=== PATIENT | male | born 1940 | race Caucasian/White ===

== ENCOUNTER → 2017-02-16 | Outpatient (CLI) | payer OTHER ==
[~2017-02-16] MED LIST: ACET325T96 PO; APR25 PO; ASPI81TA28 PO; BSP/10 PO; CRD200 PO; CZR50 PO; FLM4 PO; GLCSR10 PO; GUAI1TAB55 PO; INSDGIPEN SC; IPRASOL4 INH; ISOS60TA25 PO; LEVO1TAB35 PO; LSX40 PO; NEBMAC; NITR0.4S UT; NTRGSL/4 SL; OMEP40CA41 PO; PLV75 PO; POTA1CAP2 PO; PRAV80TA2 PO; PRED50TA PO; PRS5 PO; TPRSR/25 PO
[2017-02-16 12:29] LABS: BLOOD UREA NITROGEN 73 mg/dl (7-18); BUN/CREATININE RATIO 21.4 (10-20); CALCIUM 8.9 mg/dl (8.5-10.1); CARBON DIOXIDE 23 mmol/L (21-32); CHLORIDE 111 mmol/L (98-107); GLUCOSE 116 mg/dl (70-99); POTASSIUM 4.6 mmol/L (3.5-5.1); SODIUM 144 mmol/L (136-145)
[2017-02-16 13:01] LABS: ESTIMATED AVERAGE GLUCOSE 148 mg/dl; HA1C FLAG Normal (Normal)
--- NOTE | 2017-02-23 08:59 | CODING QUERY MEDICAL NECESSITY ---
SUPPORTING DIAGNOSIS NEEDED A supporting diagnosis is required for the test/procedure performed on this patient in order for us to be reimbursed by the patient's insurance. Please provide a supporting diagnosis for the following test/procedure listed below next to the test name along with your signature. *If there is no additional diagnosis for this patient that would support the following test/procedure please document that below next to the test/procedure. Test(s)/Procedure(s) that require a supporting diagnosis: DOS 02/16 * Hba1c DIAGNOSIS: Provider Signature: Date: Thank you Nuha [facility] Information [facility] Once completed, please kindly fax back to [phone] For questions please call [phone]
== END | disposition home or self-care (01) ==
LOC: C.LABPVFM 09:07
PROVIDERS: ATTEND Internal Medicine
DX: I10 Essential (primary) hypertension (principal); R94.6 Abnormal results of thyroid function studies; E11.65 Type 2 diabetes mellitus with hyperglycemia

== ENCOUNTER → 2017-05-21 | Outpatient (CLI) | payer OTHER ==
[~2017-05-21] MED LIST changes: +GUAI600T49 PO; +POTA10CA28 PO
[2017-05-21 12:55] LABS: BASO % 0.6 %; BASO ABS # 0.03 K/uL (0-0.2); COMPLETE YES; HEMATOCRIT 37.1 % (42-52); IG% 0.4 %; LYMPH % 26.2 %; LYMPH ABS # 1.25 K/uL (1.2-3.4); MEAN CELL VOLUME 89.2 fL (80-100); MEAN CORPUSCULAR HEMOGLOBIN 30.5 pg (25-34); MEAN CORPUSCULAR HGB CONC 34.2 g/dl (32-36); MEAN PLATELET VOLUME 10.6 fL (7.4-10.4); MONO % 9.2 %; NEUT % 63.6 %; PLATELET COUNT 158 K/uL (130-400); RED BLOOD COUNT 4.16 M/uL (4.7-6.1); WHITE BLOOD COUNT 4.78 K/uL (4.8-10.8)
[2017-05-21 13:08] LABS: BLOOD UREA NITROGEN 81 mg/dl (7-18); BUN/CREATININE RATIO 23.9 (10-20); CALCIUM 8.9 mg/dl (8.5-10.1); CARBON DIOXIDE 25 mmol/L (21-32); CHLORIDE 111 mmol/L (98-107); GLUCOSE 138 mg/dl (70-99); POTASSIUM 4.7 mmol/L (3.5-5.1); SODIUM 144 mmol/L (136-145)
[2017-05-21 13:12] LABS: ESTIMATED AVERAGE GLUCOSE 151 mg/dl; HA1C FLAG Normal (Normal)
--- NOTE | 2017-05-27 12:27 | CODING QUERY MEDICAL NECESSITY ---
SUPPORTING DIAGNOSIS NEEDED A supporting diagnosis is required for the test/procedure performed on this patient in order for us to be reimbursed by the patient's insurance. Please provide a supporting diagnosis for the following test/procedure listed below next to the test name along with your signature. *If there is no additional diagnosis for this patient that would support the following test/procedure please document that below next to the test/procedure. Test(s)/Procedure(s) that require a supporting diagnosis: * HEMOGLOBIN A1C DIAGNOSIS: Provider Signature: Date: Thank you Ruby Velez [employer] Information Management Once completed, please kindly fax back to [phone] For questions please call [phone]
== END | disposition home or self-care (01) ==
LOC: C.LABPVFM 09:14
PROVIDERS: ATTEND Internal Medicine
DX: R94.6 Abnormal results of thyroid function studies (principal); E11.9 Type 2 diabetes mellitus without complications

== ENCOUNTER → 2017-06-02 | Outpatient (CLI) | payer OTHER ==
[~2017-06-02] MED LIST changes: -GUAI600T49 PO; -POTA10CA28 PO
== END | disposition home or self-care (01) ==
LOC: C.LABPVFM 08:51
PROVIDERS: ATTEND Urology
DX: N40.1 Benign prostatic hyperplasia with lower urinary tract symptoms (principal)

== ENCOUNTER → 2017-08-24 | Outpatient (CLI) | payer OTHER ==
[2017-08-24 17:33] LABS: BASO % 0.7 %; BASO ABS # 0.04 K/uL (0-0.2); COMPLETE YES; HEMATOCRIT 39.7 % (42-52); IG% 0.2 %; LYMPH % 22.9 %; LYMPH ABS # 1.32 K/uL (1.2-3.4); MEAN CELL VOLUME 94.7 fL (80-100); MEAN CORPUSCULAR HEMOGLOBIN 30.1 pg (25-34); MEAN CORPUSCULAR HGB CONC 31.7 g/dl (32-36); MEAN PLATELET VOLUME 10.2 fL (7.4-10.4); MONO % 9.5 %; NEUT % 66.7 %; PLATELET COUNT 183 K/uL (130-400); RED BLOOD COUNT 4.19 M/uL (4.7-6.1); WHITE BLOOD COUNT 5.76 K/uL (4.8-10.8)
[2017-08-24 18:24] LABS: ALT/SGPT 17 U/L (12-78); AST/SGOT 15 U/L (15-37); BLOOD UREA NITROGEN 71 mg/dl (7-18); CALCIUM 8.3 mg/dl (8.5-10.1); CARBON DIOXIDE 24 mmol/L (21-32); CHLORIDE 113 mmol/L (98-107); GLUCOSE 108 mg/dl (70-99); POTASSIUM 4.7 mmol/L (3.5-5.1); SODIUM 146 mmol/L (136-145)
[2017-08-24 18:34] LABS: CHOLESTEROL 151 mg/dl (0-200); CHOLESTEROL/HDL RATIO 5.2; HDL CHOLESTEROL 29 mg/dl; LDL CHOLESTEROL CALCULATED 93 mg/dl; TRIGLYCERIDES 145 mg/dl (0-150); VERY LOW DENSITY LIPOPROT CALC 29 mg/dl
[2017-08-25 05:49] LABS: ESTIMATED AVERAGE GLUCOSE 137 mg/dl; HA1C FLAG Normal (Normal)
--- NOTE | 2017-08-30 11:26 | CODING QUERY MEDICAL NECESSITY ---
SUPPORTING DIAGNOSIS NEEDED Dr. Atkins, A supporting diagnosis is required for the test/procedure performed on this patient in order for us to be reimbursed by the patient's insurance. Please provide a supporting diagnosis for the following test/procedure listed below next to the test name along with your signature. *If there is no additional diagnosis for this patient that would support the following test/procedure please document that below next to the test/procedure. Test(s)/Procedure(s) that require a supporting diagnosis: * [id number] GLYCATED HEMOGLOBIN DIAGNOSIS: DATE OF SERVICE: 08/24/17 Provider Signature: Date: Thank you Fernando Khan [facility] Information Management Once completed, please kindly fax back to [phone] For questions please call [phone]
== END | disposition home or self-care (01) ==
LOC: C.LABPVFM 10:54
PROVIDERS: ATTEND Internal Medicine
DX: Q25.3 Supravalvular aortic stenosis (principal)

== ENCOUNTER 2017-09-02 16:33 | Emergency (ER) | payer OTHER ==
[~2017-09-02] VITALS: Ht 165.1 cm; Wt 101.5 kg
[~2017-09-02 16:33] MED LIST changes: -APR25 PO; -ASPI81TA28 PO; -BSP/10 PO; -CRD200 PO; -CZR50 PO; -GLCSR10 PO; -GUAI1TAB55 PO; -INSDGIPEN SC; -IPRASOL4 INH; -ISOS60TA25 PO; -LEVO1TAB35 PO; -LSX40 PO; -NEBMAC; -NITR0.4S UT; -OMEP40CA41 PO; -PLV75 PO; -POTA1CAP2 PO; -PRAV80TA2 PO; -PRED50TA PO; -PRS5 PO; -TPRSR/25 PO
[2017-09-02 16:35] VITALS: TEMP 36.4; Ht 165.1 cm; Wt 101.5 kg
--- NOTE | 2017-09-02 17:00 | EMERGENCY ROOM VISIT NOTE ---
History First contact with patient: 16:42 Chief Complaint: RESPIRATORY PROBLEMS Stated Complaint: SHORTNESS OF BREATH History of Present Illness The patient is a 77 year old male who presents to the Emergency Room with complaints of a productive cough and shortness of breath for the last 4 days. The patient has a history of COPD. He still smokes. He reports taking his inhaler at home with no relief. He denies any fever or chills. No recent weight gain that he knows of. He denies any chest pain. He does have a history of cardiac disease and has a pacemaker/defibrillator. Review of Systems 10 system review performed and negative unless noted in HPI or below Past Medical/Surgical History Medical Problems: (1) Acute kidney injury (2) AICD (automatic cardioverter/defibrillator) present (3) Aortic valve disorder (4) Arteriosclerotic vascular disease (5) Atrial fibrillation with rapid ventricular response (6) Benign essential hypertension (7) Biventricular congestive heart failure (8) Cardiac arrest (9) CHF (congestive heart failure) (10) CHF (congestive heart failure) (11) Chronic obstructive pulmonary disease (12) Chronic renal impairment (13) Coronary artery disease (14) Diabetes (15) GI bleed (16) Hypercholesterolemia (17) Ischemic cardiomyopathy (18) Kidney disease, chronic, stage IV (GFR 15-29 ml/min) (19) Knee contusion (20) Lower gastrointestinal hemorrhage (21) Proteinuria (22) Urinary retention (23) Urinary tract infection (24) Urinary tract infection (25) UTI (urinary tract infection) (26) Ventricular tachycardia (27) Weakness (28) Weakness (29) Weakness Family History No pertinent family history Social History Smoking Status: Current Every Day Smoker Alcohol Use: none Drug Use: none Marital Status: Housing Status: lives with significant other Occupation Status: retired Current/Historical Medications Scheduled Amiodarone HCl (Amiodarone HCl), 100 MG PO QAM Aspirin (Aspirin Ec), 81 MG PO QAM Buspirone HCl (Buspirone HCl), 10 MG PO AMHS Clopidogrel Bisulfate (Clopidogrel), 75 MG PO QAM Finasteride (Finasteride), 5 MG PO HS Furosemide (Furosemide), 40 MG PO QAM Glipizide (Glipizide ER), 5 MG PO QAM Guaifenesin Ext Rel (Mucinex Ext Rel), 600 MG PO AMHS Hydralazine Hcl (Apresoline), 25 MG PO AMHS Insulin Glargine (Lantus Solostar), 35 UNITS SC HS Isosorbide Mononitrate Ext Rel (Imdur Ext Rel), 90 MG PO QAM Levofloxacin (Levaquin), 750 MG PO Q48H Losartan Potassium (Losartan Potassium), 50 MG PO QAM Metoprolol Succinate (Metoprolol Succinate ER), 25 MG PO QAM Omeprazole (Prilosec), 40 MG PO QAM Potassium Chloride (Potassium Chloride Er), 30 MEQ PO TID Pravastatin Sodium (Pravastatin Sodium), 80 MG PO QAM Prednisone (Prednisone), 50 MG PO DAILY Tamsulosin HCl (Tamsulosin HCl), 0.4 MG PO HS Scheduled PRN Acetaminophen Tab (Tylenol), 650 MG PO Q6H PRN for Pain Ipratropium-Albuterol (Duoneb), 1 TREATMENT INH Q4H PRN for Shortness of Breath Nitroglycerin (Nitrostat), 0.4 MG UT UD PRN for Chest Pain Durable Medical Equipment Nebulizer Machine (Home Use) (Nebulizer Machine (Home Use) ), EA N/A UD Physical Exam Vital Signs Date Time Temp Pulse Resp B/P (MAP) Pulse Ox O2 Delivery O2 Flow Rate FiO2 09/02/17 20:22 94 Room Air 09/02/17 20:08 65 16 118/56 94 Room Air 09/02/17 19:16 62 09/02/17 18:20 88 20 119/54 93 Room Air 09/02/17 17:30 94 Room Air 09/02/17 17:24 Room Air 09/02/17 16:35 36.4 92 22 138/77 95 Room Air Physical Exam VITALS: Vitals are noted on the nurse's note and reviewed by myself. Vital signs stable. GENERAL: 77-year-old male, obviously short of breath., in no acute distress, SKIN: The skin was without rashes, erythema, edema, or bruising. HEAD: Normocephalic atraumatic. MOUTH: Mucous membranes dry NECK: No JVD. HEART: Regular rate and rhythm without murmurs gallops or rubs. LUNGS: Diffuse wheezing throughout. No crackles or rhonchi. Positive tachypnea. ABDOMEN: Positive bowel sounds x 4.Soft, nontender, without organomegaly. No guarding or rebound tenderness. MUSCULOSKELETAL: No muscle atrophy, erythema, or edema noted Strength 5/5 throughout. NEURO: Patient was alert and oriented to person place and time. Normal sensation to touch. No focal neurological deficits. Medical Decision & Procedures ER Provider Diagnostic Interpretation: CXR: IMPRESSION: 1. Cardiomegaly and pulmonary vascular congestion without overt pulmonary edema. 2. Hazy right greater than left bibasilar opacities suggest atelectasis or less likely pneumonia. Laboratory Results 09/02/17 17:00 Red Blood Count 4.10, Mean Corpuscular Volume 91.0, Mean Corpuscular Hemoglobin 29.8, Mean Corpuscular Hemoglobin Concent 32.7, Mean Platelet Volume 9.9, Neutrophils (%) (Auto) 69.1, Lymphocytes (%) (Auto) 22.3, Monocytes (%) (Auto) 7.9, Eosinophils (%) (Auto) 0.0, Basophils (%) (Auto) 0.5, Neutrophils # (Auto) 4.53, Lymphocytes # (Auto) 1.46, Monocytes # (Auto) 0.52, Eosinophils # (Auto) 0.00, Basophils # (Auto) 0.03 09/02/17 17:00 Test 09/02/17 17:00 09/02/17 18:18 White Blood Count 6.55 K/uL (4.8-10.8) Red Blood Count 4.10 M/uL (4.7-6.1) Hemoglobin 12.2 g/dL (14.0-18.0) Hematocrit 37.3 % (42-52) Mean Corpuscular Volume 91.0 fL (80-100) Mean Corpuscular Hemoglobin 29.8 pg (25-34) Mean Corpuscular Hemoglobin Concent 32.7 g/dl (32-36) Platelet Count 192 K/uL (130-400) Mean Platelet Volume 9.9 fL (7.4-10.4) Neutrophils (%) (Auto) 69.1 % Lymphocytes (%) (Auto) 22.3 % Monocytes (%) (Auto) 7.9 % Eosinophils (%) (Auto) 0.0 % Basophils (%) (Auto) 0.5 % Neutrophils # (Auto) 4.53 K/uL (1.4-6.5) Lymphocytes # (Auto) 1.46 K/uL (1.2-3.4) Monocytes # (Auto) 0.52 K/uL (0.11-0.59) Eosinophils # (Auto) 0.00 K/uL (0-0.5) Basophils # (Auto) 0.03 K/uL (0-0.2) RDW Standard Deviation 49.1 fL (36.4-46.3) RDW Coefficient of Variation 14.7 % (11.5-14.5) Immature Granulocyte % (Auto) 0.2 % Immature Granulocyte # (Auto) 0.01 K/uL (0.00-0.02) Anion Gap 6.0 mmol/L (3-11) Est Creatinine Clear Calc Drug Dose 21.5 ml/min Estimated GFR () 20.7 Estimated GFR (Non- 17.8 BUN/Creatinine Ratio 19.9 (10-20) Calcium Level 8.9 mg/dl (8.5-10.1) Total Bilirubin 0.4 mg/dl (0.2-1) Aspartate Amino Transf (AST/SGOT) 17 U/L (15-37) Alanine Aminotransferase (ALT/SGPT) 16 U/L (12-78) Alkaline Phosphatase 48 U/L (45-117) Total Creatine Kinase 59 U/L (39-308) Creatine Kinase MB 1.6 ng/ml (0.5-3.6) Creatine Kinase MB Ratio 2.7 (0-3.0) Troponin I < 0.015 ng/ml (0-0.045) Total Protein 7.4 gm/dl (6.4-8.2) Albumin 3.9 gm/dl (3.4-5.0) Globulin 3.5 gm/dl (2.5-4.0) Albumin/Globulin Ratio 1.1 (0.9-2) Influenza Type A (RT-PCR) Neg for Influ A (NEG) Influenza Type B (RT-PCR) Neg for Influ B (NEG) Medications Administered Medications (Trade) Dose Ordered Sig/Monica Route Start Time Stop Time Status Last Admin Dose Admin Albuterol/ Ipratropium (Duoneb) 3 ml ONE STAT INH 09/02/17 17:01 09/02/17 17:02 DC 09/02/17 17:19 3 ML Methylprednisolone Sodium Succinate (Solu-Medrol IV) 125 mg NOW STAT IV 09/02/17 17:01 09/02/17 17:02 DC 09/02/17 17:19 125 MG Levofloxacin (Levaquin / D5W) 750 mg NOW ONCE IV 09/02/17 18:15 09/02/17 18:16 DC 09/02/17 18:15 750 MG Sodium Chloride 250 ml @ 999 mls/hr Q16M STAT IV 09/02/17 18:03 09/02/17 18:18 DC 09/02/17 18:15 999 MLS/HR Albuterol/ Ipratropium (Duoneb) 3 ml ONE STAT INH 09/02/17 18:41 09/02/17 18:42 DC 09/02/17 19:03 3 ML ECG Indication: SOB/dyspnea Rate (beats per minute): 84 Rhythm: other (atrial paced) Findings: paced rhythm Change: no significant change ED Course Patient was seen and examined Vital signs including blood pressure were reviewed medications list was verified with patient Labs were obtained, and a saline lock was established The patient was given a nebulizer treatment. His workup was reviewed. He was given Solu-Medrol 125 mg IV. He was also given 1 dose of Levaquin 750 mg IV. The patient was given 1 more nebulizer treatment. He was feeling much better. An oxygen trial was performed. The patient did not desaturate. He remained at 94%. I discussed the patient's workup with him. He voiced understanding. He was comfortable being discharged home. I reviewed discharge instructions the patient. They voiced understanding and had no further questions. Medical Decision Differential diagnosis: COPD exacerbation, acute bronchitis, pneumonia, CHF exacerbation, viral illness, PE This patient is a 77-year-old male that presents to the emergency department with productive cough and shortness of breath. He is a smoker. He has a history of COPD and coronary disease. On exam, the patient had diffuse wheezing. A chest x-ray revealed bibasilar opacities. I believe this is likely an acute community acquired pneumonia. I do not suspect his symptoms were cardiac related. He did not have any chest pain or pressure. His cardiac enzymes are negative. The patient told me that he has refused oxygen in the past, because he will stop smoking. Fortunately, the patient did not desaturate upon ambulation. He had good symptomatically for in the emergency department. He was comfortable being discharged home. He was cautioned on the importance of close follow-up with his primary care physician. I also wrote patient a prescription for a nebulizer in addition to albuterol, prednisone and Levaquin. He was advised to return with any new or worsening symptoms. This chart was completed in part utilizing [employer] Speech Voice Recognition software. Attempts were made to minimize the grammatical errors, random word insertions, pronoun errors and incomplete sentences. Any formal questions or concerns about the content, text or information contained within the body of this dictation should be directly addressed to the provider for clarification. Medication Reconcilliation Current Medication List: was personally reviewed by me Blood Pressure Screening Patient's blood pressure: Normal blood pressure Impression Primary Impression: Pneumonia Departure Information Dispostion Home / Self-Care Condition FAIR Prescriptions Nebulizer Machine (Home Use) (NEBULIZER MACHINE (HOME USE) ) Mis EA N/A UD, #1 Prov: Dorinda Swanson PA-C 09/02/17 Prednisone (Prednisone) 50 Mg Tab 50 MG PO DAILY for 4 Days, #4 TAB First dose 09/03 Prov: Dorinda Swanson PA-C 09/02/17 Ipratropium-Albuterol (DUONEB) 3 Ml Nebu 1 TREATMENT INH Q4H Y for Shortness of Breath, #30 INHA Prov: Dorinda Swanson PA-C 09/02/17 Levofloxacin (Levaquin) 750 Mg Tab 750 MG PO Q48H, #4 TAB FIRST DOSE 09/04 Prov: Dorinda Swanson PA-C 09/02/17 Referrals No Doctor, Assigned (PCP) Patient Instructions ED Pneumonia Adult, [facility] Additional Instructions You were evaluated in the emergency department for difficulty breathing and a cough. You have been diagnosed with pneumonia. Please take the entire course of antibiotics (Levaquin). The first dose will be on Wednesday, 09/04 Please finish the entire course of Prednisone. Start Wednesday, 09/03 Take the nebulizer treatments every 6 hours as needed for difficulty breathing. Please follow-up with your primary care physician tomorrow. Return to the emergency department with any new or worsening symptoms.
[2017-09-02] MEDS ORDERED: ALBUT/IPRATROP 3MG/0.5MG NEB 3 ML VIAL INH STA ×2 (17:01→18:41)
[2017-09-02] MEDS ORDERED: METHYLPREDNISOLONE 125 MG VIAL IV STA (17:01)
[2017-09-02 17:16] LABS: BASO % 0.5 %; BASO ABS # 0.03 K/uL (0-0.2); COMPLETE YES; HEMATOCRIT 37.3 % (42-52); IG% 0.2 %; LYMPH % 22.3 %; LYMPH ABS # 1.46 K/uL (1.2-3.4); MEAN CORPUSCULAR HEMOGLOBIN 29.8 pg (25-34); MEAN CORPUSCULAR HGB CONC 32.7 g/dl (32-36); MEAN PLATELET VOLUME 9.9 fL (7.4-10.4); MONO % 7.9 %; NEUT % 69.1 %; PLATELET COUNT 192 K/uL (130-400); WHITE BLOOD COUNT 6.55 K/uL (4.8-10.8)
[2017-09-02] MEDS ORDERED: NITR0.4S UT (17:23)
[2017-09-02 17:33] LABS: ALT/SGPT 16 U/L (12-78); BLOOD UREA NITROGEN 64 mg/dl (7-18); BUN/CREATININE RATIO 19.9 (10-20); CALCIUM 8.9 mg/dl (8.5-10.1); CARBON DIOXIDE 24 mmol/L (21-32); CHLORIDE 113 mmol/L (98-107); GLUCOSE 146 mg/dl (70-99); POTASSIUM 5.1 mmol/L (3.5-5.1); SODIUM 142 mmol/L (136-145)
[2017-09-02 17:38] LABS: ALB/GLOB RATIO 1.1 (0.9-2); ALKALINE PHOSPHATASE 48 U/L (45-117); AST/SGOT 17 U/L (15-37); CKMB/CK RATIO 2.7 (0-3.0)
--- NOTE | 2017-09-02 17:41 | DIAGNOSTIC IMAGING REPORT ---
CHEST ONE VIEW PORTABLE HISTORY: 77 years-old Male SOB prod cough acute shortness of breath COMPARISON: Chest radiograph 11/21/2015 TECHNIQUE: Portable upright AP view of the chest FINDINGS: Cardiac silhouette is moderately enlarged. There is atherosclerosis of the aorta. Left pectoral pacer/AICD is noted with leads appearing intact. There is no pneumothorax or large pleural effusion. Pulmonary vascular congestion is noted without overt pulmonary edema. There are hazy bibasilar opacities right greater than left, similar to slightly progressed from comparison. Bones are grossly intact. Moderate degenerative changes of the right shoulder. IMPRESSION: 1. Cardiomegaly and pulmonary vascular congestion without overt pulmonary edema. 2. Hazy right greater than left bibasilar opacities suggest atelectasis or less likely pneumonia. The above report was generated using voice recognition software. It may contain grammatical, syntax or spelling errors. Electronically signed by: Getachew Silva M.D. 09/02/2017 5:40 PM Dictated Date/Time: 09/02/2017 5:37 PM
[2017-09-02] MEDS ORDERED: SODIUM CHLORIDE 0.9% 250ML 250 ML IV STA (18:03)
[2017-09-02] MEDS ORDERED: LEVAQUIN 750MG / 150ML D5W IV ONE (18:15)
[2017-09-02] MEDS ORDERED: PRAV80TA2 PO (19:26)
[2017-09-02] MEDS ORDERED: GLCSR10 PO (19:26)
[2017-09-02] MEDS ORDERED: OMEP40CA41 PO (19:27)
[2017-09-02] MEDS ORDERED: APR25 PO (19:27)
[2017-09-02] MEDS ORDERED: PRS5 PO (19:27)
[2017-09-02] MEDS ORDERED: PLV75 PO (19:27)
[2017-09-02] MEDS ORDERED: CRD200 PO (19:27)
[2017-09-02] MEDS ORDERED: POTA1CAP2 PO (19:27)
[2017-09-02] MEDS ORDERED: TPRSR/25 PO (19:27)
[2017-09-02] MEDS ORDERED: BSP/10 PO (19:27)
[2017-09-02] MEDS ORDERED: INSDGIPEN SC (19:27)
[2017-09-02] MEDS ORDERED: LSX40 PO (19:27)
[2017-09-02] MEDS ORDERED: CZR50 PO (19:27)
[2017-09-02] MEDS ORDERED: GUAI1TAB55 PO (19:30)
[2017-09-02 20:01] LABS: INFLUENZA A PCR Neg for Influ A (NEG); INFLUENZA B PCR Neg for Influ B (NEG)
[2017-09-02 20:08] VITALS: BP 118/56; PULSE 65
[2017-09-02 20:22] VITALS: O2SAT 94
[2017-09-02] MEDS ORDERED: LEVO1TAB35 PO (20:41)
[2017-09-02] MEDS ORDERED: PRED50TA PO (20:42)
[2017-09-02] MEDS ORDERED: NEBMAC (20:42)
[2017-09-02] MEDS ORDERED: IPRASOL4 INH (20:42)
[2017-09-02] MEDS ORDERED: ISOS60TA25 PO (21:10)
[2017-09-02] MEDS ORDERED: ASPI81TA28 PO (23:38)
== END 2017-09-02 20:50 | disposition home or self-care (01) ==
LOC: C.EDB 16:34 → C.EDC 20:50
DX: J18.9 Pneumonia, unspecified organism (principal); I10 Essential (primary) hypertension; I50.9 Heart failure, unspecified; E11.9 Type 2 diabetes mellitus without complications; I25.10 Atherosclerotic heart disease of native coronary artery without angina pectoris; N18.4 Chronic kidney disease, stage 4 (severe); E78.00 Pure hypercholesterolemia, unspecified; F17.200 Nicotine dependence, unspecified, uncomplicated; Z79.82 Long term (current) use of aspirin

== ENCOUNTER → 2017-10-18 | Day surgery (SDC) | payer OTHER ==
[2017-10-05 11:05] VITALS: BMI 38.0; BMI 39.0
[~2017-10-18] VITALS: Ht 160 cm; Wt 97.7 kg
[~2017-10-18] MED LIST changes: +APR25 PO; +ASPI81TA28 PO; +ATROPINE SULFATE 0.1 MG/ML 5ML SYR IV PRN; +BSP/10 PO; +CRD200 PO; +CZR50 PO; +EpHEDrine SULFATE INJ 50 MG/ML AMP IV PRN; +GLCSR10 PO; +GUAI600T49 PO; +INSDGIPEN SC; +ISOS60TA25 PO; +LSX40 PO; +NITR0.4S UT; -NTRGSL/4 SL; +OMEP40CA41 PO; +PHENYLEPHRINE 100MCG/ML 5ML SYR ONE; +PLV75 PO; +POTA10CA28 PO; +POTA1CAP2 PO; +PRAV80TA2 PO; +PROPOFOL IV EMULSION 10 MG/ML 20 ML VIAL IV ONE; +PRS5 PO; +SODIUM CHLORIDE 0.9% 500ML 500 ML IV ONE; +TPRSR/25 PO
[2017-10-18 10:08] VITALS: Ht 160 cm; Wt 97.7 kg
--- NOTE | 2017-10-18 11:00 | Endo History and Physical ---
History & Physical Date of Service: Oct 18, 2017. Chief Complaint: SCREENING FOR COLON CA Referring Physician: DR. JODI BARRIGA History of Present Illness 77 yo CM who presents for screening colonoscopy. Past Medical History Diabetes, Arthritis, Male Genitourinary Prob., Anxiety, Sleep Apnea, Heart Disease, Hypertension, COPD, Kidney Disease, CVA/TIA, MD Past Surgical History Hx Cardiac Surgery: Yes (HEART CATH, NO STENTS) Hx Internal Defibrillator: Yes (06/2015) Hx Pacemaker: Yes (06/2015) Hx Abdominal Surgery: No Hx of Implantable Prosthesis: No Hx Post-Op Nausea and Vomiting: No Hx Cancer Surgery: No Hx Thoracic Surgery: No Hx Orthopedic: No Hx Urinary Tract Surgery: Yes (STENT IN ARTERY BY KIDNEY) Family History None Social History Smoking Status: Current Every Day Smoker Hx Substance Use: No Hx Alcohol Use: No Allergies Coded Allergies: No Known Allergies (Verified , 10/05/17) Current Medications Reported Home Medications Medications Dose Route/Sig Max Daily Dose Days Date Category Dose Instructions Micro-K Ext Rel (Potassium Chloride) 10 Meq Capcr 10 Meq PO QPM 10/05/17 Reported Mucus Relief Er (Guaifenesin) 600 Mg Tab 1 Tab PO BID 10/05/17 Reported Nitrostat (Nitroglycerin) 0.4 Mg Sub 0.4 Mg UT UD PRN 09/02/[address] ONE TABLET UNDER THE TONGUE EVERY 5 MINUTES FOR UP TO 3 DOSES IF NEEDED FOR CHEST PAIN Furosemide 40 Mg Tab 3 Tabs PO QAM 11/06/16 Reported Lantus Solostar (Insulin Glargine) 100 Unit/Ml Inj 35 Units SC HS 11/06/16 Reported Apresoline (Hydralazine Hcl) 25 Mg Tab 25 Mg PO BID 11/06/16 Reported Prilosec (Omeprazole) 40 Mg Cap 40 Mg PO QAM 11/06/16 Reported Amiodarone HCl 200 Mg Tab 0.5 Tab PO QAM 11/06/16 Reported Metoprolol Succinate ER (Metoprolol Succinate) 25 Mg Tabcr 25 Mg PO QAM 11/06/16 Reported Potassium Chloride Er (Potassium Chloride) 10 Meq Cap 2 Tabs PO QAM 11/06/16 Reported Losartan Potassium 50 Mg Tab 50 Mg PO QAM 11/06/16 Reported Buspirone HCl 10 Mg Tab 10 Mg PO BID 11/06/16 Reported Clopidogrel (Clopidogrel Bisulfate) 75 Mg Tab 75 Mg PO QAM 11/06/16 Reported Finasteride 5 Mg Tab 5 Mg PO HS 11/06/16 Reported Glipizide ER (Glipizide) 10 Mg Tabcr 0.5 Tab PO QAM 11/06/16 Reported Pravastatin Sodium 80 Mg Tab 80 Mg PO QAM 11/06/16 Reported Tylenol (Acetaminophen) 325 Mg Tab 650 Mg PO Q6H PRN 09/02/14 Reported Tamsulosin HCl 0.4 Mg Cap 0.4 Mg PO HS 09/02/14 Reported Aspirin Ec (Aspirin) 81 Mg Tab 81 Mg PO QAM 05/16/13 Reported Imdur Ext Rel (Isosorbide Mononitrate) 60 Mg Ertab 90 Mg PO QAM 08/04/08 Reported Vital Signs Weight (Kilograms): 97.73 Height (Feet): 5 Height (Inches): 3 Date Time Temp Pulse Resp B/P (MAP) Pulse Ox O2 Delivery O2 Flow Rate FiO2 10/18/17 10:25 36.5 75 22 97/56 (70) 95 Room Air Physical Exam General Appearance: WD/WN, no apparent distress Respiratory/Chest: Auscultation: breath sounds normal Cardiovascular: Heart Auscultation: RRR Abdomen: Bowel Sounds: normal Inspection & Palpation: soft, non-distended, no tenderness, guarding & rebound Assessment and Plan Assessment: 77 yo CM who presents for screening colonoscopy. Plan: Proceed with colonoscopy.
--- NOTE | 2017-10-18 11:40 | Anesthesiology Progress Note ---
Anesthesia Post Op Note Date & Time Oct 18, 2017 at 11:40 Vital Signs Pain Intensity: 0 Vital Signs Past 12 Hours Date Time Temp Pulse Resp B/P (MAP) Pulse Ox O2 Delivery O2 Flow Rate FiO2 10/18/17 10:25 36.5 75 22 97/56 (70) 95 Room Air Notes Mental Status: alert / awake / arousable, participated in evaluation Pt Amnestic to Procedure: Yes Nausea / Vomiting: adequately controlled Pain: adequately controlled Airway Patency, RR, SpO2: stable & adequate BP & HR: stable & adequate Hydration State: stable & adequate Anesthetic Complications: no major complications apparent
--- NOTE | 2017-10-18 11:50 | GI REPORT ---
Procedure Date: 10/18/2017 10:34 AM Procedure: Colonoscopy Indications: High risk colon cancer surveillance: Personal history of colonic polyps Medicines: Monitored Anesthesia Care Complications: No immediate complications. Estimated Blood Loss: Estimated blood loss: none. Procedure: Pre-Anesthesia Assessment: - Prior to the procedure, a History and Physical was performed, and patient medications and allergies were reviewed. The patient's tolerance of previous anesthesia was also reviewed. The risks and benefits of the procedure and the sedation options and risks were discussed with the patient. All questions were answered, and informed consent was obtained. Prior Anticoagulants: The patient last took aspirin 3 days and Plavix (clopidogrel) 3 days prior to the procedure. ASA Grade Assessment: IV - A patient with severe systemic disease that is a constant threat to life. After reviewing the risks and benefits, the patient was deemed in satisfactory condition to undergo the procedure. After I obtained informed consent, the scope was passed under direct vision. Throughout the procedure, the patient's blood pressure, pulse, and oxygen saturations were monitored continuously. The Scope was introduced through the anus and advanced to the terminal ileum. The colonoscopy was performed without difficulty. The patient tolerated the procedure well. The quality of the bowel preparation was good. The terminal ileum, ileocecal valve, appendiceal orifice, and rectum were photographed. Findings: Four sessile polyps were found in the transverse colon and in the ascending colon. The polyps were 5 to 8 mm in size. These polyps were removed with a hot snare. Resection and retrieval were complete. Multiple small-mouthed diverticula were found in the sigmoid colon. Non-bleeding internal hemorrhoids were found during retroflexion. The hemorrhoids were small. Impression: - Four 5 to 8 mm polyps in the transverse colon and in the ascending colon, removed with a hot snare. Resected and retrieved. - Diverticulosis in the sigmoid colon. - Non-bleeding internal hemorrhoids. Recommendation: - Resume previous diet. - Continue present medications. - Repeat colonoscopy for surveillance based on pathology results. - Return to primary care physician as previously scheduled. Irwin Zuniga DO 10/18/2017 11:49:24 AM This report has been signed electronically. Note Initiated On: 10/18/2017 10:34 AM I attest to the content of the Intraoperative Record and orders documented therein, exceptions below
--- NOTE | 2017-10-18 11:52 | Discharge Instructions ---
Endoscopy Patient Instructions Date / Procedure(s) Performed Oct 18, 2017. Colonoscopy Allergy Information Coded Allergies: No Known Allergies (Verified , 10/05/17) Discharge Date / Findings Oct 18, 2017. Colon polyps Diverticulosis Internal hemorrhoids Medication Instructions Stopped Medication(s): ASPRIN AND PLAVIX OK to resume all medications today as prescribed Reported Home Medications Medications Dose Route/Sig Max Daily Dose Days Date Category Dose Instructions Micro-K Ext Rel (Potassium Chloride) 10 Meq Capcr 10 Meq PO QPM 10/05/17 Reported Mucus Relief Er (Guaifenesin) 600 Mg Tab 1 Tab PO BID 10/05/17 Reported Nitrostat (Nitroglycerin) 0.4 Mg Sub 0.4 Mg UT UD PRN 09/02/[address] ONE TABLET UNDER THE TONGUE EVERY 5 MINUTES FOR UP TO 3 DOSES IF NEEDED FOR CHEST PAIN Furosemide 40 Mg Tab 3 Tabs PO QAM 11/06/16 Reported Lantus Solostar (Insulin Glargine) 100 Unit/Ml Inj 35 Units SC HS 11/06/16 Reported Apresoline (Hydralazine Hcl) 25 Mg Tab 25 Mg PO BID 11/06/16 Reported Prilosec (Omeprazole) 40 Mg Cap 40 Mg PO QAM 11/06/16 Reported Amiodarone HCl 200 Mg Tab 0.5 Tab PO QAM 11/06/16 Reported Metoprolol Succinate ER (Metoprolol Succinate) 25 Mg Tabcr 25 Mg PO QAM 11/06/16 Reported Potassium Chloride Er (Potassium Chloride) 10 Meq Cap 2 Tabs PO QAM 11/06/16 Reported Losartan Potassium 50 Mg Tab 50 Mg PO QAM 11/06/16 Reported Buspirone HCl 10 Mg Tab 10 Mg PO BID 11/06/16 Reported Clopidogrel (Clopidogrel Bisulfate) 75 Mg Tab 75 Mg PO QAM 11/06/16 Reported Finasteride 5 Mg Tab 5 Mg PO HS 11/06/16 Reported Glipizide ER (Glipizide) 10 Mg Tabcr 0.5 Tab PO QAM 11/06/16 Reported Pravastatin Sodium 80 Mg Tab 80 Mg PO QAM 11/06/16 Reported Tylenol (Acetaminophen) 325 Mg Tab 650 Mg PO Q6H PRN 09/02/14 Reported Tamsulosin HCl 0.4 Mg Cap 0.4 Mg PO HS 09/02/14 Reported Aspirin Ec (Aspirin) 81 Mg Tab 81 Mg PO QAM 05/16/13 Reported Imdur Ext Rel (Isosorbide Mononitrate) 60 Mg Ertab 90 Mg PO QAM 08/04/08 Reported Provider Instructions Activity Restrictions - No exercising or heavy lifting for 24 hours. - Do not drink alcohol the day of the procedure. - Do not drive a car or operate machinery until the day after the procedure. - Do not make any important decisions or sign important papers in 24 hours after the procedure. Following Day: - Return to full activity which may include returning to work/school. Diet Start your diet with liquids and light foods (jello, soup, juice, toast). Then eat your usual diet if not nauseated. Treatment For Common After Affects For mild abdominal pain, bloating, or excessive gas: - Rest - Eat lightly - Lie on right side Follow-Up Information Follow-up with DR. JODI BARRIGA as scheduled Anesthesia Information What You Should Know You have had a procedure that required some medicine to reduce anxiety and discomfort. This treatment is called moderate sedation. After receiving the treatment, you may be sleepy, but you will be able to breathe on your own. The effects of the treatment may last for several hours. Follow these instructions along with Activity/Diet recommendations noted above: * Do NOT do anything where dizziness or clumsiness would be dangerous. * Rest quietly at home today, then you can be up and about tomorrow. * Have a responsible person stay with you the rest of today. * You may have had an I.V. today. If so, you may take the dressing off later today. Recommendations Call your doctor if: * Trouble breathing * Continuous vomiting for more than 24 hours * Temperature above 101 degrees * Severe abdominal pain or bloating * Pain not relieved by pain medicine ordered * There is increased drainage or redness from any incision * A large amount of rectal bleeding greater than 2-3 tablespoons. (If you had a polyp/s removed or have hemorrhoids, a small amount of blood - from the rectum is to be expected.) * You have any unanswered questions or concerns. IN THE EVENT OF A SERIOUS EMERGENCY, GO TO THE NEAREST EMERGENCY ROOM Your discharge instructions were prepared by provider Irwin Zuniga. Patient Instructions Signature Page Christopher Peña Patient (or Guardian) Signature/Date: I have read and understand the instructions given to me by my caregivers. Caregiver/RN/Doctor Signature/Date: The above-named patient and/or guardian has received patient instructions on this date. + Original Patient Signature Page (only) stays with chart. Please make copy for patient.
[2017-10-18 12:05] VITALS: BP 108/57; PULSE 60; O2SAT 98
== END | disposition home or self-care (01) ==
LOC: C.GI 09:41
PROVIDERS: ATTEND Internal Medicine
DX: Z12.11 Encounter for screening for malignant neoplasm of colon (principal); D12.2 Benign neoplasm of ascending colon; D12.3 Benign neoplasm of transverse colon; K57.90 Diverticulosis of intestine, part unspecified, without perforation or abscess without bleeding; K64.8 Other hemorrhoids; E11.22 Type 2 diabetes mellitus with diabetic chronic kidney disease; Z79.4 Long term (current) use of insulin; I12.9 Hypertensive chronic kidney disease with stage 1 through stage 4 chronic kidney disease, or unspecified chronic kidney disease; N18.4 Chronic kidney disease, stage 4 (severe); F17.200 Nicotine dependence, unspecified, uncomplicated; I25.2 Old myocardial infarction

== ENCOUNTER → 2017-12-30 | Outpatient (CLI) | payer OTHER ==
[~2017-12-30] MED LIST changes: -ATROPINE SULFATE 0.1 MG/ML 5ML SYR IV PRN; -EpHEDrine SULFATE INJ 50 MG/ML AMP IV PRN; -PHENYLEPHRINE 100MCG/ML 5ML SYR ONE; -PROPOFOL IV EMULSION 10 MG/ML 20 ML VIAL IV ONE; -SODIUM CHLORIDE 0.9% 500ML 500 ML IV ONE
[2017-12-30 12:35] LABS: BASO % 0.4 %; BASO ABS # 0.03 K/uL (0-0.2); HEMOGLOBIN 12.7 g/dL (14.0-18.0); IG# 0.02 K/uL (0.00-0.02); LYMPH % 18.4 %; LYMPH ABS # 1.57 K/uL (1.2-3.4); MEAN CELL VOLUME 89.4 fL (80-100); MEAN CORPUSCULAR HEMOGLOBIN 29.9 pg (25-34); MEAN CORPUSCULAR HGB CONC 33.4 g/dl (32-36); MEAN PLATELET VOLUME 10.3 fL (7.4-10.4); MONO % 9.5 %; MONO ABS # 0.81 K/uL (0.11-0.59); NEUT % 71.5 %; NEUT ABS # 6.08 K/uL (1.4-6.5); PLATELET COUNT 180 K/uL (130-400); RED CELL DISTRIBUTION WIDTH CV 14.2 % (11.5-14.5); RED CELL DISTRIBUTION WIDTH SD 46.3 fL (36.4-46.3); WHITE BLOOD COUNT 8.51 K/uL (4.8-10.8)
[2017-12-30 13:18] LABS: HEMOGLOBIN A1C 6.9 % (4.5-5.6)
[2017-12-30 13:43] LABS: BLOOD UREA NITROGEN 75 mg/dl (7-18); CALCIUM 8.9 mg/dl (8.5-10.1); CARBON DIOXIDE 27 mmol/L (21-32); CREATININE 3.39 mg/dl (0.60-1.40); GLUCOSE 132 mg/dl (70-99); POTASSIUM 4.8 mmol/L (3.5-5.1); SODIUM 141 mmol/L (136-145)
== END | disposition home or self-care (01) ==
LOC: C.LABPVFM 09:25
PROVIDERS: ATTEND Physician Assistant
DX: I50.22 Chronic systolic (congestive) heart failure (principal); N18.9 Chronic kidney disease, unspecified

== ENCOUNTER 2018-03-13 20:53 | Emergency (ER) | payer OTHER ==
[~2018-03-13] VITALS: Ht 172.7 cm; Wt 104.9 kg
[~2018-03-13 20:53] MED LIST changes: +ACET-1693 PO; -ACET325T96 PO
[2018-03-13 21:11] VITALS: TEMP 36.4; Ht 172.7 cm; Wt 104.9 kg
[2018-03-13 21:15] VITALS: O2SAT 94
[2018-03-13] MEDS ORDERED: SODIUM CHLORIDE 0.9% 1000ML 1,000 ML IV STA (21:49)
--- NOTE | 2018-03-13 22:04 | EMERGENCY ROOM VISIT NOTE ---
History First contact with patient: 21:49 Chief Complaint: DIARRHEA Stated Complaint: DIARRHEA Nursing Triage Summary: pt states diarrhea for 3 days. states ," it feels like food and fluids are moving right through me; my poop is all watery." pt states chronic slight sob. denies cp or beach. History of Present Illness The patient is a 77 year old male who presents to the Emergency Room with complaints of diarrhea for 3 days. Patient denies any new foods, medication changes, travel, or sick contacts. Patient denies any nausea or vomiting, denies any abdominal pain. Patient denies any history of IBS or inflammatory bowel disease. Patient states he is chronically short of breath secondary to his smoking history, however has felt slightly more short of breath in the last 2 days with all of his diarrhea. Pt states he is still smoking. Patient denies noticing any blood in his stool or black stools. Patient denies any rashes or sores, increased swelling, chest pain, dizziness or passing out. Patient's at bedside and states that he is not drinking enough fluids, patient states that every time he drinks fluids he immediately has to go have another bowel movement and feels the fluids are "coming right through me". Pt' s states he has been refusing to go to the doctor or come to the hospital so she waited until he was asleep to call 911 and have the ambulance show up. Pt states "I feel fine. I'm ready to go home". Review of Systems See HPI for pertinent positives & negatives. A total of 10 systems reviewed and were otherwise negative. Past Medical/Surgical History Medical Problems: (1) Acute kidney injury (2) AICD (automatic cardioverter/defibrillator) present (3) Aortic valve disorder (4) Arteriosclerotic vascular disease (5) Atrial fibrillation with rapid ventricular response (6) Benign essential hypertension (7) Biventricular congestive heart failure (8) Cardiac arrest (9) CHF (congestive heart failure) (10) CHF (congestive heart failure) (11) Chronic obstructive pulmonary disease (12) Chronic renal impairment (13) Coronary artery disease (14) Diabetes (15) GI bleed (16) Hypercholesterolemia (17) Ischemic cardiomyopathy (18) Kidney disease, chronic, stage IV (GFR 15-29 ml/min) (19) Knee contusion (20) Lower gastrointestinal hemorrhage (21) Proteinuria (22) Urinary retention (23) Urinary tract infection (24) Urinary tract infection (25) UTI (urinary tract infection) (26) Ventricular tachycardia (27) Weakness (28) Weakness (29) Weakness Family History No pertinent family history Social History Smoking Status: Current Every Day Smoker Alcohol Use: none Drug Use: none Marital Status: Housing Status: lives with significant other Occupation Status: retired Current/Historical Medications Scheduled Amiodarone HCl (Amiodarone HCl), 100 MG PO QAM Aspirin (Aspirin Ec), 81 MG PO QAM Ciprofloxacin Hcl (Cipro), 500 MG PO DAILY Clopidogrel Bisulfate (Clopidogrel), 75 MG PO QAM Finasteride (Finasteride), 5 MG PO HS Furosemide (Furosemide), 120 MG PO QAM Glipizide (Glipizide ER), 5 MG PO QAM W/BREAKFAST Hydralazine Hcl (Apresoline), 25 MG PO BID Insulin Glargine (Lantus Solostar), 35 UNITS SC HS Isosorbide Mononitrate Ext Rel (Imdur Ext Rel), 90 MG PO QAM Losartan Potassium (Losartan Potassium), 50 MG PO QAM Metoprolol Succinate (Metoprolol Succinate ER), 25 MG PO QAM Metronidazole (Flagyl), 500 MG PO TID Omeprazole (Prilosec), 40 MG PO QAM Potassium Chloride (Potassium Chloride Er), 20 MEQ PO QAM Potassium Chloride (Micro-K Ext Rel), 10 MEQ PO QPM Pravastatin Sodium (Pravastatin Sodium), 80 MG PO QAM Tamsulosin HCl (Tamsulosin HCl), 0.4 MG PO HS Scheduled PRN Acetaminophen Tab (Tylenol), 650 MG PO Q6H PRN for Pain Furosemide (Lasix), 80 MG PO QPM PRN for EDEMA OF LEGS/WT GAIN Guaifenesin (Mucus Relief Er), 1 TAB PO BID PRN for CONGESTION Nitroglycerin (Nitrostat), 0.4 MG UT UD PRN for Chest Pain Physical Exam Vital Signs Date Time Temp Pulse Resp B/P (MAP) Pulse Ox O2 Delivery O2 Flow Rate FiO2 03/14/18 00:38 67 22 102/51 94 03/14/18 00:23 63 21 94 03/14/18 00:01 107/60 03/13/18 23:53 62 29 95 03/13/18 23:31 103/48 03/13/18 23:23 62 22 95 03/13/18 23:22 108/56 03/13/18 22:48 97/56 03/13/18 22:48 87 18 97/56 96 Room Air 03/13/18 22:23 63 22 95 03/13/18 21:57 123/74 03/13/18 21:29 64 03/13/18 21:15 94 Room Air 03/13/18 21:11 36.4 91 22 121/94 94 Room Air 03/13/18 21:00 121/94 Physical Exam GENERAL: alert, well appearing, well nourished, no distress, non-toxic, mildly increased work of breathing with exertion EYE EXAM: normal conjunctiva, PERRL and EOM's grossly intact OROPHARYNX: no exudate, no erythema, lips, buccal mucosa, and tongue normal and mucous membranes are moist NECK: supple, no nuchal rigidity, no adenopathy, non-tender LUNGS: Diminished breath sounds bilaterally, no wheezes/rhonchi/rales normal chest wall mechanics HEART: no murmurs, S1 normal and S2 normal ABDOMEN: abdomen soft, non-tender, normo-active bowel sounds, no masses, no rebound or guarding. BACK: Back is symmetrical on inspection and there is no deformity, no midline tenderness, no CVA tenderness. SKIN: no rashes and no bruising UPPER EXTREMITIES: upper extremities are grossly normal. Full range of motion, normal pulses LOWER EXTREMITIES: No pitting edema. Full range of motion, normal pulses NEURO EXAM: Normal sensorium, cranial nerves II-XII grossly intact, normal speech, no gross weakness of arms, no gross weakness of legs. Gross sensation intact. Medical Decision & Procedures ER Provider Diagnostic Interpretation: [~ rep ct add3]] ABD/PELVIS NO IV OR ORAL CONT CLINICAL HISTORY: 77 years-old Male presenting with diarrhea. TECHNIQUE: Multidetector CT of the abdomen and pelvis was performed without the use of intravenous contrast. IV contrast: None. A dose lowering technique was used consistent with the principles of ALARA (as low as reasonably achievable). COMPARISON: 07/09/2015. CT DOSE (mGy.cm): The estimated cumulative dose is 1468.64 mGy.cm. FINDINGS: Painting Worker topogram: Left subclavian implanted cardiac defibrillator with leads to the right atrium and right ventricular apex. Lung bases: Minimal basilar opacities, likely atelectasis. Multichamber enlargement of the heart. Coronary artery and mitral annular calcification. Partially visualized implanted cardiac defibrillator leads. No pericardial or pleural effusion. Liver: Normal morphology. Density consistent with hepatic steatosis. Biliary: No gross biliary ductal dilatation allowing for noncontrast technique. Gallbladder contains gallstones. Pancreas: Moderate parenchymal atrophy. Spleen: Normal noncontrast appearance. Adrenal glands: Normal noncontrast appearance. Kidneys and ureters: Diffuse cortical thickening noted bilaterally. Exophytic subcentimeter hypodensity arising from the interpolar region of the left kidney, likely cyst but indeterminate. No nephrolithiasis. No hydronephrosis. Sinus lipomatosis suggested. Ureters normal. Bladder: Circumferential bladder wall thickening. Pelvic organs: Prostate enlargement likely secondary to benign prostatic hyperplasia. Bowel: Diverticulosis of the proximal descending colon with minimal pericolonic fat stranding. The appendix is normal. No bowel obstruction. Peritoneal cavity: No free fluid or intraperitoneal gas. Lymph nodes: No gross lymphadenopathy allowing for noncontrast technique. Vasculature: A stent is in place in the distal abdominal aorta projecting into the left common iliac artery. Patency cannot be confirmed given the absence of intravenous contrast. Extensive atherosclerotic disease including the origins of the major branch vessels of the abdominal aorta. A stent is also in place at the origin of the left renal artery. Abdominal wall: Small fat-containing umbilical hernia. Musculoskeletal: Degenerative changes of the spine. IMPRESSION: 1. Diverticulosis of the proximal sigmoid colon with minimal subtle pericolonic fat stranding. Findings are somewhat equivocal but could suggest developing acute uncomplicated diverticulitis. No significant fluid in the colon to suggest CT evidence for a diarrheal state. 2. Renal cortical atrophy. 3. Chronic bladder outlet obstruction with prostatomegaly. 4. Multiple vascular stents. Patency cannot be confirmed given the absence of intravenous contrast. Electronically signed by: Conrad Borjas M.D. 03/13/2018 11:10 PM Dictated Date/Time: 03/13/2018 11:02 PM Chest x-ray: Portable, single view Read by wv Cardiomegaly, defibrillator noted, mildly increased interstitial markings bilaterally, no pneumothorax, no focal consolidation, no wide mediastinum, no significant change compared to prior Laboratory Results 03/13/18 22:10 Red Blood Count 4.04, Mean Corpuscular Volume 87.1, Mean Corpuscular Hemoglobin 29.2, Mean Corpuscular Hemoglobin Concent 33.5, Mean Platelet Volume 9.9, Neutrophils (%) (Auto) 74.2, Lymphocytes (%) (Auto) 15.4, Monocytes (%) (Auto) 9.8, Eosinophils (%) (Auto) 0.0, Basophils (%) (Auto) 0.3, Neutrophils # (Auto) 4.39, Lymphocytes # (Auto) 0.91, Monocytes # (Auto) 0.58, Eosinophils # (Auto) 0.00, Basophils # (Auto) 0.02 03/13/18 22:10 Test 03/13/18 22:10 03/13/18 22:18 White Blood Count 5.92 K/uL (4.8-10.8) Red Blood Count 4.04 M/uL (4.7-6.1) Hemoglobin 11.8 g/dL (14.0-18.0) Hematocrit 35.2 % (42-52) Mean Corpuscular Volume 87.1 fL (80-100) Mean Corpuscular Hemoglobin 29.2 pg (25-34) Mean Corpuscular Hemoglobin Concent 33.5 g/dl (32-36) Platelet Count 153 K/uL (130-400) Mean Platelet Volume 9.9 fL (7.4-10.4) Neutrophils (%) (Auto) 74.2 % Lymphocytes (%) (Auto) 15.4 % Monocytes (%) (Auto) 9.8 % Eosinophils (%) (Auto) 0.0 % Basophils (%) (Auto) 0.3 % Neutrophils # (Auto) 4.39 K/uL (1.4-6.5) Lymphocytes # (Auto) 0.91 K/uL (1.2-3.4) Monocytes # (Auto) 0.58 K/uL (0.11-0.59) Eosinophils # (Auto) 0.00 K/uL (0-0.5) Basophils # (Auto) 0.02 K/uL (0-0.2) RDW Standard Deviation 49.7 fL (36.4-46.3) RDW Coefficient of Variation 15.6 % (11.5-14.5) Immature Granulocyte % (Auto) 0.3 % Immature Granulocyte # (Auto) 0.02 K/uL (0.00-0.02) Ovalocytes 1+ Echinocytes 1+ Anion Gap 8.0 mmol/L (3-11) Est Creatinine Clear Calc Drug Dose 19.2 ml/min Estimated GFR () 16.6 Estimated GFR (Non- 14.3 BUN/Creatinine Ratio 20.7 (10-20) Calcium Level 7.9 mg/dl (8.5-10.1) Magnesium Level 2.0 mg/dl (1.8-2.4) Total Bilirubin 0.7 mg/dl (0.2-1) Aspartate Amino Transf (AST/SGOT) 22 U/L (15-37) Alanine Aminotransferase (ALT/SGPT) 18 U/L (12-78) Alkaline Phosphatase 44 U/L (45-117) Pro-B-Type Natriuretic Peptide 2910 pg/ml (0-1800) Total Protein 6.8 gm/dl (6.4-8.2) Albumin 3.7 gm/dl (3.4-5.0) Globulin 3.1 gm/dl (2.5-4.0) Albumin/Globulin Ratio 1.2 (0.9-2) Lipase 130 U/L (73-393) Bedside Lactic Acid Venous 1.00 mmol/L (0.90-1.70) Medications Administered Medications (Trade) Dose Ordered Sig/Monica Route Start Time Stop Time Status Last Admin Dose Admin Sodium Chloride 1,000 ml @ 250 mls/hr Q4H STAT IV 03/13/18 21:49 03/14/18 01:18 DC 03/13/18 22:17 250 MLS/HR Ciprofloxacin (Cipro Tab) 500 mg NOW STAT PO 03/14/18 00:07 03/14/18 00:08 DC 03/14/18 00:41 500 MG Metronidazole (Flagyl Tab) 500 mg NOW STAT PO 03/14/18 00:07 03/14/18 00:08 DC 03/14/18 00:41 500 MG ECG Per My Interpretation Indication: weakness Rate (beats per minute): 78 Rhythm: other (paced) Findings: no acute ischemic change ED Course 0005: Discussed renally dosing antibiotics with pharmacistLorraine. 0020: Extensive bedside discussion with patient and family regarding labs and imaging tonight. Patient states he feels improved, no difficulty breathing, no dizziness, repeat abdominal exam soft and nontender. Patient has previously had a colonoscopy and his states he will never have one again. Discussed with patient concerns given extensive medical history, chronic kidney disease, delicate fluid balance. Patient states he would like to go home. Discussed at length with patient and family symptoms to watch and return for, discussed use of antibiotics, discussed close follow-up with his family doctor, he verbalized understanding was agreeable with plan. Medical Decision Differential diagnosis: Etiologies such as appendicitis, diverticulitis, PUD, biliary pathology, UTI, pancreatitis, obstruction, mesenteric ischemia, aortic pathology, infections, inflammatory bowel disease, renal colic, as well as others were entertained. Pt well appearing here despite HPI. No diarrhea while here. Pt given small bolus of IVF, ~500ml NSS. Pt reported feeling improved. Cr slightly worse compared to prior, likely from dehydration. No evidence of bacteremia/sepsis. VS stable. BP low when laying lateral recumbant however was normal supine/ sitting/standing. Pt not orthostatic. No fevers, no vomiting, abd soft/NT. CT suggests early diverticulitis. Discussed all this at bedside with pt and family. Offered observation/admission which he declined. Discussed use of antibiotics, close f/u with PCP, recheck of Cr given mild elevation, sx to watch /return for, he verbalized understanding and was agreeable with plan. No evidence of gi bleed, perf, mesenteric ischemia, sbo. Doubt pathology. No evidence of worsening lung pathology. Pt chronically SOB due to persistent tobacco abuse, COPD, obesity. BNP elevated likely from CKD. No evidence clinically or on cxr of overt CHF. I do not suspect ACS. Antibiotics renally dosed. Pt and verbalized understanding and were agreeable with plans. Medication Reconcilliation Current Medication List: was personally reviewed by me Blood Pressure Screening Patient's blood pressure: Normal blood pressure Blood pressure disposition: Referred to PCP Impression Primary Impression: Diarrhea Additional Impressions: Diverticulitis Dehydration CKD (chronic kidney disease) Tobacco abuse Departure Information Dispostion Home / Self-Care Condition GOOD Prescriptions Metronidazole (FLAGYL) 500 Mg Tab 500 MG PO TID for 7 Days, #21 TAB Prov: Joana Quintana, DO 03/14/18 Ciprofloxacin Hcl (CIPRO) 500 Mg Tab 500 MG PO DAILY, #7 TAB Prov: Joana Quintana, DO 03/14/18 Referrals Johnathan Atkins M.D. (PCP) Patient Instructions [facility] Additional Instructions Please take your usual medications as prescribed and follow-up with your family doctor tomorrow or Wednesday. Please take the ciprofloxacin once a day, and the metronidazole 3 times a day. If you develop abdominal pain, worsening diarrhea , noticed black or bloody stools, develop nausea or vomiting, fevers or chills, increased trouble breathing, chest pain, dizziness, or if you have any other new concerns, please return the emergency room. You are at an increased risk for potential complications given your extensive history of medical problems. Your kidney function is abnormal, and very slightly worse compared to the last level in our computer system. Please have your family doctor recheck this. Problem Qualifiers Primary Impression: Diarrhea Diarrhea type: unspecified type Qualified Codes: R19.7 - Diarrhea, unspecified Additional Impressions: CKD (chronic kidney disease) Chronic kidney disease stage: unspecified stage Qualified Codes: N18.9 - Chronic kidney disease, unspecified
[2018-03-13] MEDS ORDERED: FRS/40 PO (22:12)
[2018-03-13 22:22] LABS: HEMATOCRIT 35.2 % (42-52); HEMOGLOBIN 11.8 g/dL (14.0-18.0); MEAN CELL VOLUME 87.1 fL (80-100); MEAN CORPUSCULAR HEMOGLOBIN 29.2 pg (25-34); MEAN CORPUSCULAR HGB CONC 33.5 g/dl (32-36); MEAN PLATELET VOLUME 9.9 fL (7.4-10.4); PLATELET COUNT 153 K/uL (130-400); RED CELL DISTRIBUTION WIDTH CV 15.6 % (11.5-14.5); RED CELL DISTRIBUTION WIDTH SD 49.7 fL (36.4-46.3); WHITE BLOOD COUNT 5.92 K/uL (4.8-10.8)
[2018-03-13 22:40] LABS: ALBUMIN 3.7 gm/dl (3.4-5.0); CALCIUM 7.9 mg/dl (8.5-10.1); CREATININE 3.84 mg/dl (0.60-1.40); POTASSIUM 4.1 mmol/L (3.5-5.1)
[2018-03-13 22:44] LABS: TOTAL PROTEIN 6.8 gm/dl (6.4-8.2)
[2018-03-13] MEDS ORDERED: OPTIRAY 320 IV PRN (22:45)
[2018-03-13 22:50] LABS: BASO % 0.3 %; BASO ABS # 0.02 K/uL (0-0.2); IG# 0.02 K/uL (0.00-0.02); LYMPH % 15.4 %; LYMPH ABS # 0.91 K/uL (1.2-3.4); MONO % 9.8 %; MONO ABS # 0.58 K/uL (0.11-0.59); NEUT % 74.2 %; NEUT ABS # 4.39 K/uL (1.4-6.5)
--- NOTE | 2018-03-13 23:11 | DIAGNOSTIC IMAGING REPORT ---
ABD/PELVIS NO IV OR ORAL CONT CLINICAL HISTORY: 77 years-old Male presenting with diarrhea. TECHNIQUE: Multidetector CT of the abdomen and pelvis was performed without the use of intravenous contrast. IV contrast: None. A dose lowering technique was used consistent with the principles of ALARA (as low as reasonably achievable). COMPARISON: 07/09/2015. CT DOSE (mGy.cm): The estimated cumulative dose is 1468.64 mGy.cm. FINDINGS: Technician Preventative Medicine topogram: Left subclavian implanted cardiac defibrillator with leads to the right atrium and right ventricular apex. Lung bases: Minimal basilar opacities, likely atelectasis. Multichamber enlargement of the heart. Coronary artery and mitral annular calcification. Partially visualized implanted cardiac defibrillator leads. No pericardial or pleural effusion. Liver: Normal morphology. Density consistent with hepatic steatosis. Biliary: No gross biliary ductal dilatation allowing for noncontrast technique. Gallbladder contains gallstones. Pancreas: Moderate parenchymal atrophy. Spleen: Normal noncontrast appearance. Adrenal glands: Normal noncontrast appearance. Kidneys and ureters: Diffuse cortical thickening noted bilaterally. Exophytic subcentimeter hypodensity arising from the interpolar region of the left kidney, likely cyst but indeterminate. No nephrolithiasis. No hydronephrosis. Sinus lipomatosis suggested. Ureters normal. Bladder: Circumferential bladder wall thickening. Pelvic organs: Prostate enlargement likely secondary to benign prostatic hyperplasia. Bowel: Diverticulosis of the proximal descending colon with minimal pericolonic fat stranding. The appendix is normal. No bowel obstruction. Peritoneal cavity: No free fluid or intraperitoneal gas. Lymph nodes: No gross lymphadenopathy allowing for noncontrast technique. Vasculature: A stent is in place in the distal abdominal aorta projecting into the left common iliac artery. Patency cannot be confirmed given the absence of intravenous contrast. Extensive atherosclerotic disease including the origins of the major branch vessels of the abdominal aorta. A stent is also in place at the origin of the left renal artery. Abdominal wall: Small fat-containing umbilical hernia. Musculoskeletal: Degenerative changes of the spine. IMPRESSION: 1. Diverticulosis of the proximal sigmoid colon with minimal subtle pericolonic fat stranding. Findings are somewhat equivocal but could suggest developing acute uncomplicated diverticulitis. No significant fluid in the colon to suggest CT evidence for a diarrheal state. 2. Renal cortical atrophy. 3. Chronic bladder outlet obstruction with prostatomegaly. 4. Multiple vascular stents. Patency cannot be confirmed given the absence of intravenous contrast. Electronically signed by: Conrad Borjas M.D. 03/13/2018 11:10 PM Dictated Date/Time: 03/13/2018 11:02 PM
[2018-03-14] MEDS ORDERED: CIPROFLOXACIN 500 MG TAB PO STA (00:07)
[2018-03-14] MEDS ORDERED: METRONIDAZOLE 250 MG TAB PO STA (00:07)
[2018-03-14] MEDS ORDERED: CIPR-255 PO (00:26)
[2018-03-14] MEDS ORDERED: METR500T PO (00:26)
[2018-03-14 00:38] VITALS: BP 102/51; PULSE 67; O2SAT 94
--- NOTE | 2018-03-14 06:49 | DIAGNOSTIC IMAGING REPORT ---
CHEST ONE VIEW PORTABLE CLINICAL HISTORY: sob dyspnea COMPARISON STUDY: 09/02/2017 FINDINGS: Moderate cardiomegaly. Implantable cardiac pacemaker/defibrillator. Prominent pulmonary vasculature. Diaphragms are smooth. IMPRESSION: Congestive heart failure The above report was generated using voice recognition software. It may contain grammatical, syntax or spelling errors. Electronically signed by: Gaurang Sebastian M.D. 03/14/2018 6:47 AM Dictated Date/Time: 03/14/2018 6:47 AM
== END 2018-03-14 00:51 | disposition home or self-care (01) ==
LOC: EDBD 20:53 → C.EDA 20:54
DX: K57.92 Diverticulitis of intestine, part unspecified, without perforation or abscess without bleeding (principal); E86.0 Dehydration; N18.4 Chronic kidney disease, stage 4 (severe); F17.200 Nicotine dependence, unspecified, uncomplicated; E66.9 Obesity, unspecified; E11.22 Type 2 diabetes mellitus with diabetic chronic kidney disease; Z79.4 Long term (current) use of insulin; I13.0 Hypertensive heart and chronic kidney disease with heart failure and stage 1 through stage 4 chronic kidney disease, or unspecified chronic kidney disease; I50.9 Heart failure, unspecified; I35.8 Other nonrheumatic aortic valve disorders; I25.10 Atherosclerotic heart disease of native coronary artery without angina pectoris; J44.9 Chronic obstructive pulmonary disease, unspecified; I70.90 Unspecified atherosclerosis; I25.5 Ischemic cardiomyopathy; E78.00 Pure hypercholesterolemia, unspecified; N28.9 Disorder of kidney and ureter, unspecified; Z79.82 Long term (current) use of aspirin; Z79.02 Long term (current) use of antithrombotics/antiplatelets; Z95.810 Presence of automatic (implantable) cardiac defibrillator

== ENCOUNTER 2018-07-21 22:24 | Observation (INO) | payer OTHER ==
[~2018-07-21] VITALS: Ht 167.6 cm; Wt 100.0 kg
[~2018-07-21 22:24] MED LIST changes: -BSP/10 PO; +CIPR-255 PO; +FRS/40 PO
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
[2018-07-21] MEDS ORDERED: MoRPHine SULFATE 4 MG/ML 1 ML CARP\\VIAL IV STA (23:17)
[2018-07-21] MEDS ORDERED: ALBUTEROL 0.083% NEBU SOLN 3 ML VIAL INH STA (23:17)
[2018-07-21] MEDS ORDERED: ONDANSETRON INJ 2 MG/ML 2 ML VIAL IV STA (23:17)
[2018-07-21] MEDS ORDERED: OPTIRAY 350 IV PRN (23:30)
[2018-07-21] MEDS ORDERED: OPTIRAY 320 IV PRN (23:30)
[2018-07-21 23:52] LABS: HEMATOCRIT 32.6 % (42-52); HEMOGLOBIN 10.2 g/dL (14.0-18.0); MEAN CELL VOLUME 82.7 fL (80-100); MEAN CORPUSCULAR HEMOGLOBIN 25.9 pg (25-34); MEAN CORPUSCULAR HGB CONC 31.3 g/dl (32-36); PLATELET COUNT 233 K/uL (130-400); RED CELL DISTRIBUTION WIDTH CV 15.6 % (11.5-14.5); RED CELL DISTRIBUTION WIDTH SD 47.6 fL (36.4-46.3); WHITE BLOOD COUNT 16.74 K/uL (4.8-10.8)
[2018-07-21] MEDS ORDERED: SODIUM CHLORIDE 0.9% 500ML 500 ML IV STA (23:59)
[2018-07-22] VITALS (7 sets, daily range): BP systolic 88–148; BP diastolic 44–66; PULSE 59–89; TEMP 36.3–36.8; O2SAT 92–96; Ht 167.6 cm; Wt 100.0 kg
[2018-07-22 00:01] LABS: INR 1.1 (0.9-1.1)
[2018-07-22 00:05] LABS: ISTAT CREATININE 3.9 mg/dl (0.6-1.3); ISTAT IONIZED CALCIUM 1.08 mmol/l (1.12-1.32); ISTAT POTASSIUM 4.7 mEq/L (3.3-5.0)
[2018-07-22 00:14] LABS: BASO % 0.2 %; BASO ABS # 0.03 K/uL (0-0.2); IG# 0.07 K/uL (0.00-0.02); LYMPH % 7.3 %; LYMPH ABS # 1.22 K/uL (1.2-3.4); MONO % 3.9 %; MONO ABS # 0.66 K/uL (0.11-0.59); NEUT % 88.2 %; NEUT ABS # 14.76 K/uL (1.4-6.5)
[2018-07-22 00:19] LABS: CALCIUM 8.2 mg/dl (8.5-10.1); CKMB 4.7 ng/ml (0.5-3.6); CREATININE 4.12 mg/dl (0.60-1.40); POTASSIUM 4.6 mmol/L (3.5-5.1); TOTAL PROTEIN 7.4 gm/dl (6.4-8.2)
[2018-07-22] MEDS ORDERED: NovoLIN-R INSULIN PER UNIT CHARGE IV STA (00:23)
[2018-07-22] MEDS ORDERED: INSU100I23 SQ (01:04)
[2018-07-22] MEDS ORDERED: BUSP-8 PO (01:05)
[2018-07-22] MEDS ORDERED: POTA1CAP2 PO (01:13)
[2018-07-22] MEDS ORDERED: ONDANSETRON INJ 2 MG/ML 2 ML VIAL IV PRN (02:00)
[2018-07-22] MEDS ORDERED: ACETAMINOPHEN 325 MG TAB PO PRN ×2 (02:00→02:30)
[2018-07-22] MEDS ORDERED: NITROGLYCERIN 0.4 MG SL PER TAB CHARGE SL PRN (02:00)
[2018-07-22] MEDS ORDERED: FUROSEMIDE 40 MG TAB PO PRN (02:30)
[2018-07-22] MEDS ORDERED: NITROGLYCERIN 0.4 MG SL PER TAB CHARGE UT PRN (02:30)
[2018-07-22] MEDS ORDERED: GUAIFENESIN 600 MG TABCR PO PRN (02:30)
[2018-07-22] MEDS ORDERED: GLUCAGON FOR INJ 1 MG VIAL IM PRN (03:30)
[2018-07-22] MEDS ORDERED: GLUCOSE 10 TABS/TUBE PO PRN ×2 (03:30)
[2018-07-22] MEDS ORDERED: DEXTROSE 50% 50 ML SYR IV PRN ×2 (03:30)
[2018-07-22] MEDS ORDERED: GLUCOSE 40% GEL 15 GM TUBE PO PRN ×2 (03:30)
[2018-07-22] MEDS ORDERED: CARBOHYDRATES FOR HYPOGLYCEMIA PO PRN ×2 (03:30)
[2018-07-22] MEDS ORDERED: INSULIN GLARGINE SOLOSTAR 100 UNITS/ML 3 ML PEN SQ ONE (03:30)
[2018-07-22] MEDS ORDERED: GLUCAGON FOR INJ 1 MG VIAL SQ PRN (03:30)
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
[2018-07-22] MEDS ORDERED: IV FLUIDS COMPLETED PRN (07:00)
--- NOTE | 2018-07-22 07:33 | DIAGNOSTIC IMAGING REPORT ---
(CHEST) THORAX WITHOUT CLINICAL HISTORY: 78 years-old Male presenting with Pt c/o left shoulder pain. TECHNIQUE: Multidetector CT imaging of the chest was performed without the use of intravenous contrast. IV contrast: None. A dose lowering technique was used consistent with the principles of ALARA (as low as reasonably achievable). COMPARISON: 02/21/2007. CT DOSE (mGy.cm): The estimated cumulative dose is 1093.44 mGy.cm. FINDINGS: [employer] topogram: Left subclavian implanted cardiac defibrillator with leads to the right atrium and right ventricular apex. Cardiomegaly. On soft tissue windows, normal thyroid and thoracic inlet. Bilateral gynecomastia. No supraclavicular lymphadenopathy. Evaluation of the devin limited without intravenous contrast. Few prominent mediastinal lymph nodes in the precarinal and subcarinal regions. A round subcarinal lymph node measures 12 mm in the short axis (series 4 image 181). Atherosclerosis of the aorta. Multichamber enlargement of the heart. Coronary artery, aortic valve, and mitral annular calcification. No pericardial or pleural effusion. Liver density compatible with hepatic steatosis. Macronodular contour of the liver. Renal parenchymal atrophy suggested. On lung windows, smooth interlobular septal thickening. Extensive respiratory motion artifact significantly degrades evaluation of lung parenchyma. Allowing for this, no focal infiltrate apart from minimal dependent changes, which likely represent atelectasis. Pulmonary arteries may be enlarged relative to their adjacent bronchi. Mild bronchial wall thickening suggested. Layering debris in the lower trachea. No pneumothorax. On bone windows, degenerative changes of the spine. Degenerative changes of the glenohumeral joints. No acute fracture. IMPRESSION: 1. Findings suggest volume overload/congestive change. No hosea pulmonary edema. 2. Cardiomegaly. 3. Enlarged mediastinal lymph nodes. These are nonspecific and may be reactive. Attention on follow-up. 4. Hepatic steatosis. Electronically signed by: Conrad Borjas M.D. 07/22/2018 7:31 AM Dictated Date/Time: 07/22/2018 7:24 AM
[2018-07-22] MEDS ORDERED: PERFLUTREN LIPID MICROSPHERE (DEFINITY) IV ONE (08:43)
[2018-07-22] MEDS ORDERED: METOPROLOL SUCC 25MG EXT REL TAB PO SCH (09:00)
[2018-07-22] MEDS: ISOSORBIDE MONONITRATE 30 MG TABCR PO SCH (09:14)
[2018-07-22] MEDS: AMIODARONE 200 MG TAB PO SCH (09:15)
[2018-07-22] MEDS: ASPIRIN 81 MG ECTAB PO SCH (09:15)
[2018-07-22] MEDS: CLOPIDOGREL BISULFATE 75 MG TAB PO SCH (09:17)
[2018-07-22] MEDS: LOSARTAN POTASSIUM 50 MG TAB PO SCH (09:19)
[2018-07-22] MEDS: FUROSEMIDE 40 MG TAB PO SCH (09:19)
[2018-07-22] MEDS: INSULIN ASPART 100 UNITS/ML 3 ML PEN SC SCH ×3 (09:27→18:00)
[2018-07-22 10:27] LABS: BASO % 0.4 %; BASO ABS # 0.03 K/uL (0-0.2); HEMATOCRIT 30.3 % (42-52); HEMOGLOBIN 9.3 g/dL (14.0-18.0); IG# 0.01 K/uL (0.00-0.02); LYMPH % 12.9 %; LYMPH ABS # 0.92 K/uL (1.2-3.4); MEAN CELL VOLUME 82.8 fL (80-100); MEAN CORPUSCULAR HEMOGLOBIN 25.4 pg (25-34); MEAN CORPUSCULAR HGB CONC 30.7 g/dl (32-36); MEAN PLATELET VOLUME 10.3 fL (7.4-10.4); MONO % 9.5 %; MONO ABS # 0.68 K/uL (0.11-0.59); NEUT % 77.1 %; PLATELET COUNT 188 K/uL (130-400); RED CELL DISTRIBUTION WIDTH CV 15.6 % (11.5-14.5); RED CELL DISTRIBUTION WIDTH SD 47.1 fL (36.4-46.3); WHITE BLOOD COUNT 7.14 K/uL (4.8-10.8)
[2018-07-22 10:51] LABS: CALCIUM 8.3 mg/dl (8.5-10.1); CREATININE 3.9 mg/dl (0.60-1.40); POTASSIUM 4.3 mmol/L (3.5-5.1)
[2018-07-22 12:04] LABS: BASO % 0.3 %; BASO ABS # 0.02 K/uL (0-0.2); HEMATOCRIT 28.6 % (42-52); HEMOGLOBIN 8.9 g/dL (14.0-18.0); IG# 0.01 K/uL (0.00-0.02); LYMPH % 14.9 %; LYMPH ABS # 1.03 K/uL (1.2-3.4); MEAN CELL VOLUME 82.9 fL (80-100); MEAN CORPUSCULAR HEMOGLOBIN 25.8 pg (25-34); MEAN PLATELET VOLUME 10.2 fL (7.4-10.4); MONO % 8.5 %; MONO ABS # 0.59 K/uL (0.11-0.59); NEUT % 76.2 %; NEUT ABS # 5.26 K/uL (1.4-6.5); PLATELET COUNT 170 K/uL (130-400); RED CELL DISTRIBUTION WIDTH CV 15.7 % (11.5-14.5); RED CELL DISTRIBUTION WIDTH SD 47.5 fL (36.4-46.3); WHITE BLOOD COUNT 6.91 K/uL (4.8-10.8)
[2018-07-22 12:09] LABS: MEAN CORPUSCULAR HGB CONC 31.1 g/dl (32-36)
[2018-07-22 12:13] LABS: INR 1.1 (0.9-1.1); PTT PATIENT 27.1 SECONDS (21.0-31.0)
[2018-07-22] MEDS ORDERED: HEPARIN 25,000 UNIT/500ML D5W 500 ML IV SCH (13:00)
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
--- NOTE | 2018-07-22 17:45 | ECHOCARDIOGRAM REPORT ---
*NOTICE TO RECEIVING REPUBLICAN AGENCY This information is strictly Confidential and protected under [place] law. [place] law prohibits you from making any further disclosure of this information unless further disclosure is expressly permitted by the written consent of the person to whom it pertains or is authorized by law. A general authorization for the release of medical or other information is not sufficient for this purpose. Hospital accepts no responsibility if the information is made available to any other person, INCLUDING THE PATIENT. Interpretation Summary * Name: SHIRIN RICARDO Study Date: 07/22/2018 07:42 AM BP: 109/57 mmHg * Patient Location: [facility]\S\N276\S\1 HR: 62 * : 1940 (M/d/yyyy) Gender: Male Height: 72 in * Age: 78 yrs Ethnicity: CA Weight: 264 lb * Ordering Physician: Js Woodard * Referring Physician: Self, Referred * Performed By: Hailee Kay RDCS * * Reason For Study: Chest pain * BSA: 2.4 m2 * -- Conclusions -- * 1. Normal LV size, mild concentric LVH. * 2. LVEF 40-45%. Base to mid inferior, inferolateral and lateral wall severe hypokinesis to akinesis. * 3. Normal RV size and function. * 4. Mild mitral stenosis, mild mitral regurgitation. * 5. Mild aortic stenosis by gradients (appears more severe on 2D imaging). Mild aoritc insufficiency. * 6. Compared with prior study on 07/06/2015: No significant changes. Procedure Details * A complete two-dimensional transthoracic echocardiogram was performed (2D, M-mode, Doppler and color flow Doppler). * A contrast injection of Definity was performed to improve assessment of LV function. * Contrast was injected into an intravenous site in the right arm. * One vial of Definity ultrasound contrast was diluted in normal saline to a total volume of 10 ml. A total of '2' ml of solution was administered during imaging. * Lot # [id number] of Definity utilized for procedure. * Expiration date JUN 16. * The attending nurse who injected the contrast agent was Albertina Zamora RN. Left Ventricle * The left ventricle is grossly normal size. * There is mild concentric left ventricular hypertrophy. * Ejection Fraction = 40-45%. * Base to mid inferior, inferolateral and lateral wall severe hypokinesis to akinesis. Right Ventricle * The right ventricle is grossly normal size. * There is a pacemaker lead in the right ventricle. * The right ventricular systolic function is normal as assessed by tricuspid annular plane systolic excursion (TAPSE) (normal >1.5 cm). Atria * The left atrium is moderately dilated. * The right atrium is mildly dilated. * No ASD detected; PFO is not assessed. Mitral Valve * There is mild mitral annular calcification. * The mitral valve leaflets appear thickened, but open well. * There is mild mitral stenosis. * There is mild mitral regurgitation. Tricuspid Valve * Significant tricuspid regurgitation is absent. Aortic Valve * Thickened, calcified, restricted * Mild valvular aortic stenosis. * Mild aortic regurgitation. Pulmonic Valve * The pulmonary valve is inadequately visualized, but the Doppler data is adequate for interpretation. * There is no pulmonic valvular stenosis. Great Vessels * The aortic root and proximal ascending aorta are normal sized. Pericardium/Pleural * There is no pericardial effusion. Left Ventricular Diastolic Function * Diastolic dysfunction, Grade II (pseudonormalization pattern). MMode 2D Measurements and Calculations IVSd 1.2 cm IVSs 1.5 cm LVIDd 5.5 cm LVIDs 4.6 cm LVPWd 1.1 cm LVPWs 1.3 cm IVS/LVPW 1.1 FS 17.7 % EDV(Teich) 150.4 ml ESV(Teich) 95.6 ml EF(Teich) 36.4 % EDV(cubed) 170.7 ml ESV(cubed) 95.2 ml EF(cubed) 44.3 % % IVS thick 22.9 % % LVPW thick 22.1 % LV mass(C)d 260.8 grams LV mass(C)dI 108.8 grams/m\S\2 LV mass(C)s 256.5 grams LV mass(C)sI 107.0 grams/m\S\2 SV(Teich) 54.7 ml SI(Teich) 22.8 ml/m\S\2 SV(cubed) 75.5 ml SI(cubed) 31.5 ml/m\S\2 Ao root diam 3.0 cm Ao root area 7.3 cm\S\2 ACS 1.1 cm asc Aorta Diam 4.2 cm LVOT diam 2.0 cm LVOT area 3.0 cm\S\2 LVAd ap4 49.6 cm\S\2 LVLd ap4 10.3 cm EDV(MOD-sp4) 192.7 ml EDV(sp4-el) 203.2 ml LVAs ap4 33.8 cm\S\2 LVLs ap4 8.5 cm ESV(MOD-sp4) 110.8 ml ESV(sp4-el) 113.5 ml EF(MOD-sp4) 42.5 % EF(sp4-el) 44.1 % LVAd ap2 36.3 cm\S\2 LVLd ap2 8.2 cm EDV(MOD-sp2) 131.0 ml EDV(sp2-el) 136.8 ml LVAs ap2 25.5 cm\S\2 LVLs ap2 6.8 cm ESV(MOD-sp2) 71.1 ml ESV(sp2-el) 81.2 ml EF(MOD-sp2) 45.7 % EF(sp2-el) 40.6 % LVLd %diff -25.89 % EDV(MOD-bp) 174.4 ml LVLs %diff -25.64 % ESV(MOD-bp) 91.2 ml EF(MOD-bp) 47.7 % SV(MOD-sp4) 81.8 ml SI(MOD-sp4) 34.1 ml/m\S\2 SV(MOD-sp2) 59.9 ml SI(MOD-sp2) 25.0 ml/m\S\2 SV(MOD-bp) 83.3 ml SI(MOD-bp) 34.7 ml/m\S\2 SV(sp4-el) 89.7 ml SI(sp4-el) 37.4 ml/m\S\2 SV(sp2-el) 55.6 ml SI(sp2-el) 23.2 ml/m\S\2 Doppler Measurements and Calculations MV E max onesimo 129.6 cm/sec MV A max onesimo 85.4 cm/sec MV E/A 1.5 MV V2 max 126.8 cm/sec MV max PG 6.4 mmHg MV V2 mean 79.0 cm/sec MV mean PG 2.7 mmHg MV V2 VTI 42.4 cm MV dec time 0.38 sec Ao V2 max 267.2 cm/sec Ao max PG 28.6 mmHg Ao max PG (full) 23.8 mmHg Ao V2 mean 197.4 cm/sec Ao mean PG 18.0 mmHg Ao V2 VTI 69.5 cm RYAN(V,A) 1.2 cm\S\2 RYAN(V,D) 1.2 cm\S\2 AI max onesimo 207.2 cm/sec AI max PG 17.2 mmHg AI dec slope 154.6 cm/sec\S\2 AI P1/2t 392.4 msec LV V1 max PG 4.7 mmHg LV V1 max 108.8 cm/sec MR max onesimo 460.3 cm/sec MR max PG 84.7 mmHg MR mean onesimo 344.1 cm/sec MR mean PG 54.1 mmHg MR VTI 152.9 cm SV(Ao) 504.7 ml SI(Ao) 210.5 ml/m\S\2 PA V2 max 46.6 cm/sec PA max PG 0.87 mmHg PA acc slope 171.5 cm/sec\S\2 PA acc time 0.17 sec PA pr(Accel) 4.0 mmHg
[2018-07-22] MEDS ORDERED: NURSING VERBAL MED ORDER ONE (18:15)
[2018-07-22] MEDS ORDERED: TAMSULOSIN HCL 0.4 MG CAP PO SCH (21:00)
[2018-07-22] MEDS ORDERED: PRAVASTATIN SOD 40 MG TAB PO SCH (21:00)
[2018-07-22] MEDS ORDERED: FINASTERIDE 5 MG TAB PO SCH (21:00)
[2018-07-22] MEDS ORDERED: INSULIN GLARGINE SOLOSTAR 100 UNITS/ML 3 ML PEN SQ SCH (21:00)
[2018-07-22] MEDS: METOPROLOL SUCC 25MG EXT REL TAB PO SCH (22:03)
[2018-07-23 00:44] VITALS: BP 83/42; PULSE 71; TEMP 36.4; O2SAT 92
[2018-07-23 04:00] VITALS: BP 120/65; PULSE 77; TEMP 36.5; O2SAT 94
[2018-07-23] MEDS ORDERED: NURSING VERBAL MED ORDER ONE (05:45)
[2018-07-23 07:39] VITALS: BP 98/54; PULSE 76; TEMP 36.5; O2SAT 94
[2018-07-23] MEDS: ASPIRIN 81 MG ECTAB PO SCH (07:46)
[2018-07-23] MEDS: CLOPIDOGREL BISULFATE 75 MG TAB PO SCH (07:47)
[2018-07-23] MEDS: FUROSEMIDE 40 MG TAB PO SCH (08:01)
[2018-07-23] MEDS: METOPROLOL SUCC 25MG EXT REL TAB PO SCH (08:02)
[2018-07-23] MEDS: AMIODARONE 200 MG TAB PO SCH (08:03)
[2018-07-23] MEDS: LOSARTAN POTASSIUM 50 MG TAB PO SCH (08:03)
[2018-07-23] MEDS: ISOSORBIDE MONONITRATE 30 MG TABCR PO SCH (08:03)
[2018-07-23] MEDS: INSULIN ASPART 100 UNITS/ML 3 ML PEN SC SCH ×3 (08:08→13:01)
[2018-07-23 11:22] VITALS: BP 92/52; PULSE 65; TEMP 36.5; O2SAT 97
--- NOTE | 2018-07-23 13:40 | Discharge Instructions ---
Discharge Instructions Date of Service Jul 23, 2018. Admission Reason for Admission: Chest Pain Discharge Discharge Diagnosis / Problem: NSTEMI (small heart attack) Discharge Goals Goal(s): Improve function, Improve disease control Activity Recommendations Activity Limitations: resume your previous activity . Instructions / Follow-Up Instructions / Follow-Up Medications: no changes NSTEMI: small heart attack with a rise in your heart enzymes, but chest pain and EKG changes resolved echocardiogram showed no changes evaluated by Dr. Adkins and Anderson Catherine with cardiology recommended trying to titrate up Toprol but blood pressure would not tolerate recommend close follow up with Dr. Atkins and cardiology FOLLOW UP - Dr. Atkins this week, call office on Wednesday for appointment - Anderson Catherine in two weeks, call office for appointment Current Hospital Diet Patient's current hospital diet: AHA Diet (Heart Healthy), Diabetes Type 2 Diet Discharge Diet Recommended Diet: AHA Diet (Heart Healthy), Diabetes Type 2 Diet Pending Studies Studies pending at discharge: no Laboratory Results Hemoglobin A1c Test 05/02/18 09:50 Range/Units Estimated Average Glucose 143 mg/dl Hemoglobin A1c 6.6 H 4.5-5.6 % Medical Emergencies . Who to Call and When: Medical Emergencies: If at any time you feel your situation is an emergency, please call 911 immediately. . Non-Emergent Contact Non-Emergency issues call your: Primary Care Provider, Rn Clinical Documentation Specialist Call Non-Emergent contact if: you have any medication questions . . "Provider Documentation" section prepared by Addison Tay . [place] Drug Monitoring Program Search Results: no issues identified
[2018-07-23 13:46] VITALS: BP 92/52; PULSE 65; TEMP 36.5; O2SAT 97
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
== END 2018-07-23 14:12 | disposition home or self-care (01) ==
LOC: EDBD 22:24 → C.EDC 22:26 → C.MED 07-22 02:14 → ENRESERV 07-22 02:26
PROVIDERS: ADMIT Student in an Organized Health Care Education/Training Program; ATTEND Internal Medicine
DX: I21.4 Non-ST elevation (NSTEMI) myocardial infarction (principal); V58.5XXA Driver of pick-up truck or van injured in noncollision transport accident in traffic accident, initial encounter; I70.90 Unspecified atherosclerosis; I13.0 Hypertensive heart and chronic kidney disease with heart failure and stage 1 through stage 4 chronic kidney disease, or unspecified chronic kidney disease; N18.4 Chronic kidney disease, stage 4 (severe); I50.22 Chronic systolic (congestive) heart failure; J44.9 Chronic obstructive pulmonary disease, unspecified; I25.10 Atherosclerotic heart disease of native coronary artery without angina pectoris; N40.0 Benign prostatic hyperplasia without lower urinary tract symptoms; E11.9 Type 2 diabetes mellitus without complications; K21.9 Gastro-esophageal reflux disease without esophagitis; G47.33 Obstructive sleep apnea (adult) (pediatric); I47.2 Ventricular tachycardia; E78.5 Hyperlipidemia, unspecified; E78.00 Pure hypercholesterolemia, unspecified; I25.5 Ischemic cardiomyopathy; Z79.82 Long term (current) use of aspirin; Z79.4 Long term (current) use of insulin; Z95.810 Presence of automatic (implantable) cardiac defibrillator; Z86.010 Personal history of colon polyps

== ENCOUNTER 2019-10-02 13:49 | Inpatient (IN) ==
[2019-10-02] MEDS ORDERED: SODIUM CHLORIDE 0.9% 500 ML IV SCH (15:00)
[2019-10-02] MEDS ORDERED: CEFEPIME 2,000 MG/20 ML VIAL IV STA (15:05)
[2019-10-02 15:47] LABS: iSTAT Blood Urea Nitrogen > 140 mg/dl (7-18); iSTAT Carbon Dioxide 29 mEq/l (24-31); iSTAT Chloride 93 mEq/L (101-112); iSTAT Creatinine 6.3 mg/dl (0.6-1.3); iSTAT Glucose 153 mg/dl (70-99); iSTAT Hematocrit 29 % (42-52); iSTAT Hemoglobin 9.9 g/dl (14.0-18.0); iSTAT Ionized Calcium 1.05 mmol/l (1.12-1.32); iSTAT Sodium 138 mEq/L (135-144)
[2019-10-02 16:02] LABS: Basophils # (auto) 0.01 K/uL (0-0.2); Basophils % (auto) 0.1 %; Eosinophils # (auto) 0.01 K/uL (0-0.5); Eosinophils % (auto) 0.1 %; Hematocrit (blood only) 32.5 % (42-52); Hemoglobin 11.2 g/dL (14.0-18.0); Immature Granulocytes # (auto) 0.03 K/uL (0.00-0.02); Immature Granulocytes % (auto) 0.2 %; Lymphocytes # (auto) 0.89 K/uL (1.2-3.4); Lymphocytes % (auto) 6.6 %; Mean Corpuscular Hgb Conc 34.5 g/dL (32-36); Mean Corpuscular Volume 87.1 fL (80-100); Mean Platelet Volume 10.2 fL (7.4-10.4); Monocytes # (auto) 0.81 K/uL (0.11-0.59); Platelet Count 182 K/uL (130-400); RDW Coefficient of Variation 15.4 % (11.5-14.5); RDW Standard Deviation 48.9 fL (36.4-46.3); Red Blood Count 3.73 M/uL (4.7-6.1); White Blood Count 13.55 K/uL (4.8-10.8)
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
[2019-10-02 16:11] LABS: Appearance Urine Cloudy (Clear); Bacteria Urine Automated Negative (Negative); Bilirubin Urine Negative (Negative); Blood Urine 3+ (Negative); Color Urine Yellow; Epithelial Cell Urine Auto 0-5 /lpf (0-5); Glucose Urine UA Negative (Negative); Ketones Urine Negative (Negative); Leukocyte Esterase Urine 3+ (Negative); Nitrite Urine Negative (Negative); Protein Urine Trace (Negative); RBC Urine Automated >30 /hpf (0-4); Urobilinogen Urine Negative (Negative)
[2019-10-02 16:18] LABS: INR 1.2 (0.9-1.1); Partial Thromboplastin Ratio 1.1
[2019-10-02 16:21] LABS: Albumin Globulin Ratio 0.8 (0.9-2); Albumin Level 3.1 gm/dl (3.4-5.0); BUN Creatinine Ratio 26.2 (10-20); Bilirubin,Total 1.6 mg/dl (0.2-1); Creatinine Clr Calc Pharmacy 9.6 ml/min; Est GFR (African American) 8.9; Est GFR (Non-African American) 7.7; Globulin 3.8 gm/dl (2.5-4.0); Magnesium 3.2 mg/dl (1.8-2.4); Phosphorus 3.9 mg/dl (2.5-4.9); Total Protein 6.9 gm/dl (6.4-8.2)
[2019-10-02 16:26] LABS: Troponin I 10.3 ng/ml (0-0.045)
--- NOTE | 2019-10-02 16:36 | XRay Report ---
XR chest 1V portable CLINICAL HISTORY: low sat% eval for pna COMPARISON STUDY: 09/22/2019 FINDINGS: Mild stable cardiomegaly. Permanent bipolar cardiac pacemaker. Prominent pulmonary vasculat ure. Diaphragms are smooth. IMPRESSION: Developing congestive heart failure. The above report was generated using voice recognition software. It may contain grammatical, syntax or spelling errors. Electronically signed by: Gaurang Sebastian M.D. 10/02/2019 4:34 PM
[2019-10-02] MEDS ORDERED: Heparin IV Low Dose WITH Bolus IV STA (17:17)
[2019-10-02] MEDS ORDERED: HEPARIN SOD (PORCINE) 1000 UNIT/ML 10 ML VIAL ONE (17:32)
[2019-10-02] MEDS: SODIUM CHLORIDE 0.9% 500 ML IV SCH ×2 (17:47→23:48)
[2019-10-02] MEDS: HEPARIN SODIUM/DEXTROSE 25,000 UNITS/500 ML BAG IV SCH (17:49)
--- NOTE | 2019-10-02 19:04 | History & Physical Report ---
Date of Service October 02, 2019 Assessment & Plan (1) Non-ST elevation IA (NSTEMI): 79yo C male with complex medical history, most notably CAD s/p IA with chronic systolic CHF, ICM with EF of 45-50%, CKD-III, DM, HTN, HLP, COPD, VF arrest s/p AICD placement. Per family, patient has been steadily declining for the last few months with acute worsening over the last couple of weeks. He is somnolent, minimally interactive, poor appetite and PO intake. He follows with multiple specialists. Patient with incredibly difficult fluid balance. Per record review and discussion with his , he quickly becomes fluid overloaded in the event that his diuretics are held and his renal function quickly declines with aggressive diuresis. He has had a sharp decline in renal function over the last week. BUN now 166 and Cr 6.33, oliguric, +UTI, Pinto in place. is at bedside and is becoming increasingly frustrated about her 's declining health. She manages much of his care at home and has found her own health beginning to fail as well. She is aware that her is quite ill. He does not wish to be resuscitated or intubated in event of cardiac arrest and they do not wish to start dialysis. I explained to her that a cardiac catheterization and intervention would also be challenging at this time due to his renal decline. I explained to her that he is in a very difficult spot with his health at this time, that treating one organ system will in turn harm another and that aggressive treatment is not always the best choice. She voiced understanding. I suggested meeting with the Palliative Care team to assist with symptom management. I informed her that we will continue to look for treatable reasons for her 's decline and continue to provide care. Neuro: Patient somnolent, minimally interactive. Neuro exam limited but is grossly nonfocal. CT head with no acute abnormality. He has history of TIA in the past. -Continue ASA 81mg po daily -Continue Plavix 75mg po qAM -Continue Pravastatin -Delirium prevention strategies with frequent orientation, ambulation with assistance, maintaining sleep/wake cycle where possible Pulmonary: Patient with history of JUANY on CPAP qHS. Reports overall comp liance, however, has not been wearing as regularly over the last two weeks. History of COPD. Presently with no respiratory distress, he was hypoxic on room air and tachypneic when he arrived to 87%. Adequate oxygenation now on NC 3L. No wheezing -Continue Albuterol PRN -Supplemental O2 as needed to maintain saturation 88-92% -CPAP qHS Cardiac: CAD s/p IA, ICM with EF of 45-50%, delicate volume balance. Aortic stenosis. History of VF arrest s/p AICD (no discharges reported), HTN, HLP. Elevated troponin of 10.3 here, EKG changes. ER discussed briefly with Edson santanaogihsan at time of arrival. Patient presently hypotensive. Cardiac cath would be difficult at this time due to patient's renal dysfunction. NSTEMI -heparin gtt ordered and running -Trend troponin q 8 hours x 3 sets -Check 2D echo -Cardiology consultation appreciated -Continue ASA, Plavix, Pravastatin -Continue Amiodarone GI: History of GERD -Continue Protonix 40mg po daily : Patient with CKD, ROSEMARY. BUN of 166 and Cr of 6.33. Uncertain etiology. Family reports poor PO intake over the last 2-4 weeks as well as continued diuretic use. On clinical exam he appears to be dry. +BPH with Pinto catheter in place -Check urine Na and Urea to calculate FeUrea -Check urine microscopy and eosinophils -Check renal duplex US - history of renal artery stenosis with stent in place -Nephrology consultation appreciated -Gentle use of IVF -Closely monitor I/O, daily weights, BUN and Cr -Avoid nephrotoxic agents, renal dosing where needed -Continue Flomax if BP tolerates -Continue Proscar -Consider Urology evaluation Heme: Patient with anemia of chronic disease in setting of CKD. No acute blood loss suspected. Hgb=11.2 and Hct=32.5 which is slightly lower than baseline -Continue to monitor CBC ID: Patient with leukocytosis, WBC=13.55, +UTI, morganella morganii sensitive to Ceftriaxone -Follow blood and urine culutres -Ceftriaxone 1gm IV daily -If patient develops fever would broaden antibiotic coverage Endocrine: DM and hypothyroidism -Lantus 8u BID with ISS. Goal blood sugar 100- 180 -Continue Synthroid F/E/N - NSS at 80mL/hr x 2 liters. Monitor electroltyes and replete as needed. Holding PO Magnesium d/t high level. Holding PO K due to degree of renal dysfunction and risk of developing hyperkalemia Ppx - Heparin gtt for NSTEMI as above. Protonix Code - DNR/DNI per discussion with Dispo - PCU. PT/OT/Case management evaluation for possible placement needs when acute issues resolve (2) Mjchr-ax-yvvwzai kidney injury: (3) COPD (chronic obstructive pulmonary disease): (4) Anemia: (5) Hypotension: (6) Acute UTI: (7) Paroxysmal ventricular tachycardia: (8) Paroxysmal A-fib: (9) PAD (peripheral artery disease): (10) Left renal artery stenosis: (11) COPD (chronic obstructive pulmonary disease) with chronic bronchitis: (12) Central sleep apnea: (13) Dyslipidemia: (14) Anemia: (15) BPH (benign prostatic hyperplasia): (16) Presence of combination internal cardiac defibrillator (ICD) and pacemaker: (17) History of TIA (transient ischemic attack): (18) Hypothyroidism: (19) Aortic stenosis, mild: (20) Ischemic dilated cardiomyopathy: (21) CAD (coronary artery disease): (22) DM type 2 (diabetes mellitus, type 2): History of Present Illness Chief Complaint: Illness Primary Care Provider: Johnathan Atkins MD Christopher Peña is a 79yo C male with a complicated medical history and multiple medical problems. He has known CAD, history of VF arrest s/p AICD placement, CKD-IV, HTN/HLP/DM/COPD, renal artery stenosis s/p renal artery stent. Patient does not provide much history as he is somnolent and confused. and niece are at bedside and provide details of history. They report that patient has been on a steady decline in his health and functional status for the past 3 months at least. Most concerning complaint at this time is patient's somnolence and confusion. He is minimally verbal and not interactive. He has a poor appetite and has not eaten much over the last 2-4 weeks per . He is diffusely weak with poor balance - has had occasional falls at home, most recently this AM as he was trying to get up to use the bathroom. He has a Pinto in place which was placed on 09/27, reports patient has been tugging on it since its been in. He also asks frequently to "get the tube out my Peter". His reports dark colored urine in the Pinto bag. She has recorded the Pinto output over the last few days and are as follows: 09/28: 725mL 09/29: 625mL 09/30: 700mL She also reports a considerable amount of leaking around the Pinto at times and the tube becoming disconnected. Family also reports weight loss. Patient is resting comfortably, arousable and answers some questions. He denies fevers/chills/nausea/abdominal pain/CP. He reports SOB. Upon arrival to the ER he was found to be hypotensive, tachypneic. He was administered a small amount of IVF with improvement. ER Course: Cefepime, Heparin gtt, NSS -------- Urology visit 09/27/19 - patient seen in the office by Dr. Corley with worsening voiding symptoms, increased frequency/urgency and dysuria. He was noted to be confused and malodorous, suspected UTI. voiced concern over patient's frequent urination. He had a Pinto catheter placed to assist with urinary frequency. He was sent home with Pinto in place. reports that home nursing did not show up to help with Pinto management. Urine culture sent 09/28/19 positive for Mornanella morganii. JUANY visit 09/21/19 - patient seen in the office by Dr. Paz for CPAP followup (13cm H20 with full face mask). Patient complaining of intermittent vertigo during that visit. He was advised in the past to perform Eppley's maneuver which he does not wish to do. Cardiology visit 09/05/19 - Metolazone started. 2.5mg po q- 1-2 times per week, taken 30 minutes prior to Bumex Allergies Allergy/AdvReac Type Severity Reaction Status Date / Time No Known Drug Allergies Allergy Verified 09/27/19 16:04 Home Medications Home Medications Medication Instructions Recorded Confirmed Type amiodarone [Pacerone] 100 mg PO QAM 08/07/18 10/02/19 History aspirin 81 mg PO DAILY 08/07/18 10/02/19 History clopidogrel [Plavix] 75 mg PO QAM 08/07/18 10/02/19 History finasteride [Proscar] 5 mg PO QAM 08/07/18 10/02/19 History guaifenesin [Mucinex] 600 mg PO Q12H PRN 08/07/18 10/02/19 History isosorbide mononitrate 90 mg PO QAM 08/07/18 10/02/19 History omeprazole 40 mg PO QAM 08/07/18 10/02/19 History pravastatin [Pravachol] 80 mg PO QAM 08/07/18 10/02/19 History tamsulosin [Flomax] 0.4 mg PO HS 08/07/18 10/02/19 History levothyroxine 100 mcg PO DAILY 08/30/18 10/02/19 History potassium chloride 20 meq PO DAILY #14 ea 09/07/18 10/02/19 Rx magnesium oxide 400 mg PO BID 05/14/19 10/02/19 History glipizide ER 10 mg tablet, 5 mg PO DAILY tab 06/27/19 10/02/19 History extended release 24 hr ipratropium 20 mcg-albuterol 100 1 puffs INH Q6H 06/27/19 10/02/19 History mcg/actuation mist for inhalation insulin glargine (U-100) 100 40 units SUBCUT QPM ml 07/07/19 10/02/19 History unit/mL (3 mL) subcutaneous pen bumetanide 2 mg tablet 4 mg PO QAM tab 08/01/19 10/02/19 History metolazone 2.5 mg tablet See Rx Instructions PO Q OTHER DAY 09/05/19 10/02/19 Rx #20 tab buspirone 10 mg tablet 10 mg PO BID #180 tab 09/13/19 10/02/19 Rx bumetanide 2 mg PO QPM 10/02/19 10/02/19 History cefuroxime axetil 500 mg PO BID 10/02/19 10/02/19 History nitrofurantoin macrocrystal 0 mg PO DAILY 10/02/19 10/02/19 History nitroglycerin [Nitrostat] 0.4 mg SUBLINGUAL .PRN/UD PRN 10/02/19 10/02/19 History Past Med/Surg History Medical History BPH (benign prostatic hyperplasia) Presence of combination internal cardiac defibrillator (ICD) and pacemaker History of TIA (transient ischemic attack) Cardiac arrest with ventricular fibrillation associated with acute IA in 2001, s/p AICD placement JUANY (obstructive sleep apnea) Mixed hyperlipidemia HTN (hypertension) Anemia in CKD (chronic kidney disease) Hypothyroidism History of stent insertion of renal artery Tobacco dependence Morbid obesity Chronic combined systolic and diastolic CHF (congestive heart failure) COPD (chronic obstructive pulmonary disease) CAD (coronary artery disease) CKD (chronic kidney disease) stage 4, GFR 15-29 ml/min DM type 2 (diabetes mellitus, type 2) 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 Feels Safe at Home: Yes Safety Concerns: Feels Safe At This Time Smoking Status: Smoker, status unknown Hx Alcohol Use: No Hx Substance Use: No Review of Systems Review of Systems: All systems reviewed & are unremarkable except as noted in HPI & below Physical Exam Physical Exam: General: chronically ill in appearance, NAD, somnolent but arousable, answers questions and follows commands then falls back to sleep, oriented to self and hospital Skin: warm, dry, intact, inflammation of head of penis HEENT: NC/AT, PERRL, anicteric sclera, conjunctiva without injection, external ear normal to inspection and nontender, nares patent, dry mucus membranes, dentures in place, no oropharyngeal lesions, neck supple, trachea midline, no LAD, no thyromegaly, no JVD Heart: +S1/S2, regular, 3/6 RUTH ANN at 2nd right ICS with radiation across precordium Lungs: equal air entry bilaterally, no rales/rhonchi/wheezes Abd: +BS, soft, NT/ND, no masses/organomegaly/ascites Ext: warm, 2+ pulses in UE/LE bilaterally, no clubbing/cyanosis or edema, Pinto in place with 100 mL of dark urine Neuro: nonfocal, patient somnolent/arousable, confused, no facial droop, moving all extremities on command with equal strength 5/5 Results & Data Vital Signs (Past 12 Hours) Vital Signs Temp Pulse Resp BP Pulse Ox 10/02/19 17:31 73 23 94/60 L 96 10/02/19 17:30 69 14 97 10/02/19 17:00 72 29 H 84/43 L 91 10/02/19 16:30 74 27 H 102/52 L 96 10/02/19 16:08 74 29 H 98/58 L 95 10/02/19 16:06 78 10/02/19 15:45 73 20 94 10/02/19 15:30 74 26 H 95/52 L 93 10/02/19 15:15 73 24 93 10/02/19 15:01 94 10/02/19 15:00 75 30 H 96/58 L 90 10/02/19 14:45 75 30 H 93 10/02/19 14:30 74 24 89/52 L 92 10/02/19 14:20 73 28 H 93 10/02/19 14:18 75 17 84/46 L 90 10/02/19 13:59 36.6 C 86 22 82/47 L 92 Laboratory Results Lab Results 10/02/19 10/02/19 10/02/19 Range/Units 15:33 15:33 15:33 WBC 13.55 H (4.8-10.8) K/uL RBC 3.73 L (4.7-6.1) M/uL Hgb 11.2 L (14.0-18.0) g/dL POC Hgb (14.0-18.0) g/dl Hct 32.5 L (42-52) % POC Hct (42-52) % MCV 87.1 (80-100) fL MCH 30.0 (25-34) pg MCHC 34.5 (32-36) g/dL RDW Std Deviation 48.9 H (36.4-46.3) fL RDW Coeff of Alessandro 15.4 H (11.5-14.5) % Plt Count 182 (130-400) K/uL MPV 10.2 (7.4-10.4) fL Immature Gran % (Auto) 0.2 % Neut % (Auto) 87.0 % Lymph % (Auto) 6.6 % [place] % (Auto) 6.0 % Eos % (Auto) 0.1 % Baso % (Auto) 0.1 % Immature Gran # (Auto) 0.03 H (0.00-0.02) K/uL Neut # (Auto) 11.80 H (1.4-6.5) K/uL Lymph # (Auto) 0.89 L (1.2-3.4) K/uL [place] # (Auto) 0.81 H (0.11-0.59) K/uL Eos # (Auto) 0.01 (0-0.5) K/uL Baso # (Auto) 0.01 (0-0.2) K/uL PT 12.0 (9.0-12.0) Seconds INR 1.2 H (0.9-1.1) APTT 29.0 (21.0-31.0) Seconds PTT Ratio 1.1 POC Sodium (135-144) mEq/L Sodium 137 (136-145) mmol/L POC Potassium (3.3-5.0) mEq/L Potassium 3.0 L (3.5-5.1) mmol/L POC Chloride (101-112) mEq/L Chloride 97 L (98-107) mmol/L Carbon Dioxide 28 (21-32) mmol/L POC Total CO2 (24-31) mEq/l Anion Gap 12.0 H (3-11) POC Anion Gap (16-25) mmol/L POC BUN (7-18) mg/dl BUN 166 H (7-18) mg/dl Creatinine 6.33 H* (0.6-1.4) mg/dl POC Creatinine (0.6-1.3) mg/dl Est Cr Clr Drug Dosing 9.6 ml/min Est GFR ( Amer) 8.9 Est GFR (Non-Af Amer) 7.7 BUN/Creatinine Ratio 26.2 H (10-20) Glucose 150 H (70-99) mg/dl POC Glucose (70-99) POC Glucose (other) (70-99) mg/dl Lactate (0.4-2.0) mmol/L Calcium 9.0 (8.5-10.1) mg/dl POC Ioniz Calcium Mitra (1.12-1.32) mmol/l Phosphorus 3.9 (2.5-4.9) mg/dl Magnesium 3.2 H (1.8-2.4) mg/dl Total Bilirubin 1.6 H (0.2-1) mg/dl AST 63 H (15-37) U/L ALT 18 (12-78) U/L Alkaline Phosphatase 57 (45-117) U/L Total Creatine Kinase (39-308) U/L Troponin I 10.300 H* (0-0.045) ng/ml Total Protein 6.9 (6.4-8.2) gm/dl Albumin 3.1 L (3.4-5.0) gm/dl Globulin 3.8 (2.5-4.0) gm/dl Albumin/Globulin Ratio 0.8 L (0.9-2) Urine Color Urine Appearance (Clear) Urine pH (4.5-7.5) Ur Specific [place] (1.000-1.030) Urine Protein (Negative) Urine Glucose (UA) (Negative) Urine Ketones (Negative) Urine Blood (Negative) Urine Nitrite (Negative) Urine Bilirubin (Negative) Urine Urobilinogen (Negative) Ur Leukocyte Esterase (Negative) Urine WBC (Auto) (0-5) /hpf Urine RBC (Auto) (0-4) /hpf U Hyaline Cast (Auto) (0-5) /lpf U Epithel Cells (Auto) (0-5) /lpf Urine Bacteria (Auto) (Negative) 10/02/19 10/02/19 10/02/19 Range/Units 15:33 15:33 15:45 WBC (4.8-10.8) K/uL RBC (4.7-6.1) M/uL Hgb (14.0-18.0) g/dL POC Hgb 9.9 L (14.0-18.0) g/dl Hct (42-52) % POC Hct 29 L (42-52) % MCV (80-100) fL MCH (25-34) pg MCHC (32-36) g/dL RDW Std Deviation (36.4-46.3) fL RDW Coeff of Alessandro (11.5-14.5) % Plt Count (130-400) K/uL MPV (7.4-10.4) fL Immature Gran % (Auto) % Neut % (Auto) % Lymph % (Auto) % [place] % (Auto) % Eos % (Auto) % Baso % (Auto) % Immature Gran # (Auto) (0.00-0.02) K/uL Neut # (Auto) (1.4-6.5) K/uL Lymph # (Auto) (1.2-3.4) K/uL [place] # (Auto) (0.11-0.59) K/uL Eos # (Auto) (0-0.5) K/uL Baso # (Auto) (0-0.2) K/uL PT (9.0-12.0) Seconds INR (0.9-1.1) APTT (21.0-31.0) Seconds PTT Ratio POC Sodium 138 (135-144) mEq/L Sodium (136-145) mmol/L POC Potassium 3.0 L (3.3-5.0) mEq/L Potassium (3.5-5.1) mmol/L POC Chloride 93 L (101-112) mEq/L Chloride (98-107) mmol/L Carbon Dioxide (21-32) mmol/L POC Total CO2 29 (24-31) mEq/l Anion Gap (3-11) POC Anion Gap 20.0 (16-25) mmol/L POC BUN > 140 H* (7-18) mg/dl BUN (7-18) mg/dl Creatinine (0.6-1.4) mg/dl POC Creatinine 6.3 H* (0.6-1.3) mg/dl Est Cr Clr Drug Dosing ml/min Est GFR ( Amer) Est GFR (Non-Af Amer) BUN/Creatinine Ratio (10-20) Glucose (70-99) mg/dl POC Glucose (70-99) POC Glucose (other) 153 H (70-99) mg/dl Lactate 1.3 (0.4-2.0) mmol/L Calcium (8.5-10.1) mg/dl POC Ioniz Calcium Mitra 1.05 L (1.12-1.32) mmol/l Phosphorus (2.5-4.9) mg/dl Magnesium (1.8-2.4) mg/dl Total Bilirubin (0.2-1) mg/dl AST (15-37) U/L ALT (12-78) U/L Alkaline Phosphatase (45-117) U/L Total Creatine Kinase 369 H (39-308) U/L Troponin I (0-0.045) ng/ml Total Protein (6.4-8.2) gm/dl Albumin (3.4-5.0) gm/dl Globulin (2.5-4.0) gm/dl Albumin/Globulin Ratio (0.9-2) Urine Color Urine Appearance (Clear) Urine pH (4.5-7.5) Ur Specific [place] (1.000-1.030) Urine Protein (Negative) Urine Glucose (UA) (Negative) Urine Ketones (Negative) Urine Blood (Negative) Urine Nitrite (Negative) Urine Bilirubin (Negative) Urine Urobilinogen (Negative) Ur Leukocyte Esterase (Negative) Urine WBC (Auto) (0-5) /hpf Urine RBC (Auto) (0-4) /hpf U Hyaline Cast (Auto) (0-5) /lpf U Epithel Cells (Auto) (0-5) /lpf Urine Bacteria (Auto) (Negative) 10/02/19 10/02/19 Range/Units 15:47 22:27 WBC (4.8-10.8) K/uL RBC (4.7-6.1) M/uL Hgb (14.0-18.0) g/dL POC Hgb (14.0-18.0) g/dl Hct (42-52) % POC Hct (42-52) % MCV (80-100) fL MCH (25-34) pg MCHC (32-36) g/dL RDW Std Deviation (36.4-46.3) fL RDW Coeff of Alessandro (11.5-14.5) % Plt Count (130-400) K/uL MPV (7.4-10.4) fL Immature Gran % (Auto) % Neut % (Auto) % Lymph % (Auto) % [place] % (Auto) % Eos % (Auto) % Baso % (Auto) % Immature Gran # (Auto) (0.00-0.02) K/uL Neut # (Auto) (1.4-6.5) K/uL Lymph # (Auto) (1.2-3.4) K/uL [place] # (Auto) (0.11-0.59) K/uL Eos # (Auto) (0-0.5) K/uL Baso # (Auto) (0-0.2) K/uL PT (9.0-12.0) Seconds INR (0.9-1.1) APTT (21.0-31.0) Seconds PTT Ratio POC Sodium (135-144) mEq/L Sodium (136-145) mmol/L POC Potassium (3.3-5.0) mEq/L Potassium (3.5-5.1) mmol/L POC Chloride (101-112) mEq/L Chloride (98-107) mmol/L Carbon Dioxide (21-32) mmol/L POC Total CO2 (24-31) mEq/l Anion Gap (3-11) POC Anion Gap (16-25) mmol/L POC BUN (7-18) mg/dl BUN (7-18) mg/dl Creatinine (0.6-1.4) mg/dl POC Creatinine (0.6-1.3) mg/dl Est Cr Clr Drug Dosing ml/min Est GFR ( Amer) Est GFR (Non-Af Amer) BUN/Creatinine Ratio (10-20) Glucose (70-99) mg/dl POC Glucose 178 H (70-99) POC Glucose (other) (70-99) mg/dl Lactate (0.4-2.0) mmol/L Calcium (8.5-10.1) mg/dl POC Ioniz Calcium Mitra (1.12-1.32) mmol/l Phosphorus (2.5-4.9) mg/dl Magnesium (1.8-2.4) mg/dl Total Bilirubin (0.2-1) mg/dl AST (15-37) U/L ALT (12-78) U/L Alkaline Phosphatase (45-117) U/L Total Creatine Kinase (39-308) U/L Troponin I (0-0.045) ng/ml Total Protein (6.4-8.2) gm/dl Albumin (3.4-5.0) gm/dl Globulin (2.5-4.0) gm/dl Albumin/Globulin Ratio (0.9-2) Urine Color Yellow Urine Appearance Cloudy A (Clear) Urine pH 5.0 (4.5-7.5) Ur Specific [place] 1.020 (1.000-1.030) Urine Protein Trace H (Negative) Urine Glucose (UA) Negative (Negative) Urine Ketones Negative (Negative) Urine Blood 3+ H (Negative) Urine Nitrite Negative (Negative) Urine Bilirubin Negative (Negative) Urine Urobilinogen Negative (Negative) Ur Leukocyte Esterase 3+ H (Negative) Urine WBC (Auto) 10-30 H (0-5) /hpf Urine RBC (Auto) >30 H (0-4) /hpf U Hyaline Cast (Auto) 5-10 H (0-5) /lpf U Epithel Cells (Auto) 0-5 (0-5) /lpf Urine Bacteria (Auto) Negative (Negative) Diagnostic Findings CT head/brain wo con CT DOSE: 1228.53 mGy.cm HISTORY: Trauma fall eval for bleed TECHNIQUE: Multiaxial CT images of the head were performed without the use of intravenous contrast. A dose lowering technique was utilized adhering to the principles of ALARA. Comparison: None. Findings: The paranasal sinuses and mastoid air cells are clear. The calvarium and skull base are intact. The ventricles and sulci are within normal limits. There is no mass, hematoma, midline shift, or acute infarct. Age-related atrophy and chronic small vessel change Impression: No acute intracranial abnormality. Age-related atrophy and chronic small vessel change The above report was generated using voice recognition software. It may contain grammatical, syntax or spelling errors. Electronically signed by: Gaurang Sebastian M.D. 10/02/2019 4:07 PM Dictated: 10/02/19 1606 Transcribed: 10/02/19 1606 XR chest 1V portable CLINICAL HISTORY: low sat% eval for pna COMPARISON STUDY: 09/22/2019 FINDINGS: Mild stable cardiomegaly. Permanent bipolar cardiac pacemaker. Prominent pulmonary vasculature. Diaphragms are smooth. IMPRESSION: Developing congestive heart failure. The above report was generated using voice recognition software. It may contain grammatical, syntax or spelling errors. Electronically signed by: Gaurang Sebastian M.D. 10/02/2019 4:34 PM Dictated: 10/02/19 1633 Transcribed: 10/02/19 1633 ECG Additional Comments: SR at 75, normal axis, QV=627, FDW=486, HUs=233, ST depressions in V4-V6, I and aVL Code Status & VTE Plan Code Status DNR/DNI VTE Prophylaxis Plan VTE Prophylaxis will be ordered: Yes Critical Care Time Prolonged Care Time Total Prolonged Care Time: 30 PG Care Time/CCT Total # of Minutes Spent Total Time Spent with Patient: Total time spent is greater than 50% in coordination of care (as documented) at patient's floor/unit and/or counseling patient: Prolonged Care Time Total Prolonged Care Time: 30 (1) Hypothyroidism Hypothyroidism type: unspecified Qualified Code(s): E03.9 - Hypothyroidism, unspecified
[2019-10-02] MEDS ORDERED: GLUCOSE 10 TABS/TUBE PO PRN (20:57)
[2019-10-02] MEDS ORDERED: DEXTROSE 50% 50 ML SYRINGE IV PRN (20:57)
[2019-10-02] MEDS ORDERED: GLUCOSE 40% GEL 15 GM TUBE PO PRN (20:57)
[2019-10-02] MEDS ORDERED: GLUCAGON FOR INJ 1 MG VIAL SQ PRN (20:57)
[2019-10-02] MEDS: SODIUM CHLORIDE 0.9% 1000ML 1,000 ML IV SCH (21:24)
[2019-10-02] MEDS ORDERED: INFLUENZA ADMINISTRATION CHARGE ONE (22:00)
[2019-10-02] MEDS ORDERED: PNEUMOCOCCAL ADMINISTRATION CHARGE ONE (22:00)
[2019-10-02] MEDS ORDERED: PNEUMOCOCCAL POLYSACCHARIDES 25 MCG/0.5 ML VIAL/SYR IM ONE (22:00)
[2019-10-02] MEDS ORDERED: INFLUENZA VACCINE HIGH DOSE 65+ 0.5 ML SYR IM ONE (22:00)
[2019-10-02] MEDS ORDERED: SODIUM CHLORIDE 0.9% 1000ML 250 ML IV ONE (22:03)
[2019-10-02] MEDS: TAMSULOSIN HCL 0.4 MG CAP PO SCH (22:04)
[2019-10-02] MEDS: cefTRIAXone SODIUM 2,000 MG in DEXTROSE 5% 50 ML IV SCH (22:04)
--- NOTE | 2019-10-02 22:14 | Emergency Department Note ---
Entered by Franci Bower acting as a scribe for Manny Estrada MD History of Present Illness General Chief complaint: Urinary Symptoms Stated complaint: uti? doc ref Time Seen by Provider: 10/02/19 14:30 Source: family (, daughter) Limitations: altered mental status History of Present Illness Onset (ago): month(s) 4 Location: abdomen (bladder ) Pain Consistency: + constant Quality: + other (decreased urine output, trouble emptying bladder) Associated symptoms: + denies other symptoms ( denies vomiting), + loss of appetite, + weakness and + other (trouble ambulating, non-correspondant) The patient is a 79 year old male with a PMHx of NSTEMI, VTach, Afib, COPD, CHF, Dyslipidemia, Mitral regurgitation, BPH, TIA, HTN, and CKD presents to the Emergency Room today with complaints of urinary symptoms that began 4 months prior to arrival. The patient's states that he has not been speaking normally for awhile. She states that since May 2019 he has not been speaking as much after he was placed on and off new meds. The patient's daughter explains that he has been slowly declining and that 1 week ago he was speaking slightly but not much since. Additionally she reports that he has trouble walking and uses a walker for assistance. Daughter also notes that he fell in the bathtub 3 days ago. Additionally, she reports that the patient has had recent weight loss and that it has been about 2 weeks since he has had something solid to eat. The explains that he will only eat chocolate and vanilla pudding. Daughter also notes decreased fluid intake and states he will only drink some cranberry juice. The daughter reports that he lives at home with his and he is constantly waking up in the middle of the night to urinate. 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 The urologist placed a Pinto catheter to see if that with alleviate some of his symptoms. His states that he still got up in the middle of night even though he had a Pinto catheter in. The patient's daughter explains that his recent urination has been in very small amounts per 's measurements. She states that he had a total output of 300 cc yesterday and 500 cc before that as well as 600 cc the day before. The also includes that his catheter was leaking today. Additionally, she states that he slid out of bed this morning and fell onto the floor landing on his buttocks. The states that the patient told her he did not hit his head but she states that she is unsure of this. The notes that she is unsure if he had a fever and she denies vomiting. Additionally, she notes that he possibly has dementia and he has DM but does not check his sugar. The patient's daughter reports that Dr. Corley recently told the patient that he was in kidney failure as well as having a possible infection but he is not currently on antibiotics nor dialysis. They were going to wait for the urine culture to come back before treating him with antibiotics. The patient's family offers no additional complaints or concerns at this time. The patient himself states that he has no pain anywhere. He denies headache, chest pain, shortness of breath or abdominal pain. HPI is per and daughter and is limited due to patient's AMS. Home Medications Home Medications Medication Instructions Recorded Confirmed Type amiodarone [Pacerone] 100 mg PO QAM 08/07/18 10/02/19 History aspirin 81 mg PO DAILY 08/07/18 10/02/19 History clopidogrel [Plavix] 75 mg PO QAM 08/07/18 10/02/19 History finasteride [Proscar] 5 mg PO QAM 08/07/18 10/02/19 History guaifenesin [Mucinex] 600 mg PO Q12H PRN 08/07/18 10/02/19 History isosorbide mononitrate 90 mg PO QAM 08/07/18 10/02/19 History omeprazole 40 mg PO QAM 08/07/18 10/02/19 History pravastatin [Pravachol] 80 mg PO QAM 08/07/18 10/02/19 History tamsulosin [Flomax] 0.4 mg PO HS 08/07/18 10/02/19 History levothyroxine 100 mcg PO DAILY 08/30/18 10/02/19 History potassium chloride 20 meq PO DAILY #14 ea 09/07/18 10/02/19 Rx magnesium oxide 400 mg PO BID 05/14/19 10/02/19 History glipizide ER 10 mg tablet, 5 mg PO DAILY tab 06/27/19 10/02/19 History extended release 24 hr ipratropium 20 mcg-albuterol 100 1 puffs INH Q6H 06/27/19 10/02/19 History mcg/actuation mist for inhalation insulin glargine (U-100) 100 40 units SUBCUT QPM ml 07/07/19 10/02/19 History unit/mL (3 mL) subcutaneous pen bumetanide 2 mg tablet 4 mg PO QAM tab 08/01/19 10/02/19 History metolazone 2.5 mg tablet See Rx Instructions PO Q OTHER DAY 09/05/19 10/02/19 Rx #20 tab buspirone 10 mg tablet 10 mg PO BID #180 tab 09/13/19 10/02/19 Rx bumetanide 2 mg PO QPM 10/02/19 10/02/19 History cefuroxime axetil 500 mg PO BID 10/02/19 10/02/19 History nitrofurantoin macrocrystal 0 mg PO DAILY 10/02/19 10/02/19 History nitroglycerin [Nitrostat] 0.4 mg SUBLINGUAL .PRN/UD PRN 10/02/19 10/02/19 History Allergies Allergy/AdvReac Type Severity Reaction Status Date / Time No Known Drug Allergies Allergy Verified 09/27/19 16:04 Past Med/Surg History Medical History BPH (benign prostatic hyperplasia) Presence of combination internal cardiac defibrillator (ICD) and pacemaker History of TIA (transient ischemic attack) Cardiac arrest with ventricular fibrillation associated with acute UT in 2001, s/p AICD placement JUANY (obstructive sleep apnea) Mixed hyperlipidemia HTN (hypertension) Anemia in CKD (chronic kidney disease) Hypothyroidism History of stent insertion of renal artery Tobacco dependence Morbid obesity Chronic combined systolic and diastolic CHF (congestive heart failure) COPD (chronic obstructive pulmonary disease) CAD (coronary artery disease) CKD (chronic kidney disease) stage 4, GFR 15-29 ml/min DM type 2 (diabetes mellitus, type 2) 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 Feels Safe at Home: Yes Safety Concerns: Feels Safe At This Time Smoking Status: Smoker, status unknown Hx Alcohol Use: No Hx Substance Use: No Review of Systems Unobtainable due to cognitive status ROS limited due to AMS Physical Exam Vital Signs Vital Signs - 24 hr 10/02/19 13:59 10/02/19 14:18 10/02/19 14:20 Temperature 36.6 C Temperature Source Oral Sepsis Recent Fever Within 48 Hours No Sepsis Action Taken by Nursing No Action Required Pulse Rate 86 75 73 Pulse Rate from SpO2 Sensor 75 73 Respiratory Rate 22 17 28 H Respiratory Effort / Characteristics Non-Labored Spontaneous Respiratory Depth Normal Blood Pressure 82/47 L 84/46 L Blood Pressure Mean 58 58 Pulse Oximetry 92 90 93 Oxygen Delivery Method Room Air Room Air Room Air Oxygen Flow Rate 10/02/19 14:30 10/02/19 14:45 10/02/19 15:00 Temperature Temperature Source Sepsis Recent Fever Within 48 Hours Sepsis Action Taken by Nursing Pulse Rate 74 75 75 Pulse Rate from SpO2 Sensor 74 75 75 Respiratory Rate 24 30 H 30 H Respiratory Effort / Characteristics Respiratory Depth Blood Pressure 89/52 L 96/58 L Blood Pressure Mean 64 70 Pulse Oximetry 92 93 90 Oxygen Delivery Method Room Air Nasal Cannula Nasal Cannula Oxygen Flow Rate 3 3 10/02/19 15:01 10/02/19 15:15 10/02/19 15:30 Temperature Temperature Source Sepsis Recent Fever Within 48 Hours Sepsis Action Taken by Nursing Pulse Rate 73 74 Pulse Rate from SpO2 Sensor 73 74 Respiratory Rate 24 26 H Respiratory Effort / Characteristics Respiratory Depth Blood Pressure 95/52 L Blood Pressure Mean 66 Pulse Oximetry 94 93 93 Oxygen Delivery Method Nasal Cannula Nasal Cannula Nasal Cannula Oxygen Flow Rate 3 3 3 10/02/19 15:45 10/02/19 16:06 10/02/19 16:08 Temperature Temperature Source Sepsis Recent Fever Within 48 Hours Sepsis Action Taken by Nursing Pulse Rate 73 78 74 Pulse Rate from SpO2 Sensor 72 73 Respiratory Rate 20 29 H Respiratory Effort / Characteristics Respiratory Depth Blood Pressure 98/58 L Blood Pressure Mean 71 Pulse Oximetry 94 95 Oxygen Delivery Method Nasal Cannula Nasal Cannula Oxygen Flow Rate 3 2 10/02/19 16:30 10/02/19 17:00 10/02/19 17:30 Temperature Temperature Source Sepsis Recent Fever Within 48 Hours Sepsis Action Taken by Nursing Pulse Rate 74 72 69 Pulse Rate from SpO2 Sensor 74 73 69 Respiratory Rate 27 H 29 H 14 Respiratory Effort / Characteristics Respiratory Depth Blood Pressure 102/52 L 84/43 L Blood Pressure Mean 68 56 Pulse Oximetry 96 91 97 Oxygen Delivery Method Nasal Cannula Nasal Cannula Nasal Cannula Oxygen Flow Rate 2 2 2 10/02/19 17:31 Temperature Temperature Source Sepsis Recent Fever Within 48 Hours Sepsis Action Taken by Nursing Pulse Rate 73 Pulse Rate from SpO2 Sensor 70 Respiratory Rate 23 Respiratory Effort / Characteristics Respiratory Depth Blood Pressure 94/60 L Blood Pressure Mean 71 Pulse Oximetry 96 Oxygen Delivery Method Nasal Cannula Oxygen Flow Rate 2 Limited examination due to altered mental status. Constitutional: Vital signs reviewed. Eyes: Pupils are equal round reactive to light. Conjunctiva are noninjected. ENT: Pharynx is clear without erythema or exudate. Mucous membranes are very dry, Neck supple without meningeal signs. Respiratory: Clear to auscultation bilaterally. Breath sounds are equal bilater ally. Cardiovascular: Regular rate and rhythm. No rubs or gallops. GI: Soft, nondistended and nontender. Bowel sounds are present. Musculoskeletal: No peripheral edema. No lower extremity tenderness. Integumentary: No cyanosis. Neurological: The patient is awake and alert. Answers yes and no questions. Psychiatric: Unable to assess. MALE : Pinto catheter draining clear urine. Course 1437: Past medical records reviewed. The patient was evaluated in room C07. A complete history and physical exam was performed. 1549: Spoke to patient's daughter and about his test results. He is getting fluids right now. 1606: RA stat was 87% and increased to 95% on 3L of O2. Family states he wears CPAP at night. 1644: Spoke to the patient and his family. He states that he does not currently nor has he recently had chest discomfort, pressure, or tightness. He also denies shortness of breath. A repeat EKG will be performed. Currently waiting for cardiology to return phone call for consult. 1708: Spoke with Dr. Peña, Cardiology in regards to the patient. He suggests giving the patient heparin and do an echo tomorrow. No need for stat echo tonight. 1717: The patient is slightly hypotensive again. I discussed his test results w ith him and his family. They are agreeable to heparin and the patient and family state that he is a DNR, DNI and they do not want CPR, resuscitation, or intubation. 1720: Spoke with Dr. Vann, Hospitalist who accepts patient. The patient verbally expressed understanding and agreement of the treatment plan. The patient will be evaluated for further treatment. Administered Medications Buspirone HCl (Buspar) 10 mg PO BID EMANUEL Stop: 11/01/19 20:59 Last Admin: 10/02/19 22:03 Dose: Not Given Documented by: [id number] Heparin Sodium/Dextrose (Heparin Sodium/Dextrose) 25,000 units in 500 mls @ 18 mls/hr IV .Q24H [facility]; Protocol Stop: 11/01/19 17:29 Last Admin: 10/02/19 17:49 Dose: 900 units/hr, 18 mls/hr Documented by: [id number] Cosigned by: [id number] Ceftriaxone Sodium 2,000 mg/ (Dextrose) 70 mls @ 100 mls/hr IV Q24H EMANUEL; Protocol Stop: 10/12/19 21:59 Last Admin: 10/02/19 22:04 Dose: 100 mls/hr Documented by: [id number] Sodium Chloride (Nss 1000ml) 1,000 mls @ 80 mls/hr IV .[id number] EMANUEL Stop: 10/03/19 22:59 Last Admin: 10/02/19 21:24 Dose: 80 mls/hr Documented by: [id number] Sodium Chloride (Nss 1000ml) 250 mls @ 999 mls/hr IV .Q16M ONE Stop: 10/02/19 22:18 Last Admin: 10/02/19 22:07 Dose: 999 mls/hr Documented by: [id number] Tamsulosin HCl (Flomax) 0.4 mg PO HS EMANUEL Stop: 11/01/19 20:59 Last Admin: 10/02/19 22:04 Dose: Not Given Documented by: [id number] Discontinued Medications Heparin Sodium (Porcine) (Heparin Iv Bolus) Confirm Administered Dose 10,000 units .ROUTE .STK-MED ONE Stop: 10/02/19 17:33 Last Admin: 10/02/19 17:50 Dose: 4,000 units Documented by: [id number] Cosigned by: [id number] Heparin Sodium/Dextrose () 1 ea IV NOW STA; Protocol Stop: 10/02/19 17:18 Last Admin: 10/02/19 17:50 Dose: Not Given Documented by: [id number] Sodium Chloride (Nss) 500 mls @ 999 mls/hr IV .Q31M EMANUEL Stop: 10/02/19 15:30 Last Infusion: 10/02/19 15:54 Dose: 0 mls/hr Documented by: [id number] Admin: 10/02/19 15:23 Dose: 999 mls/hr Documented by: [id number] Cefepime HCl (Maxipime) 2,000 mg in 20 mls @ 5 mls/min IV NOW STA; Protocol Stop: 10/02/19 15:08 Last Admin: 10/02/19 15:49 Dose: 5 mls/min Documented by: [id number] Sodium Chloride (Nss) 500 mls @ 125 mls/hr IV .Q4H EMANUEL Stop: 11/01/19 16:44 Last Infusion: 10/02/19 21:03 Dose: 0 mls/hr Documented by: [id number] Admin: 10/02/19 17:47 Dose: 125 mls/hr Documented by: [id number] Medical Decision Making Differential Diagnosis Differential diagnosis includes: ROSEMARY, hyperkalemia, dehydration, ICH, dementia, CVA, UTI, sepsis, and others were considered Medical Records Attestation: I reviewed the patient's medical records. The patient has a previous ED visit on 09/27/19 for urinary retention and urethral stricture. A urine culture was performed which showed to grow Morganella. Home Medications Current Medication List: was personally reviewed by me Laboratory Data Attestation: I reviewed the patient's lab results. Result diagrams: 10/02/19 15:33 10/02/19 15:33 Lab Results 10/02/19 10/02/19 10/02/19 Range/Units 15:33 15:33 15:33 WBC 13.55 H (4.8-10.8) K/uL RBC 3.73 L (4.7-6.1) M/uL Hgb 11.2 L (14.0-18.0) g/dL POC Hgb (14.0-18.0) g/dl Hct 32.5 L (42-52) % POC Hct (42-52) % MCV 87.1 (80-100) fL MCH 30.0 (25-34) pg MCHC 34.5 (32-36) g/dL RDW Std Deviation 48.9 H (36.4-46.3) fL RDW Coeff of Alessandro 15.4 H (11.5-14.5) % Plt Count 182 (130-400) K/uL MPV 10.2 (7.4-10.4) fL Immature Gran % (Auto) 0.2 % Neut % (Auto) 87.0 % Lymph % (Auto) 6.6 % Sheridan % (Auto) 6.0 % Eos % (Auto) 0.1 % Baso % (Auto) 0.1 % Immature Gran # (Auto) 0.03 H (0.00-0.02) K/uL Neut # (Auto) 11.80 H (1.4-6.5) K/uL Lymph # (Auto) 0.89 L (1.2-3.4) K/uL Sheridan # (Auto) 0.81 H (0.11-0.59) K/uL Eos # (Auto) 0.01 (0-0.5) K/uL Baso # (Auto) 0.01 (0-0.2) K/uL PT 12.0 (9.0-12.0) Seconds INR 1.2 H (0.9-1.1) APTT 29.0 (21.0-31.0) Seconds PTT Ratio 1.1 POC Sodium (135-144) mEq/L Sodium 137 (136-145) mmol/L POC Potassium (3.3-5.0) mEq/L Potassium 3.0 L (3.5-5.1) mmol/L POC Chloride (101-112) mEq/L Chloride 97 L (98-107) mmol/L Carbon Dioxide 28 (21-32) mmol/L POC Total CO2 (24-31) mEq/l Anion Gap 12.0 H (3-11) POC Anion Gap (16-25) mmol/L POC BUN (7-18) mg/dl BUN 166 H (7-18) mg/dl Creatinine 6.33 H* (0.6-1.4) mg/dl POC Creatinine (0.6-1.3) mg/dl Est Cr Clr Drug Dosing 9.6 ml/min Est GFR ( Amer) 8.9 Est GFR (Non-Af Amer) 7.7 BUN/Creatinine Ratio 26.2 H (10-20) Glucose 150 H (70-99) mg/dl POC Glucose (other) (70-99) mg/dl Lactate (0.4-2.0) mmol/L Calcium 9.0 (8.5-10.1) mg/dl POC Ioniz Calcium Mitra (1.12-1.32) mmol/l Phosphorus 3.9 (2.5-4.9) mg/dl Magnesium 3.2 H (1.8-2.4) mg/dl Total Bilirubin 1.6 H (0.2-1) mg/dl AST 63 H (15-37) U/L ALT 18 (12-78) U/L Alkaline Phosphatase 57 (45-117) U/L Total Creatine Kinase (39-308) U/L Troponin I 10.300 H* (0-0.045) ng/ml Total Protein 6.9 (6.4-8.2) gm/dl Albumin 3.1 L (3.4-5.0) gm/dl Globulin 3.8 (2.5-4.0) gm/dl Albumin/Globulin Ratio 0.8 L (0.9-2) Urine Color Urine Appearance (Clear) Urine pH (4.5-7.5) Ur Specific [place] (1.000-1.030) Urine Protein (Negative) Urine Glucose (UA) (Negative) Urine Ketones (Negative) Urine Blood (Negative) Urine Nitrite (Negative) Urine Bilirubin (Negative) Urine Urobilinogen (Negative) Ur Leukocyte Esterase (Negative) Urine WBC (Auto) (0-5) /hpf Urine RBC (Auto) (0-4) /hpf U Hyaline Cast (Auto) (0-5) /lpf U Epithel Cells (Auto) (0-5) /lpf Urine Bacteria (Auto) (Negative) 10/02/19 10/02/19 10/02/19 Range/Units 15:33 15:33 15:45 WBC (4.8-10.8) K/uL RBC (4.7-6.1) M/uL Hgb (14.0-18.0) g/dL POC Hgb 9.9 L (14.0-18.0) g/dl Hct (42-52) % POC Hct 29 L (42-52) % MCV (80-100) fL MCH (25-34) pg MCHC (32-36) g/dL RDW Std Deviation (36.4-46.3) fL RDW Coeff of Alessandro (11.5-14.5) % Plt Count (130-400) K/uL MPV (7.4-10.4) fL Immature Gran % (Auto) % Neut % (Auto) % Lymph % (Auto) % [place]idan % (Auto) % Eos % (Auto) % Baso % (Auto) % Immature Gran # (Auto) (0.00-0.02) K/uL Neut # (Auto) (1.4-6.5) K/uL Lymph # (Auto) (1.2-3.4) K/uL Sheridan # (Auto) (0.11-0.59) K/uL Eos # (Auto) (0-0.5) K/uL Baso # (Auto) (0-0.2) K/uL PT (9.0-12.0) Seconds INR (0.9-1.1) APTT (21.0-31.0) Seconds PTT Ratio POC Sodium 138 (135-144) mEq/L Sodium (136-145) mmol/L POC Potassium 3.0 L (3.3-5.0) mEq/L Potassium (3.5-5.1) mmol/L POC Chloride 93 L (101-112) mEq/L Chloride (98-107) mmol/L Carbon Dioxide (21-32) mmol/L POC Total CO2 29 (24-31) mEq/l Anion Gap (3-11) POC Anion Gap 20.0 (16-25) mmol/L POC BUN > 140 H* (7-18) mg/dl BUN (7-18) mg/dl Creatinine (0.6-1.4) mg/dl POC Creatinine 6.3 H* (0.6-1.3) mg/dl Est Cr Clr Drug Dosing ml/min Est GFR ( Amer) Est GFR (Non-Af Amer) BUN/Creatinine Ratio (10-20) Glucose (70-99) mg/dl POC Glucose (other) 153 H (70-99) mg/dl Lactate 1.3 (0.4-2.0) mmol/L Calcium (8.5-10.1) mg/dl POC Ioniz Calcium Mitra 1.05 L (1.12-1.32) mmol/l Phosphorus (2.5-4.9) mg/dl Magnesium (1.8-2.4) mg/dl Total Bilirubin (0.2-1) mg/dl AST (15-37) U/L ALT (12-78) U/L Alkaline Phosphatase (45-117) U/L Total Creatine Kinase 369 H (39-308) U/L Troponin I (0-0.045) ng/ml Total Protein (6.4-8.2) gm/dl Albumin (3.4-5.0) gm/dl Globulin (2.5-4.0) gm/dl Albumin/Globulin Ratio (0.9-2) Urine Color Urine Appearance (Clear) Urine pH (4.5-7.5) Ur Specific [place] (1.000-1.030) Urine Protein (Negative) Urine Glucose (UA) (Negative) Urine Ketones (Negative) Urine Blood (Negative) Urine Nitrite (Negative) Urine Bilirubin (Negative) Urine Urobilinogen (Negative) Ur Leukocyte Esterase (Negative) Urine WBC (Auto) (0-5) /hpf Urine RBC (Auto) (0-4) /hpf U Hyaline Cast (Auto) (0-5) /lpf U Epithel Cells (Auto) (0-5) /lpf Urine Bacteria (Auto) (Negative) 10/02/19 Range/Units 15:47 WBC (4.8-10.8) K/uL RBC (4.7-6.1) M/uL Hgb (14.0-18.0) g/dL POC Hgb (14.0-18.0) g/dl Hct (42-52) % POC Hct (42-52) % MCV (80-100) fL MCH (25-34) pg MCHC (32-36) g/dL RDW Std Deviation (36.4-46.3) fL RDW Coeff of Alessandro (11.5-14.5) % Plt Count (130-400) K/uL MPV (7.4-10.4) fL Immature Gran % (Auto) % Neut % (Auto) % Lymph % (Auto) % Sheridan % (Auto) % Eos % (Auto) % Baso % (Auto) % Immature Gran # (Auto) (0.00-0.02) K/uL Neut # (Auto) (1.4-6.5) K/uL Lymph # (Auto) (1.2-3.4) K/uL [place]idan # (Auto) (0.11-0.59) K/uL Eos # (Auto) (0-0.5) K/uL Baso # (Auto) (0-0.2) K/uL PT (9.0-12.0) Seconds INR (0.9-1.1) APTT (21.0-31.0) Seconds PTT Ratio POC Sodium (135-144) mEq/L Sodium (136-145) mmol/L POC Potassium (3.3-5.0) mEq/L Potassium (3.5-5.1) mmol/L POC Chloride (101-112) mEq/L Chloride (98-107) mmol/L Carbon Dioxide (21-32) mmol/L POC Total CO2 (24-31) mEq/l Anion Gap (3-11) POC Anion Gap (16-25) mmol/L POC BUN (7-18) mg/dl BUN (7-18) mg/dl Creatinine (0.6-1.4) mg/dl POC Creatinine (0.6-1.3) mg/dl Est Cr Clr Drug Dosing ml/min Est GFR ( Amer) Est GFR (Non-Af Amer) BUN/Creatinine Ratio (10-20) Glucose (70-99) mg/dl POC Glucose (other) (70-99) mg/dl Lactate (0.4-2.0) mmol/L Calcium (8.5-10.1) mg/dl POC Ioniz Calcium Mitra (1.12-1.32) mmol/l Phosphorus (2.5-4.9) mg/dl Magnesium (1.8-2.4) mg/dl Total Bilirubin (0.2-1) mg/dl AST (15-37) U/L ALT (12-78) U/L Alkaline Phosphatase (45-117) U/L Total Creatine Kinase (39-308) U/L Troponin I (0-0.045) ng/ml Total Protein (6.4-8.2) gm/dl Albumin (3.4-5.0) gm/dl Globulin (2.5-4.0) gm/dl Albumin/Globulin Ratio (0.9-2) Urine Color Yellow Urine Appearance Cloudy A (Clear) Urine pH 5.0 (4.5-7.5) Ur Specific [place] 1.020 (1.000-1.030) Urine Protein Trace H (Negative) Urine Glucose (UA) Negative (Negative) Urine Ketones Negative (Negative) Urine Blood 3+ H (Negative) Urine Nitrite Negative (Negative) Urine Bilirubin Negative (Negative) Urine Urobilinogen Negative (Negative) Ur Leukocyte Esterase 3+ H (Negative) Urine WBC (Auto) 10-30 H (0-5) /hpf Urine RBC (Auto) >30 H (0-4) /hpf U Hyaline Cast (Auto) 5-10 H (0-5) /lpf U Epithel Cells (Auto) 0-5 (0-5) /lpf Urine Bacteria (Auto) Negative (Negative) Imaging Data Radiologist's Impression: Radiology results as stated below per my review and the radiologist's interpretation: CT head/brain wo con CT DOSE: 1228.53 mGy.cm HISTORY: Trauma fall eval for bleed TECHNIQUE: Multiaxial CT images of the head were performed without the use of intravenous contrast. A dose lowering technique was utilized adhering to the principles of ALARA. Comparison: None. Findings: The paranasal sinuses and mastoid air cells are clear. The calvarium and skull base are intact. The ventricles and sulci are within normal limits. There is no mass, hematoma, midline shift, or acute infarct. Age-related atrophy and chronic small vessel change Impression: No acute intracranial abnormality. Age-related atrophy and chronic small vessel change The above report was generated using voice recognition software. It may contain grammatical, syntax or spelling errors. Electronically signed by: Gaurang Sebastian M.D. 10/02/2019 4:07 PM XR chest 1V portable CLINICAL HISTORY: low sat% eval for pna COMPARISON STUDY: 09/22/2019 FINDINGS: Mild stable cardiomegaly. Permanent bipolar cardiac pacemaker. Prominent pulmonary vasculature. Diaphragms are smooth. IMPRESSION: Developing congestive heart failure. The above report was generated using voice recognition software. It may contain grammatical, syntax or spelling errors. Electronically signed by: Gaurang Sebastian M.D. 10/02/2019 4:34 PM ECG Data Attestation: I personally reviewed and interpreted this ECG as follows: Rate (beats per minute): 74 Rhythm: + sinus rhythm ECG ST segments: + ST depression ECG Findings: + PVCs and + Other (QRS is 134 milliseconds ); no Peaked T waves Comparison ECG Date: from (05/14/19) Change: the following changes noted (Paced rhythm with ST depressions laterally) Additional Comments: 1646: Repeat EKG: Normal sinus rhythm at rate of [address] depressions and T wave inversions in lateral leads. No ST elevation. No PVCs. Blood Pressure Blood Pressure Findings: Low blood pressure Blood Pressure Disposition: further management by hospitalist [facility] Narrative I did evaluate the patient as noted above. I did obtain history from the patient as well as his daughter and who are at the bedside. Apparently he has had progressively decreased urinary output. He has had change in his mental status since May of this year. He has been less and less verbal according to his family. He also fell last week and again today. IV access was established. The patient was placed on a continuous night monitor. He is hypotensive. I did give him a bolus of normal saline IV. I did treat him only with 500 cc initially due to his history of both diastolic and systolic CHF. I did order and personally review the patient's 12-lead EKG as described above. He has ST depressions laterally and in the high lateral leads. This is not significantly changed from his prior EKG from June. I did order and personally reviewed the images of the patient's chest x-ray as described above. He has developing congestive heart failure. I did order a urine analysis. He does have a UTI. Cultures were ordered. I did treat him with cefepime 2 g IV. I did order and review the patient's blood work as noted in the electronic medical record. His white count is elevated. He is anemic. His creatinine is 6.4 which is actually somewhat decreased from July 23. BUN significantly elevated. He is hypokalemic. Troponin is over 10. I did order a CT of the head. I did review the images myself as well as the radiology report as described above. There is no evidence of intracranial hemorrhage or CVA. I did reassess the patient. His blood pressure is improved with the IV fluid bolus. I did repeat another twelve-lead EKG which showed similar findings per my interpretation as noted above. He denies having, or recently having, any chest discomfort or pain or shortness of breath. I did discuss the case with Dr. Peña of cardiology. He recommended starting him on heparin IV and he will be evaluated by cardiology and have an echocardiogram tomorrow morning. I did discuss this with the patient and his family. They were agreeable to IV heparin. I did start him on a heparin drip with bolus. He and his family state that he does not want any CPR or resuscitation or intubation should he require it. I did discuss case with the hospitalist and case worker. Impression & Plan Non-ST elevation UT (NSTEMI), Opocr-lh-[id number] kidney injury, COPD (chronic obstructive pulmonary disease), Anemia, Hypotension, Hypoxia, Hypokalemia, Acute UTI Critical Care Time Critical Care Time: Yes Total Critical Care Time: 40 I have personally spent approximately 40 minutes of critical care time in the direct management of this patient. This includes bedside care, interpretation of diagnostic studies, and testing, discussion with consultants, patient, and family members, and other required patient management activities. This 40 minutes is in excess of all separately billable procedures. Discharge Plan Visit Data *Final* Discharge Date/Time: 10/02/19 20:23 Chief Complaint: Urinary Symptoms Stated Complaint: uti? doc ref ED Provider: Manny Estrada Discharge Problem: Non-ST elevation UT (NSTEMI), [id number] kidney injury, COPD (chronic obstructive pulmonary disease), Anemia, Hypotension, Hypoxia, Hypokalemia, Acute UTI Patient Disposition: Admitted As Inpatient Discharge Instructions Interventions: ED Discharge Assessment Last Done: 10/02/19 20:23 The scribe's documentation has been prepared under my direction and personally reviewed by me in its entirety. I confirm that the note above accurately reflects all work, treatment, procedures, and medical decision making performed by me.
[2019-10-02] MEDS: IPRATROPIUM BROMIDE/ALBUTEROL respimat INH INH SCH (22:28)
[2019-10-02] MEDS: INSULIN GLARGINE SOLOSTAR 100 UNITS/ML 3 ML PEN SC SCH (22:29)
[2019-10-02] MEDS: INSULIN ASPART 100 UNITS/ML 3 ML PEN SC SCH (22:30)
[2019-10-03 00:01] LABS: Partial Thromboplastin Ratio 2.7
[2019-10-03 00:05] LABS: Partial Thromboplastin Time 73.2 Seconds (21.0-31.0)
[2019-10-03 00:28] LABS: Bacteria Urine Automated Negative (Negative); RBC Urine Automated >30 /hpf (0-4)
[2019-10-03 00:41] LABS: Sodium Random Urine 19 mmol/L; Urea Nitrogen, Urine Random 788 mg/dl
[2019-10-03] MEDS: LEVOTHYROXINE SODIUM 100 MCG TABLET PO SCH (04:59)
[2019-10-03] MEDS: SODIUM CHLORIDE 0.9% 1000ML 1,000 ML IV SCH (05:18)
[2019-10-03] MEDS ORDERED: PERFLUTREN LIPID MICROSPHERE (DEFINITY) IV ONE (07:05)
[2019-10-03 07:19] LABS: Basophils # (auto) 0.01 K/uL (0-0.2); Basophils % (auto) 0.1 %; Eosinophils # (auto) 0.11 K/uL (0-0.5); Eosinophils % (auto) 1.2 %; Hematocrit (blood only) 29.3 % (42-52); Hemoglobin 10.1 g/dL (14.0-18.0); Immature Granulocytes # (auto) 0.02 K/uL (0.00-0.02); Immature Granulocytes % (auto) 0.2 %; Lymphocytes # (auto) 0.82 K/uL (1.2-3.4); Mean Corpuscular Hemoglobin 30.2 pg (25-34); Mean Corpuscular Hgb Conc 34.5 g/dL (32-36); Mean Corpuscular Volume 87.7 fL (80-100); Mean Platelet Volume 9.2 fL (7.4-10.4); Monocytes # (auto) 0.47 K/uL (0.11-0.59); Monocytes % (auto) 5.1 %; Neutrophils % (auto) 84.4 %; Platelet Count 162 K/uL (130-400); RDW Coefficient of Variation 15.3 % (11.5-14.5); Red Blood Count 3.34 M/uL (4.7-6.1); White Blood Count 9.13 K/uL (4.8-10.8)
[2019-10-03 07:39] LABS: Partial Thromboplastin Ratio 1.9
[2019-10-03 07:40] LABS: Partial Thromboplastin Time 51.9 Seconds (21.0-31.0)
[2019-10-03 08:10] LABS: BUN Creatinine Ratio 28.1 (10-20); Calcium 8.5 mg/dl (8.5-10.1); Creatinine Clr Calc Pharmacy 11.6 ml/min; Est GFR (Non-African American) 8.6; Potassium 2.9 mmol/L (3.5-5.1)
[2019-10-03] MEDS ORDERED: POTASSIUM CHLORIDE 20 MEQ TABCR PO STA (08:57)
--- NOTE | 2019-10-03 09:34 | Ultrasound Report ---
US duplex renal artery CLINICAL HISTORY: 79 years-old Male presenting with renal artery stenosis. TECHNIQUE: Real-time grayscale and color and spectral Doppler ultrasound imaging of the kidneys was p erformed. COMPARISON: CT from 03/13/2018. FINDINGS: RIGHT: Increased echogenicity of renal parenchyma with decreased corticomedullary differentiation. Cortical thinning is suspected. Right kidney measures 11.8 cm. No hydronephrosis. No convincing evidence of ca lculus or mass. Spectral analysis: Intrarenal resistive indices range from 0.72 to 1.0. Abnormal intrarenal arterial waveforms with loss of diastolic flow. Renal artery patent with peak systolic velocity 47 cm/s proximally, 52 cm/s in th e midportion, and 71 cm/s distally. Renal vein patent. LEFT: Increased echogenicity of renal parenchyma with decreased corticomedullary differentiation. Cortical thinning is suspected. Left kidney measures 15.8 cm. No hydronephrosis. No convincing evidence of francisco culus or mass. Spectral analysis: Intrarenal resistive indices range from 1.0 to 1.0. Abnormal intrarenal arterial waveforms with loss of diastolic flow. Renal artery patent though not visualized proximally, peak systolic velocity 79 cm /s in the midportion, and peak systolic velocity 18 cm/s distally. Renal vein patent. Abdominal aorta: Patent. Peak systolic velocity 90 cm/s. Ratio of right renal artery PSV/aortic PSV: 0.8. Ratio of left renal artery PSV/aortic PSV: 0.9. Bladder: Not interrogated. Other: None. Reference ranges: Normal main renal artery peak systolic velocity less than 180 cm/s. Ratio of renal artery PSV to aort ic PSV less than 3.5 equates to normal or less than 60% stenosis. Only one of the two criteria listed needs to be met for diagnosis. IMPRESSION: 1. No evidence of renal artery stenosis. 2. Elevated intrarenal resistive indices, nonspecific and likely indicative of medical renal disease . 3. No hydronephrosis. Electronically signed by: Conrad Borjas M.D. 10/03/2019 9:32 AM
[2019-10-03] MEDS: INSULIN GLARGINE SOLOSTAR 100 UNITS/ML 3 ML PEN SC SCH ×2 (10:07→20:32)
[2019-10-03 10:42] LABS: Allen Test Pos (Pos); Base Excess ABG 4.6 mEq/L (-9-1.8); HCO3 ABG 28 mmol/L (19-24); Oxygen Saturation ABG 97.4 % (90-95); PCO2 ABG 36 mmHg (35-46); PO2 ABG 92 mm/Hg (80-95)
--- NOTE | 2019-10-03 11:12 | Cardiology Consultation ---
Date of Consultation October 03, 2019 Assessment & Plan (1) Elevated troponin: The elevated troponin level is of uncertain clinical significance. According to the record, the patient has not complained of chest discomfort recently. There are no concerning EKG changes. He also demonstrates significant kidney injury which can favor an elevated troponin. (2) CAD (coronary artery disease): The patient was diagnosed with coronary disease back in 2001. He was not felt to be an operative candidate by the team at [facility]. He has been stable on medical therapy. (3) Ischemic dilated cardiomyopathy: Mild ischemic cardiomyopathy with the most recent ejection fraction estimated at 45%. (4) Chronic combined systolic and diastolic CHF (congestive heart failure): The patient is not currently on a diuretic regimen due to his renal insufficiency. Apparently, the family has refused hemodialysis. (5) Dual ICD (implantable cardioverter-defibrillator) in place: His device was implanted following a ventricular fibrillation arrest back in 2014. Dr. Adkins has managed his dual-chamber defibrillator. History of Present Illness Attending Physician: Birgit Cleveland MD History of Present Illness Mr. Peña is a 79-year-old male admitted yesterday because of acute renal failure and an elevated troponin level. This consultation was ordered to assist in his management. Of note, the patient typically follows with Dr. Delatorre in the outpatient setting. The patient's current history is obtained from the chart as he is unresponsive this morning. Apparently, over the last several months, the patient has been deteriorating. Over the last several weeks, the patient has been somnolent and minimally interactive. His oral intake has been greatly reduced. He has not complained of any chest discomfort. He is brought to the emergency room for further care. The patient has a longstanding history of coronary artery disease. A cardiac catheterization performed back in 2001 noted a total occlusion of the right coronary artery with good distal collateralization, and severe diffuse disease of the circumflex. The patient was felt to be non operative at that time. The patient did experience a ventricular fibrillation arrest which resulted in a dual-chamber ICD. That occurred back in 2014. Past medical and surgical history 1. Coronary artery disease-see above 2. Hypertension 3. Hypercholesterolemia 4. Ischemic cardiomyopathy-45% 5. Chronic combined CHF 6. Ventricular fibrillation arrest-2014 7. Dual-chamber ICD-2014 8. Mild aortic stenosis 9. Mild LVH 10. Moderate mitral regurgitation 11. Peripheral vascular disease 12. 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 Chronic renal failure 15. Diabetes mellitus 16. Anemia of chronic disease 17. Hypothyroidism 18. Obesity 19. Obstructive sleep apnea 20. COPD 21. BPH 22. Colonic polyps 23. Interocular lens implants 24. Depression Social history and lives with his Smokes 1 pack cigarettes daily No alcohol Family history Mother and brother both had early coronary disease Review of systems Unobtainable Allergies Allergy/AdvReac Type Severity Reaction Status Date / Time No Known Drug Allergies Allergy Verified 09/27/19 16:04 Home Medications Home Medications Medication Instructions Recorded Confirmed Type amiodarone [Pacerone] 100 mg PO QAM 08/07/18 10/02/19 History aspirin 81 mg PO DAILY 08/07/18 10/02/19 History clopidogrel [Plavix] 75 mg PO QAM 08/07/18 10/02/19 History finasteride [Proscar] 5 mg PO QAM 08/07/18 10/02/19 History guaifenesin [Mucinex] 600 mg PO Q12H PRN 08/07/18 10/02/19 History isosorbide mononitrate 90 mg PO QAM 08/07/18 10/02/19 History omeprazole 40 mg PO QAM 08/07/18 10/02/19 History pravastatin [Pravachol] 80 mg PO QAM 08/07/18 10/02/19 History tamsulosin [Flomax] 0.4 mg PO HS 08/07/18 10/02/19 History levothyroxine 100 mcg PO DAILY 08/30/18 10/02/19 History potassium chloride 20 meq PO DAILY #14 ea 09/07/18 10/02/19 Rx magnesium oxide 400 mg PO BID 05/14/19 10/02/19 History glipizide ER 10 mg tablet, 5 mg PO DAILY tab 06/27/19 10/02/19 History extended release 24 hr ipratropium 20 mcg-albuterol 100 1 puffs INH Q6H 06/27/19 10/02/19 History mcg/actuation mist for inhalation insulin glargine (U-100) 100 40 units SUBCUT QPM ml 07/07/19 10/02/19 History unit/mL (3 mL) subcutaneous pen bumetanide 2 mg tablet 4 mg PO QAM tab 08/01/19 10/02/19 History metolazone 2.5 mg tablet See Rx Instructions PO Q OTHER DAY 09/05/19 10/02/19 Rx #20 tab buspirone 10 mg tablet 10 mg PO BID #180 tab 09/13/19 10/02/19 Rx bumetanide 2 mg PO QPM 10/02/19 10/02/19 History cefuroxime axetil 500 mg PO BID 10/02/19 10/02/19 History nitrofurantoin macrocrystal 0 mg PO DAILY 10/02/19 10/02/19 History nitroglycerin [Nitrostat] 0.4 mg SUBLINGUAL .PRN/UD PRN 10/02/19 10/02/19 History Patient History Medical History BPH (benign prostatic hyperplasia) Presence of combination internal cardiac defibrillator (ICD) and pacemaker History of TIA (transient ischemic attack) Cardiac arrest with ventricular fibrillation associated with acute DC in 2001, s/p AICD placement JUANY (obstructive sleep apnea) Mixed hyperlipidemia HTN (hypertension) Anemia in CKD (chronic kidney disease) Hypothyroidism History of stent insertion of renal artery Tobacco dependence Morbid obesity Chronic combined systolic and diastolic CHF (congestive heart failure) COPD (chronic obstructive pulmonary disease) CAD (coronary artery disease) CKD (chronic kidney disease) stage 4, GFR 15-29 ml/min DM type 2 (diabetes mellitus, type 2) 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 He does not respond to questioning or physical stimuli. HEENT exam is negative. Neck is supple with delayed and prolonged carotid upstrokes. No obvious bruits or transmitted murmurs. Jugular venous pressure difficult to assess. Cardiovascular exam reveals a regular rhythm with a 2/6 crescendo decrescendo systolic murmur heard loudest at the base. S2 is audible at the apex. Lungs are clear anteriorly. Abdomen is obese without bruits. Extremities reveal intact radial artery pulses bilaterally. Trace pretibial edema is noted. Results & Data Vital Signs (Past 12 Hours) Vital Signs Temp Pulse Pulse Resp BP Pulse Ox 10/03/19 07:13 62 20 109/61 99 10/03/19 04:00 36.5 C 63 18 105/70 89 L 10/03/19 03:10 67 20 99 10/02/19 23:44 64 10/02/19 23:22 36.5 C 64 18 98/59 L 91 Laboratory Results CBC notes hemoglobin of 10.1, hematocrit of 29.3, white count 9.13, and platelet count [id number]. Electrolytes note a sodium 141, potassium 2.9, chloride 102, bicarb 30, BUN 163, creatinine 5.77, and a glucose of 163. Initial troponin level was 10.3 with a follow-up value of 10.3. Diagnostic Findings EKG notes sinus rhythm with a nonspecific interventricular conduction delay and an old inferior DC. Chest x-ray notes cardiomegaly and an implantable device. PG Care Time/CCT Total # of Minutes Spent Total Time Spent with Patient: Total time spent is greater than 50% in coordination of care (as documented) at patient's floor/unit and/or counseling patient:
--- NOTE | 2019-10-03 12:14 | Consultation Report ---
DATE OF CONSULTATION: 10/03/2019 SUBJECTIVE: Mr. Peña is a 79-year-old gentleman well known to me. He was admitted yesterday somewhat obtunded with a significant elevation of both his blood urea nitrogen and a serum creatinine. I have known Mr. Peña for many years and I have followed him for a variety of his medical issues. His major problem over the years has been a longstanding history of smoking. He has obvious COPD, but seems to have done reasonably well with that, at least until recently. He has had some problems with dyspnea on exertion of late and does have oxygen at home for regular use. Despite his history of COPD and counseling on smoking cessation, he continued to smoke at least until recently. He has had episodes of pneumonia in the past, although it has not been a frequent or recurring issue. CT scans of his chest did not appear as if he had had significant emphysematous changes. Additionally, he has a history of obstructive sleep apnea. He has CPAP for use at home and insists that he uses it regularly. He seems to tolerate that. Additionally, he has a longstanding history of hypertension. Over the years, he has been on a variety of medical regimens. For the most part, his blood pressure has been fairly well controlled. More recently, however, blood pressures have been low, particularly over the course of the past year. He has been on a variety of different diuretic agents, mostly loop diuretics to help control his blood pressure and volume status. In addition to his hypertension, he has a history of chronic renal insufficiency. His serum creatinine was generally in the range of 1.5 to 2.0 mg/dL until about 3-4 years ago. At that time, he had evidence of a significant bump in his serum creatinine and rise in his blood pressure. Imaging studies done here suggested right renal artery stenosis. He was referred to the [facility] where he underwent a renal artery angioplasty of a tight renal artery stenosis. A drug-eluting stent was placed in the right renal artery at that time. The procedure seemed successful. His blood pressure never drastically changed, but his renal function did improve with a drop in his serum creatinine to the range of 3.3-3.5 mg/dL. He also has a history of type 2 diabetes mellitus. That resolves slowly over the years. He is now insulin-dependent. Doses are outlined on his admission notes. Complications of diabetes are principally those of atherosclerotic cardiovascular disease. He also has a history of hypercholesterolemia. That has been treated with statins over the years. Most recently, he has been using pravastatin. He continues on aspirin and Plavix as well, particularly because of his history of a drug-eluting stent. As noted above, cardiac risk factors would include his hypertension, hypercholesterolemia, diabetes and a history of smoking as well as his chronic renal insufficiency. As a result of those risk factors, he does have significant atherosclerotic cardiovascular disease. Manifestations include coronary artery disease and he has had a non-ST segment elevation [place] in the past and has undergone angiograms and coronary angiography in the past as well with interventions. He has not complained of recent problems with chest pain. He has a cardiomyopathy presumed to be ischemic. He also has a history of renal artery stenosis. He has not complained of symptoms of peripheral vascular disease nor has he had any indication of cerebrovascular disease of late. Compounding his history of coronary artery disease, he has a history of aortic stenosis. On echocardiograms done about a year ago, he had evidence of diminished left ventricular ejection fraction in the range of 40-45%. It also showed a basilar to mid inferior and inferolateral and lateral wall severe hypokinesis to akinesis. Unfortunately, there could be no estimate of his pulmonary artery pressures done on echocardiography because his tricuspid valve was not well visualized. The patient has had multiple hospitalizations for both congestive heart failure and volume depletion. Management of his diuretics has been particularly difficult. There was some confusion actually in terms of what dose he was on. Previously, he was taking twice a dose of diuretics that he was supposed to be on because he was using a stronger tablet of bumetanide, then was understood by his providers with that he developed significant prerenal azotemia. Recently, he has had increasing difficulty with symptoms of urinary outlet obstruction. He has been seen and followed by urology. A Pinto catheter was placed by Dr. Leroy Corley. The patient had significant irritation related to the Pinto catheter. He was getting out of bed and having falls as soon as he would get out of bed. Yesterday because of one such episode, he was referred to the emergency room where he was noted to be nearly obtunded. His BUN and creatinine were dramatically elevated and his blood pressure low. He was admitted for care. Of note, is the fact that he did have a right-sided cardiac catheterization done about 1 year ago in August of 2018. That showed an elevated pulmonary capillary wedge pressure. His pulmonary artery pressure was elevated at 55/21. His right ventricular pressures were elevated at 54/19 and he had an elevated right atrial pressure as well. All of these were consistent with pulmonary hypertension related to his COPD. CURRENT MEDICATIONS: Amiodarone 100 mg daily, aspirin 81 mg daily, bumetanide 4 mg in the morning, 2 mg in the evening, buspirone 10 mg b.i.d., cefuroxime 500 mg b.i.d. for recent symptoms of respiratory infection, Plavix 75 mg daily, finasteride 5 mg daily, glipizide ER 5 mg daily, Mucinex 600 mg q.12 hours p.r.n., glargine insulin 40 units subQ each evening, ipratropium/albuterol 1 inhalation q.6 hours p.r.n., isosorbide mononitrate 90 mg daily, levothyroxine 100 mcg daily, magnesium oxide 400 mg b.i.d., metolazone 2.5 mg daily, nitroglycerin p.r.n. chest pain, omeprazole 40 mg each morning, potassium chloride 20 mEq b.i.d., pravastatin 80 mg daily, and tamsulosin 0.4 mg taken at bedtime. ALLERGIES: No definite drug allergies noted. The remainder of his past medical history appears on his old medical records. The patient was obtunded at the time I saw him and could not add anything to the above. However, his other medical problems do include mild hypothyroidism and chronic anxiety. OBJECTIVE: GENERAL: On physical exam when seen by me, Mr. Peña was lying in bed. He was difficult to arouse. When aroused, he could answer questions with one word answers. VITAL SIGNS: Showed a blood pressure of 109/61, his pulse was 62 and regular, respiratory rate 20, his pulse ox was 99% on CPAP with 1 liter of oxygen. When seen by me, he was using only nasal oxygen. He is afebrile. SKIN: Examination of his skin showed dramatically diminished skin turgor. He has scattered ecchymoses. He has no other obvious rash or infiltrative skin disease. The skin of his lower extremities was wrinkled from probable decrease in his lower extremity edema. LYMPHATICS: Show no palpable lymphadenopathy. HEAD: Grossly normal. EYES: Grossly normal as well. The ocular fundi were not examined. EARS, NOSE, MOUTH, AND THROAT: Shown to be edentulous, wearing dentures. His oral mucous membranes are parched. His tongue and mucous membranes are coated. NECK: Supple. I see no jugular venous distention. The exam is somewhat limited by his body habitus. He has no audible carotid bruit or thyromegaly. CHEST: Seems clear to auscultation, although breath sounds are diminished. I hear no pleural friction rubs, rales or rhonchi. CARDIAC: Shows a regular rhythm. S1 and S2 seem normal. He has a grade 3 high pitched systolic murmur loudest at the base radiating toward the neck, but also heard along the lower left sternal border and apex radiating to the axilla. ABDOMEN: Obese and protuberant. I do not notice a definite fluid wave. His abdomen does not seem tender. Bowel sounds are present. I hear no abdominal bruits. EXTREMITIES: Show no lower extremity edema at the current time. Peripheral pulses are diminished. He has bilateral femoral bruits. NEUROLOGIC: Shows him to be quite lethargic or obtunded. He answers questions only with one word answers, generally yes or no. He could not carry on any more of a conversation. PERTINENT LABORATORY WORK: From today shows a white count of 9130 with 84.4% neutrophils, 9% lymphocytes, 5.1% monocytes, 1.2% eosinophils and 0.1% basophils. His hemoglobin is 10.1 with a hematocrit of 29.3. A platelet count is 162,000. Clinical chemistries from today show a sodium of 141 mmol/L, potassium 2.9 mmol/L, chloride 102 mmol/L, and CO2 content 30 mmol/L. His anion gap is only 9. However, his serum albumin was 3.1 done on 10/02/2019 which would indicate that his anion gap is probably more in the range of about 13. His BUN is 163 and his creatinine 5.7, both down slightly overnight after the administration of saline. His blood sugar was 135 to 178. His serum calcium is 8.5. He did have a troponin of 10.30 done yesterday. The results were confirmed about 8 hours later. Urinalysis showed a specific gravity of 1.020. He has a trace of protein and 3+ blood, but a Pinto catheter is in place. He has 3+ leukocyte esterase and greater than 30 red cells per high power field. There are 10-30 white cells per high power field. He does have some hyaline casts present. The results were similar other than few white cells in his urine this morning as compared to yesterday. No bacteria were noted. A culture appears to be growing out a gram-negative bacillus. His EKG done yesterday shows a sinus rhythm. He has an intraventricular conduction delay present. There is evidence of an old inferior wall myocardial infarction with Q-waves in II, III, and aVF. He has nonspecific T-wave abnormalities consistent with anterolateral ischemia. No obvious arrhythmias are noted. His chest x-ray shows a question of evolving congestive heart failure. His renal artery duplex shows the right kidney measuring 11.8 cm in length. He does have some cortical thinning. There was no calculus or mass lesion. He has abnormal intrarenal arterial waveforms with a loss of diastolic flow. The changes are consistent with chronic renal disease. His left kidney is more significant in size measuring 15.8 cm in maximum dimension. He has decreased corticomedullary differentiation. Intrarenal waveforms are somewhat blunted as well. The changes are consistent with small vessel renovascular disease and chronic renal disease, but no definite large vessel renal artery stenosis at the current time. ASSESSMENT: Currently, Mr. Peña is obviously somewhat obtunded. His blood pressure has been low. Clinically, he is quite dry. He has a well known chronic renal disease. However, he also has evidence now of prerenal azotemia or possible post-renal azotemia. However, his renal ultrasound did not show hydronephrosis, so I think that the majority of his changes are prerenal to change him from his baseline BUN in the range of 35 to 50 and baseline creatinine of about 3.5. Nonetheless, with gentle hydration, his BUN appears to have leveled off and his creatinine has fallen minimally. Clinically, he is quite dry with his lower blood pressure as well as diminished skin turgor and dry mucous membranes as well as the changes of disproportionate elevation of his BUN to his creatinine. His urine culture appears to be positive. Certainly, cannot rule out sepsis and hopefully blood cultures will be done. RECOMMENDATIONS: To understand his serum potassium, I would check arterial blood gases. He may have a contraction alkalosis. If he is significantly alkalotic, then I would account for his hypokalemia. Certainly some potassium could be added to his IV fluids. His current IV rate of saline is 80 mL per minute. I would consider increasing that to about 125 mL per minute. Antibiotic alexander, he is covered with ceftriaxone which is appropriate in the current dose. No other immediate recommendations. Given his history of pulmonary hypertension and also his history of evidence of left-sided heart failure from an ischemic cardiomyopathy and aortic stenosis, he walks a TightRope between significant volume depletion and prerenal changes and obvious congestive heart failure. At the current time, his chest x-ray leads to some confusion in that regard, but I would follow his BUN and creatinine as he gets more gently hydrated. I suspect that he will improve and hopefully his mental status will improve. Unfortunately, there are no good answers now to the simple management of his chronic medical issues and he will continue to need a close followup by cardiology and nephrology as well as pulmonary medicine.
[2019-10-03] MEDS: INSULIN ASPART 100 UNITS/ML 3 ML PEN SC SCH ×3 (13:10→20:32)
--- NOTE | 2019-10-03 13:58 | Palliative Care Consultation ---
Date of Consultation October 03, 2019 Assessment & Plan (1) Goals of care, counseling/discussion: -79 year old male patient with extremely complex PMH CAD s/p KS with chronic systolic CHF, ICM with EF of 45-50%, CKD-III, DM, HTN, HLP, COPD and previous tobacco use, VF arrest s/p AICD placement, and others, presented to the hospital with progressive decline in mental status and increased weakness. Upon arrival, patient was rather obtunded. He follows with multiple specialists including nephrology, urology, and cardiology. In reviewing some recent outpatient notes, patient has an extremely fragile fluid status and recently has had renal decline with a creatinine as high as 6.3. He had a CXR that showed congestive failure, but as stated, his renal function is declining, so diuretic medications are difficult to manage. On arrival to hospital, WBC 13.55, H/H 11/32, K 3.0, BUN 166, Cr 6.33. Troponin 10.3. Cardiology saw patient and stated no major EKG changes, his diuretics are held for renal failure. Dr. Atkins, who knows patient quite well and wrote a great detailed H&P on patient's medical history, suspected a contracted alkalosis which would account for the hypokalemia. ABGs drawn today which showed ph 7.5. Patient is on heparin infusion. We are hoping patient may have some improvement, at least in his mental status, but he obviously has many medical issues and could be coming to end of life. His family apparently has stated that they would not want CPR, intubation, would not want dialysis if it comes to that. Palliative care is consulted to discuss goals of care. -Met with patient first in room this morning with no family at bedside. Patient was obtunded at that time, no response to verbal stimuli. Dr. Peña present as well. -Returned to room this afternoon when patient's Maura, daughter Elas, and [id number] at bedside in room 230-2. patient did open eyes a couple times but did not verbally respond or participate in conversation. -Discussed patient's multiple medical conditions including NSTEMI, CHF, kidney disease, and COPD. Patient's states, "He has been sick since 1977. He got much worse and has been declining since 2001." Patient's family states that they goal would be for patient to get home with hospice. However, they'd like to co ntinue current conservative medical management with fluids and heparin for the next day or two to see if there is any improvement to be made. -Recently patient was still able to function and be awake to hold a conversation. He is currently lethargic, even obtunded earlier. They are hoping to see him wake up some. -Regardless of whether or not patient medically improves, it sounds like the family plans on home hospice care. patient's states, "I know he's on his way out." The daughter Elsa is very supportive and agrees. They understand there is little more to offer the patient from a medical standpoint. -Talked at length about home hospice and what it entails. Elsa had hospice care for her own and seems very knowledgeable about their service. Elsa is going to research the different hospice agencies and will let us know who she'd like a referral to. Case management following. -From symptom management standpoint, patient is currently not appearing uncomfortable. If symptoms of chest pain or SOB occur would use Roxanol 5mg PO/SL Q3h PRN pain or SOB. -Palliative care will continue to follow closely. (2) Non-ST elevation [place] (NSTEMI): (3) Acute on chronic combined systolic and diastolic CHF (congestive heart failure): (4) [id number] kidney injury: (5) COPD (chronic obstructive pulmonary disease): (6) Altered mental status: History of Present Illness Attending Physician: Birgit Cleveland MD History of Present Illness This 79 year old male patient with extremely complex PMH CAD s/p KS with chronic systolic CHF, ICM with EF of 45-50%, CKD-III, DM, HTN, HLP, COPD and previous tobacco use, VF arrest s/p AICD placement, and others, presented to the hospital with progressive decline in mental status and increased weakness. Upon arrival, patient was rather obtunded. He follows with multiple specialists including nephrology, urology, and cardiology. In reviewing some recent outpatient notes, patient has an extremely fragile fluid status and recently has had renal decline with a creatinine as high as 6.3. He had a CXR that showed congestive failure, but as stated, his renal function is declining, so diuretic medications are difficult to manage. On arrival to hospital, WBC 13.55, H/H 11, K 3.0, BUN 166, Cr 6.33. Troponin 10.3. Cardiology saw patient and stated no major EKG changes, his diuretics are held for renal failure. Dr. Atkins, who knows patient quite well and wrote a great detailed H&P on patient's medical history, suspected a contracted alkalosis which would account for the hypokalemia. ABGs drawn today which showed ph 7.5. Patient is on heparin infusion. We are hoping patient may have some improvement, at least in his mental status, but he obviously has many medical issues and could be coming to end of life. His family apparently has stated that they would not want CPR, intubation, would not want dialysis if it comes to that. Palliative care is consulted to discuss goals of care. Thank you kindly for this consult. Palliative care team will follow as needed. Allergies Allergy/AdvReac Type Severity Reaction Status Date / Time No Known Drug Allergies Allergy Verified 09/27/19 16:04 Home Medications Home Medications Medication Instructions Recorded Confirmed Type amiodarone [Pacerone] 100 mg PO QAM 08/07/18 10/02/19 History aspirin 81 mg PO DAILY 08/07/18 10/02/19 History clopidogrel [Plavix] 75 mg PO QAM 08/07/18 10/02/19 History finasteride [Proscar] 5 mg PO QAM 08/07/18 10/02/19 History guaifenesin [Mucinex] 600 mg PO Q12H PRN 08/07/18 10/02/19 History isosorbide mononitrate 90 mg PO QAM 08/07/18 10/02/19 History omeprazole 40 mg PO QAM 08/07/18 10/02/19 History pravastatin [Pravachol] 80 mg PO QAM 08/07/18 10/02/19 History tamsulosin [Flomax] 0.4 mg PO HS 08/07/18 10/02/19 History levothyroxine 100 mcg PO DAILY 08/30/18 10/02/19 History potassium chloride 20 meq PO DAILY #14 ea 09/07/18 10/02/19 Rx magnesium oxide 400 mg PO BID 05/14/19 10/02/19 History glipizide ER 10 mg tablet, 5 mg PO DAILY tab 06/27/19 10/02/19 History extended release 24 hr ipratropium 20 mcg-albuterol 100 1 puffs INH Q6H 06/27/19 10/02/19 History mcg/actuation mist for inhalation insulin glargine (U-100) 100 40 units SUBCUT QPM ml 07/07/19 10/02/19 History unit/mL (3 mL) subcutaneous pen bumetanide 2 mg tablet 4 mg PO QAM tab 08/01/19 10/02/19 History metolazone 2.5 mg tablet See Rx Instructions PO Q OTHER DAY 09/05/19 10/02/19 Rx #20 tab buspirone 10 mg tablet 10 mg PO BID #180 tab 09/13/19 10/02/19 Rx bumetanide 2 mg PO QPM 10/02/19 10/02/19 History cefuroxime axetil 500 mg PO BID 10/02/19 10/02/19 History nitrofurantoin macrocrystal 0 mg PO DAILY 10/02/19 10/02/19 History nitroglycerin [Nitrostat] 0.4 mg SUBLINGUAL .PRN/UD PRN 10/02/19 10/02/19 History Patient History Medical History BPH (benign prostatic hyperplasia) Presence of combination internal cardiac defibrillator (ICD) and pacemaker History of TIA (transient ischemic attack) Cardiac arrest with ventricular fibrillation associated with acute [place] in 2001, s/p AICD placement JUANY (obstructive sleep apnea) Mixed hyperlipidemia HTN (hypertension) Anemia in CKD (chronic kidney disease) Hypothyroidism History of stent insertion of renal artery Tobacco dependence Morbid obesity Chronic combined systolic and diastolic CHF (congestive heart failure) COPD (chronic obstructive pulmonary disease) CAD (coronary artery disease) CKD (chronic kidney disease) stage 4, GFR 15-29 ml/min DM type 2 (diabetes mellitus, type 2) 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 Feels Safe at Home: Yes Safety Concerns: Feels Safe At This Time Smoking Status: Smoker, status unknown Hx Alcohol Use: No Hx Substance Use: No Review of Systems Review of Systems: Unobtainable due to cognitive status Physical Exam Constitutional: + ill appearing; no acute distress ENMT: Mouth: + dentures Respiratory: + labored breathing Auscultation: + diminished lung sounds Cardiovascular: Rate/Rhythm: regular rate and regular rhythm Heart Sounds: + murmur Extremities: no edema Gastrointestinal (Abdomen): Inspection/Auscultation: normal bowel sounds Percussion/Palpation: abdomen soft Skin: multiple scabs, bruises and abrasions to legs Neurologic: + confused (did wake and open eyes, did not answer questions, very lethargic) Results & Data Vital Signs (Past 12 Hours) Vital Signs Temp Pulse Pulse Resp BP Pulse Ox 10/03/19 11:11 35.8 C L 63 16 87/46 L 100 10/03/19 08:00 61 10/03/19 07:13 62 20 109/61 99 10/03/19 04:00 36.5 C 63 18 105/70 89 L 10/03/19 03:10 67 20 99 Time Spent Midlevel 70 minutes with >50% of the time spent at bedside with patient and family discussing condition and GOC.
[2019-10-03] MEDS: FINASTERIDE 5 MG TAB PO SCH (14:27)
[2019-10-03] MEDS: CLOPIDOGREL BISULFATE 75 MG TAB PO SCH (14:27)
[2019-10-03] MEDS: PANTOprazole 40 MG TAB PO SCH (14:27)
[2019-10-03] MEDS: PRAVASTATIN SOD 40 MG TAB PO SCH (14:27)
[2019-10-03] MEDS: ASPIRIN 81 MG ECTAB PO SCH (14:27)
[2019-10-03] MEDS: IPRATROPIUM BROMIDE/ALBUTEROL respimat INH INH SCH ×4 (14:28→20:02)
[2019-10-03] MEDS ORDERED: Nursing to Pharmacy Communication ONE (15:27)
[2019-10-03] MEDS: AMIODARONE 200 MG TAB PO SCH (15:28)
[2019-10-03] MEDS ORDERED: POTASSIUM CHLORIDE 20 MEQ/15 ML UDC PO STA (15:34)
[2019-10-03 18:09] LABS: BUN Creatinine Ratio 30.1 (10-20); Calcium 8.2 mg/dl (8.5-10.1); Creatinine Clr Calc Pharmacy 13.4 ml/min; Est GFR (African American) 11.9; Est GFR (Non-African American) 10.3; Magnesium 2.9 mg/dl (1.8-2.4); Potassium 3.3 mmol/L (3.5-5.1)
--- NOTE | 2019-10-03 19:28 | Hospitalist Progress Note ---
Date of Service October 03, 2019 Assessment & Plan (1) Non-ST elevation AZ (NSTEMI): 79yo C male with complex medical history, most notably CAD s/p AZ with chronic systolic CHF, ICM with EF of 45-50%, CKD-III, DM, HTN, HLP, COPD, VF arrest s/p AICD placement. Per family, patient has been steadily declining for the last few months with acute worsening over the last couple of weeks. He is somnolent, minimally interactive, poor appetite and PO intake. He follows with multiple specialists. Patient with incredibly difficult fluid balance. Per record review and discussion with his , he quickly becomes fluid overloaded in the event that his diuretics are held and his renal function quickly declines with aggressive diuresis. He has had a sharp decline in renal function over the last week. BUN now 166 and Cr 6.33 on admission, oliguric, +UTI, Pinto in place. Neuro: Patient somnolent, minimally interactive upon admission but now is awake and irritated. Neuro exam limited but is grossly nonfocal. CT head with no acute abnormality. He has history of TIA in the past. -Continue ASA 81mg po daily -Continue Plavix 75mg po qAM -Continue Pravastatin -Delirium prevention strategies with frequent orientation, ambulation with assistance, maintaining sleep/wake cycle where possible Pulmonary: Patient with history of JUANY on CPAP qHS. Reports overall compliance, however, has not been wearing as regularly over the last two weeks. History of COPD. Presently with no respiratory distress, he was hypoxic on room air and tachypneic when he arrived to 87%. Adequate oxygenation now on NC 2- 3L. No wheezing -Continue Albuterol scheduled and as needed -Supplemental O2 as needed to maintain saturation 88-92% -CPAP qHS Cardiac: With a history of CAD s/p AZ, ICM with EF of 45-50%, delicate volume balance. Moderate-severe aortic stenosis noted on echocardiogram here. History of VF arrest s/p AICD (no discharges reported), HTN, HLP. Elevated troponin of 10.3 here x2, EKG changes. ER discussed briefly with Cardiology at time of arrival. Patient presently hypotensive. Cardiac cath would be difficult at this time due to patient's renal dysfunction. NSTEMI versus elevated troponin in setting of renal failure-he is not having chest pain Cardiology consultation appreciated -heparin gtt ordered and running if and will continue through tomorrow and then stop -Echocardiogram with wall motion abnormality similar to previous -Continue ASA, Plavix, Pravastatin -Continue Amiodarone for history of ventricular arrhythmia -Of note, Toprol-XL is on his home medications and previous outpatient office visits, but is not on his home medication list here-we will discuss with family -Blood pressure is low normal at this time and would not tolerate adding beta- ludivina anyway GI: History of GERD -Continue Protonix 40mg po daily : Patient with CKD, ROSEMARY. BUN of 166 and Cr of 6.33 and now trending downward to 5.0. Acute kidney injury likely secondary to prerenal azotemia from dehydration in the setting of diuretic use and poor p.o. intake. Family reports poor PO intake over the last 2-4 weeks as well as continued diuretic use. On c linical exam he appears to be extremely dry. +BPH with Pinto catheter in place -Check urine Na and Urea to calculate FeUrea -Check urine microscopy and eosinophils -Check renal duplex US - history of renal artery stenosis with stent in place- with evidence of medical renal disease but no stenosis -Nephrology consultation appreciated-recommends increasing IV fluids normal saline at 125 an hour -Checking ABG-alkalotic would explain hypokalemia --Continue IV fluids -Closely monitor I/O, daily weights, BUN and Cr -Avoid nephrotoxic agents, renal dosing where needed -Continue Flomax if BP tolerates -Continue Proscar -Treating UTI -Replace potassium with 20 mEq KCl p.o. -Follow BMP in the morning Heme: Patient with anemia of chronic disease in setting of CKD. No acute blood loss suspected. Hgb=11.2 and Hct=32.5 which is slightly lower than baseline -Continue to monitor CBC ID: Patient with leukocytosis, WBC=13.55, +UTI, morganella morganii sensitive to Ceftriaxone -Follow blood and repeat urine cultures -Continue ceftriaxone 1gm IV daily -If patient develops fever would broaden antibiotic coverage Endocrine: DM and hypothyroidism -Continue Lantus 8u BID with ISS. Goal blood sugar 100- 180 -Continue Synthroid Ppx - Heparin gtt for NSTEMI as above. Protonix Code - DNR/DNI per discussion with , palliative consult appreciated-plan for possible home with hospice Dispo -continued stay on PCU. PT/OT/Case management evaluation for possible placement needs when acute issues resolve (2) Quhhs-aa-vtzuyac kidney injury: (3) COPD (chronic obstructive pulmonary disease): (4) Anemia: (5) Hypotension: (6) Acute UTI: (7) Paroxysmal ventricular tachycardia: (8) Paroxysmal A-fib: (9) PAD (peripheral artery disease): (10) Left renal artery stenosis: (11) COPD (chronic obstructive pulmonary disease) with chronic bronchitis: (12) Central sleep apnea: (13) Dyslipidemia: (14) BPH (benign prostatic hyperplasia): (15) Presence of combination internal cardiac defibrillator (ICD) and pacemaker: (16) History of TIA (transient ischemic attack): (17) Hypothyroidism: (18) Aortic stenosis, mild: (19) Ischemic dilated cardiomyopathy: (20) CAD (coronary artery disease): (21) DM type 2 (diabetes mellitus, type 2): Subjective Patient was angry with me and demanding a drink before he would let me examine him. Says he is thirsty. Would not answer any my other questions. Discussed his case with his PCP and automatic operator, Dr. Atkins. Telemetry with normal sinus rhythm and paced rhythm with rates in the 60s, 8 beat run of ventricular tachycardia Review of Systems Review of Systems: Unobtainable due to cognitive status Physical Exam Constitutional: WD/WN, vitals as above Eyes: + anicteric sclerae ENMT: Ears: no external ear abnormality Nose: + dry nasal mucous membranes (Tongue and mucous membranes extremely dry) Neck: trachea midline, no thyromegaly Respiratory: normal respiratory effort, lungs clear to auscultation Cardiovascular: RRR, no murmur, no edema Gastrointestinal (Abdomen): normal bowel sounds, soft, nontender, no hepatosplenomegaly Musculoskeletal: Extremities: extremities normal to inspection; no cyanosis and no clubbing Skin: no rashes, warm and dry Neurologic: moves all extremities and awake; no focal motor deficits Psychiatric: Orientation: alert, oriented to person and + guarded; + uncooperative Eye Contact: good eye contact Speech: + loud speech Affect: + irritable affect Results & Data Vital Signs (Past 12 Hours) Vital Signs Temp Pulse Pulse Resp BP Pulse Ox 10/03/19 19:19 36.5 C 64 16 104/68 96 10/03/19 15:24 64 10/03/19 15:12 36.3 C L 61 18 114/69 99 10/03/19 14:10 61 102/49 L 10/03/19 11:11 35.8 C L 63 16 87/46 L 100 10/03/19 08:00 61 Laboratory Results 10/04/19 10/04/19 10/03/19 Range/Units 06:58 06:12 20:16 WBC (4.8-10.8) K/uL RBC (4.7-6.1) M/uL Hgb (14.0-18.0) g/dL Hct (42-52) % MCV (80-100) fL MCH (25-34) pg MCHC (32-36) g/dL RDW Std Deviation (36.4-46.3) fL RDW Coeff of Alessandro (11.5-14.5) % Plt Count (130-400) K/uL MPV (7.4-10.4) fL Immature Gran % (Auto) % Neut % (Auto) % Lymph % (Auto) % [place] % (Auto) % Eos % (Auto) % Baso % (Auto) % Immature Gran # (Auto) (0.00-0.02) K/uL Neut # (Auto) (1.4-6.5) K/uL Lymph # (Auto) (1.2-3.4) K/uL [place] # (Auto) (0.11-0.59) K/uL Eos # (Auto) (0-0.5) K/uL Baso # (Auto) (0-0.2) K/uL APTT 40.4 H (21.0-31.0) Seconds PTT Ratio 1.5 ABG pH (7.35-7.45) ABG pCO2 (35-46) mmHg ABG pO2 (80-95) mm/Hg ABG HCO3 (19-24) mmol/L ABG O2 Saturation (90-95) % ABG Base Excess (-9-1.8) mEq/L Ryan Test (Pos) Barometric Pressure mm/Hg Oxygen Given Sodium (136-145) mmol/L Potassium (3.5-5.1) mmol/L Chloride (98-107) mmol/L Carbon Dioxide (21-32) mmol/L Anion Gap (3-11) BUN (7-18) mg/dl Creatinine (0.6-1.4) mg/dl Est Cr Clr Drug Dosing ml/min Est GFR ( Amer) Est GFR (Non-Af Amer) BUN/Creatinine Ratio (10-20) Glucose (70-99) mg/dl POC Glucose 116 H 92 (70-99) Calcium (8.5-10.1) mg/dl Magnesium (1.8-2.4) mg/dl 10/03/19 10/03/19 10/03/19 Range/Units 17:26 16:14 11:09 WBC (4.8-10.8) K/uL RBC (4.7-6.1) M/uL Hgb (14.0-18.0) g/dL Hct (42-52) % MCV (80-100) fL MCH (25-34) pg MCHC (32-36) g/dL RDW Std Deviation (36.4-46.3) fL RDW Coeff of Alessandro (11.5-14.5) % Plt Count (130-400) K/uL MPV (7.4-10.4) fL Immature Gran % (Auto) % Neut % (Auto) % Lymph % (Auto) % [place] % (Auto) % Eos % (Auto) % Baso % (Auto) % Immature Gran # (Auto) (0.00-0.02) K/uL Neut # (Auto) (1.4-6.5) K/uL Lymph # (Auto) (1.2-3.4) K/uL [place] # (Auto) (0.11-0.59) K/uL Eos # (Auto) (0-0.5) K/uL Baso # (Auto) (0-0.2) K/uL APTT (21.0-31.0) Seconds PTT Ratio ABG pH (7.35-7.45) ABG pCO2 (35-46) mmHg ABG pO2 (80-95) mm/Hg ABG HCO3 (19-24) mmol/L ABG O2 Saturation (90-95) % ABG Base Excess (-9-1.8) mEq/L Ryan Test (Pos) Barometric Pressure mm/Hg Oxygen Given Sodium 139 (136-145) mmol/L Potassium 3.3 L (3.5-5.1) mmol/L Chloride 103 (98-107) mmol/L Carbon Dioxide 28 (21-32) mmol/L Anion Gap 8.0 (3-11) BUN 151 H (7-18) mg/dl Creatinine 5.00 H* D (0.6-1.4) mg/dl Est Cr Clr Drug Dosing 13.4 ml/min Est GFR ( Amer) 11.9 Est GFR (Non-Af Amer) 10.3 BUN/Creatinine Ratio 30.1 H (10-20) Glucose 94 (70-99) mg/dl POC Glucose 109 H 137 H (70-99) Calcium 8.2 L (8.5-10.1) mg/dl Magnesium 2.9 H (1.8-2.4) mg/dl 10/03/19 10/03/19 10/03/19 Range/Units 10:13 07:17 07:12 WBC (4.8-10.8) K/uL RBC (4.7-6.1) M/uL Hgb (14.0-18.0) g/dL Hct (42-52) % MCV (80-100) fL MCH (25-34) pg MCHC (32-36) g/dL RDW Std Deviation (36.4-46.3) fL RDW Coeff of Alessandro (11.5-14.5) % Plt Count (130-400) K/uL MPV (7.4-10.4) fL Immature Gran % (Auto) % Neut % (Auto) % Lymph % (Auto) % [place] % (Auto) % Eos % (Auto) % Baso % (Auto) % Immature Gran # (Auto) (0.00-0.02) K/uL Neut # (Auto) (1.4-6.5) K/uL Lymph # (Auto) (1.2-3.4) K/uL [place] # (Auto) (0.11-0.59) K/uL Eos # (Auto) (0-0.5) K/uL Baso # (Auto) (0-0.2) K/uL APTT 51.9 H* (21.0-31.0) Seconds PTT Ratio 1.9 ABG pH 7.50 H (7.35-7.45) ABG pCO2 36 (35-46) mmHg ABG pO2 92 (80-95) mm/Hg ABG HCO3 28 H (19-24) mmol/L ABG O2 Saturation 97.4 H (90-95) % ABG Base Excess 4.6 H (-9-1.8) mEq/L Ryan Test Pos (Pos) Barometric Pressure 735.6 mm/Hg Oxygen Given 2L Sodium (136-145) mmol/L Potassium (3.5-5.1) mmol/L Chloride (98-107) mmol/L Carbon Dioxide (21-32) mmol/L Anion Gap (3-11) BUN (7-18) mg/dl Creatinine (0.6-1.4) mg/dl Est Cr Clr Drug Dosing ml/min Est GFR ( Amer) Est GFR (Non-Af Amer) BUN/Creatinine Ratio (10-20) Glucose (70-99) mg/dl POC Glucose 163 H (70-99) Calcium (8.5-10.1) mg/dl Magnesium (1.8-2.4) mg/dl 10/03/19 10/03/19 Range/Units 07:12 07:12 WBC 9.13 (4.8-10.8) K/uL RBC 3.34 L (4.7-6.1) M/uL Hgb 10.1 L (14.0-18.0) g/dL Hct 29.3 L (42-52) % MCV 87.7 (80-100) fL MCH 30.2 (25-34) pg MCHC 34.5 (32-36) g/dL RDW Std Deviation 49.0 H (36.4-46.3) fL RDW Coeff of Alessandro 15.3 H (11.5-14.5) % Plt Count 162 (130-400) K/uL MPV 9.2 (7.4-10.4) fL Immature Gran % (Auto) 0.2 % Neut % (Auto) 84.4 % Lymph % (Auto) 9.0 % [place] % (Auto) 5.1 % Eos % (Auto) 1.2 % Baso % (Auto) 0.1 % Immature Gran # (Auto) 0.02 (0.00-0.02) K/uL Neut # (Auto) 7.70 H (1.4-6.5) K/uL Lymph # (Auto) 0.82 L (1.2-3.4) K/uL [place] # (Auto) 0.47 (0.11-0.59) K/uL Eos # (Auto) 0.11 (0-0.5) K/uL Baso # (Auto) 0.01 (0-0.2) K/uL APTT (21.0-31.0) Seconds PTT Ratio ABG pH (7.35-7.45) ABG pCO2 (35-46) mmHg ABG pO2 (80-95) mm/Hg ABG HCO3 (19-24) mmol/L ABG O2 Saturation (90-95) % ABG Base Excess (-9-1.8) mEq/L Ryan Test (Pos) Barometric Pressure mm/Hg Oxygen Given Sodium 141 (136-145) mmol/L Potassium 2.9 L (3.5-5.1) mmol/L Chloride 102 (98-107) mmol/L Carbon Dioxide 30 (21-32) mmol/L Anion Gap 9.0 (3-11) BUN 163 H (7-18) mg/dl Creatinine 5.77 H* D (0.6-1.4) mg/dl Est Cr Clr Drug Dosing 11.6 ml/min Est GFR ( Amer) 10.0 Est GFR (Non-Af Amer) 8.6 BUN/Creatinine Ratio 28.1 H (10-20) Glucose 135 H (70-99) mg/dl POC Glucose (70-99) Calcium 8.5 (8.5-10.1) mg/dl Magnesium (1.8-2.4) mg/dl PG Care Time/CCT Total # of Minutes Spent Total Time Spent with Patient: Total time spent is greater than 50% in coordination of care (as documented) at patient's floor/unit and/or counseling patient: (1) Hypothyroidism Hypothyroidism type: unspecified Qualified Code(s): E03.9 - Hypothyroidism, unspecified
[2019-10-03] MEDS: TAMSULOSIN HCL 0.4 MG CAP PO SCH (20:01)
[2019-10-03] MEDS: HEPARIN SODIUM/DEXTROSE 25,000 UNITS/500 ML BAG IV SCH (20:38)
[2019-10-03] MEDS: cefTRIAXone SODIUM 2,000 MG in DEXTROSE 5% 50 ML IV SCH (21:14)
[2019-10-04] MEDS: LEVOTHYROXINE SODIUM 100 MCG TABLET PO SCH (05:47)
[2019-10-04 06:48] LABS: Partial Thromboplastin Ratio 1.5; Partial Thromboplastin Time 40.4 Seconds (21.0-31.0)
[2019-10-04 07:50] LABS: BUN Creatinine Ratio 31.9 (10-20); Calcium 8.3 mg/dl (8.5-10.1); Creatinine Clr Calc Pharmacy 14.6 ml/min; Est GFR (African American) 13.2; Est GFR (Non-African American) 11.4; Potassium 2.9 mmol/L (3.5-5.1)
[2019-10-04] MEDS: FINASTERIDE 5 MG TAB PO SCH (07:50)
[2019-10-04] MEDS: ASPIRIN 81 MG ECTAB PO SCH (07:50)
[2019-10-04] MEDS: IPRATROPIUM BROMIDE/ALBUTEROL respimat INH INH SCH ×4 (07:50→20:09)
[2019-10-04] MEDS: PRAVASTATIN SOD 40 MG TAB PO SCH (07:50)
[2019-10-04] MEDS: CLOPIDOGREL BISULFATE 75 MG TAB PO SCH (07:50)
[2019-10-04] MEDS: PANTOprazole 40 MG TAB PO SCH (07:50)
[2019-10-04] MEDS: INSULIN GLARGINE SOLOSTAR 100 UNITS/ML 3 ML PEN SC SCH ×2 (07:52→20:14)
[2019-10-04] MEDS: INSULIN ASPART 100 UNITS/ML 3 ML PEN SC SCH ×4 (07:52→20:13)
[2019-10-04 07:56] LABS: Basophils # (auto) 0.01 K/uL (0-0.2); Basophils % (auto) 0.2 %; Eosinophils # (auto) 0.18 K/uL (0-0.5); Eosinophils % (auto) 3.2 %; Hematocrit (blood only) 30.9 % (42-52); Hemoglobin 10.3 g/dL (14.0-18.0); Immature Granulocytes # (auto) 0.01 K/uL (0.00-0.02); Immature Granulocytes % (auto) 0.2 %; Lymphocytes # (auto) 0.68 K/uL (1.2-3.4); Mean Corpuscular Hemoglobin 29.4 pg (25-34); Mean Corpuscular Hgb Conc 33.3 g/dL (32-36); Mean Corpuscular Volume 88.3 fL (80-100); Mean Platelet Volume 10.5 fL (7.4-10.4); Monocytes # (auto) 0.48 K/uL (0.11-0.59); Monocytes % (auto) 8.5 %; Neutrophils # (auto) 4.32 K/uL (1.4-6.5); Neutrophils % (auto) 75.9 %; Platelet Count 166 K/uL (130-400); RDW Coefficient of Variation 15.4 % (11.5-14.5); RDW Standard Deviation 49.8 fL (36.4-46.3); White Blood Count 5.68 K/uL (4.8-10.8)
--- NOTE | 2019-10-04 10:12 | Progress Note ---
DATE: 10/04/2019 SUBJECTIVE: Mr. Peña is more awake today than he was yesterday. However, he still is obviously lethargic. He says that he is not eating. He denies having any pain. He denies being short of breath, but he does feel quite weak and "sick." He denies having any abdominal pain. OBJECTIVE: VITAL SIGNS: On physical exam when seen by me this morning his blood pressure was 109/57, his pulse was 75 and basically regular in a sinus rhythm on the monitor. However, he did have periods of a bigeminal rhythm. The monitor indicated that his premature beats were "paced." His respiratory rate was 22. However, he did have a pattern consistent with Roscoe-Nunez respirations, although there were no significant apneic periods. He is afebrile (36.6). SKIN: Showed obviously diminished skin turgor. He had scars from prior surgeries including a scar beneath the distal left clavicle from the implantation of his ICD. He had no obvious rash or infiltrative skin disease. He has no palpable lymphadenopathy. HEAD: Grossly normal. EYES: Grossly normal. The ocular fundi were not examined. EARS, NOSE, MOUTH, AND THROAT: Remarkable in that he is edentulous. Oral mucous membranes remain quite dry. He does have been remarkably coated tongue. NECK: Supple. There is no jugular venous distention, carotid bruit or thyromegaly. CHEST: Clear to auscultation, although breath sounds are diminished. He has no wheezes, rales or rhonchi. CARDIAC: Shows a bigeminal rhythm. He has a grade 3-4/6 high pitched systolic murmur loudest at the base radiating toward the neck, but also heard at the lower left sternal border radiating to the axilla. There were periods where his rhythm was regular and not bigeminal. ABDOMEN: Obese and protuberant. It is nontender. Bowel sounds are normal. I do not hear abdominal bruits. EXTREMITIES: Show no lower extremity edema. Peripheral pulses are very difficult to feel. He has bilateral femoral murmurs. NEUROLOGIC: Shows him to be lethargic, but not obtunded. He answers questions with a limited words. PERTINENT LABORATORY WORK: From today shows a white count of 5680 with an essentially normal differential. His hemoglobin is 10.3 with a hematocrit of 30.9. Platelet count is 166,000. Arterial blood gases done yesterday showed an arterial blood pH of 7.50. His pCO2 was 36 and his pO2 92. His oxygen saturation was 97.4%. At that time, he was on 2 liters of oxygen via nasal cannula. His clinical chemistries from today show a blood sugar that has been varying from 92-116. His sodium is 139 mmol/L, potassium 2.9 mmol/L, chloride 101 mmol/L, and CO2 content 27 mmol/L. His BUN is down to 145, his creatinine is down to 4.59. His serum calcium is 8.3. Magnesium done yesterday was 2.9. An echocardiogram showed a left ventricular ejection fraction of 40-45%, which is stable from his previous levels. He does have an akinetic segment of his heart in the posterior inferolateral area. He also has a moderate to severe aortic stenosis. All of these changes have been noted previously. ASSESSMENT: Mr. Peña seems a bit better today. However, he has a long way to go. On physical exam, his low blood pressure, his poor skin turgor, his dry oral mucous membranes, the absence of jugular venous distention and the absence of a definite ventricular gallop, all are consistent with volume depletion as is the significant disproportionate increase of his BUN to creatinine. However, his BUN and creatinine are both falling back toward baseline. They have a long way to go. I think that it is premature to send him home to hospice despite the presence and severity of his multiorgan system disease. From the standpoint of his electrolytes, he is hypokalemic. However, with his electrolytes and arterial blood gases taken together (arterial blood pH 7.50, pCO2 of 36 and pO2 of 92), it would appear as if he has a significant contraction alkalosis without a significant component of a respiratory acidosis. Nonetheless, the alkalosis is probably contributing to his serum potassium being low. RECOMMENDATIONS: Continue with gentle IV rehydration at the rate of about 3 liters a day as he is getting at the current time. Small amounts of potassium can be added to his IV fluids (approximately 20 mEq/L). Continue to closely monitor his basic metabolic profile on a daily basis. No other immediate recommendations from the renal standpoint. He will continue with his antibiotic. I will continue to follow him with you.
[2019-10-04] MEDS: AMIODARONE 200 MG TAB PO SCH (13:02)
--- NOTE | 2019-10-04 14:30 | Palliative Care Progress Note ---
Date of Service October 04, 2019 Assessment & Plan (1) Goals of care, counseling/discussion: -Patient seems to be doing a little better today. He is more awake and talking. Patient is somewhat irritated and angry. - Maura at bedside. She was able to see Dr. Atkins today which she was beach ppy about. -Creatinine improved to 4.59 from 5.00 yesterday. Potassium 2.9. Care managed by hospitalist and nephro at this time. -Patient's states that after speaking with Dr. Atkins, she does not want to initiate hospice care. I assured her that even if patient goes home on hospice, it does not mean he has to stop his medications or seeing his doctors. Hospice would provide support for her and the patient at home as well. However, it is true that patient should be ready to say that if there was another major event, that he would not want to come back to the hospital and would be okay with allowing nature to take its course. Patient's does not seem ready to make that decision, which is perfectly fine. -Palliative care will follow peripherally at this time. Thank you. (2) Non-ST elevation [place] (NSTEMI): (3) Acute on chronic combined systolic and diastolic CHF (congestive heart failure): (4) Sisyp-ox-saadqhj kidney injury: (5) COPD (chronic obstructive pulmonary disease): (6) Altered mental status: Subjective Patient is more awake today. He has an angry affect and gives sarcastic answers to questions. He did deny pain or SOB, but states he feels "lousy." , Maura, is at bedside. Review of Systems Review of Systems: Patient denies pain or discomfort. Could not obtain full ROS as patient did not answer some questions. Physical Exam Physical Exam: Constitutional + ill appearing; no acute distress ENMT Mouth: + dentures Respiratory + labored breathing Auscultation: + diminished lung sounds Cardiovascular Rate/Rhythm: regular rate and regular rhythm Heart Sounds: + murmur Extremities: no edema Gastrointestinal (Abdomen) Inspection/Auscultation: normal bowel sounds Percussion/Palpation: abdomen soft Skin multiple scabs, bruises and abrasions to legs Neurologic + confused, +lethargic, but more awake than yesterday Psych + angry affect, + irritable affect Results & Data Vital Signs (Past 12 Hours) Vital Signs Temp Pulse Pulse Resp BP Pulse Ox 10/04/19 11:59 36.8 C 37 L 24 85/57 L 99 10/04/19 08:00 66 10/04/19 06:56 36.6 C 66 22 109/57 L 94 10/04/19 04:07 36.5 C 62 20 104/61 99 Time Spent Midlevel 35 minutes with >50% of the time spent at bedside with patient and discussing condition and GOC.
[2019-10-04] MEDS ORDERED: POTASSIUM CHLORIDE 20 MEQ/15 ML UDC PO STA (15:33)
--- NOTE | 2019-10-04 16:16 | Hospitalist Progress Note ---
Date of Service October 04, 2019 Assessment & Plan (1) Non-ST elevation [place] (NSTEMI): 79yo C male with complex medical history, most notably CAD s/p [place] with chronic systolic CHF, ICM with EF of 45-50%, CKD-III, DM, HTN, HLP, COPD, VF arrest s/p AICD placement. Per family, patient has been steadily declining for the last few months with acute worsening over the last couple of weeks. He is somnolent, minimally interactive, poor appetite and PO intake. He follows with multiple specialists. Patient with incredibly difficult fluid balance. Per record review and discussion with his , he quickly becomes fluid overloaded in the event that his diuretics are held and his renal function quickly declines with aggressive diuresis. He has had a sharp decline in renal function over the last week. BUN 166 and Cr 6.33 on admission, oliguric, +UTI, Pinto in place. Neuro: Patient somnolent, minimally interactive upon admission but now is awake and irritated which apparently is his baseline. Neuro exam limited but is grossly nonfocal. CT head with no acute abnormality. He has history of TIA in the past. -Continue ASA 81mg po daily -Continue Plavix 75mg po qAM -Continue Pravastatin 80 mg daily -Delirium prevention strategies with frequent orientation, ambulation with assistance, maintaining sleep/wake cycle where possible Pulmonary: Patient with history of JUANY on CPAP qHS. Reports overall compliance, however, has not been wearing as regularly over the last two weeks. History of COPD. Presently with no respiratory distress, he was hypoxic on room air and tachypneic when he arrived to 87%. Adequate oxygenation now on NC 2- 3L. No wheezing -Continue Albuterol scheduled and as needed -Supplemental O2 as needed to maintain saturation 88-92% -CPAP qHS Cardiac: With a history of CAD s/p TN, ICM with EF of 45-50%, delicate volume balance. Moderate-severe aortic stenosis noted on echocardiogram here. History of VF arrest s/p AICD (no discharges reported), HTN, HLP. Elevated troponin of 10.3 here x2, EKG without significant concerning changes as per cardiology. ER discussed briefly with Cardiology at time of arrival. Was hypotensive on arrival, now with low normal blood pressures but stable. Cardiac cath would be difficult at this time due to patient's renal dysfunction. NSTEMI versus elevated troponin in setting of renal failure-he is not having chest pain Cardiology consultation appreciated-conservative measures -heparin gtt written for 48 hours and then discontinued -Echocardiogram with wall motion abnormality similar to previous -Continue ASA, Plavix, Pravastatin -Continue Amiodarone for history of ventricular arrhythmia -Of note, Toprol-XL is on his home medications and previous outpatient office visits, but is not on his home medication list here-likely just inadvertently omitted, however BP low and would not tolerate adding it back on at this point GI: History of GERD -Continue Protonix 40mg po daily : Patient with CKD, ROSEMARY. BUN of 166 and Cr of 6.33 and now 10 used to be trending down to BUN 145 and creatinine 4.59. Acute kidney injury likely secondary to prerenal azotemia from dehydration in the setting of diuretic use and poor p.o. intake. Family reports poor PO intake over the last 2-4 weeks as well as continued diuretic use. On clinical exam he continues to appear extremely dry. +BPH with Pinto catheter in place Urine eosinophils negative Is nonoliguric, blood pressures are low normal, no hyperkalemia-in fact, he has hypokalemia from contraction alkalosis -Renal duplex US - history of renal artery stenosis with stent in place- ultrasound with evidence of medical renal disease but no stenosis -Nephrology consultation appreciated -Somehow, IV fluids were discontinued-restart normal saline with 20 mEq potassium chloride at 125 mL's per hour -Continue to closely monitor I/O, daily weights, BUN and Cr -Avoid nephrotoxic agents, renal dosing where needed -Continue Flomax if BP tolerates -Continue Proscar -Treating UTI with ceftriaxone x7-day course -Replace potassium with 40 mEq KCl p.o. -Follow BMP in the morning Heme: Patient with anemia of chronic disease in setting of CKD. No acute blood loss suspected. Hgb with a slight drop down to 10.3 from 11.2 which is slightly lower than baseline -Continue to monitor CBC ID: Patient with leukocytosis, WBC=13.55 on admission which is now resolved and likely secondary to +UTI With E. coli resistant to ampicillin and ampicillin/sulbactam on urine culture -Follow blood cultures-no growth to date -Continue ceftriaxone 1gm IV daily x7 days-could convert to p.o. antibiotics if ready for discharge -Maintain Pinto catheter for now Endocrine: DM and hypothyroidism-blood sugars acceptable -Continue Lantus 8u BID with ISS. Goal blood sugar 100- 180 -Continue Synthroid Ppx -Heparin drip now discontinued, consider adding subcutaneous heparin tomorrow Code - DNR/DNI per discussion with , palliative consult appreciated-plan for possible home with hospice was discussed but PCP/electrician supervisor substation now recommending not going on hospice at this time and family is in agreement Dispo -continued stay on PCU. PT/OT/Case management evaluation for possible placement needs when acute issues resolve (2) [id number]-[id number] kidney injury: (3) COPD (chronic obstructive pulmonary disease): (4) Anemia: (5) Hypotension: (6) Acute UTI: (7) Paroxysmal ventricular tachycardia: (8) Paroxysmal A-fib: (9) PAD (peripheral artery disease): (10) Left renal artery stenosis: (11) COPD (chronic obstructive pulmonary disease) with chronic bronchitis: (12) Central sleep apnea: (13) Dyslipidemia: (14) BPH (benign prostatic hyperplasia): (15) Presence of combination internal cardiac defibrillator (ICD) and pacemaker: (16) History of TIA (transient ischemic attack): (17) Hypothyroidism: (18) Aortic stenosis, mild: (19) Ischemic dilated cardiomyopathy: (20) CAD (coronary artery disease): (21) DM type 2 (diabetes mellitus, type 2): Subjective Patient awake and alert but very irritated. Denies chest pain or shortness of breath. Says he is eating but "not enough." He then yells at me "just do what you need to do!" Discussed his case with nephrology and cardiology Review of Systems Review of Systems: All systems reviewed & are unremarkable except as noted in HPI & below Physical Exam Constitutional: WD/WN, vitals as above Eyes: + anicteric sclerae ENMT: Ears: no external ear abnormality Nose: + dry nasal mucous membranes (Tongue and mucous membranes extremely dry) Neck: trachea midline, no thyromegaly Respiratory: normal respiratory effort, lungs clear to auscultation Cardiovascular: RRR, no murmur, no edema Gastrointestinal (Abdomen): normal bowel sounds, soft, nontender, no hepatosplenomegaly Musculoskeletal: Extremities: extremities normal to inspection; no cyanosis and no clubbing Skin: + wound (Multiple scabs all over anterior shins) Neurologic: moves all extremities and awake; no focal motor deficits Psychiatric: Orientation: alert, oriented to person and + guarded Eye Contact: good eye contact Speech: + loud speech Affect: + irritable affect Results & Data Vital Signs (Past 12 Hours) Vital Signs Temp Pulse Pulse Resp BP Pulse Ox Pulse Ox 10/04/19 15:36 97 10/04/19 14:59 36.5 C 67 18 98/55 L 99 10/04/19 11:59 36.8 C 37 L 24 85/57 L 99 10/04/19 08:00 66 10/04/19 06:56 36.6 C 66 22 109/57 L 94 Laboratory Results 10/04/19 10/04/19 10/04/19 Range/Units 20:06 16:15 11:04 WBC (4.8-10.8) K/uL RBC (4.7-6.1) M/uL Hgb (14.0-18.0) g/dL Hct (42-52) % MCV (80-100) fL MCH (25-34) pg MCHC (32-36) g/dL RDW Std Deviation (36.4-46.3) fL RDW Coeff of Alessandro (11.5-14.5) % Plt Count (130-400) K/uL MPV (7.4-10.4) fL Immature Gran % (Auto) % Neut % (Auto) % Lymph % (Auto) % Williams % (Auto) % Eos % (Auto) % Baso % (Auto) % Immature Gran # (Auto) (0.00-0.02) K/uL Neut # (Auto) (1.4-6.5) K/uL Lymph # (Auto) (1.2-3.4) K/uL Williams # (Auto) (0.11-0.59) K/uL Eos # (Auto) (0-0.5) K/uL Baso # (Auto) (0-0.2) K/uL APTT (21.0-31.0) Seconds PTT Ratio Sodium (136-145) mmol/L Potassium (3.5-5.1) mmol/L Chloride (98-107) mmol/L Carbon Dioxide (21-32) mmol/L Anion Gap (3-11) BUN (7-18) mg/dl Creatinine (0.6-1.4) mg/dl Est Cr Clr Drug Dosing ml/min Est GFR ( Amer) Est GFR (Non-Af Amer) BUN/Creatinine Ratio (10-20) Glucose (70-99) mg/dl POC Glucose 192 H 141 H 135 H (70-99) Calcium (8.5-10.1) mg/dl 10/04/19 10/04/19 10/04/19 Range/Units 06:58 06:12 06:12 WBC 5.68 (4.8-10.8) K/uL RBC 3.50 L (4.7-6.1) M/uL Hgb 10.3 L (14.0-18.0) g/dL Hct 30.9 L (42-52) % MCV 88.3 (80-100) fL MCH 29.4 (25-34) pg MCHC 33.3 (32-36) g/dL RDW Std Deviation 49.8 H (36.4-46.3) fL RDW Coeff of Alessandro 15.4 H (11.5-14.5) % Plt Count 166 (130-400) K/uL MPV 10.5 H (7.4-10.4) fL Immature Gran % (Auto) 0.2 % Neut % (Auto) 75.9 % Lymph % (Auto) 12.0 % Williams % (Auto) 8.5 % Eos % (Auto) 3.2 % Baso % (Auto) 0.2 % Immature Gran # (Auto) 0.01 (0.00-0.02) K/uL Neut # (Auto) 4.32 (1.4-6.5) K/uL Lymph # (Auto) 0.68 L (1.2-3.4) K/uL Williams # (Auto) 0.48 (0.11-0.59) K/uL Eos # (Auto) 0.18 (0-0.5) K/uL Baso # (Auto) 0.01 (0-0.2) K/uL APTT (21.0-31.0) Seconds PTT Ratio Sodium 139 (136-145) mmol/L Potassium 2.9 L (3.5-5.1) mmol/L Chloride 101 (98-107) mmol/L Carbon Dioxide 27 (21-32) mmol/L Anion Gap 11.0 (3-11) BUN 145 H (7-18) mg/dl Creatinine 4.59 H* D (0.6-1.4) mg/dl Est Cr Clr Drug Dosing 14.6 ml/min Est GFR ( Amer) 13.2 Est GFR (Non-Af Amer) 11.4 BUN/Creatinine Ratio 31.9 H (10-20) Glucose 104 H (70-99) mg/dl POC Glucose 116 H (70-99) Calcium 8.3 L (8.5-10.1) mg/dl 10/04/19 Range/Units 06:12 WBC (4.8-10.8) K/uL RBC (4.7-6.1) M/uL Hgb (14.0-18.0) g/dL Hct (42-52) % MCV (80-100) fL MCH (25-34) pg MCHC (32-36) g/dL RDW Std Deviation (36.4-46.3) fL RDW Coeff of Alessandro (11.5-14.5) % Plt Count (130-400) K/uL MPV (7.4-10.4) fL Immature Gran % (Auto) % Neut % (Auto) % Lymph % (Auto) % Williams % (Auto) % Eos % (Auto) % Baso % (Auto) % Immature Gran # (Auto) (0.00-0.02) K/uL Neut # (Auto) (1.4-6.5) K/uL Lymph # (Auto) (1.2-3.4) K/uL Williams # (Auto) (0.11-0.59) K/uL Eos # (Auto) (0-0.5) K/uL Baso # (Auto) (0-0.2) K/uL APTT 40.4 H (21.0-31.0) Seconds PTT Ratio 1.5 Sodium (136-145) mmol/L Potassium (3.5-5.1) mmol/L Chloride (98-107) mmol/L Carbon Dioxide (21-32) mmol/L Anion Gap (3-11) BUN (7-18) mg/dl Creatinine (0.6-1.4) mg/dl Est Cr Clr Drug Dosing ml/min Est GFR ( Amer) Est GFR (Non-Af Amer) BUN/Creatinine Ratio (10-20) Glucose (70-99) mg/dl POC Glucose (70-99) Calcium (8.5-10.1) mg/dl PG Care Time/CCT Total # of Minutes Spent Total Time Spent with Patient: Total time spent is greater than 50% in coordination of care (as documented) at patient's floor/unit and/or counseling patient: (1) Hypothyroidism Hypothyroidism type: unspecified Qualified Code(s): E03.9 - Hypothyroidism, unspecified
[2019-10-04] MEDS: NSS + 20MEQ KCL 20 MEQ/1,000 ML BAG IV SCH (17:10)
[2019-10-04] MEDS: TAMSULOSIN HCL 0.4 MG CAP PO SCH (20:09)
[2019-10-04] MEDS: cefTRIAXone SODIUM 2,000 MG in DEXTROSE 5% 50 ML IV SCH (21:50)
[2019-10-05] MEDS: NSS + 20MEQ KCL 20 MEQ/1,000 ML BAG IV SCH ×3 (00:32→16:47)
[2019-10-05] MEDS: LEVOTHYROXINE SODIUM 100 MCG TABLET PO SCH (05:44)
[2019-10-05 07:04] LABS: Basophils # (auto) 0.02 K/uL (0-0.2); Basophils % (auto) 0.4 %; Eosinophils # (auto) 0.12 K/uL (0-0.5); Eosinophils % (auto) 2.3 %; Hematocrit (blood only) 30.7 % (42-52); Hemoglobin 10.2 g/dL (14.0-18.0); Immature Granulocytes # (auto) 0.02 K/uL (0.00-0.02); Immature Granulocytes % (auto) 0.4 %; Lymphocytes # (auto) 0.64 K/uL (1.2-3.4); Lymphocytes % (auto) 12.1 %; Mean Corpuscular Hemoglobin 29.4 pg (25-34); Mean Corpuscular Hgb Conc 33.2 g/dL (32-36); Mean Corpuscular Volume 88.5 fL (80-100); Monocytes # (auto) 0.39 K/uL (0.11-0.59); Monocytes % (auto) 7.3 %; Neutrophils # (auto) 4.12 K/uL (1.4-6.5); Neutrophils % (auto) 77.5 %; Platelet Count 161 K/uL (130-400); RDW Coefficient of Variation 15.6 % (11.5-14.5); RDW Standard Deviation 49.8 fL (36.4-46.3); Red Blood Count 3.47 M/uL (4.7-6.1); White Blood Count 5.31 K/uL (4.8-10.8)
[2019-10-05 07:43] LABS: BUN Creatinine Ratio 32.9 (10-20); Calcium 8.3 mg/dl (8.5-10.1); Creatinine Clr Calc Pharmacy 16.3 ml/min; Est GFR (African American) 15.1; Magnesium 2.6 mg/dl (1.8-2.4); Potassium 3.9 mmol/L (3.5-5.1)
[2019-10-05] MEDS: PRAVASTATIN SOD 40 MG TAB PO SCH (07:56)
[2019-10-05] MEDS: PANTOprazole 40 MG TAB PO SCH (07:56)
[2019-10-05] MEDS: INSULIN ASPART 100 UNITS/ML 3 ML PEN SC SCH ×4 (07:56→21:26)
[2019-10-05] MEDS: CLOPIDOGREL BISULFATE 75 MG TAB PO SCH (07:57)
[2019-10-05] MEDS: INSULIN GLARGINE SOLOSTAR 100 UNITS/ML 3 ML PEN SC SCH ×2 (07:57→21:25)
[2019-10-05] MEDS: AMIODARONE 200 MG TAB PO SCH (07:57)
[2019-10-05] MEDS: IPRATROPIUM BROMIDE/ALBUTEROL respimat INH INH SCH ×4 (07:58→19:58)
[2019-10-05] MEDS: FINASTERIDE 5 MG TAB PO SCH (07:58)
[2019-10-05] MEDS: ASPIRIN 81 MG ECTAB PO SCH (07:58)
--- NOTE | 2019-10-05 10:42 | Progress Note ---
DATE: 10/05/2019 SUBJECTIVE: Mr. Peña says that he is still short of breath, but it is no different than usual. He says that he is weak and still does not feel well, but cannot be any more specific. He denies having any chest pain. He denies having a cough. He says that he has eaten a little bit, but that he does not have much of an appetite. However, he does not feel nauseated and denies having abdominal pain. OBJECTIVE: GENERAL: On physical exam when seen by me, Mr. Peña seemed significantly more awake and alert than he has been over the course of the past 2 days. He responds to questions appropriately. VITAL SIGNS: His blood pressure today is 106/68, his pulse is 85 and regular, respiratory rate 20-24, his oxygen saturation is 92% on 2 liters of oxygen via nasal cannula, he is afebrile (36.8). SKIN: Shows significantly reduced skin turgor. He has wrinkling consistent with his age. He has some ecchymoses and chronic discoloration involving both arms. The skin of his legs remains wrinkled. LYMPHATICS: Show no palpable lymphadenopathy. HEAD: Normal. EYES: Grossly normal. His ocular fundi were not examined. EARS, NOSE, MOUTH, AND THROAT: Unremarkable except for dry parched mucous membranes. His tongue is furrowed. It is also coated. He is edentulous with some broken dentures. NECK: Supple. I see no jugular venous distention. I hear no carotid bruit and there is no thyromegaly. CHEST: Shows some bibasilar fibrotic or atelectatic rales. He has no wheezes, rales, or rhonchi. Breath sounds are generally diminished. CARDIAC: Shows a regular rhythm. S1 and S2 seem normal. He has a grade 3/6 to 4/6 high pitched systolic ejection type murmur heard loudest at the base radiating toward the neck, but also heard at the lower left sternal border and apex radiating toward the axilla. ABDOMEN: Somewhat protuberant. It is nontender. There is no organomegaly or mass. I hear no abdominal bruits. EXTREMITIES: Show no edema. I could not feel pedal pulses. However, he has decent capillary refill of his fingers and toes. He has bilateral femoral murmurs. NEUROLOGIC: Shows him to be a bit lethargic, but he is certainly not obtunded. He answers questions appropriately and is capable of carrying on a bit more of a conversation. No lateralizing changes are noted. PERTINENT LABORATORY WORK: From today shows a white blood cell count of 5310 with 77.5% neutrophils, 12.1% lymphocytes, 7.3% monocytes, and 3.3% eosinophils and 0.4% basophils. His hemoglobin is 10.2, his hematocrit 30.7, and his platelet count 161,000. His PTT done yesterday was 40.4, his ____ 1.5. Clinical chemistries from this morning show sodium of 138 mmol/L, potassium of 3.9 mmol/L, chloride of 105 mmol/L, and CO2 content 24 mmol/L. His BUN is down to 135, his creatinine down to 4.10. Blood sugars vary from about 104 to 192. His serum calcium is 8.3. His serum magnesium is 2.6. ASSESSMENT: Gradually becoming rehydrated. His renal function seems to be improving. He has some chronic fibrotic rales at the bases. These may be atelectatic or may be from some degree of interstitial fibrosis. However, they do not seem to be rales that to me would indicate that he is in congestive heart failure. He does not have a cardiac gallop. There is no jugular venous distention. He remains prerenal and his skin turgor is poor and oral mucous membranes dry. RECOMMENDATIONS: I would check a serum albumin in addition to his other regular laboratory work. He may develop some edema as his renal function begins to improve as he becomes better hydrated. I would continue with his current IV fluids. I suspect that the degree of his alkalosis has improved as his total CO2 has dropped from 30 to 24. In association with that, his potassium has come up to a normal range from a low of about 2.9. Dialysis certainly is not indicated at this time.
[2019-10-05] MEDS: TAMSULOSIN HCL 0.4 MG CAP PO SCH (19:59)
[2019-10-05] MEDS: cefTRIAXone SODIUM 2,000 MG in DEXTROSE 5% 50 ML IV SCH (21:25)
[2019-10-06] MEDS: NSS + 20MEQ KCL 20 MEQ/1,000 ML BAG IV SCH ×2 (00:07→08:21)
[2019-10-06] MEDS: LEVOTHYROXINE SODIUM 100 MCG TABLET PO SCH (05:55)
[2019-10-06] MEDS: AMIODARONE 200 MG TAB PO SCH (07:47)
[2019-10-06] MEDS: CLOPIDOGREL BISULFATE 75 MG TAB PO SCH (07:48)
[2019-10-06] MEDS: ASPIRIN 81 MG ECTAB PO SCH (07:48)
[2019-10-06] MEDS: FINASTERIDE 5 MG TAB PO SCH (07:49)
[2019-10-06] MEDS: PRAVASTATIN SOD 40 MG TAB PO SCH (07:49)
[2019-10-06] MEDS: PANTOprazole 40 MG TAB PO SCH (07:50)
[2019-10-06] MEDS: IPRATROPIUM BROMIDE/ALBUTEROL respimat INH INH SCH ×4 (07:53→19:56)
--- NOTE | 2019-10-06 08:19 | Hospitalist Progress Note ---
Date of Service DOS actually 10/05/19 October 06, 2019 Assessment & Plan (1) Non-ST elevation [place] (NSTEMI): 79yo C male with complex medical history, most notably CAD s/p [place] with chronic systolic CHF, ICM with EF of 45-50%, CKD-III, DM, HTN, HLP, COPD, VF arrest s/p AICD placement. Per family, patient has been steadily declining for the last few months with acute worsening over the last couple of weeks. He is somnolent, minimally interactive, poor appetite and PO intake. He follows with multiple specialists. Patient with incredibly difficult fluid balance. Per record review and discussion with his , he quickly becomes fluid overloaded in the event that his diuretics are held and his renal function quickly declines with aggressive diuresis. He has had a sharp decline in renal function over the last week. BUN 166 and Cr 6.33 on admission, oliguric, +UTI, Pinto in place. Neuro: Patient somnolent, minimally interactive upon admission but now is awake and irritated which apparently is his baseline. Neuro exam limited but is grossly nonfocal. CT head with no acute abnormality. He has history of TIA in the past. -Continue ASA 81mg po daily -Continue Plavix 75mg po qAM -Continue Pravastatin 80 mg daily -Delirium prevention strategies with frequent orientation, ambulation with assistance, maintaining sleep/wake cycle where possible Pulmonary: Patient with history of JUANY on CPAP qHS. Reports overall compliance , however, has not been wearing as regularly over the last two weeks. History of COPD. Presently with no respiratory distress, he was hypoxic on room air and tachypneic when he arrived to 87%. Adequate oxygenation now on NC 2-3L. No wheezing -Continue Albuterol scheduled and as needed -Supplemental O2 as needed to maintain saturation 88-92% -CPAP qHS -watch for volume overload as he has a difficult h/o balancing fluid status Cardiac: With a history of CAD s/p [place], ICM with EF of 45-50%, delicate volume balance. Moderate-severe aortic stenosis noted on echocardiogram here. History of VF arrest s/p AICD (no discharges reported), HTN, HLP. Elevated troponin of 10.3 here x2, EKG without significant concerning changes as per cardiology. ER discussed briefly with Cardiology at time of arrival. Was hypotensive on arrival, now with low normal blood pressures but stable. Cardiac cath would be difficult at this time due to patient's renal dysfunction. NSTEMI versus elevated troponin in setting of renal failure-he is not having chest pain Cardiology consultation appreciated-conservative measures -heparin gtt written for 48 hours and then discontinued -Echocardiogram with wall motion abnormality similar to previous -Continue ASA, Plavix, Pravastatin -Continue Amiodarone for history of ventricular arrhythmia -Of note, Toprol-XL is on his home medications and previous outpatient office visits, but is not on his home medication list here-likely just inadvertently omitted, however BP low and would not tolerate adding it back on at this point GI: History of GERD -Continue Protonix 40mg po daily : Patient with CKD, ROSEMARY. BUN of 166 and Cr of 6.33 and now 10 used to be trending down to BUN 135 and creatinine 4.10. Acute kidney injury likely secondary to prerenal azotemia from dehydration in the setting of diuretic use and poor p.o. intake. Family reports poor PO intake over the last 2-4 weeks as well as continued diuretic use. On clinical exam he continues to appear extremely dry. +BPH with Pinto catheter in place Urine eosinophils negative Is nonoliguric, blood pressures are low normal, no hyperkalemia-in fact, he has hypokalemia from contraction alkalosis which is now resolved -Renal duplex US - history of renal artery stenosis with stent in place-ultr asound with evidence of medical renal disease but no stenosis -Nephrology consultation appreciated -continue IV fluids w/ normal saline with 20 mEq potassium chloride at 125 mL's per hour -Continue to closely monitor I/O, daily weights, BUN and Cr -Avoid nephrotoxic agents, renal dosing where needed -Continue Flomax if BP tolerates -Continue Proscar -Treating UTI with ceftriaxone x7-day course -Follow BMP in the morning Heme: Patient with anemia of chronic disease in setting of CKD. No acute blood loss suspected. Hgb with a slight drop down to 10.2 from 11.2 which is slightly lower than baseline -Continue to monitor CBC ID: Patient with leukocytosis, WBC=13.55 on admission which is now resolved and likely secondary to +UTI With E. coli resistant to ampicillin and ampicillin/sulbactam on urine culture -Follow blood cultures-no growth to date -Continue ceftriaxone 1gm IV daily x7 days-could convert to p.o. antibiotics if ready for discharge -Maintain Pinto catheter for now Endocrine: DM and hypothyroidism-blood sugars acceptable -Continue Lantus 8u BID with ISS. Goal blood sugar 100- 180 -Continue Synthroid Ppx -Heparin drip now discontinued, will subcutaneous heparin today Code - DNR/DNI per discussion with , palliative consult appreciated-plan for possible home with hospice was discussed but PCP/buyer planner now recommending not going on hospice at this time and family is in agreement Dispo -stable for transfer to medical floor. PT/OT/Case management evaluation for possible placement needs when acute issues resolve (2) [id number] kidney injury: (3) COPD (chronic obstructive pulmonary disease): (4) Anemia: (5) Hypotension: (6) Acute UTI: (7) Paroxysmal ventricular tachycardia: (8) Paroxysmal A-fib: (9) PAD (peripheral artery disease): (10) Left renal artery stenosis: (11) COPD (chronic obstructive pulmonary disease) with chronic bronchitis: (12) Central sleep apnea: (13) Dyslipidemia: (14) BPH (benign prostatic hyperplasia): (15) Presence of combination internal cardiac defibrillator (ICD) and pacemaker: (16) History of TIA (transient ischemic attack): (17) Hypothyroidism: (18) Aortic stenosis, mild: (19) Ischemic dilated cardiomyopathy: (20) CAD (coronary artery disease): (21) DM type 2 (diabetes mellitus, type 2): Subjective Feeling better, not SOB more than his usual. Is alert and eating, awake, ambulating to bathroom. Still irritable which his says is normal for him and means he's getting better Tele withNSR, PACs, PVCs Review of Systems Review of Systems: All systems reviewed & are unremarkable except as noted in HPI & below Physical Exam Constitutional: WD/WN, vitals as above Eyes: + anicteric sclerae ENMT: Ears: no external ear abnormality Nose: + dry nasal mucous membranes (Tongue and mucous membranes dry but improving) Neck: trachea midline, no thyromegaly Respiratory: normal respiratory effort, lungs clear to auscultation Cardiovascular: RRR, no murmur, no edema Gastrointestinal (Abdomen): normal bowel sounds, soft, nontender, no hepatosplenomegaly Musculoskeletal: Extremities: extremities normal to inspection; no cyanosis and no clubbing Skin: no rashes, warm and dry + wound (Multiple scabs all over anterior shins) Neurologic: moves all extremities and awake; no focal motor deficits Psychiatric: Orientation: alert, oriented to person and + guarded Eye Contact: good eye contact Speech: + loud speech Affect: + irritable affect Results & Data Vital Signs (Past 12 Hours) Vital Signs Temp Pulse Pulse Resp BP BP Pulse Ox 10/06/19 03:59 36.7 C 77 18 102/68 97 10/06/19 01:53 76 106/62 96 10/06/19 01:10 110/70 10/06/19 01:00 74/37 L 10/06/19 00:11 36.1 C L 87 18 106/70 95 10/05/19 20:15 80 18 90 Laboratory Results 10/06/19 10/06/19 10/05/19 Range/Units 07:52 01:04 20:34 POC Glucose 158 H 190 H 191 H (70-99) 10/05/19 10/05/19 Range/Units 16:54 11:10 POC Glucose 178 H 154 H (70-99) Contract Accountant down to 4.1, HCO3 24 PG Care Time/CCT Total # of Minutes Spent Total Time Spent with Patient: Total time spent is greater than 50% in coordination of care (as documented) at patient's floor/unit and/or counseling patient: (1) Hypothyroidism Hypothyroidism type: unspecified Qualified Code(s): E03.9 - Hypothyroidism, unspecified
[2019-10-06] MEDS: INSULIN ASPART 100 UNITS/ML 3 ML PEN SC SCH ×4 (08:23→20:19)
[2019-10-06] MEDS: INSULIN GLARGINE SOLOSTAR 100 UNITS/ML 3 ML PEN SC SCH ×2 (08:24→20:18)
[2019-10-06 08:48] LABS: Basophils # (auto) 0.02 K/uL (0-0.2); Basophils % (auto) 0.3 %; Eosinophils # (auto) 0.06 K/uL (0-0.5); Eosinophils % (auto) 0.9 %; Hematocrit (blood only) 31.6 % (42-52); Hemoglobin 10.4 g/dL (14.0-18.0); Immature Granulocytes # (auto) 0.02 K/uL (0.00-0.02); Immature Granulocytes % (auto) 0.3 %; Lymphocytes # (auto) 0.59 K/uL (1.2-3.4); Lymphocytes % (auto) 9.3 %; Mean Corpuscular Hemoglobin 29.8 pg (25-34); Mean Corpuscular Hgb Conc 32.9 g/dL (32-36); Mean Corpuscular Volume 90.5 fL (80-100); Mean Platelet Volume 10.7 fL (7.4-10.4); Monocytes # (auto) 0.42 K/uL (0.11-0.59); Monocytes % (auto) 6.6 %; Neutrophils # (auto) 5.24 K/uL (1.4-6.5); Neutrophils % (auto) 82.6 %; Platelet Count 166 K/uL (130-400); RDW Coefficient of Variation 16.3 % (11.5-14.5); RDW Standard Deviation 52.7 fL (36.4-46.3); Red Blood Count 3.49 M/uL (4.7-6.1); White Blood Count 6.35 K/uL (4.8-10.8)
[2019-10-06 09:13] LABS: BUN Creatinine Ratio 32.2 (10-20); Calcium 8.2 mg/dl (8.5-10.1); Creatinine Clr Calc Pharmacy 19.2 ml/min; Est GFR (African American) 18.4; Est GFR (Non-African American) 15.9; Potassium 4.6 mmol/L (3.5-5.1)
[2019-10-06] MEDS: HEPARIN SOD 5,000 UNIT/0.5 ML VIAL SQ SCH ×2 (09:59→20:18)
[2019-10-06] MEDS: SODIUM CHLORIDE 0.9% 1000ML 1,000 ML IV SCH ×2 (10:18→17:13)
--- NOTE | 2019-10-06 10:29 | Hospitalist Progress Note ---
Date of Service October 06, 2019 Assessment & Plan (1) Non-ST elevation VT (NSTEMI): 79yo C male with complex medical history, most notably CAD s/p VT with chronic systolic CHF, ICM with EF of 45-50%, CKD-III, DM, HTN, HLP, COPD, VF arrest s/p AICD placement. Per family, patient has been steadily declining for the last few months with acute worsening over the last couple of weeks. He is somnolent, minimally interactive, poor appetite and PO intake. He follows with multiple specialists. Patient with incredibly difficult fluid balance. Per record review and discussion with his , he quickly becomes fluid overloaded in the event that his diuretics are held and his renal function quickly declines with aggressive diuresis. He has had a sharp decline in renal function over the last week. BUN 166 and Cr 6.33 on admission, oliguric, +UTI, Pinto in place. Neuro: Patient somnolent, minimally interactive upon admission but now is awake and irritated which apparently is his baseline. Neuro exam limited but is grossly nonfocal. CT head with no acute abnormality. He has history of TIA in the past. Improved mentation now -Continue ASA 81mg po daily -Continue Plavix 75mg po qAM -Continue Pravastatin 80 mg daily -Delirium prevention strategies with frequent orientation, ambulation with assistance, maintaining sleep/wake cycle where possible Pulmonary: Patient with history of JUANY on CPAP qHS. Reports overall complian ce, however, has not been wearing as regularly over the last two weeks. History of COPD. Presently with no respiratory distress, he was hypoxic on room air and tachypneic when he arrived to 87%. Adequate oxygenation now on NC 2-3L. No wheezing Does not have O2 at home -Continue Albuterol scheduled and as needed -Supplemental O2 as needed to maintain saturation 88-92%--> will attempt to wean t today -may need 2 step prior to discharge -CPAP qHS -watch for volume overload as he has a difficult h/o balancing fluid status Cardiac: With a history of CAD s/p VT, ICM with EF of 45-50%, delicate volume balance. Moderate-severe aortic stenosis noted on echocardiogram here. History of VF arrest s/p AICD (no discharges reported), HTN, HLP. Elevated troponin of 10.3 here x2, EKG without significant concerning changes as per cardiology. ER discussed briefly with Cardiology at time of arrival. Was hypotensive on arrival, now with low normal blood pressures but stable. Cardiac cath would be difficult at this time due to patient's renal dysfunction. NSTEMI versus elevated troponin in setting of renal failure-he is not having chest pain Cardiology consultation appreciated-conservative measures -heparin gtt written for 48 hours and then discontinued -Echocardiogram with wall motion abnormality similar to previous -Continue ASA, Plavix, Pravastatin -Continue Amiodarone for history of ventricular arrhythmia -Of note, Toprol-XL is on his home medications and previous outpatient office visits, but is not on his home medication list here-likely just inadvertently omitted, however BP low and would not tolerate adding it back on at this point GI: History of GERD -Continue Protonix 40mg po daily : Patient with CKD, ROSEMARY. BUN of 166 and Cr of 6.33 and now continues to be trending down to BUN 112 and creatinine 3.48 which is around his baseline. Acute kidney injury likely secondary to prerenal azotemia from dehydration in the setting of diuretic use and poor p.o. intake. Family reports poor PO intake over the last 2-4 weeks as well as continued diuretic use. On clinical exam he continues to appear dry but is improved. +BPH with Pinto catheter in place--> will attempt TOV prior to discharge Urine eosinophils negative Is nonoliguric, blood pressures are low normal, no hyperkalemia-in fact, he has hypokalemia from contraction alkalosis which is now resolved Now with metabolic acidosis likely from hydration -Renal duplex US - history of renal artery stenosis with stent in place- ultrasound with evidence of medical renal disease but no stenosis -Nephrology consultation appreciated -continue IV fluids but change to NS only (remove KCl) at 125 mL's per hour -Continue to closely monitor I/O, daily weights, BUN and Cr -Avoid nephrotoxic agents, renal dosing where needed -Continue Flomax if BP tolerates -Continue Proscar -Treating UTI with ceftriaxone x7-day course -Follow BMP in the morning Heme: Patient with anemia of chronic disease in setting of CKD. No acute blood loss suspected. Hgb with a slight drop down to 10.4 from 11.2 which is slightly lower than baseline -no need to check further CBC ID: Patient with leukocytosis, WBC=13.55 on admission which is now resolved and likely secondary to +UTI With E. coli resistant to ampicillin and ampicillin/sulbactam on urine culture -Follow blood cultures-no growth to date -Continue ceftriaxone 1gm IV daily x7 days-could convert to p.o. antibiotics if ready for discharge -Maintain Pinto catheter for now but trial of void tomorrow Endocrine: DM and hypothyroidism-blood sugars acceptable -Continue Lantus 8u BID with ISS. Goal blood sugar 100- 180 -Continue Synthroid Ppx -subcutaneous heparin today Code - DNR/DNI per discussion with , palliative consult appreciated-plan for possible home with hospice was discussed but PCP/engine monitor now recommending not going on hospice at this time and family is in agreement Dispo -continued stay on medical floor. PT/OT/Case management evaluation for possible placement needs when acute issues resolve--> pt and family declining SNF and declining Home Health Unsure if he will have adequate care--> await repeat PT/OT evals today Discussed with Case Management (2) Ujgcr-sk-guqyumr kidney injury: (3) COPD (chronic obstructive pulmonary disease): (4) Anemia: (5) Hypotension: (6) Acute UTI: (7) Paroxysmal ventricular tachycardia: (8) Paroxysmal A-fib: (9) PAD (peripheral artery disease): (10) Left renal artery stenosis: (11) COPD (chronic obstructive pulmonary disease) with chronic bronchitis: (12) Central sleep apnea: (13) Dyslipidemia: (14) BPH (benign prostatic hyperplasia): (15) Presence of combination internal cardiac defibrillator (ICD) and pacemaker: (16) History of TIA (transient ischemic attack): (17) Hypothyroidism: (18) Aortic stenosis, mild: (19) Ischemic dilated cardiomyopathy: (20) CAD (coronary artery disease): (21) DM type 2 (diabetes mellitus, type 2): Subjective Feeling better. Is eating well. reports he does not have O2 at home. He has been getting out of bed to chair. declines any home health and declines any rehab placement. Denies other concerns. Discussed his care with PCP/Nephro Dr. Atkins Review of Systems Review of Systems: All systems reviewed & are unremarkable except as noted in HPI & below Physical Exam Constitutional: WD/WN, vitals as above Eyes: + anicteric sclerae ENMT: Ears: no external ear abnormality Mouth: + oral mucosal abnormality (dry but improved) Neck: trachea midline, no thyromegaly Respiratory: normal respiratory effort; no labored breathing Auscultation: + crackles (mild bibasilar) Cardiovascular: RRR, no murmur, no edema Gastrointestinal (Abdomen): normal bowel sounds, soft, nontender, no hepatosplenomegaly Musculoskeletal: Extremities: extremities normal to inspection; no cyanosis and no clubbing Skin: no rashes, warm and dry + wound (Multiple scabs all over anterior shins) Neurologic: moves all extremities and awake; no focal motor deficits Psychiatric: Orientation: alert and oriented to person Eye Contact: good eye contact Speech: + loud speech Results & Data Vital Signs (Past 12 Hours) Vital Signs Temp Pulse Resp BP BP Pulse Ox 10/06/19 08:00 36.4 C L 81 20 100/65 96 10/06/19 03:59 36.7 C 77 18 102/68 97 10/06/19 01:53 76 106/62 96 10/06/19 01:10 110/70 10/06/19 01:00 74/37 L 10/06/19 00:11 36.1 C L 87 18 106/70 95 Laboratory Results 10/06/19 10/06/19 10/06/19 Range/Units 08:31 08:31 07:52 WBC 6.35 (4.8-10.8) K/uL RBC 3.49 L (4.7-6.1) M/uL Hgb 10.4 L (14.0-18.0) g/dL Hct 31.6 L (42-52) % MCV 90.5 (80-100) fL MCH 29.8 (25-34) pg MCHC 32.9 (32-36) g/dL RDW Std Deviation 52.7 H (36.4-46.3) fL RDW Coeff of Alessandro 16.3 H (11.5-14.5) % Plt Count 166 (130-400) K/uL MPV 10.7 H (7.4-10.4) fL Immature Gran % (Auto) 0.3 % Neut % (Auto) 82.6 % Lymph % (Auto) 9.3 % [place] % (Auto) 6.6 % Eos % (Auto) 0.9 % Baso % (Auto) 0.3 % Immature Gran # (Auto) 0.02 (0.00-0.02) K/uL Neut # (Auto) 5.24 (1.4-6.5) K/uL Lymph # (Auto) 0.59 L (1.2-3.4) K/uL [place] # (Auto) 0.42 (0.11-0.59) K/uL Eos # (Auto) 0.06 (0-0.5) K/uL Baso # (Auto) 0.02 (0-0.2) K/uL Sodium 137 (136-145) mmol/L Potassium 4.6 D (3.5-5.1) mmol/L Chloride 109 H (98-107) mmol/L Carbon Dioxide 19 L (21-32) mmol/L Anion Gap 9.0 (3-11) BUN 112 H (7-18) mg/dl Creatinine 3.48 H D (0.6-1.4) mg/dl Est Cr Clr Drug Dosing 19.2 ml/min Est GFR ( Amer) 18.4 Est GFR (Non-Af Amer) 15.9 BUN/Creatinine Ratio 32.2 H (10-20) Glucose 174 H (70-99) mg/dl POC Glucose 158 H (70-99) Calcium 8.2 L (8.5-10.1) mg/dl 10/06/19 10/05/19 10/05/19 Range/Units 01:04 20:34 16:54 WBC (4.8-10.8) K/uL RBC (4.7-6.1) M/uL Hgb (14.0-18.0) g/dL Hct (42-52) % MCV (80-100) fL MCH (25-34) pg MCHC (32-36) g/dL RDW Std Deviation (36.4-46.3) fL RDW Coeff of Alessandro (11.5-14.5) % Plt Count (130-400) K/uL MPV (7.4-10.4) fL Immature Gran % (Auto) % Neut % (Auto) % Lymph % (Auto) % [place] % (Auto) % Eos % (Auto) % Baso % (Auto) % Immature Gran # (Auto) (0.00-0.02) K/uL Neut # (Auto) (1.4-6.5) K/uL Lymph # (Auto) (1.2-3.4) K/uL [place] # (Auto) (0.11-0.59) K/uL Eos # (Auto) (0-0.5) K/uL Baso # (Auto) (0-0.2) K/uL Sodium (136-145) mmol/L Potassium (3.5-5.1) mmol/L Chloride (98-107) mmol/L Carbon Dioxide (21-32) mmol/L Anion Gap (3-11) BUN (7-18) mg/dl Creatinine (0.6-1.4) mg/dl Est Cr Clr Drug Dosing ml/min Est GFR ( Amer) Est GFR (Non-Af Amer) BUN/Creatinine Ratio (10-20) Glucose (70-99) mg/dl POC Glucose 190 H 191 H 178 H (70-99) Calcium (8.5-10.1) mg/dl 10/05/19 Range/Units 11:10 WBC (4.8-10.8) K/uL RBC (4.7-6.1) M/uL Hgb (14.0-18.0) g/dL Hct (42-52) % MCV (80-100) fL MCH (25-34) pg MCHC (32-36) g/dL RDW Std Deviation (36.4-46.3) fL RDW Coeff of Alessandor (11.5-14.5) % Plt Count (130-400) K/uL MPV (7.4-10.4) fL Immature Gran % (Auto) % Neut % (Auto) % Lymph % (Auto) % [place] % (Auto) % Eos % (Auto) % Baso % (Auto) % Immature Gran # (Auto) (0.00-0.02) K/uL Neut # (Auto) (1.4-6.5) K/uL Lymph # (Auto) (1.2-3.4) K/uL [place] # (Auto) (0.11-0.59) K/uL Eos # (Auto) (0-0.5) K/uL Baso # (Auto) (0-0.2) K/uL Sodium (136-145) mmol/L Potassium (3.5-5.1) mmol/L Chloride (98-107) mmol/L Carbon Dioxide (21-32) mmol/L Anion Gap (3-11) BUN (7-18) mg/dl Creatinine (0.6-1.4) mg/dl Est Cr Clr Drug Dosing ml/min Est GFR ( Amer) Est GFR (Non-Af Amer) BUN/Creatinine Ratio (10-20) Glucose (70-99) mg/dl POC Glucose 154 H (70-99) Calcium (8.5-10.1) mg/dl PG Care Time/CCT Total # of Minutes Spent Total Time Spent with Patient: Total time spent is greater than 50% in coordination of care (as documented) at patient's floor/unit and/or counseling patient: (1) Hypothyroidism Hypothyroidism type: unspecified Qualified Code(s): E03.9 - Hypothyroidism, unspecified
--- NOTE | 2019-10-06 10:42 | Progress Note ---
DATE: 10/06/2019 SUBJECTIVE: The patient says he is feeling no better. However, all evidence appears to be to the contrary. He was sitting up, eating breakfast and having his bath when I did see him. He was awake, alert and oriented and certainly capable of carrying on his usual conversation. According to his , staff and my observations, he has returned to his usual boisterous and cantankerous self. He denies having any chest pain. He says he is no more short of breath than he usually is. He has no cough. He has no chest pain. He has not noticed any swelling of his lower extremities, but he has spent most of his time in bed. He has been sitting up to eat. OBJECTIVE: GENERAL: On physical exam when seen, he was certainly awake, alert and oriented and as noted back to his usual personality. VITAL SIGNS: His blood pressure was 100/65, his pulse 81 and regular, respiratory rate 20, his pulse ox was 96% on 3 liters of oxygen via nasal cannula. He is afebrile (36.4). SKIN: Shows some bronze dermatitis particularly on his upper extremities and to a lesser extent on his distal lower extremities. His skin turgor is somewhat reduced, but much improved from previous. LYMPHATICS: Show no palpable adenopathy. HEAD: Grossly normal. EYES: Grossly normal. The ocular fundi were not examined. His conjunctivae are minimally pale. EARS, NOSE, MOUTH AND THROAT: Unremarkable. He is edentulous and has a denture in place with multiple broken teeth. His oral mucous membranes are slightly moist. NECK: Supple. He has no current jugular venous distention. I hear no carotid bruit and there is no thyromegaly. CHEST: Shows diminished breath sounds throughout. However, I hear no wheezes, rales or rhonchi. CARDIAC: Shows a regular rhythm. S1 and S2 are normal. He has a grade 3/6 high pitched systolic ejection murmur at the base radiating toward the neck, but also heard along the lower left sternal border and apex radiating toward the axilla. ABDOMEN: Somewhat obese and protuberant. It is not tender. No definite fluid wave is noted. I hear no abdominal bruits. EXTREMITIES: Showed no cyanosis, clubbing or peripheral edema. He does have some changes of chronic venous stasis dermatitis. Peripheral pulses in his feet are difficult to feel. He has bilateral femoral bruits. NEUROLOGIC: Shows no lateralizing changes. LABORATORY WORK: From today shows a white count of 6350 with 82.6% neutrophils, 9.3% lymphocytes, 6.6% monocytes, 0.9% eosinophils and 0.3% basophils. His hemoglobin is stable at 10.4 with a hematocrit of 31.6. His platelet count is 166,000. His clinical chemistries from today show a sodium of 137 mmol/L, potassium 4.6 mmol/L, chloride is 109 mmol/L and CO2 content 19 mmol/L. His BUN is down to 112. His creatinine is down to essentially his recent baseline of 3.46. His serum calcium is 8.2. Blood sugars over the past 24 hours have varied from a low of 154 to a high of 191. ASSESSMENT: The patient certainly has made some gratifying improvement. A look at his intake and out take does indicate that he has been positive at 6.88 liters of fluid since he has been here. His serum potassium is improved and is now 4.6 with some potassium replacement, but also with an improvement in his contraction alkalosis. RECOMMENDATIONS: I would continue with his current IV fluid rate for the next 24 hours. At this point, we need to watch closely for evidence of recurrent edema or volume overload. I doubt that is going to happen over the next 24 hours. Periodic chest x-rays may be helpful in his assessment in addition to his physical exam. I suspect we will see further improvement in both his BUN and creatinine as he continues with his slow hydration. No other recommendations for now. The patient and his want to make sure that there are now no plans for hospice. Certainly, he is going to need close medical followup after his discharge. Dr. Barnes will likely be following the patient over the weekend.
[2019-10-06] MEDS ORDERED: SODIUM CHLORIDE 0.9% 1000ML 500 ML IV ONE ×2 (11:50→12:46)
[2019-10-06] MEDS: cephALEXin 250 MG CAP PO SCH (19:55)
[2019-10-06] MEDS: TAMSULOSIN HCL 0.4 MG CAP PO SCH (19:56)
[2019-10-06] MEDS: ACETAMINOPHEN 325 MG TAB PO PRN (21:42)
--- NOTE | 2019-10-06 23:19 | Communication Note ---
Date of Service: October 06, 2019 I overheard a "Code Lift Team" overhead page for Mr. Peña's room today. When I came to the room, he was sitting on the floor with nurses around him. He was awake but was slow to respond. He was lifted back into bed and then told me he felt tired, but denies lightheadedness, no chest pain, no SOB over usual, no nausea or abd pain. He had stood up with the RN-aides to get to the chair and got lightheaded and then passed out. Pt tells me this happens to him "all the time" at home. BPs were low and then responded to a total of 1 L NS bolused. ECG showed no changes from previous -Continue IVFs after the 1L bolus NS -assess orthostatics in the AM
[2019-10-07] MEDS: SODIUM CHLORIDE 0.9% 1000ML 1,000 ML IV SCH (03:06)
[2019-10-07] MEDS: LEVOTHYROXINE SODIUM 100 MCG TABLET PO SCH (05:56)
[2019-10-07 07:17] LABS: Basophils # (auto) 0.02 K/uL (0-0.2); Basophils % (auto) 0.2 %; Eosinophils # (auto) 0.06 K/uL (0-0.5); Eosinophils % (auto) 0.7 %; Hematocrit (blood only) 31.8 % (42-52); Hemoglobin 10.5 g/dL (14.0-18.0); Immature Granulocytes # (auto) 0.04 K/uL (0.00-0.02); Immature Granulocytes % (auto) 0.5 %; Lymphocytes # (auto) 0.44 K/uL (1.2-3.4); Lymphocytes % (auto) 5.5 %; Mean Corpuscular Hemoglobin 29.5 pg (25-34); Mean Corpuscular Volume 89.3 fL (80-100); Mean Platelet Volume 9.6 fL (7.4-10.4); Monocytes # (auto) 0.48 K/uL (0.11-0.59); Neutrophils # (auto) 7.02 K/uL (1.4-6.5); Neutrophils % (auto) 87.1 %; Platelet Count 170 K/uL (130-400); RDW Coefficient of Variation 16.5 % (11.5-14.5); RDW Standard Deviation 52.3 fL (36.4-46.3); Red Blood Count 3.56 M/uL (4.7-6.1); White Blood Count 8.06 K/uL (4.8-10.8)
--- NOTE | 2019-10-07 07:21 | XRay Report ---
XR chest 1V portable CLINICAL HISTORY: Shortness of breath COMPARISON STUDY: 10/02/2019 FINDINGS: The heart is enlarged. There is progressive asymmetric pulmonary edema greater than left. S mall pleural effusions are suspected. Ill-definition left hemidiaphragm, likely represents accommodat ion basilar edema and a left pleural effusion.[ IMPRESSION: Worsening asymmetric pulmonary edema. Developing pleural effusions. Electronically signed by: Britton Watts M.D. 10/07/2019 7:20 AM
[2019-10-07 07:48] LABS: BUN Creatinine Ratio 30.3 (10-20); Calcium 8.1 mg/dl (8.5-10.1); Creatinine Clr Calc Pharmacy 19.5 ml/min; Est GFR (African American) 18.8; Est GFR (Non-African American) 16.2; Potassium 4.7 mmol/L (3.5-5.1)
[2019-10-07] MEDS: AMIODARONE 200 MG TAB PO SCH (09:22)
[2019-10-07] MEDS: IPRATROPIUM BROMIDE/ALBUTEROL respimat INH INH SCH ×4 (09:23→21:29)
[2019-10-07] MEDS: PANTOprazole 40 MG TAB PO SCH (09:23)
[2019-10-07] MEDS: FINASTERIDE 5 MG TAB PO SCH (09:23)
[2019-10-07] MEDS: PRAVASTATIN SOD 40 MG TAB PO SCH (09:23)
[2019-10-07] MEDS: ASPIRIN 81 MG ECTAB PO SCH (09:23)
[2019-10-07] MEDS: CLOPIDOGREL BISULFATE 75 MG TAB PO SCH (09:23)
[2019-10-07] MEDS: cephALEXin 250 MG CAP PO SCH ×2 (09:24→21:33)
[2019-10-07] MEDS: HEPARIN SOD 5,000 UNIT/0.5 ML VIAL SQ SCH ×2 (09:24→21:30)
[2019-10-07] MEDS: INSULIN GLARGINE SOLOSTAR 100 UNITS/ML 3 ML PEN SC SCH ×2 (09:25→21:30)
[2019-10-07] MEDS: INSULIN ASPART 100 UNITS/ML 3 ML PEN SC SCH ×4 (09:26→21:33)
[2019-10-07] MEDS: ALBUTEROL 0.5% NEB SOLN 2.5 MG/0.5 ML VIAL NEB PRN ×2 (14:37→22:31)
[2019-10-07] MEDS: ACETAMINOPHEN 325 MG TAB PO PRN (17:59)
--- NOTE | 2019-10-07 18:13 | Hospitalist Progress Note ---
Date of Service October 07, 2019 Assessment & Plan (1) Non-ST elevation GA (NSTEMI): This patient is a 79yo C male with complex medical history, most notably CAD s/p GA with chronic systolic CHF, ICM with EF of 45-50%, CKD-III, DM, HTN, HLP, COPD, VF arrest s/p AICD placement. Per family, patient has been steadily declining for the last few months with acute worsening over the last couple of weeks. He is somnolent, minimally interactive, poor appetite and PO intake. He follows with multiple specialists. Patient with incredibly difficult fluid balance. Per record review and discussion with his , he quickly becomes fluid overloaded in the event that his diuretics are held and his renal function quickly declines with aggressive diuresis. He has had a sharp decline in renal function over the last week and had a Pinto catheter placed with urology on 09/27. BUN 166 and Cr 6.33 on admission, oliguric, +UTI, Pinto in place. Neuro: Patient somnolent, minimally interactive upon admission but now is awake and irritated which apparently is his baseline. Neuro exam limited but is grossly nonfocal. CT head with no acute abnormality. He has history of TIA in the past. Improved mentation now and is very irritable which his states is normal for him -Continue ASA 81mg po daily -Continue Plavix 75mg po qAM -Continue Pravastatin 80 mg daily -Delirium prevention strategies with frequent orientation, ambulation with assistance, maintaining sleep/wake cycle where possible Pulmonary: Patient with history of JUANY on CPAP qHS. Reports overall compliance, however, has not been wearing as regularly over the last two weeks. History of COPD. Presently with no respiratory distress, he was hypoxic on room air and tachypneic when he arrived to 87%. Was having adequate oxygenation on NC 2-3L. Now up to 4 L nasal cannula after copious IV fluids were given over the previous 4 to 5 days for severe dehydration Does not have O2 at home -Continue Albuterol scheduled and as needed -Supplemental O2 as needed to maintain saturation 88-92% -may need 2 step prior to discharge -CPAP qHS -Now developing volume overload and he has a difficult h/o balancing fluid status -Discontinue IV fluids Cardiac: With a history of CAD s/p GA, ICM with EF of 45-50%, delicate volume balance. Moderate-severe aortic stenosis noted on echocardiogram here. History of VF arrest s/p AICD (no discharges reported), HTN, HLP. Elevated troponin of 10.3 here x2 and stable, EKG without significant concerning changes as per cardiology. ER discussed briefly with Cardiology at time of arrival. Was hypotensive on arrival, now with low normal blood pressures but stable. Cardiac cath would be difficult at this time due to patient's renal dysfunction and is not desirable. NSTEMI versus elevated troponin in setting of renal failure-he is not having chest pain Cardiology consultation appreciated-conservative measures Patient had an episode of syncope due to orthostasis most likely on 10/06 where he stood up got lightheaded and then passed out. He was lowered to the ground by 2 nurses aides and in less than a minute he was awake again and talking. He denied any chest pain or shortness of breath at the time. His blood pressure was in the 90s systolic and responded to IV fluids at that time Patient states he has a history of multiple episodes of syncope with standing at home. This is very concerning for him to return home. -heparin gtt was given for 48 hours and then discontinued -Echocardiogram with wall motion abnormality similar to previous -Continue ASA, Plavix, Pravastatin -Continue Amiodarone for history of ventricular arrhythmia -Of note, Toprol-XL is on his home medications and previous outpatient office visits, but is not on his home medication list here-likely just inadvertently omitted, however BP low and would not tolerate adding it back on at this point GI: History of GERD-no worsening symptoms -Continue Protonix 40mg po daily : Patient with CKD, ROSEMARY. BUN of 166 and Cr of 6.33 and now continues to be trending down to BUN 104 and creatinine 3.42 which is at his baseline. Acute kidney injury likely secondary to prerenal azotemia from dehydration in the setting of diuretic use and poor p.o. intake. Family reports poor PO intake over the last 2-4 weeks as well as continued diuretic use. Was severely dehydrated on examination and this is now improved with copious IV fluids With +BPH with Pinto catheter in place placed by urology on 09/27 due to renal failure and difficulty with voiding-Pinto catheter was exchanged in the emergency room on the day of admission 10/02 Urine eosinophils negative Is nonoliguric, blood pressures are low normal, no hyperkalemia-in fact, he had hypokalemia from contraction alkalosis which is now resolved Now with metabolic acidosis likely from hydration -Renal duplex US - history of renal artery stenosis with stent in place- ultrasound with evidence of medical renal disease but no stenosis -Nephrology consultation appreciated -We will now stop IV fluids due to developing pulmonary edema -Continue to closely monitor I/O, daily weights, BUN and Cr -Avoid nephrotoxic agents, renal dosing where needed -Continue Flomax if BP tolerates -Continue Proscar -Treating UTI-gave ceftriaxone for several days and now on Keflex-final day of treatment will be 10/12 for total 10-day course -Follow BMP in the morning -Follow-up with urology and nephrology as an outpatient Heme: Patient with anemia of chronic disease in setting of CKD. No acute blood loss suspected. Hgb with a slight drop down to 10.5 from 11.2 which is slightly lower than baseline -no need to check further CBC ID: Patient with leukocytosis, WBC=13.55 on admission which is now resolved and likely secondary to +UTI With E. coli resistant to ampicillin and ampicillin/sulbactam on urine culture -Follow blood cultures-no growth to date -Continue Keflex as above for UTI -Maintain Pinto catheter for now and follow-up with urology Endocrine: DM and hypothyroidism-blood sugars acceptable -Continue Lantus 8u BID with ISS. Goal blood sugar 100- 180 -Continue Synthroid Ppx -subcutaneous heparin Code - DNR/DNI per discussion with , palliative consult appreciated-plan for possible home with hospice was discussed but PCP/benefits counselor now recommending not going on hospice at this time and family is in agreement Dispo -continued stay on medical floor. PT/OT/Case management evaluation for possible placement needs when acute issues resolve--> pt and family declining SNF and declining Home Health Unsure if he will have adequate care especially as he has frequent falls and frequent episodes of syncope Had witnessed episode of syncope here on 10/06 and required multiple people to lift him off the floor back into the bed-I have significant concerns about him going home with his only for support Discussed with Case Management We will see if willing to go to short-term rehab stay Await reevaluation by PT/OT (2) Crhqu-[id number]-dguwjwk kidney injury: (3) COPD (chronic obstructive pulmonary disease): (4) Anemia: (5) Hypotension: (6) Acute UTI: (7) Paroxysmal ventricular tachycardia: (8) Paroxysmal A-fib: (9) PAD (peripheral artery disease): (10) Left renal artery stenosis: (11) COPD (chronic obstructive pulmonary disease) with chronic bronchitis: (12) Central sleep apnea: (13) Dyslipidemia: (14) BPH (benign prostatic hyperplasia): (15) Presence of combination internal cardiac defibrillator (ICD) and pacemaker: (16) History of TIA (transient ischemic attack): (17) Hypothyroidism: (18) Aortic stenosis, mild: (19) Ischemic dilated cardiomyopathy: (20) CAD (coronary artery disease): (21) DM type 2 (diabetes mellitus, type 2): Subjective Patient very angry today and states "I just want to sleep!" He has been irritated and swearing at times with nurses as per report. Denies lightheadedness. Reports he does not recall passing out yesterday. Says he feels he would be better if he could just get some sleep. Denies chest pain. Attempts to call the multiple times were made and she did not answer and there was no voicemail that could be left. Apparently overnight, he seemed more short of breath and IV fluids were discontinued after chest x-ray showed worsening asymmetric pulmonary edema Review of Systems Review of Systems: All systems reviewed & are unremarkable except as noted in HPI & below Physical Exam Constitutional: WD/WN, vitals as above Eyes: + anicteric sclerae ENMT: Ears: no external ear abnormality Mouth: + oral mucosal abnormality (Mildly dry but much improved) Neck: trachea midline, no thyromegaly Respiratory: normal respiratory effort; no labored breathing Auscultation: + crackles (mild bibasilar) Cardiovascular: RRR, no murmur, no edema Gastrointestinal (Abdomen): normal bowel sounds, soft, nontender, no hepatosplenomegaly Musculoskeletal: Extremities: extremities normal to inspection; no cyanosis and no clubbing Skin: no rashes, warm and dry + wound (Multiple scabs all over anterior shins) Neurologic: moves all extremities and awake; no focal motor deficits Psychiatric: Orientation: alert and oriented to person Eye Contact: good eye contact Speech: + loud speech Affect: + irritable affect Results & Data Vital Signs (Past 12 Hours) Vital Signs Temp Pulse Resp BP Pulse Ox 10/07/19 15:35 36.6 C 84 19 104/69 97 10/07/19 14:40 86 18 92 10/07/19 12:00 36.0 C L 70 20 84/63 L 97 10/07/19 08:06 36.0 C L 93 H 20 113/77 96 Laboratory Results 10/07/19 10/07/19 10/07/19 Range/Units 20:13 16:54 11:44 WBC (4.8-10.8) K/uL RBC (4.7-6.1) M/uL Hgb (14.0-18.0) g/dL Hct (42-52) % MCV (80-100) fL MCH (25-34) pg MCHC (32-36) g/dL RDW Std Deviation (36.4-46.3) fL RDW Coeff of Alessandro (11.5-14.5) % Plt Count (130-400) K/uL MPV (7.4-10.4) fL Immature Gran % (Auto) % Neut % (Auto) % Lymph % (Auto) % [place] % (Auto) % Eos % (Auto) % Baso % (Auto) % Immature Gran # (Auto) (0.00-0.02) K/uL Neut # (Auto) (1.4-6.5) K/uL Lymph # (Auto) (1.2-3.4) K/uL [place] # (Auto) (0.11-0.59) K/uL Eos # (Auto) (0-0.5) K/uL Baso # (Auto) (0-0.2) K/uL Sodium (136-145) mmol/L Potassium (3.5-5.1) mmol/L Chloride (98-107) mmol/L Carbon Dioxide (21-32) mmol/L Anion Gap (3-11) BUN (7-18) mg/dl Creatinine (0.6-1.4) mg/dl Est Cr Clr Drug Dosing ml/min Est GFR ( Amer) Est GFR (Non-Af Amer) BUN/Creatinine Ratio (10-20) Glucose (70-99) mg/dl POC Glucose 144 H 128 H 184 H (70-99) Calcium (8.5-10.1) mg/dl 10/07/19 10/07/19 10/07/19 Range/Units 07:48 06:56 06:56 WBC 8.06 (4.8-10.8) K/uL RBC 3.56 L (4.7-6.1) M/uL Hgb 10.5 L (14.0-18.0) g/dL Hct 31.8 L (42-52) % MCV 89.3 (80-100) fL MCH 29.5 (25-34) pg MCHC 33.0 (32-36) g/dL RDW Std Deviation 52.3 H (36.4-46.3) fL RDW Coeff of Alessandro 16.5 H (11.5-14.5) % Plt Count 170 (130-400) K/uL MPV 9.6 (7.4-10.4) fL Immature Gran % (Auto) 0.5 % Neut % (Auto) 87.1 % Lymph % (Auto) 5.5 % [place] % (Auto) 6.0 % Eos % (Auto) 0.7 % Baso % (Auto) 0.2 % Immature Gran # (Auto) 0.04 H (0.00-0.02) K/uL Neut # (Auto) 7.02 H (1.4-6.5) K/uL Lymph # (Auto) 0.44 L (1.2-3.4) K/uL [place] # (Auto) 0.48 (0.11-0.59) K/uL Eos # (Auto) 0.06 (0-0.5) K/uL Baso # (Auto) 0.02 (0-0.2) K/uL Sodium 137 (136-145) mmol/L Potassium 4.7 (3.5-5.1) mmol/L Chloride 108 H (98-107) mmol/L Carbon Dioxide 19 L (21-32) mmol/L Anion Gap 10.0 (3-11) BUN 104 H (7-18) mg/dl Creatinine 3.42 H (0.6-1.4) mg/dl Est Cr Clr Drug Dosing 19.5 ml/min Est GFR ( Amer) 18.8 Est GFR (Non-Af Amer) 16.2 BUN/Creatinine Ratio 30.3 H (10-20) Glucose 180 H (70-99) mg/dl POC Glucose 179 H (70-99) Calcium 8.1 L (8.5-10.1) mg/dl 10/07/19 10/06/19 10/06/19 Range/Units 04:37 22:53 20:03 WBC (4.8-10.8) K/uL RBC (4.7-6.1) M/uL Hgb (14.0-18.0) g/dL Hct (42-52) % MCV (80-100) fL MCH (25-34) pg MCHC (32-36) g/dL RDW Std Deviation (36.4-46.3) fL RDW Coeff of Alessandro (11.5-14.5) % Plt Count (130-400) K/uL MPV (7.4-10.4) fL Immature Gran % (Auto) % Neut % (Auto) % Lymph % (Auto) % [place] % (Auto) % Eos % (Auto) % Baso % (Auto) % Immature Gran # (Auto) (0.00-0.02) K/uL Neut # (Auto) (1.4-6.5) K/uL Lymph # (Auto) (1.2-3.4) K/uL [place] # (Auto) (0.11-0.59) K/uL Eos # (Auto) (0-0.5) K/uL Baso # (Auto) (0-0.2) K/uL Sodium (136-145) mmol/L Potassium (3.5-5.1) mmol/L Chloride (98-107) mmol/L Carbon Dioxide (21-32) mmol/L Anion Gap (3-11) BUN (7-18) mg/dl Creatinine (0.6-1.4) mg/dl Est Cr Clr Drug Dosing ml/min Est GFR ( Amer) Est GFR (Non-Af Amer) BUN/Creatinine Ratio (10-20) Glucose (70-99) mg/dl POC Glucose 208 H 145 H 163 H (70-99) Calcium (8.5-10.1) mg/dl Diagnostic Findings Chest x-ray: XR chest 1V portable CLINICAL HISTORY: Shortness of breath COMPARISON STUDY: 10/02/2019 FINDINGS: The heart is enlarged. There is progressive asymmetric pulmonary edema greater than left. Small pleural effusions are suspected. Ill-definition left hemidiaphragm, likely represents accommodation basilar edema and a left pleural effusion.[ IMPRESSION: Worsening asymmetric pulmonary edema. Developing pleural effusions. PG Care Time/CCT Total # of Minutes Spent Total Time Spent with Patient: Total time spent is greater than 50% in coordination of care (as documented) at patient's floor/unit and/or counseling patient: (1) Hypothyroidism Hypothyroidism type: unspecified Qualified Code(s): E03.9 - Hypothyroidism, unspecified
[2019-10-07] MEDS: TAMSULOSIN HCL 0.4 MG CAP PO SCH (21:32)
[2019-10-08] MEDS: LEVOTHYROXINE SODIUM 100 MCG TABLET PO SCH (05:52)
[2019-10-08 06:35] LABS: BUN Creatinine Ratio 31.3 (10-20); Calcium 8.2 mg/dl (8.5-10.1); Creatinine Clr Calc Pharmacy 19.5 ml/min; Est GFR (African American) 18.4; Est GFR (Non-African American) 15.8; Potassium 4.3 mmol/L (3.5-5.1)
[2019-10-08] MEDS: AMIODARONE 200 MG TAB PO SCH (08:58)
[2019-10-08] MEDS: CLOPIDOGREL BISULFATE 75 MG TAB PO SCH (08:58)
[2019-10-08] MEDS: FINASTERIDE 5 MG TAB PO SCH (08:59)
[2019-10-08] MEDS: PRAVASTATIN SOD 40 MG TAB PO SCH (08:59)
[2019-10-08] MEDS: PANTOprazole 40 MG TAB PO SCH (08:59)
[2019-10-08] MEDS: ASPIRIN 81 MG ECTAB PO SCH (09:00)
[2019-10-08] MEDS: IPRATROPIUM BROMIDE/ALBUTEROL respimat INH INH SCH ×4 (09:00→20:47)
[2019-10-08] MEDS: cephALEXin 250 MG CAP PO SCH ×2 (09:01→20:44)
[2019-10-08] MEDS: INSULIN GLARGINE SOLOSTAR 100 UNITS/ML 3 ML PEN SC SCH ×2 (09:01→20:49)
[2019-10-08] MEDS: INSULIN ASPART 100 UNITS/ML 3 ML PEN SC SCH ×5 (09:02→21:06)
[2019-10-08] MEDS: HEPARIN SOD 5,000 UNIT/0.5 ML VIAL SQ SCH ×2 (09:02→20:49)
--- NOTE | 2019-10-08 11:48 | Nephrology Progress Note ---
Date of Service October 08, 2019 Assessment & Plan (1) ROSEMARY (acute kidney injury): Mr. Peña is a 79-year-old gentlemen with complex past medical history including advanced CKD hypertension, coronary artery disease, diabetes admitted to the hospital with non STEMI. Developed acute kidney injury with BUN a around 160s which currently improving. BUN staying around 100-110 and creatinine 3.5. Diuretics has been on hold and he was getting IV fluids which currently stopped. Seems to be having respiratory distress with some pulmonary condition. --recommend Bumex 2 mg IV x1 dose now and then use as needed while monitoring renal function. Electrolyte acceptable. No acute indication for dialysis. --dose medications for GFR less than 10 --avoid nephrotoxic medications. Will follow. (2) CKD (chronic kidney disease) stage 4, GFR 15-29 ml/min: (3) Volume overload: (4) CHF exacerbation: (5) HTN (hypertension): (6) Anemia: Subjective Mr. Peña was seen in his room with his at bedside. He reports feeling about the same without any improvement. Continues to have shortness of breath which is as reported by the patient his is chronic for him Review of Systems Review of Systems: All systems reviewed & are unremarkable except as noted in HPI & below Physical Exam Constitutional: WD/WN, vitals as above + ill appearing Respiratory: + respiratory distress Auscultation: + crackles Cardiovascular: Rate/Rhythm: regular rate and regular rhythm Heart Sounds: normal S1 and normal S2 Skin: no rashes, warm and dry + skin atrophy Neurologic: moves all extremities and awake; not confused and not obtunded Psychiatric: A+Ox3, euthymic affect Results & Data Vital Signs (Past 12 Hours) Vital Signs Temp Pulse Resp BP Pulse Ox 10/08/19 07:39 36.4 C L 84 20 106/72 100 PG Care Time/CCT Total # of Minutes Spent Total Time Spent with Patient: Total time spent is greater than 50% in coordination of care (as documented) at patient's floor/unit and/or counseling patient: (1) Volume overload Hypervolemia type: other Qualified Code(s): E87.79 - Other fluid overload (2) CHF exacerbation Heart failure type: unspecified Qualified Code(s): I50.9 - Heart failure, unspecified
[2019-10-08] MEDS ORDERED: BUMETANIDE 2 MG in SYRINGE 0 ML IV ONE (12:15)
--- NOTE | 2019-10-08 14:08 | Hospitalist Progress Note ---
Date of Service October 08, 2019 Assessment & Plan (1) Non-ST elevation OH (NSTEMI): This patient is a 79yo C male with complex medical history, most notably CAD s/p OH with chronic systolic CHF, ICM with EF of 45-50%, CKD-III, DM, HTN, HLP, COPD, VF arrest s/p AICD placement. Per family, patient has been steadily declining for the last few months with acute worsening over the last couple of weeks. He is somnolent, minimally interactive, poor appetite and PO intake. He follows with multiple specialists. Patient with incredibly difficult fluid balance. Per record review and discussion with his , he quickly becomes fluid overloaded in the event that his diuretics are held and his renal function quickly declines with aggressive diuresis. He has had a sharp decline in renal function over the last week and had a Pinto catheter placed with urology on 09/27. BUN 166 and Cr 6.33 on admission, oliguric, +UTI, Pinto in place. Neuro: Patient somnolent, minimally interactive upon admission but now is awake and irritated most of the time which apparently is his baseline. CT head with no acute abnormality. He has history of TIA in the past. Improved mentation now and is very irritable which his states is normal for him -Continue ASA 81mg po daily -Continue Plavix 75mg po qAM -Continue Pravastatin 80 mg daily -Delirium prevention strategies with frequent orientation, ambulation with assistance, maintaining sleep/wake cycle where possible Pulmonary: Patient with history of JUANY on CPAP qHS. Reports overall compliance, however, has not been wearing as regularly over the last two weeks. History of COPD. Presently with no respiratory distress, he was hypoxic on room air and tachypneic when he arrived to 87%. Was having adequate oxygenation on NC 2-3L. Then after copious IVFs given for severe dehydration, he was requiring up to 4 L nasal cannula Now weaning down with IV Bumex given on 10/09 Does not have O2 at home -Continue Albuterol scheduled and as needed -Supplemental O2 as needed to maintain saturation 88-92% -will need 2 step prior to discharge -CPAP qHS -Bumex 2mg IV x 1 given--reassess daily for further doses with caution Cardiac: With a history of CAD s/p OH, ICM with EF of 45-50%, delicate volume balance. Moderate-severe aortic stenosis noted on echocardiogram here. History of VF arrest s/p AICD (no discharges reported), HTN, HLP. Elevated troponin of 10.3 here x2 and stable, EKG without significant concerning changes as per cardiology. ER discussed briefly with Cardiology at time of arrival. Was hypotensive on arrival, now with low normal blood pressures but stable. Cardiac cath would be difficult at this time due to patient's renal dysfunction and is not desirable. NSTEMI versus elevated troponin in setting of renal failure-he is not having chest pain Cardiology consultation appreciated-conservative measures Patient had an episode of syncope due to orthostasis most likely on 10/06 where he stood up got lightheaded and then passed out. He was lowered to the ground by 2 nurses aides and in less than a minute he was awake again and talking. He denied any chest pain or shortness of breath at the time. His blood pressure was in the 90s systolic and responded to IV fluids at that time Patient states he has a history of multiple episodes of syncope with standing at home. This is very concerning for him to return home. -heparin gtt was given for 48 hours and then discontinued -Echocardiogram with wall motion abnormality similar to previous -Continue ASA, Plavix, Pravastatin -Continue Amiodarone for history of ventricular arrhythmia -Of note, Toprol-XL is on his home medications and previous outpatient office visits, but is not on his home medication list here-likely just inadvertently omitted, however BP low and would not tolerate adding it back on at this point GI: History of GERD-no worsening symptoms -Continue Protonix 40mg po daily : Patient with CKD, ROSEMARY. 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 intake. Family reports poor PO intake over the last 2-4 weeks as well as continued diuretic use. Was severely dehydrated on examination and this is now improved with copious IV fluids With +BPH with Pinto catheter in place placed by urology on 09/27 due to renal failure and difficulty with voiding-Pinto catheter was exchanged in the emergency room on the day of admission 10/02 Urine eosinophils negative Is nonoliguric, blood pressures are low normal, no hyperkalemia-in fact, he had hypokalemia from contraction alkalosis which is now resolved Now with metabolic acidosis likely from hydration -Renal duplex US - history of renal artery stenosis with stent in place- ultrasound with evidence of medical renal disease but no stenosis -Nephrology consultation appreciated -have since stopped IV fluids due to developing pulmonary edema and worsening resp distress and hypoxia -IV Bumex given on 10/09 -Continue to closely monitor I/O, daily weights, BUN and Cr -Avoid nephrotoxic agents, renal dosing where needed -Continue Flomax if BP tolerates -Continue Proscar -Treating UTI-gave ceftriaxone for several days and now on Keflex-final day of treatment will be 10/12 for total 10-day course -Follow BMP in the morning -Follow-up with urology and nephrology as an outpatient Heme: Patient with anemia of chronic disease in setting of CKD. No acute blood loss suspected. Hgb with a slight drop down to 10.5 from 11.2 which is slightly lower than baseline -no need to check further CBC ID: Patient with leukocytosis, WBC=13.55 on admission which is now resolved and likely secondary to +UTI With E. coli resistant to ampicillin and ampicillin/sulbactam on urine culture -Follow blood cultures-no growth to date -Continue Keflex as above for UTI -Maintain Pinot catheter for now and follow-up with urology Endocrine: DM and hypothyroidism-blood sugars acceptable -Continue Lantus 8u BID with ISS. 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 PT/OT/Case management evaluation for possible placement needs when acute issues resolve--> pt and family declining SNF and declining Home Health Unsure if he will have adequate care especially as he has frequent falls and frequent episodes of syncope Had witnessed episode of syncope here on 10/06 and required multiple people to lift him off the floor back into the bed-I have significant concerns about him going home with his only for support Discussed with Case Management We will see if willing to go to short-term rehab stay Await reevaluation by PT/OT (2) Eyrlj-pd-ootoxgu kidney injury: (3) COPD (chronic obstructive pulmonary disease): (4) Anemia: (5) Hypotension: (6) Acute UTI: (7) Paroxysmal ventricular tachycardia: (8) Paroxysmal A-fib: (9) PAD (peripheral artery disease): (10) Left renal artery stenosis: (11) COPD (chronic obstructive pulmonary disease) with chronic bronchitis: (12) Central sleep apnea: (13) Dyslipidemia: (14) BPH (benign prostatic hyperplasia): (15) Presence of combination internal cardiac defibrillator (ICD) and pacemaker: (16) History of TIA (transient ischemic attack): (17) Hypothyroidism: (18) Aortic stenosis, mild: (19) Ischemic dilated cardiomyopathy: (20) CAD (coronary artery disease): (21) DM type 2 (diabetes mellitus, type 2): Subjective Pt much more pleasant today and interactive, less argumentative. Denies SOB but does appear tachypneic today. Denies chest pain. Is eating "as much as I can." Was out of bed to chair today. Required 2 aides to help him stand and pivot to get to the chair Attempted to call again x 2 and no answer, no voicemail was reached and could not leave a message Review of Systems Review of Systems: All systems reviewed & are unremarkable except as noted in HPI & below Physical Exam Constitutional: WD/WN, vitals as above Eyes: + anicteric sclerae ENMT: Ears: no external ear abnormality Mouth: no oral mucosal abnormality Neck: trachea midline, no thyromegaly Respiratory: + tachypneic Auscultation: + crackles (mild bibasilar); no rhonchi and no wheezes Cardiovascular: RRR, no murmur, no edema Gastrointestinal (Abdomen): normal bowel sounds, soft, nontender, no hepatosplenomegaly Musculoskeletal: Extremities: extremities normal to inspection; no cyanosis and no clubbing Skin: no rashes, warm and dry + wound (Multiple scabs all over anterior shins) Neurologic: moves all extremities and awake; no focal motor deficits Psychiatric: Orientation: alert and oriented to person Eye Contact: good eye contact Genitourinary: Pinto catheter in place draining clear yellow urine Results & Data Vital Signs (Past 12 Hours) Vital Signs Temp Pulse Resp BP Pulse Ox 10/08/19 07:39 36.4 C L 84 20 106/72 100 Laboratory Results 10/08/19 10/08/19 10/08/19 Range/Units 20:30 16:48 11:47 Sodium (136-145) mmol/L Potassium (3.5-5.1) mmol/L Chloride (98-107) mmol/L Carbon Dioxide (21-32) mmol/L Anion Gap (3-11) BUN (7-18) mg/dl Creatinine (0.6-1.4) mg/dl Est Cr Clr Drug Dosing ml/min Est GFR ( Amer) Est GFR (Non-Af Amer) BUN/Creatinine Ratio (10-20) Glucose (70-99) mg/dl POC Glucose 157 H 203 H 185 H (70-99) Calcium (8.5-10.1) mg/dl 10/08/19 10/08/19 Range/Units 07:51 05:23 Sodium 136 (136-145) mmol/L Potassium 4.3 (3.5-5.1) mmol/L Chloride 107 (98-107) mmol/L Carbon Dioxide 18 L (21-32) mmol/L Anion Gap 11.0 (3-11) BUN 109 H (7-18) mg/dl Creatinine 3.49 H (0.6-1.4) mg/dl Est Cr Clr Drug Dosing 19.5 ml/min Est GFR ( Amer) 18.4 Est GFR (Non-Af Amer) 15.8 BUN/Creatinine Ratio 31.3 H (10-20) Glucose 147 H (70-99) mg/dl POC Glucose 174 H (70-99) Calcium 8.2 L (8.5-10.1) mg/dl PG Care Time/CCT Total # of Minutes Spent Total Time Spent with Patient: Total time spent is greater than 50% in coordination of care (as documented) at patient's floor/unit and/or counseling patient: (1) Hypothyroidism Hypothyroidism type: unspecified Qualified Code(s): E03.9 - Hypothyroidism, unspecified
[2019-10-08] MEDS: DOCUSATE SODIUM/SENNA 50/8.6MG TAB PO SCH (15:37)
[2019-10-08] MEDS: POLYETHYLENE (MIRALAX) 17 GM PACK PO SCH (15:37)
[2019-10-08] MEDS: ALBUTEROL 0.5% NEB SOLN 2.5 MG/0.5 ML VIAL NEB PRN (19:12)
[2019-10-08] MEDS: ACETAMINOPHEN 325 MG TAB PO PRN (21:57)
[2019-10-09] MEDS: LEVOTHYROXINE SODIUM 100 MCG TABLET PO SCH (05:40)
[2019-10-09 06:50] LABS: BUN Creatinine Ratio 31.6 (10-20); Calcium 8.6 mg/dl (8.5-10.1); Creatinine Clr Calc Pharmacy 19.5 ml/min; Est GFR (African American) 17.4; Est GFR (Non-African American) 15.1; Potassium 4.2 mmol/L (3.5-5.1)
[2019-10-09] MEDS: AMIODARONE 200 MG TAB PO SCH (08:51)
[2019-10-09] MEDS: IPRATROPIUM BROMIDE/ALBUTEROL respimat INH INH SCH ×4 (08:51→20:24)
[2019-10-09] MEDS: ASPIRIN 81 MG ECTAB PO SCH (08:52)
[2019-10-09] MEDS: DOCUSATE SODIUM/SENNA 50/8.6MG TAB PO SCH (08:52)
[2019-10-09] MEDS: POLYETHYLENE (MIRALAX) 17 GM PACK PO SCH (08:53)
[2019-10-09] MEDS: cephALEXin 250 MG CAP PO SCH ×2 (08:53→20:24)
[2019-10-09] MEDS: FINASTERIDE 5 MG TAB PO SCH (08:53)
[2019-10-09] MEDS: PRAVASTATIN SOD 40 MG TAB PO SCH (08:53)
[2019-10-09] MEDS: CLOPIDOGREL BISULFATE 75 MG TAB PO SCH (08:53)
[2019-10-09] MEDS: PANTOprazole 40 MG TAB PO SCH (08:54)
[2019-10-09] MEDS: INSULIN GLARGINE SOLOSTAR 100 UNITS/ML 3 ML PEN SC SCH ×2 (08:57→20:25)
[2019-10-09] MEDS: INSULIN ASPART 100 UNITS/ML 3 ML PEN SC SCH ×4 (08:58→20:25)
[2019-10-09] MEDS: HEPARIN SOD 5,000 UNIT/0.5 ML VIAL SQ SCH ×2 (08:58→20:24)
--- NOTE | 2019-10-09 11:40 | Urology Consultation ---
Date of Consultation October 09, 2019 Assessment & Plan (1) Acute UTI: 79yo M with multiple comorbidities, admitted with confusion, Acute on chronic kidney failure, UTI, urinary retention. Continue keflex for E.coli UTI, agree with 10d treatment course. Continue finasteride. Flomax held for low BP, please restart when able. Owusu d/c'd at 11am prior to consultation. Awaiting spontaneous void. Plan to bladder scan qshift. Straight cath if >400cc or unable to void in 8 hours. Would like to avoid if possible. Will continue to monitor peripherally while inpatient. History of Present Illness Reason for Consultation: UR Requesting Physician: Dr. Atkins Attending Physician: Johnathan Rudd MD History of Present Illness 79yo M with extensive PMHx including CAD s/p IA with chronic systolic CHF, ICM with EF of 45-50%, CKD-III, DM, HTN, HLP, COPD, VF arrest s/p AICD placement, established with Dr Corley for care of BPH, urethral stricture and UR, admitted to [facility] on 10/02 due to worsening confusion, poor PO intake, falls, and overall progressive decline. Cr >6 upon admission. Pt recently evaluated by as an outpatient on 09/27, with owusu catheter placed at that time. He was positive for E. Coli UTI upon owusu insertion. Pt has been optimized by medical team, appreciate palliative care recommendations. Pt and family do not feel ready to pursue hospice route at this time. We were consulted to assist in voiding management. Owusu catheter d/c'd at 11am by nursing prior to consult by Dr. Ta. Pt states he is "satisfied" with having catheter removed. He has not voided yet, not unexpected. He is sitting up in chair at side of bed, eating lunch. Pancho n/v/f/c. No family members at bedside at this time. Per nursing notes he has been very cantankerous, difficult for nursing to work with. Allergies Allergy/AdvReac Type Severity Reaction Status Date / Time No Known Drug Allergies Allergy Verified 09/27/19 16:04 Home Medications Home Medications Medication Instructions Recorded Confirmed Type amiodarone [Pacerone] 100 mg PO QAM 08/07/18 10/02/19 History aspirin 81 mg PO DAILY 08/07/18 10/02/19 History clopidogrel [Plavix] 75 mg PO QAM 08/07/18 10/02/19 History finasteride [Proscar] 5 mg PO QAM 08/07/18 10/02/19 History guaifenesin [Mucinex] 600 mg PO Q12H PRN 08/07/18 10/02/19 History isosorbide mononitrate 90 mg PO QAM 08/07/18 10/02/19 History omeprazole 40 mg PO QAM 08/07/18 10/02/19 History pravastatin [Pravachol] 80 mg PO QAM 08/07/18 10/02/19 History tamsulosin [Flomax] 0.4 mg PO HS 08/07/18 10/02/19 History levothyroxine 100 mcg PO DAILY 08/30/18 10/02/19 History potassium chloride 20 meq PO DAILY #14 ea 09/07/18 10/02/19 Rx magnesium oxide 400 mg PO BID 05/14/19 10/02/19 History glipizide 10 mg tablet, extended 5 mg PO DAILY tab 06/27/19 10/02/19 History release 24 hr ipratropium 20 mcg-albuterol 100 1 puffs INH Q6H 06/27/19 10/02/19 History mcg/actuation mist for inhalation insulin glargine 100 unit/mL (3 40 units SUBCUT QPM ml 07/07/19 10/02/19 History mL) subcutaneous pen bumetanide 2 mg tablet 4 mg PO QAM tab 08/01/19 10/02/19 History metolazone 2.5 mg tablet See Rx Instructions PO Q OTHER DAY 09/05/19 10/02/19 Rx #20 tab buspirone 10 mg tablet 10 mg PO BID #180 tab 09/13/19 10/02/19 Rx bumetanide 2 mg PO QPM 10/02/19 10/02/19 History cefuroxime axetil 500 mg PO BID 10/02/19 10/02/19 History nitrofurantoin macrocrystal 0 mg PO DAILY 10/02/19 10/02/19 History nitroglycerin [Nitrostat] 0.4 mg SUBLINGUAL .PRN/UD PRN 10/02/19 10/02/19 History Patient History Medical History BPH (benign prostatic hyperplasia) Presence of combination internal cardiac defibrillator (ICD) and pacemaker History of TIA (transient ischemic attack) Cardiac arrest with ventricular fibrillation associated with acute IA in 2001, s/p AICD placement JUANY (obstructive sleep apnea) Mixed hyperlipidemia HTN (hypertension) Anemia in CKD (chronic kidney disease) Hypothyroidism History of stent insertion of renal artery Tobacco dependence Morbid obesity Chronic combined systolic and diastolic CHF (congestive heart failure) COPD (chronic obstructive pulmonary disease) CAD (coronary artery disease) CKD (chronic kidney disease) stage 4, GFR 15-29 ml/min DM type 2 (diabetes mellitus, type 2) 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 Feels Safe at Home: Yes Safety Concerns: Feels Safe At This Time Smoking Status: Smoker, status unknown Hx Alcohol Use: No Hx Substance Use: No Review of Systems Review of Systems: All systems reviewed & are unremarkable except as noted in HPI & below Physical Exam Constitutional: no acute distress and not ill appearing Eyes: no nystagmus ENMT: Ears: no hearing impairment Neck: trachea midline Respiratory: no respiratory distress and no cough Cardiovascular: Vessels: no JVD Chest (Breasts): Chest: normal inspection of chest Gastrointestinal (Abdomen): Inspection/Auscultation: abdomen not distended and no abdominal edema Percussion/Palpation: abdomen soft; abdomen nontender Musculoskeletal: Head/Neck/Chest: normocephalic and head atraumatic Skin: no rashes, warm and dry Neurologic: awake; not confused and not obtunded Psychiatric: Orientation: alert and oriented x 3 Eye Contact: good eye contact Affect: no depressed affect Genitourinary: bladder normal to inspection; no CVA tenderness Lymphatic: no lymphadenopathy and no lymphedema Results & Data Vital Signs (Past 12 Hours) Vital Signs Pulse Resp BP Pulse Ox 10/09/19 07:12 85 20 114/75 94 PG Care Time/CCT Total # of Minutes Spent Total Time Spent with Patient: Total time spent is greater than 50% in coordination of care (as documented) at patient's floor/unit and/or counseling patient:
--- NOTE | 2019-10-09 12:39 | Nephrology Progress Note ---
Date of Service October 09, 2019 Assessment & Plan (1) ROSEMARY (acute kidney injury): Mr. Peña is a 79-year-old gentlemen with complex past medical history including advanced CKD hypertension, coronary artery disease, diabetes admitted to the hospital with non STEMI. Developed acute kidney injury in part related to dehydration. This improved with some IV fluid replacement. Kidney function decline yesterday following dose of diuretic. This will be closely monitored. I would avoid any additional diuretics today. The patient's request the Pinto catheter will be removed. This was placed by Urology as an outpatient. Records from Dr. Corley were reviewed today. Patient denies significant symptomatic improvement with the catheter. There is no current indication to restart IV fluids. Medications are appropriate for kidney function. Metabolic profile will be repeated tomorrow morning. (2) CKD (chronic kidney disease) stage 4, GFR 15-29 ml/min: (3) HTN (hypertension): (4) Anemia: Subjective No acute events overnight. Patient was seen and evaluated with his and a friend at the bedside. He was very agitated. Patient was shouting. He is demanding that the Pinto catheter be removed. Review of Systems Review of Systems: All systems reviewed & are unremarkable except as noted in HPI & below Limited due to the patient's agitation. Physical Exam Physical Exam: Patient refused exam. He was sitting comfortably in chair without any signs of respiratory distress. Oral mucosa appears slightly dry. Results & Data Vital Signs (Past 12 Hours) Vital Signs Pulse Resp BP Pulse Ox 10/09/19 07:12 85 20 114/75 94 Laboratory Results Laboratory Results - last 24 hr 10/08/19 10/08/19 10/09/19 16:48 20:30 05:32 Sodium 138 Potassium 4.2 Chloride 107 Carbon Dioxide 19 L Anion Gap 12.0 H BUN 115 H Creatinine 3.64 H Est Cr Clr Drug Dosing 19.5 Est GFR ( Amer) 17.4 Est GFR (Non-Af Amer) 15.1 BUN/Creatinine Ratio 31.6 H Glucose 146 H POC Glucose 203 H 157 H Calcium 8.6 10/09/19 10/09/19 07:42 11:49 Sodium Potassium Chloride Carbon Dioxide Anion Gap BUN Creatinine Est Cr Clr Drug Dosing Est GFR ( Amer) Est GFR (Non-Af Amer) BUN/Creatinine Ratio Glucose POC Glucose 190 H 182 H Calcium PG Care Time/CCT Total # of Minutes Spent Total Time Spent with Patient: Total time spent is greater than 50% in coordination of care (as documented) at patient's floor/unit and/or counseling patient:
--- NOTE | 2019-10-09 18:39 | Hospitalist Progress Note ---
Date of Service October 09, 2019 Assessment & Plan (1) Non-ST elevation [place] (NSTEMI): 79-year-old male patient with multiple medical issues most notably difficult fluid balance with CKD and congestive heart failure. Admission for somnolence, decreased appetite and confusion with diffuse weakness and general decline over the last few months with acute worsening over last 2 weeks. Labs on admission most notable for elevated troponin I 10.3 and creatinine 6.5 (baseline approximately 4). On this occasion he has improved with IV fluids, with slight worsening of his creatinine overnight due to 2 mg IV Bumex given yesterday. Neuro: Patient somnolent, minimally interactive upon admission but now is awake and irritated most of the time which apparently is his baseline. CT head with no acute abnormality. He has history of TIA in the past. Improved mentation now and is very irritable which his states is normal for him -Continue ASA 81mg po daily, Plavix 75mg po qAM, Pravastatin 80 mg daily -Delirium prevention strategies with frequent orientation, ambulation with assistance, maintaining sleep/wake cycle where possible Pulmonary: History JUANY, COPD Worsening pulmonary edema on CXR 10/07 - currently appears SOB but patient reports at his baseline and O2 requirement improved, s/p bumex given yesterday. Will repeat CXR, BNP in AM given difficult fluid balance. Will avoid further d iuretics today given nephrology recommendations and agree his pulmonary edema currently due to IV fluids given on this admission due to patient initially hypovolemic. Weight has significantly increased. Acute hypoxic respiratory failure - wean O2 to aim sats > 88% JUANY - CPAP HS COPD/restrictive lung disease - No wheezing on exam. PFTs 06/2019 with severe reduction in FVC, FEV1/FVC 0.71, Severely reduced diffusion to 40% predicted. CV: Hx of CAD s/p [place], ICM with EF of 45-50%, delicate volume balance, moderate- severe aortic stenosis, VF arrest s/p AICD (no discharges reported), HTN, HLP. Acute on chronic combined systolic and diastolic heart failure - diuretics as ab ove for pulmonary edema. Not for ACEi/ARB due to ROSEMARY on CKD. Will restart low dose BB as BP allows (restarted tamsulosin today). Will re-consult cardiology for tomorrow to assist in fluid management of this complex patient. Elevated troponin - 10.3 x2 in setting of ROSEMARY without EKG changes or chest pain as per cardiology - not ACS. Cardiac cath deferred due to renal dysfunction. Echo - wall motion abnormality similar to prior. CAD - continue ASA, plavix, pravastatin, (not restarted on metoprolol due to orthostasis and hypotension) Orthostatic hypotension - BP actually improved on standing today without dizziness. Will resume tamsulosin. Hx ventricular arrhythmia - continue amiodarone GI: Hx GERD - Continue Protonix 40mg po daily : Patient with CKD, ROSEMARY. 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 intake. Improved with IV fluids, mildly worse with IV Bumex given yesterday. No hydronephrosis on renal duplex this admission. Appreciate nephrology management - no further diuretics or IV fluids recommended, will repeat BMP in a.m. BPH/urethral stricture - Recent owusu cath placement in clinic to remove possible obstruction from diagnosis of renal failure. Owusu catheter removed today prior to being seen. Appreciate urology management and plan to straight cath if patient has PVR > 400ml. History of renal artery stenosis - repeat duplex this admission shows stent in place with no significant stenosis Possible catheter associated UTI - E. coli urine culture. Unclear if contributory but agree with treating with Keflex for total 10 days Heme: Anemia secondary to CKD, stable. Will defer iron studies as outpatient. ID: Catheter associated UTI - Rx as above, catheter removed 10/09 Endocrine: T2DM - HbA1C in AM. 8.3 in 01/2019. Will restart his outpatient glipizide with t he aim of trying to get him home and discontinue carbohydrate coverage for the sliding scale insulin. Continue lantus at current 8 units BID dosing. Hypothyroidism - Will repeat TSH with reflex T4 in AM. Continue current dose of levothyroxine. DVT prophylaxis - subcutaneous heparin 5000 units SQ Q12H Code - DNR/DNI (per prior discussions with his ) Dispo - continued inpatient stay due continued difficult fluid balance Pt and family declining SNF and declining Home Health. Unable to contact his today on phone numbers listed (10/09), reports from RN that she plans on taking patient home tomorrow whatever - this would be against medical advice. (2) Rzbgh-[id number]-sizqckz kidney injury: (3) COPD (chronic obstructive pulmonary disease): (4) Anemia: (5) Hypotension: (6) Acute UTI: (7) Paroxysmal ventricular tachycardia: (8) PAD (peripheral artery disease): (9) Left renal artery stenosis: (10) COPD (chronic obstructive pulmonary disease) with chronic bronchitis: (11) Central sleep apnea: (12) Dyslipidemia: (13) BPH (benign prostatic hyperplasia): (14) Presence of combination internal cardiac defibrillator (ICD) and pacemaker: (15) History of TIA (transient ischemic attack): (16) Hypothyroidism: (17) Ischemic dilated cardiomyopathy: (18) CAD (coronary artery disease): (19) DM type 2 (diabetes mellitus, type 2): (20) Aortic stenosis, moderate: Subjective Patient unable to provide much of a history. He appears short of breath while lying in bed but denies any pain. He feels his breathing is currently at his baseline. He reports not being out of bed much but denies feeling dizzy when he does stand up. He denies any further syncopal events since 10/06 or any dizziness when orthostatics were performed. He is unsure regarding any of his medications. I tried calling his on the home phone number listed during the day and evening but unfortunately there was no answer. Review of Systems Review of Systems: All systems reviewed & are unremarkable except as noted in HPI & below Constitutional: + fatigue and + weakness; no fever, no chills and no sweats Physical Exam Constitutional: + ill appearing; + not well nourished Eyes: + anicteric sclerae ENMT: Nose: + dry nasal mucous membranes Neck: trachea midline, no thyromegaly trachea midline Respiratory: + labored breathing, + uses accessory muscles and + tachypneic; no respiratory distress and no cough Auscultation: + diminished lung sounds (bibasal) and + crackles (bibasilar, worse on left (pt lying on that side)); no rhonchi and no wheezes Cardiovascular: Rate/Rhythm: regular rate and regular rhythm Heart Sounds: + murmur (soft systolic, RUSB) Vessels: no JVD Extremities: + edema (1+ edema b/l) Chest (Breasts): Chest: normal inspection of chest Gastrointestinal (Abdomen): Inspection/Auscultation: normal bowel sounds; abdomen not distended and no abdominal edema Percussion/Palpation: abdomen soft; abdomen nontender, no guarding and abdomen not rigid Musculoskeletal: no cyanosis or clubbing, extremities motor strength 5/5 (grossly normal strength in all 4 limbs) Skin: + wound (Multiple scabs all over anterior shins) and + skin atrophy Neurologic: moves all extremities and awake; no focal motor deficits and not confused Psychiatric: Orientation: alert and oriented x 3 Affect: + irritable affect Genitourinary: no CVA tenderness Results & Data Vital Signs (Past 12 Hours) Vital Signs Temp Pulse Resp BP Pulse Ox 10/09/19 15:00 95.9 F L 76 20 100/59 L 97 10/09/19 07:12 85 20 114/75 94 PG Care Time/CCT Total # of Minutes Spent Total Time Spent with Patient: Total time spent is greater than 50% in coordination of care (as documented) at patient's floor/unit and/or counseling patient: (1) Anemia Anemia type: due to chronic kidney disease (2) Hypothyroidism Hypothyroidism type: unspecified Qualified Code(s): E03.9 - Hypothyroidism, unspecified
[2019-10-09] MEDS: TAMSULOSIN HCL 0.4 MG CAP PO SCH (21:14)
[2019-10-10] MEDS: INSULIN ASPART 100 UNITS/ML 3 ML PEN SC SCH ×5 (01:33→22:05)
[2019-10-10] MEDS: ALBUTEROL 0.083% NEBU SOLN 3 ML VIAL NEB PRN (03:30)
[2019-10-10] MEDS: LEVOTHYROXINE SODIUM 100 MCG TABLET PO SCH (06:07)
[2019-10-10 06:53] LABS: Alanine Aminotransferase 21 U/L (12-78); Aspartate Aminotransferase 24 U/L (15-37); BUN Creatinine Ratio 30.2 (10-20); Blood Urea Nitrogen 109 mg/dl (7-18); Calcium 8.7 mg/dl (8.5-10.1); Carbon Dioxide 19 mmol/L (21-32); Chloride 107 mmol/L (98-107); Creatinine Clr Calc Pharmacy 19.3 ml/min; Est GFR (African American) 17.6; Est GFR (Non-African American) 15.2; Glucose 146 mg/dl (70-99); Magnesium 2.5 mg/dl (1.8-2.4); Potassium 4.3 mmol/L (3.5-5.1); Sodium 137 mmol/L (136-145)
[2019-10-10 07:04] LABS: Albumin Globulin Ratio 0.9 (0.9-2); Alkaline Phosphatase 64 U/L (45-117); Bilirubin,Total 0.7 mg/dl (0.2-1); Globulin 3.4 gm/dl (2.5-4.0); NT Pro B Type Natriuretic Pept > 35000 pg/ml (0-1800); Total Protein 6.4 gm/dl (6.4-8.2)
[2019-10-10 07:09] LABS: Estimated Average Glucose 134 mg/dl; Hemoglobin A1C 6.3 % (4.5-5.6)
--- NOTE | 2019-10-10 07:14 | XRay Report ---
XR chest 1V portable HISTORY: 79 years-old Male pulmonary edema acute shortness of breath with pulmonary edema COMPARISON: Chest radiograph 10/07/2019 TECHNIQUE: Portable AP view of the chest FINDINGS: Cardiac silhouette is enlarged, unchanged. Pulmonary vascular congestion with persistent bilateral in terstitial opacities and bibasilar consolidation with small bilateral pleural effusions. There is mil dly improved aeration of the right lung with mildly progressive left lung base opacities. Degenerativ e changes of the shoulders and spine. Unchanged left subclavian pacer/AICD. IMPRESSION: 1. Cardiomegaly with mildly improved asymmetric pulmonary edema. 2. Mildly progressive left lung base consolidative opacities. 3. Bilateral pleural effusions. The above report was generated using voice recognition software. It may contain grammatical, syntax o r spelling errors. Electronically signed by: Getachew Silva M.D. 10/10/2019 7:13 AM
[2019-10-10] MEDS: IPRATROPIUM BROMIDE/ALBUTEROL respimat INH INH SCH ×4 (07:33→20:58)
[2019-10-10] MEDS: POLYETHYLENE (MIRALAX) 17 GM PACK PO SCH (07:33)
[2019-10-10] MEDS: PRAVASTATIN SOD 40 MG TAB PO SCH (07:34)
[2019-10-10] MEDS: DOCUSATE SODIUM/SENNA 50/8.6MG TAB PO SCH (07:34)
[2019-10-10] MEDS: PANTOprazole 40 MG TAB PO SCH (07:34)
[2019-10-10] MEDS: glipiZIDE ER 2.5 MG TABCR PO SCH (07:34)
[2019-10-10] MEDS: FINASTERIDE 5 MG TAB PO SCH (07:34)
[2019-10-10] MEDS: ASPIRIN 81 MG ECTAB PO SCH (07:34)
[2019-10-10] MEDS: CLOPIDOGREL BISULFATE 75 MG TAB PO SCH (07:34)
[2019-10-10] MEDS: cephALEXin 250 MG CAP PO SCH (07:34)
[2019-10-10] MEDS: AMIODARONE 200 MG TAB PO SCH (07:34)
[2019-10-10] MEDS: INSULIN GLARGINE SOLOSTAR 100 UNITS/ML 3 ML PEN SC SCH ×2 (08:10→20:58)
[2019-10-10] MEDS: HEPARIN SOD 5,000 UNIT/0.5 ML VIAL SQ SCH ×2 (08:10→20:57)
[2019-10-10] MEDS ORDERED: VANCOMYCIN CONSULT ACTIVE PRN (08:21)
[2019-10-10] MEDS ORDERED: VANCOMYCIN HCL 1,500 MG in SODIUM CHLORIDE 0.9% 500 ML IV SCH (08:30)
[2019-10-10 08:57] LABS: Basophils # (auto) 0.02 K/uL (0-0.2); Basophils % (auto) 0.3 %; Eosinophils # (auto) 0.13 K/uL (0-0.5); Eosinophils % (auto) 2.1 %; Hematocrit (blood only) 31.5 % (42-52); Hemoglobin 10.6 g/dL (14.0-18.0); Immature Granulocytes # (auto) 0.02 K/uL (0.00-0.02); Immature Granulocytes % (auto) 0.3 %; Lymphocytes # (auto) 0.54 K/uL (1.2-3.4); Lymphocytes % (auto) 8.8 %; Mean Corpuscular Hemoglobin 29.9 pg (25-34); Mean Corpuscular Hgb Conc 33.7 g/dL (32-36); Mean Platelet Volume 9.6 fL (7.4-10.4); Monocytes # (auto) 0.41 K/uL (0.11-0.59); Monocytes % (auto) 6.7 %; Neutrophils # (auto) 5.01 K/uL (1.4-6.5); Neutrophils % (auto) 81.8 %; Platelet Count 244 K/uL (130-400); RDW Coefficient of Variation 17.6 % (11.5-14.5); RDW Standard Deviation 55.2 fL (36.4-46.3); Red Blood Count 3.54 M/uL (4.7-6.1); White Blood Count 6.13 K/uL (4.8-10.8)
[2019-10-10] MEDS ORDERED: VANCOMYCIN HCL 2,000 MG in SODIUM CHLORIDE 0.9% 500 ML IV ONE (09:00)
[2019-10-10] MEDS ORDERED: METOPROLOL SUCC 25MG EXT REL TAB PO SCH (09:00)
[2019-10-10] MEDS: CEFEPIME 2,000 MG in SYRINGE 7.5 ML IV SCH (09:09)
--- NOTE | 2019-10-10 10:22 | Nephrology Progress Note ---
Date of Service October 10, 2019 Results & Data Vital Signs (Past 12 Hours) Vital Signs Temp Pulse Resp BP BP Pulse Ox 10/10/19 07:30 37.6 C H 86 20 63/62 L 100 10/10/19 05:23 36.4 C L 94 H 32 H 100/68 97 10/10/19 03:30 85 20 99 10/09/19 23:25 36.3 C L 85 20 91/59 L 95 PG Care Time/CCT Total # of Minutes Spent Total Time Spent with Patient: Total time spent is greater than 50% in coordination of care (as documented) at patient's floor/unit and/or counseling patient:
--- NOTE | 2019-10-10 10:48 | Progress Note ---
DATE: 10/10/2019 SUBJECTIVE: Mr. Peña says that he feels poorly. He continues to complain of some mild shortness of breath with exertion. However, he appears to be comfortable lying down with oxygen being administered by nasal cannula. He has developed a cough productive of some yellow sputum. He denies having any chest pain. His breathing is no worse. His appetite is not particularly good, but apparently, he is eating. He is frustrated by his length of hospital stay. He has no other acute symptoms. He denies chest pain. He denies having any shaking chills and denies having had any night sweats. OBJECTIVE: GENERAL: On physical exam when seen by me, he appeared to be relatively comfortable, although he was still somewhat gruff when speaking. He had a temperature of 37.6. VITAL SIGNS: His blood pressure was 100/68. His pulse is 86 and regular, respiratory rate was 20 with oxygen being administered by nasal cannula at 3 liters a minute. SKIN: Shows slightly diminished skin turgor. He has multiple scattered ecchymoses. LYMPHATICS: Show no palpable lymphadenopathy. HEAD: Grossly normal. EYES: Grossly normal. He has no conjunctival icterus. EARS, NOSE, MOUTH AND THROAT: Unremarkable. His oral mucous membranes are still somewhat dry. NECK: Supple. He has no jugular venous distention at 20 degrees. I hear no carotid bruits and there is no thyromegaly. CHEST: Shows diminished breath sounds throughout. He has diminished breath sounds at the left base compared to the right, but I do not hear any wheezes, rales or rhonchi. CARDIAC: Shows a regular rhythm. S1 and S2 are normal. He has a grade 3/6 high-pitched systolic murmur at the base radiating toward the neck, but also heard along the left sternal border and apex radiating toward the axilla. ABDOMEN: Bit protuberant. It is slightly tympanitic. He has a questionable fluid wave noted. EXTREMITIES: Show diminished pedal pulses. He has bilateral femoral murmurs. He has multiple ecchymoses on his arms. NEUROLOGIC: Shows no lateralizing changes. PERTINENT LABORATORY WORK: From today shows a white count of 6130 with 81.8% neutrophils, 8.8% lymphocytes, 6.7% monocytes, 2.1% eosinophils and 0.3% basophils. His hemoglobin is 10.6 with a hematocrit of 31.5. His platelet count is 244,000. Clinical chemistries from today show a sodium of 137 mmol/L, potassium of 4.3 mmol/L, chloride of 107 mmol/L, and CO2 content of 19 mmol/L. His BUN is 109. His creatinine 3.61. Random blood sugar this morning was 146 and a repeat was 189. His hemoglobin A1c 6.3. His serum magnesium is 2.5. His BNP is greater than 35,000. His total protein 6.4. His albumin 3.0. His TSH is 2.140. A procalcitonin is 0.33. Chest x-rays have shown evidence of pleural effusions and some interstitial changes as well consistent with congestive heart failure. ASSESSMENT: Renal function is fairly stable. I still think that he has some measure of intravascular volume depletion despite what his chest x-ray looks like. To clarify that point, a CT scan would probably be helpful than routine chest x-rays. He has a low grade fever and is bringing up purulent sputum. I think we should culture his sputum and start him on some broad-spectrum antibiotic. I think physical therapy would be helpful to try to get him mobilized and at least have him out of bed and try to get him ambulating to the bathroom. For now, from the standpoint of his fluids, I would give him some gentle IV fluid pending the results of his CT scan of his chest. I would still withhold diuretics and continue to follow his basic metabolic profile quite carefully. I will speak with Dr. Rudd about these recommendations.
--- NOTE | 2019-10-10 11:23 | Hospitalist Progress Note ---
Date of Service October 10, 2019 Assessment & Plan (1) Non-ST elevation [place] (NSTEMI): 79-year-old male patient with multiple medical issues most notably difficult fluid balance with CKD and congestive heart failure. Admission for somnolence, decreased appetite and confusion with diffuse weakness and general decline over the last few months with acute worsening over last 2 weeks. Labs on admission most notable for elevated troponin I 10.3 and creatinine 6.5 (baseline approximately 4). On this occasion he has improved with IV fluids, with slight worsening of his creatinine due to 2 mg IV Bumex given 10/08. BUN/Cr stable this morning holding further IV fluids and diuretics. Neuro: Patient somnolent, minimally interactive upon admission but now is awake and irritated most of the time which is his baseline. CT head with no acute abnormality. He has history of TIA in the past. Improved mentation now and is very irritable which his states is normal for him -Continue ASA 81mg po daily, Plavix 75mg po qAM, Pravastatin 80 mg daily -Delirium prevention strategies with frequent orientation, ambulation with assistance, maintaining sleep/wake cycle where possible Pulmonary: History JUANY, COPD Pulmonary edema improved, concern for underlying health-care acquired pneumonia, moderate left (mild right) pleural effusions on CXR 10/10 - low grade fever this morning. WBC and procalcitonin WNL. CT chest ordered to better clarify pneumonia vs. pulmonary edema. Started on vanc, cefepime and azithromycin this morning. D/c vanc after MRSA nose swab negative. Sputum culture pending. CT shows a lot of atelectasis of left lower lobe related to moderate pleural effusion on that side, will discuss possible benefit for thoracocentesis in AM if unable to restart on diuretics. Acute hypoxic respiratory failure - wean O2 to aim sats > 94% JUANY - Please encourage use of CPAP overnight COPD/restrictive lung disease - No wheezing on exam. PFTs 06/2019 with severe reduction in FVC, FEV1/FVC 0.71, Severely reduced diffusion to 40% predicted. No indication for steroids at present. No CO2 retention. CV: Hx of CAD s/p [place], ICM with EF of 45-50%, delicate volume balance, moderate- severe aortic stenosis, moderate mitral regurgitation, Hx VF arrest s/p AICD (no discharges reported), HTN, HLP. Acute on chronic combined systolic and diastolic heart failure - Not for ACEi/ARB due to ROSEMARY on CKD. Significant orthostasis after restarting metoprolol, will d/c. Heart failure causing pulmonary edema and b/l pleural effusions but still remains intravascularly deplete. Will avoid further diuretics today as discussed with Dr Atkins. Getting 800ml IV fluids in antibiotics therefore will hold off on further fluids at present. Elevated troponin - 10.3 x2 in setting of ROSEMARY without EKG changes or chest pain as per cardiology - not ACS. Cardiac cath deferred due to renal dysfunction. Echo - wall motion abnormality similar to prior. CAD - continue ASA, plavix, pravastatin, (not restarted on metoprolol due to orthostasis and hypotension) Orthostatic hypotension - d/c tamsulosin and metoprolol after worsening orthostatics today. Hx ventricular arrhythmia - continue amiodarone GI: Hx GERD - Continue Protonix 40mg po daily : Patient with CKD, ROSEMARY. 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 intake. Improved with IV fluids, mildly worse with IV Bumex given 10/08. No hydronephrosis on renal duplex this admission. Appreciate nephrology management - will get 800ml IV fluids in antibiotics today therefore will defer further IV fluids and repeat BMP in AM. BPH/urethral stricture - Recent owusu cath placement in clinic to remove po ssible obstruction from diagnosis of renal failure. Owusu catheter removed 10/09 by patient request. Normal PVR s/p owusu removal. History of renal artery stenosis - repeat duplex this admission shows stent in place with no significant stenosis Possible catheter associated UTI - E. coli urine culture. Unclear if contributory on admission, covered by current antibiotics for pneumonia Heme: Anemia secondary to CKD, stable. Will defer iron studies as outpatient. ID: Catheter associated UTI - Rx as above, catheter removed 10/09 Endocrine: T2DM - HbA1C 6.3. Restarted outpatient glipizide with the aim of eventual discharge. Continue lantus at current 8 units BID dosing. Hypothyroidism - TSH WNL. Continue current dose of levothyroxine. DVT prophylaxis - subcutaneous heparin 5000 units SQ Q12H Code - DNR/DNI (per prior discussions with his ) Dispo - continued inpatient stay due continued difficult fluid balance. Both intravascularly deplete but with pulmonary edema and b/l pleural effusions. Pt and family now accepting he will need rehab on d/c. Talked to his at bedside and all questions answered (2) Mmkli-ug-tufqdia kidney injury: (3) COPD (chronic obstructive pulmonary disease): (4) Anemia: (5) Hypotension: (6) Acute UTI: (7) Paroxysmal ventricular tachycardia: (8) PAD (peripheral artery disease): (9) Left renal artery stenosis: (10) COPD (chronic obstructive pulmonary disease) with chronic bronchitis: (11) Central sleep apnea: (12) Dyslipidemia: (13) BPH (benign prostatic hyperplasia): (14) Presence of combination internal cardiac defibrillator (ICD) and pacemaker: (15) History of TIA (transient ischemic attack): (16) Hypothyroidism: (17) Ischemic dilated cardiomyopathy: (18) CAD (coronary artery disease): (19) DM type 2 (diabetes mellitus, type 2): (20) Aortic stenosis, moderate: Subjective Denies any dizziness or shortness of breath on exertion or standing. Just feels fatigued. He was concerned in the morning that physical therapy had not been moving him out of bed but when I revisited him in the afternoon he was concerned he had been walked to the chair and then back to bed and it made him feel much worse. He repeatedly says he feels like he is dying but is unable to say exactly why he feels this way. I continued to encourage him to use his CPAP to help with the atelectasis and pulmonary edema but he has limited understanding of his medical conditions and defers everything to his who also has limited understanding. Review of Systems Review of Systems: All systems reviewed & are unremarkable except as noted in HPI & below Physical Exam Constitutional: + ill appearing; + not well nourished Eyes: + anicteric sclerae ENMT: Mouth: + dry oral mucous membranes Neck: normal visual inspection and trachea midline Respiratory: + tachypneic; no respiratory distress, no labored breathing, does not use accessory muscles and no cough Auscultation: + diminished lung sounds (bibasal L > R) and + crackles (bibasilar, worse on left); no rhonchi and no wheezes Cardiovascular: Rate/Rhythm: regular rate and regular rhythm Heart Sounds: + murmur (soft systolic, RUSB + holosystolic at apex) Vessels: no JVD Extremities: + edema (1+ edema b/l) Chest (Breasts): Chest: normal inspection of chest Gastrointestinal (Abdomen): Inspection/Auscultation: normal bowel sounds; ab domen not distended and no abdominal edema Percussion/Palpation: abdomen soft; abdomen nontender, no guarding and abdomen not rigid Musculoskeletal: no cyanosis or clubbing, extremities motor strength 5/5 (grossly normal strength in all 4 limbs) Skin: + wound (Multiple scabs all over anterior shins without surrounding cellulitis) and + skin atrophy Neurologic: moves all extremities and awake; no focal motor deficits and not confused Psychiatric: Orientation: alert and oriented x 3 Affect: + irritable affect Results & Data Vital Signs (Past 12 Hours) Vital Signs Temp Pulse Resp BP BP Pulse Ox 10/10/19 11:07 81/56 L 98 10/10/19 11:05 112/68 10/10/19 11:01 102/59 L 98 10/10/19 10:55 112/68 98 10/10/19 07:30 99.7 F H 86 20 63/62 L 100 10/10/19 05:23 97.5 F L 94 H 32 H 100/68 97 10/10/19 03:30 85 20 99 10/09/19 23:25 97.3 F L 85 20 91/59 L 95 PG Care Time/CCT Total # of Minutes Spent Total Time Spent with Patient: Total time spent is greater than 50% in coordination of care (as documented) at patient's floor/unit and/or counseling patient: (1) Anemia Anemia type: due to chronic kidney disease (2) Hypothyroidism Hypothyroidism type: unspecified Qualified Code(s): E03.9 - Hypothyroidism, unspecified
--- NOTE | 2019-10-10 12:05 | CT Scan Report ---
CT chest wo con CT DOSE: 1175.69 mGy.cm CLINICAL HISTORY: 79 years-old Male with better visualization of consolidation/pulmonary ed. Follow- up study in a patient with pulmonary edema and left lung base opacities TECHNIQUE: Multiaxial CT images of the chest were performed without contrast. A dose lowering techni que was utilized adhering to the principles of ALARA. COMPARISON: Chest radiograph of same day, chest CT 07/22/2018 FINDINGS: Limited exam secondary to positioning. The patient refused to lie flat, instead laid on his left side . Study is limited secondary to positioning of the upper extremities as well. Unremarkable thyroid. M ildly enlarged mediastinal and hilar lymph nodes have mildly progressed. 11 mm right paratracheal lym ph node on image 101 series 4 previously measured 6 mm. Moderate cardiomegaly. Pacer leads are noted along with coronary arterial calcifications and aortic calcifications. No thoracic aortic aneurysm. M oderate left and small right pleural effusions. No pneumothorax. Intralobular septal thickening with bilateral groundglass densities compatible with pulmonary edema. Dependent consolidation of the left greater than right lung bases. Thickening of the bronchovascular bundles. Central airways appear matson nt. No acute process of the imaged upper abdomen. Soft tissues are unremarkable. Degenerative changes of the shoulders and spine. IMPRESSION: 1. Limited exam secondary to patient positioning. 2. Cardiomegaly with pulmonary edema and left greater than right bilateral pleural effusions. 3. Left greater than right dependent consolidation as described on chest radiograph of same day is re demonstrated. Consolidation within the right lung base suggests compressive atelectasis and the conso lidation in the left may also reflect atelectasis however pneumonia would be impossible to exclude. 4. Mild mediastinal and hilar adenopathy, likely reactive. Electronically signed by: Getachew Silva M.D. 10/10/2019 12:04 PM
[2019-10-10] MEDS: AZITHROMYCIN 500 MG in DEXTROSE 5% 250 ML IV SCH (12:59)
--- NOTE | 2019-10-10 13:30 | Urology Progress Note ---
Date of Service October 10, 2019 Assessment & Plan (1) Retention of urine: Pt has been voiding spontaneously since catheter d/c yesterday. Continue finasteride and keflex as outpatient. Continue to hold tamsulosin for hypotension. Okay to d/c scheduled bladder scans, will change to PRN. No further intervention or recommendations from standpoint. Thank you for allowing us to participate in the acute care of Mr. Peña. Please reconsult us with additional questions, concerns or changes in patient status. Subjective Pt with and granddaughter at bedside today. Pt has been voiding spontaneously, with low PVRs since owusu d/c yesterday. He is satisfied with his voiding. Denies dysuria, urgency or bothersome frequency. Review of Systems Review of Systems: All systems reviewed & are unremarkable except as noted in HPI & below SOB noted, NC intact. Physical Exam Physical Exam: A&Ox3 RR fast urine clear yellow in urinal Results & Data Vital Signs (Past 12 Hours) Vital Signs Temp Pulse Resp BP BP Pulse Ox 10/10/19 11:07 81/56 L 98 10/10/19 11:05 112/68 10/10/19 11:01 102/59 L 98 10/10/19 10:55 112/68 98 10/10/19 07:30 37.6 C H 86 20 63/62 L 100 10/10/19 05:23 36.4 C L 94 H 32 H 100/68 97 10/10/19 03:30 85 20 99 PG Care Time/CCT Total # of Minutes Spent Total Time Spent with Patient: Total time spent is greater than 50% in coordination of care (as documented) at patient's floor/unit and/or counseling patient:
--- NOTE | 2019-10-10 14:16 | Pharmacy Report ---
Pharmacy Abx Dose Short Note - Date of Service October 10, 2019 - Assessment & Plan Assessment 79 year old M receiving vancomycin/cefepime/azithromycin for treatment of possible pna Patient received 2000 mg (20.6 mg/kg) loading dose, then to be dosed by levels for estimated half life of 33 hours. Vancomycin discontinued this afternoon, MRSA swab negative. Patient continues on cefepime and azithromycin which are appropriately dosed for renal function. Pharmacy will continue to follow and will adjust dose/frequency as necessary. Thank you.
[2019-10-10 17:30] LABS: Base Excess ABG -9.1 mEq/L (-9-1.8); HCO3 ABG 16 mmol/L (19-24); PCO2 ABG 33 mmHg (35-46); PO2 ABG 110 mm/Hg (80-95); pH ABG 7.31 (7.35-7.45)
[2019-10-10 17:31] LABS: Allen Test Pos (Pos)
[2019-10-10] MEDS: ACETAMINOPHEN 325 MG TAB PO PRN (19:15)
[2019-10-11] MEDS: ALBUTEROL 0.083% NEBU SOLN 3 ML VIAL NEB PRN ×4 (04:38→21:25)
[2019-10-11] MEDS: LEVOTHYROXINE SODIUM 100 MCG TABLET PO SCH (06:31)
[2019-10-11 07:09] LABS: Basophils # (auto) 0.03 K/uL (0-0.2); Basophils % (auto) 0.5 %; Eosinophils # (auto) 0.15 K/uL (0-0.5); Eosinophils % (auto) 2.4 %; Hemoglobin 10.6 g/dL (14.0-18.0); Immature Granulocytes # (auto) 0.01 K/uL (0.00-0.02); Immature Granulocytes % (auto) 0.2 %; Lymphocytes # (auto) 0.53 K/uL (1.2-3.4); Lymphocytes % (auto) 8.6 %; Mean Corpuscular Hgb Conc 33.1 g/dL (32-36); Mean Corpuscular Volume 90.7 fL (80-100); Mean Platelet Volume 9.7 fL (7.4-10.4); Monocytes # (auto) 0.57 K/uL (0.11-0.59); Monocytes % (auto) 9.3 %; Neutrophils # (auto) 4.86 K/uL (1.4-6.5); Nucleated RBC # (auto) 0.03 K/uL (0-0); Nucleated RBC % (auto) 0.4 %; Platelet Count 256 K/uL (130-400); RDW Coefficient of Variation 18.3 % (11.5-14.5); RDW Standard Deviation 56.8 fL (36.4-46.3); Red Blood Count 3.53 M/uL (4.7-6.1); White Blood Count 6.15 K/uL (4.8-10.8)
[2019-10-11 07:43] LABS: BUN Creatinine Ratio 27.5 (10-20); Calcium 8.7 mg/dl (8.5-10.1); Creatinine Clr Calc Pharmacy 17.8 ml/min; Est GFR (African American) 15.8; Est GFR (Non-African American) 13.6; Potassium 4.3 mmol/L (3.5-5.1)
[2019-10-11] MEDS: CLOPIDOGREL BISULFATE 75 MG TAB PO SCH (08:41)
[2019-10-11] MEDS: PANTOprazole 40 MG TAB PO SCH (08:42)
[2019-10-11] MEDS: glipiZIDE ER 2.5 MG TABCR PO SCH (08:42)
[2019-10-11] MEDS: AMIODARONE 200 MG TAB PO SCH (08:43)
[2019-10-11] MEDS: ASPIRIN 81 MG ECTAB PO SCH (08:44)
[2019-10-11] MEDS: DOCUSATE SODIUM/SENNA 50/8.6MG TAB PO SCH (08:44)
[2019-10-11] MEDS: PRAVASTATIN SOD 40 MG TAB PO SCH (08:44)
[2019-10-11] MEDS: INSULIN ASPART 100 UNITS/ML 3 ML PEN SC SCH ×4 (08:45→20:27)
[2019-10-11] MEDS: FINASTERIDE 5 MG TAB PO SCH (08:45)
[2019-10-11] MEDS: POLYETHYLENE (MIRALAX) 17 GM PACK PO SCH ×2 (08:45→20:25)
[2019-10-11] MEDS: IPRATROPIUM BROMIDE/ALBUTEROL respimat INH INH SCH ×4 (09:09→20:26)
[2019-10-11] MEDS: HEPARIN SOD 5,000 UNIT/0.5 ML VIAL SQ SCH ×2 (09:10→20:24)
[2019-10-11] MEDS: INSULIN GLARGINE SOLOSTAR 100 UNITS/ML 3 ML PEN SC SCH ×2 (09:10→20:26)
[2019-10-11] MEDS: AZITHROMYCIN 500 MG in DEXTROSE 5% 250 ML IV SCH (09:13)
[2019-10-11] MEDS: CEFEPIME 2,000 MG in SYRINGE 7.5 ML IV SCH (09:14)
--- NOTE | 2019-10-11 10:13 | Cardiology Progress Note ---
Date of Service October 11, 2019 Assessment & Plan (1) Ventricular tachycardia: 2. Dual chamber ICD Patient noted to have episode of ventricular tachycardia on 10/06/19 prior to hospital admission. His device did not detect the arrhythmia appropriately. He was eventually paced out and did not receive ICD shock. Patient does not recall having near syncope or syncope. Reviewed with Dr. Adkins, will arrange for [employer] to make appropriate adjustments to device. Supervising Physician Co-Signing Physician Notes Patient examined and discussed with Julia. Agree with this note. I did have the ICD interrogated and reprogrammed to a lower detection rate for VT, this was done on October 11, 2019. Subjective Mr. Peña reports not feeling well. He appears dyspneic and says he is short of breath. He complains of not being able to urinate. Nursing staff reports he will be having a bladder scan shortly. He denies chest pain, dizziness, near syncope or syncope. ICD interrogation shows an episode of ventricular tachycardia on 10/06/19. There was a delay in detection of the arrhythmia, unclear how long he was in it prior. He was eventually paced out of the rhythm and did not receive ICD shock. He does not recall having any syncope or near syncope prior to hospitalization but is somewhat confused. Review of Systems Review of Systems: All systems reviewed & are unremarkable except as noted in HPI & below Physical Exam Physical Exam: General: No acute distress. Appears somewhat dyspneic HEENT: Head is normal. PERRLA. EOMI. Sclerae anicteric. Ears, nose and throat unremarkable. Mucous membranes moist. Neck: Normal carotid upstrokes, no bruits. No appreciable JVD. Lungs: Clear to auscultation bilaterally without rales, rhonchi or wheezes. Cardiac: Regular rate and rhythm. 2/6 systolic murmur Extremities/vascular: --1+ LE edema bilaterally Skin: No rash or abnormal lesions. Normal turgor. Neurologic: Nonfocal Results & Data Vital Signs (Past 12 Hours) Vital Signs Temp Pulse Pulse Resp BP Pulse Ox 10/11/19 07:43 72 10/11/19 07:26 36.6 C 75 20 105/64 96 10/11/19 04:39 84 24 98 10/11/19 03:31 36.6 C 72 16 84/48 L 93 10/10/19 23:16 36.3 C L 76 16 88/52 L 96 10/10/19 22:20 68 Laboratory Results Laboratory Results - last 24 hr 10/10/19 10/10/19 10/10/19 11:18 16:42 17:15 WBC RBC Hgb Hct MCV MCH MCHC RDW Std Deviation RDW Coeff of Alessandro Plt Count MPV Immature Gran % (Auto) Neut % (Auto) Lymph % (Auto) H[place]go % (Auto) Eos % (Auto) Baso % (Auto) Immature Gran # (Auto) Neut # (Auto) Lymph # (Auto) Hidalgo # (Auto) Eos # (Auto) Baso # (Auto) Absolute Nucleated RBC Nucleated RBC % (auto) ABG pH 7.31 L ABG pCO2 33 L ABG pO2 110 H ABG HCO3 16 L ABG O2 Saturation 98.0 H ABG Base Excess -9.1 L Ryan Test Pos Barometric Pressure 734.4 Oxygen Given 4L Sodium Potassium Chloride Carbon Dioxide Anion Gap BUN Creatinine Est Cr Clr Drug Dosing Est GFR ( Amer) Est GFR (Non-Af Amer) BUN/Creatinine Ratio Glucose POC Glucose 212 H 122 H Calcium Nasal Screen MRSA (PCR) 10/10/19 10/10/19 10/11/19 20:08 Unknown 06:52 WBC 6.15 RBC 3.53 L Hgb 10.6 L Hct 32.0 L MCV 90.7 MCH 30.0 MCHC 33.1 RDW Std Deviation 56.8 H RDW Coeff of Alessandro 18.3 H Plt Count 256 MPV 9.7 Immature Gran % (Auto) 0.2 Neut % (Auto) 79.0 Lymph % (Auto) 8.6 Hidalgo % (Auto) 9.3 Eos % (Auto) 2.4 Baso % (Auto) 0.5 Immature Gran # (Auto) 0.01 Neut # (Auto) 4.86 Lymph # (Auto) 0.53 L Hidalgo # (Auto) 0.57 Eos # (Auto) 0.15 Baso # (Auto) 0.03 Absolute Nucleated RBC 0.03 H Nucleated RBC % (auto) 0.4 ABG pH ABG pCO2 ABG pO2 ABG HCO3 ABG O2 Saturation ABG Base Excess Ryan Test Barometric Pressure Oxygen Given Sodium Potassium Chloride Carbon Dioxide Anion Gap BUN Creatinine Est Cr Clr Drug Dosing Est GFR ( Amer) Est GFR (Non-Af Amer) BUN/Creatinine Ratio Glucose POC Glucose 99 Calcium Nasal Screen MRSA (PCR) Negative 10/11/19 10/11/19 06:52 07:59 WBC RBC Hgb Hct MCV MCH MCHC RDW Std Deviation RDW Coeff of Alessandro Plt Count MPV Immature Gran % (Auto) Neut % (Auto) Lymph % (Auto) Hidalgo % (Auto) Eos % (Auto) Baso % (Auto) Immature Gran # (Auto) Neut # (Auto) Lymph # (Auto) Hidalgo # (Auto) Eos # (Auto) Baso # (Auto) Absolute Nucleated RBC Nucleated RBC % (auto) ABG pH ABG pCO2 ABG pO2 ABG HCO3 ABG O2 Saturation ABG Base Excess Ryan Test Barometric Pressure Oxygen Given Sodium 137 Potassium 4.3 Chloride 106 Carbon Dioxide 20 L Anion Gap 11.0 BUN 109 H Creatinine 3.96 H D Est Cr Clr Drug Dosing 17.8 Est GFR ( Amer) 15.8 Est GFR (Non-Af Amer) 13.6 BUN/Creatinine Ratio 27.5 H Glucose 98 POC Glucose 133 H Calcium 8.7 Nasal Screen MRSA (PCR) PG Care Time/CCT Total # of Minutes Spent Total Time Spent with Patient: Total time spent is greater than 50% in coordination of care (as documented) at patient's floor/unit and/or counseling patient:
[2019-10-11] MEDS ORDERED: BUMETANIDE 1 MG TAB PO ONE (10:54)
--- NOTE | 2019-10-11 10:57 | Progress Note ---
DATE: 10/11/2019 RENAL PROGRESS NOTE SUBJECTIVE: Mr. Peña has a major complaint this morning of not being able to void. At the time seen by me, he was having a bladder scan done. No urine could be detected in the bladder. Because of his complaints, I did order urinary straight catheterization. He also complains of some shortness of breath. His chest x-ray has continued to show evidence consistent with volume overload. He has bilateral pleural effusions, worse on the left than on the right. He says he still has somewhat of a cough that is minimally productive of a small amount of white to yellow sputum. He has not had any hemoptysis. He remains frustrated with the length of his current hospital stay and what he perceives as a lack of progress. OBJECTIVE: GENERAL: On physical exam when seen by me, he was lying in bed. He was awake, alert and oriented and able to carry on a relatively normal conversation. VITAL SIGNS: His blood pressure was 105/64 with a pulse of 72 and regular, his respiratory rate was 20, his pulse ox 96% on oxygen at a rate of 2 liters a minute. He is afebrile (36.6 degrees). SKIN: Reveals a slight decrease in skin turgor. He has wrinkling consistent with his age and history of smoking. He has scars from prior surgical procedures. He has some scattered ecchymoses, particularly on his arms. LYMPHATICS: Show no palpable lymphadenopathy. HEAD: Grossly normal. EYES: Grossly normal. The ocular fundi were not examined. EARS, NOSE, MOUTH AND THROAT: Unremarkable. His oral mucous membranes are minimally dry. NECK: Supple. He has no obvious jugular venous distention, but the exam is limited by his body habitus. I hear no carotid bruits and there is no thyromegaly. CHEST: Shows no wheezes, rales or rhonchi. However, breath sounds are markedly diminished at the bases, particularly in the left base. CARDIAC: Shows a regular rhythm. S1 and S2 seem normal. He does have a grade 3/6 systolic murmur that is high pitched, loudest at the base, radiating toward the neck, but also along the left sternal border to the apex and axilla. ABDOMEN: Protuberant. There is a questionable fluid wave. There is no definite organomegaly or mass. He has no tenderness over the bladder area. EXTREMITIES: Show trace lower extremity edema. NEUROLOGIC: Shows no obvious lateralizing changes. DIAGNOSTIC STUDIES: His laboratory work from today shows a white count of 6150. His hemoglobin is 10.6 and his hematocrit is 32.0, platelet count is 256,000. His white cell differential shows 79% neutrophils, 8.6% lymphocytes, 9.3% monocytes, 2.4% eosinophils and 0.5% basophils. His clinical chemistries from today show a sodium of 137 mmol/L, potassium of 4.3 mmol/L, chloride of 106 mmol/L, and CO2 content of 20 mmol/L. His BUN is 109. His creatinine is up to 3.96. Random blood sugar this morning was 98, although his blood sugars have ranged from 98-212 over the past 24 hours. His serum calcium is 8.7. His chest x-ray done yesterday continued to show evidence of bilateral pleural effusions as well as questionable consolidative opacities, particularly at the left lung base. There was evidence that his pulmonary edema had improved. Because of concerns about the potential of a pneumonia yesterday, he did have a CT scan. It was a difficult study because of his inability to be well positioned. He did show evidence of cardiomegaly with some pulmonary edema and left greater than right bilateral pleural effusions. He had left greater than right dependent consolidation again noted. The consolidation within the right base suggests compressive atelectasis. In the left base, there is still a question as to the possibility of pneumonia. He has minimal mediastinal and hilar adenopathy. His intake since his hospitalization has exceeded his output by 11.2 liters. ASSESSMENT: At this point, it does appear as if he is trending toward being more volume overloaded. Certainly, he has third spacing including pleural effusions and questionable ascites. He is somewhat dyspneic but that is a chronic issue and it is multifactorial related to his COPD, some degree of congestive heart failure and significant bilateral pleural effusions with compression atelectasis of his already emphysematous lungs. His creatinine is beginning to slowly trend upward. RECOMMENDATIONS: At this point, would hold IV fluids. Would give him Lasix 80 mg orally today, but only once. I would avoid trying to be too aggressive with diuresis since he may have difficulty mobilizing his interstitial fluid and certainly will not mobilize any third space fluids that are present. Therefore, too aggressive at diuresis will most certainly lead to worsening prerenal azotemia. Would continue with his oxygen. He did have only a small amount of urine when he was straight catheterized. He has been able to void prior to that. Why he complained of trouble voiding this morning is not clear, although there was not a significant amount of urine in his bladder. I would estimate it was less than 50 mL. No other immediate recommendations. I did not write for his Lasix, but would encourage the hospitalist to do that; however, only in a one-time dose. If he tolerates that and insists on going home, we could make arrangements for him to go home with home health, home oxygen, and new orders with regard to diuretic therapy. Certainly if we begin to see his BUN and creatinine trend downward, the approach outlined above would seem to be appropriate. However, he will need consistent outpatient followup. I do not think the patient or the family is willing to have him go to a custodial for more close monitoring in the short term.
--- NOTE | 2019-10-11 15:22 | Hospitalist Progress Note ---
Date of Service October 11, 2019 Assessment & Plan (1) Non-ST elevation WA (NSTEMI): 79-year-old male patient with multiple medical issues most notably difficult fluid balance with CKD and congestive heart failure (complicated with valvular disease). Admission for somnolence, decreased appetite and confusion with diffuse weakness and general decline over the last few months with acute worsening over last 2 weeks. Labs on admission most notable for elevated troponin I 10.3 and creatinine 6.5 (baseline approximately 4). On this occasion he has improved with IV fluids, with slight worsening of his creatinine due to 2 mg IV Bumex given 10/08. Cr mildly increased, discussed with Dr Atkins and will trial him back on home doses of diuretics. Neuro: Patient somnolent, minimally interactive upon admission but now is awake and irritated most of the time which is his baseline. Hx TIA - Continue ASA 81mg po daily, Plavix 75mg po qAM, Pravastatin 80 mg daily, Delirium prevention strategies with frequent orientation, ambulation with assistance, maintaining sleep/wake cycle where possible Pulmonary: History JUANY, COPD Pulmonary edema, concern for underlying health-care acquired pneumonia, moderate left (mild right) pleural effusions - unable to differentiate PNA from atelectasis due to pleural effusions. Cefepime + azithromycin started 10/10, will continue 5-7 day course pending clinical fluid status. Discussed thoracocentesis possibility for moderate pleural effusion to aid symptoms and clearance of pneumonia but he'd need to be off plavix for 5 days and likely to return in 48 hours therefore this is not realistically an option. Acute hypoxic respiratory failure - wean O2 to aim sats > 94%. Since going to [facility] he will not need formal testing. JUANY - Please encourage use of CPAP overnight COPD/restrictive lung disease - No wheezing on exam. PFTs 06/2019 with severe reduction in FVC, FEV1/FVC 0.71, Severely reduced diffusion to 40% predicted. No indication for steroids at present. No CO2 retention. CV: Hx of CAD s/p WA, ICM with EF of 45-50%, delicate volume balance, moderate- severe aortic stenosis, moderate mitral regurgitation, Hx VF arrest s/p AICD (no discharges reported), HTN, HLP. Acute on chronic combined systolic and diastolic heart failure - Not for ACEi/ARB due to ROSEMARY on CKD. Significant orthostasis after restarting metoprolol, will d/c. Heart failure + hypoalbuminemia causing pulmonary edema and b/l pleural effusions but still remains intravascularly deplete. Bumex 4 mg p.o. as discussed with Dr. Atkins Elevated troponin - 10.3 x2 in setting of ROSEMARY without EKG changes or chest pain as per cardiology - not ACS. Cardiac cath deferred due to renal dysfunction. Echo - wall motion abnormality similar to prior. CAD - continue ASA, plavix, pravastatin, (not restarted on metoprolol due to orthostasis and hypotension) Orthostatic hypotension - d/c tamsulosin and metoprolol after worsening orthostatics yesterday. Please repeat orthostatics daily. Hx ventricular arrhythmia - continue amiodarone GI: Hx GERD - Continue Protonix 40mg po daily : Patient with CKD, ROSEMARY. 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 intake. Improved with IV fluids, mildly worse with IV Bumex given 10/08. No hydronephrosis on renal duplex this admission. Appreciate nephrology management -restart Bumex 4 mg p.o. today. BPH/urethral stricture - Recent owusu cath placement in clinic to remove possible obstruction from diagnosis of renal failure. Owusu catheter removed 10/09 by patient request. Normal PVR s/p owusu removal, now back off tamsulosin due to recurrence of orthostatic hypotension. History of renal artery stenosis - repeat duplex this admission shows stent in place with no significant stenosis Possible catheter associated UTI - E. coli urine culture. Unclear if contributory on admission, covered by current antibiotics for pneumonia Heme: Anemia secondary to CKD, stable. Will defer iron studies as outpatient. ID: Catheter associated UTI - Rx as above, catheter removed 10/09 Endocrine: T2DM - HbA1C 6.3. Restarted outpatient glipizide with the aim of eventual discharge. Continue lantus at current 8 units BID dosing. Appears relatively well controlled on this regimen. Hypothyroidism - TSH WNL. Continue current dose of levothyroxine. DVT prophylaxis - subcutaneous heparin 5000 units SQ Q12H Code - DNR/DNI (per prior discussions with his ) Dispo - continued inpatient stay due continued difficult fluid balance. Both intravascularly deplete but with pulmonary edema and b/l pleural effusions. Pt and family now accepting he will need rehab on d/c, plan for [facility]. Talked to his at bedside and all questions answered (2) Wwjiw-gh-lhahyng kidney injury: (3) COPD (chronic obstructive pulmonary disease): (4) Anemia: (5) Hypotension: (6) Acute UTI: (7) Paroxysmal ventricular tachycardia: (8) PAD (peripheral artery disease): (9) Left renal artery stenosis: (10) COPD (chronic obstructive pulmonary disease) with chronic bronchitis: (11) Central sleep apnea: (12) Dyslipidemia: (13) BPH (benign prostatic hyperplasia): (14) Presence of combination internal cardiac defibrillator (ICD) and pacemaker: (15) History of TIA (transient ischemic attack): (16) Hypothyroidism: (17) Ischemic dilated cardiomyopathy: (18) CAD (coronary artery disease): (19) DM type 2 (diabetes mellitus, type 2): (20) Aortic stenosis, moderate: (21) Pleural effusion: (22) Atelectasis of both lungs: Subjective Patient repeats the same questions he has every day. He feels we have not nothing for him despite daily conversations that I have about his treatment. He feels like doctors keep changing their minds regarding fluids and diuretics. I tried to explain to him on multiple occasions that it is his situation and the changes rather than just the physicians changing the mind. He reports Dr. Atkins told him that he will go home tomorrow and is fixated on this. I e xplained he is in no fit state physically to go home, is being evaluated by a physical therapist and I am concerned he would likely need to come back to hospital relatively soon if he was not discharged somewhere for physical rehabilitation and closer medical care. He appears to understand that he has very poor physical ability right now. Although he has very limited insight into his medical conditions. He reports his shortness of breath is at baseline. He denies any chest pain, orthopnea, PND, CVA tenderness. Review of Systems Review of Systems: All systems reviewed & are unremarkable except as noted in HPI & below Physical Exam Constitutional: + ill appearing; + not well nourished Eyes: + anicteric sclerae; normal pupil size ENMT: Mouth: + dry oral mucous membranes Neck: normal visual inspection and trachea midline Respiratory: normal respiratory effort; no respiratory distress, no labored breathing, does not use accessory muscles and no cough Auscultation: + diminished lung sounds (bibasal L > R) and + crackles (Left base only); no rhonchi and no wheezes Cardiovascular: Rate/Rhythm: regular rate and regular rhythm Heart Sounds: + murmur (soft systolic, RUSB + holosystolic at apex) Vessels: no JVD Extremities: + edema (1+ edema b/l) Chest (Breasts): Chest: normal inspection of chest Gastrointestinal (Abdomen): Inspection/Auscultation: normal bowel sounds; ab domen not distended and no abdominal edema Percussion/Palpation: abdomen soft; abdomen nontender, no guarding and abdomen not rigid Musculoskeletal: no cyanosis or clubbing, extremities motor strength 5/5 (grossly normal strength in all 4 limbs) Skin: + wound (Multiple scabs all over anterior shins without surrounding cellulitis) and + skin atrophy Neurologic: moves all extremities and awake; no focal motor deficits and not confused Psychiatric: Orientation: alert and oriented x 3 Affect: + irritable affect Genitourinary: no CVA tenderness Results & Data Vital Signs (Past 12 Hours) Vital Signs Temp Pulse Pulse Resp BP Pulse Ox 10/11/19 14:36 97.3 F L 85 20 100/63 97 10/11/19 12:32 80 26 H 93 10/11/19 11:22 96.3 F L 83 18 101/71 98 10/11/19 07:43 72 10/11/19 07:26 97.9 F 75 20 105/64 96 10/11/19 04:39 84 24 98 10/11/19 03:31 97.9 F 72 16 84/48 L 93 PG Care Time/CCT Total # of Minutes Spent Total Time Spent with Patient: Total time spent is greater than 50% in coordination of care (as documented) at patient's floor/unit and/or counseling patient: (1) Anemia Anemia type: due to chronic kidney disease (2) Hypothyroidism Hypothyroidism type: unspecified Qualified Code(s): E03.9 - Hypothyroidism, unspecified
[2019-10-12] MEDS: LEVOTHYROXINE SODIUM 100 MCG TABLET PO SCH (06:06)
[2019-10-12 06:53] LABS: BUN Creatinine Ratio 27.3 (10-20); Calcium 8.9 mg/dl (8.5-10.1); Creatinine Clr Calc Pharmacy 17.1 ml/min; Est GFR (African American) 15.1; Potassium 4.2 mmol/L (3.5-5.1)
[2019-10-12] MEDS: CARBOHYDRATES FOR HYPOGLYCEMIA PO PRN (06:57)
[2019-10-12] MEDS: INSULIN ASPART 100 UNITS/ML 3 ML PEN SC SCH ×4 (08:55→20:12)
[2019-10-12] MEDS: CEFEPIME 2,000 MG in SYRINGE 7.5 ML IV SCH (08:57)
[2019-10-12] MEDS: PANTOprazole 40 MG TAB PO SCH (08:58)
[2019-10-12] MEDS: CLOPIDOGREL BISULFATE 75 MG TAB PO SCH (08:58)
[2019-10-12] MEDS: BUMETANIDE 1 MG TAB PO SCH (08:58)
[2019-10-12] MEDS: glipiZIDE ER 2.5 MG TABCR PO SCH (08:59)
[2019-10-12] MEDS: PRAVASTATIN SOD 40 MG TAB PO SCH (08:59)
[2019-10-12] MEDS: AMIODARONE 200 MG TAB PO SCH (08:59)
[2019-10-12] MEDS: FINASTERIDE 5 MG TAB PO SCH (08:59)
[2019-10-12] MEDS: ASPIRIN 81 MG ECTAB PO SCH (08:59)
[2019-10-12] MEDS: HEPARIN SOD 5,000 UNIT/0.5 ML VIAL SQ SCH ×2 (09:00→20:00)
[2019-10-12] MEDS: IPRATROPIUM BROMIDE/ALBUTEROL respimat INH INH SCH ×4 (09:00→20:01)
[2019-10-12] MEDS: POLYETHYLENE (MIRALAX) 17 GM PACK PO SCH ×2 (09:00→19:58)
[2019-10-12] MEDS: DOCUSATE SODIUM/SENNA 50/8.6MG TAB PO SCH (09:08)
[2019-10-12] MEDS: AZITHROMYCIN 250 MG TAB PO SCH (09:50)
--- NOTE | 2019-10-12 10:47 | Progress Note ---
DATE: 10/12/2019 SUBJECTIVE: Mr. Peña still complains of some shortness of breath. He denies having any chest pain. He feels better today than he did yesterday. He wear his CPAP overnight and seemed to tolerate it well. Now, he is on his mask at 2-3 liters a minute and seems to be tolerating that quite well. He is comfortable. He says that he does have somewhat of an appetite and that he did eat breakfast, although it sounds as if he did need a great deal. He is concerned about his abdominal distention. He denies any chest pain. He has no specific symptoms of uremia. His symptoms of volume overload continue with his shortness of breath and abdominal distention. OBJECTIVE: GENERAL: On physical exam, Mr. Peña appears as a chronically and acutely ill elderly gentleman who is obviously overweight. VITAL SIGNS: Show blood pressure of 100/62, his pulse is 79 and regular. No extrasystoles are noted. Respiratory rate is 20, his pulse ox 96% on his CPAP overnight and is similar on his current oxygen via mask at 2-3 liters per minute. He is afebrile (36.3). SKIN: Examination of his skin shows essentially normal skin turgor. He has scars from prior procedures. He has scattered ecchymoses, particularly on his arms. He has changes of venous stasis dermatitis on his distal lower extremities. LYMPHATICS: Show no palpable lymphadenopathy. HEAD: Grossly normal. EYES: Grossly normal. He has no conjunctival icterus. Pupils are equal and reactive to light. EARS, NOSE, MOUTH, AND THROAT: Unremarkable. His tongue is furrowed, but does not seem to be particularly dry. NECK: Supple. I cannot see any jugular venous distention, but the exam is limited by his body habitus. I hear no carotid bruits and there is no thyromegaly. CHEST: Shows diminished breath sounds at the left base and to a much lesser extent at the right base. This is related to his body habitus and perhaps his positioning. No wheezes, rales or rhonchi are heard. CARDIAC: Shows a regular rhythm. S1 and S2 seem normal. He has a grade 3/6 high-pitched systolic murmur, loudest at the base and radiating toward the neck. The murmur is also heard along the left sternal border and at the apex radiating to the axilla. ABDOMEN: Distended. There is a questionable fluid wave. Bowel sounds are present. There is no abdominal tenderness and I hear no abdominal bruits. EXTREMITIES: Show trace to 1+ lower extremity edema. NEUROLOGIC: Shows him to be slightly lethargic, but he is cooperative. He speaks in full sentences. He is oriented in 3 spheres. He has no lateralizing changes. PERTINENT LABORATORY WORK: From today shows a sodium of 139 mmol/L, potassium 4.2 mmol/L, chloride 107 mmol/L, and CO2 content 21 mmol/L, his anion gap is 11, but not taking into account his serum albumin. His BUN is 112, his creatinine 4.11. His random blood sugar this morning was 49 over the course of the past 24 hours, his blood sugar has varied from 49 to 191. His serum calcium is 8.9. ASSESSMENT: As before. Mr. Peña presents a challenge with regard to his fluid management. He has congestive heart failure, both right and left-sided. It appears as if he has significant ascites at the current time likely a manifestation of his pulmonary hypertension. I do not hear any rales in his chest. However, his CT scan does confirm plain film findings consistent with pulmonary edema. He has significant bilateral pleural effusions, worse on the left than on the right. At the current time, Mr. Peña continues to express a desire to go home. I know that Dr. Rudd and social and political studies professor is working on this. We can continue to work with the family toward getting him home. We would have to see how he does. His prognosis is poor. I am not sure, however, that he is ready for hospice care, although if he does poorly in the first few days at home, we will make those arrangements as an outpatient.
--- NOTE | 2019-10-12 21:02 | Hospitalist Progress Note ---
Date of Service October 12, 2019 Assessment & Plan (1) Non-ST elevation IA (NSTEMI): 79-year-old male patient with multiple medical issues most notably difficult fluid balance with CKD and congestive heart failure (complicated with valvular disease). Admission for somnolence, decreased appetite and confusion with diffuse weakness and general decline over the last few months with acute worsening over last 2 weeks. Labs on admission most notable for elevated troponin I 10.3 and creatinine 6.5 (baseline approximately 4). On this occasion he has improved with IV fluids, although trying to get him back on stable regimen of diuretics has been difficult since his BUN and Cr have started to increase again. Neuro: Patient somnolent, minimally interactive upon admission but now is awake and irritated most of the time which is his baseline. Hx TIA - Continue ASA 81mg po daily, Plavix 75mg po qAM, Pravastatin 80 mg daily, Delirium prevention strategies with frequent orientation, ambulation with assistance, maintaining sleep/wake cycle where possible Pulmonary: History JUANY, COPD Pulmonary edema, concern for underlying health-care acquired pneumonia, moderate left (mild right) pleural effusions - unable to differentiate PNA from atelectasis due to pleural effusions. Cefepime + azithromycin started 10/10, will continue 5-7 day course pending clinical fluid status (switched azithromycin to PO). Not for thoracocentesis as discussed with Dr Kwan 09/10. Acute hypoxic respiratory failure - wean O2 to aim sats > 94%. Since plan for [facility] he will not need formal testing. JUANY - Please continue to encourage use of CPAP overnight COPD/restrictive lung disease - No wheezing on exam. PFTs 06/2019 with severe reduction in FVC, FEV1/FVC 0.71, Severely reduced diffusion to 40% predicted. No indication for steroids at present. No CO2 retention. CV: Hx of CAD s/p IA, ICM with EF of 45-50%, delicate volume balance, moderate- severe aortic stenosis, moderate mitral regurgitation, Hx VF arrest s/p AICD (no discharges reported), HTN, HLP. Acute on chronic combined systolic and diastolic heart failure - Not for ACEi/ARB due to ROSEMARY on CKD. Significant orthostasis after restarting metoprolol, will d/c. Heart failure + hypoalbuminemia causing pulmonary edema and b/l pleural effusions but still remains intravascularly deplete. Bumex 4 mg p.o. as discussed with Dr. Atkins Elevated troponin - 10.3 x2 in setting of ROSEMARY without EKG changes or chest pain as per cardiology - not ACS. Cardiac cath deferred due to renal dysfunction. Echo - wall motion abnormality similar to prior. CAD - continue ASA, plavix, pravastatin, (not restarted on metoprolol due to orthostasis and hypotension) Orthostatic hypotension - d/c tamsulosin and metoprolol after worsening orthostatics. Now diuresing even less ability to reintroduce these. Hx ventricular arrhythmia - continue amiodarone Syncope - episode on 10/06 associated ventricular tachycardia episode, pacemaker adjusted by cardiology. K > 4, Mg > 2. GI: Hx GERD - Continue Protonix 40mg po daily : Patient with CKD, ROSEMARY. BUN of 166 and Cr of 6.33 and now continues to be trending down and now stabilized at baseline [employer] 3.49 Acute on chronic kidney injury - secondary to prerenal azotemia from dehydration in the setting of diuretic use and poor p.o. intake. Improved with IV fluids, mildly worse with IV Bumex given 10/08. No hydronephrosis on renal duplex this admission. Appreciate nephrology management -restart Bumex 4 mg p.o. today. BPH/urethral stricture - Recent owusu cath placement in clinic to remove possible obstruction from diagnosis of renal failure. Owusu catheter removed 10/09 by patient request. Normal PVR s/p owusu removal, off tamsulosin. History of renal artery stenosis - repeat duplex this admission shows stent in place with no significant stenosis Possible catheter associated UTI - E. coli urine culture. Unclear if contributory on admission, covered by current antibiotics for pneumonia Heme: Anemia secondary to CKD, stable. Will defer iron studies as outpatient. ID: Catheter associated UTI - Rx as above, catheter removed 10/09 Endocrine: T2DM - HbA1C 6.3. Restarted outpatient glipizide with the aim of eventual discharge. Hypoglycemia this morning therefore lantus discontinued. Hypothyroidism - TSH WNL. Continue current dose of levothyroxine. DVT prophylaxis - subcutaneous heparin 5000 units SQ Q12H Code - DNR/DNI (per prior discussions with his ) Dispo - continued inpatient stay due continued difficult fluid balance. Both intravascularly deplete but with pulmonary edema and b/l pleural effusions. Pt and family now accepting he will need rehab on d/c, plan for [facility]. Talked to his at bedside and all questions answered (2) [id number] kidney injury: (3) COPD (chronic obstructive pulmonary disease): (4) Anemia: (5) Hypotension: (6) Acute UTI: (7) Paroxysmal ventricular tachycardia: (8) PAD (peripheral artery disease): (9) Left renal artery stenosis: (10) COPD (chronic obstructive pulmonary disease) with chronic bronchitis: (11) Central sleep apnea: (12) Dyslipidemia: (13) BPH (benign prostatic hyperplasia): (14) Presence of combination internal cardiac defibrillator (ICD) and pacemaker: (15) History of TIA (transient ischemic attack): (16) Hypothyroidism: (17) Ischemic dilated cardiomyopathy: (18) CAD (coronary artery disease): (19) DM type 2 (diabetes mellitus, type 2): (20) Aortic stenosis, moderate: (21) Pleural effusion: (22) Atelectasis of both lungs: Subjective No change in breathing. No acute events overnight, although he did tolerate wearing his BiPAP overnight and appears to be in a better mood today. He noted that Dr Atkins talked about going home however I explained today and on multiple prior occasions he is still quite weak and I and the physical therapist feel he would benefit from further inpatient rehabilitation. Asymptomatic during significant hypoglycemia this morning after reintroduction of glipizide. Review of Systems Review of Systems: All systems reviewed & are unremarkable except as noted in HPI & below Physical Exam Constitutional: + ill appearing; + not well nourished Eyes: + anicteric sclerae; normal pupil size ENMT: Mouth: + dry oral mucous membranes Neck: normal visual inspection and trachea midline Respiratory: normal respiratory effort; no respiratory distress, no labored breathing, does not use accessory muscles and no cough Auscultation: + diminished lung sounds (L > bibasal R) and + crackles (Left sided); no rhonchi and no wheezes Cardiovascular: Rate/Rhythm: regular rate and regular rhythm Heart Sounds: + murmur (soft systolic, RUSB + holosystolic at apex) Vessels: no JVD Extremities: + edema (1+ edema b/l) Chest (Breasts): Chest: normal inspection of chest Gastrointestinal (Abdomen): Inspection/Auscultation: normal bowel sounds; abdomen not distended and no abdominal edema Percussion/Palpation: abdomen soft; abdomen nontender, no guarding and abdomen not rigid Neurologic: moves all extremities and awake; no focal motor deficits and not confused Psychiatric: Orientation: alert and oriented x 3 Affect: + irritable affect Results & Data Vital Signs (Past 12 Hours) Vital Signs Temp Pulse Pulse Resp BP BP Pulse Ox 10/12/19 20:03 98.2 F 87 19 134/67 94 10/12/19 16:12 98.1 F 85 36 H 99/62 L 98 10/12/19 15:23 89 10/12/19 11:21 98.6 F 72 18 98/62 L 93 PG Care Time/CCT Total # of Minutes Spent Total Time Spent with Patient: Total time spent is greater than 50% in coordination of care (as documented) at patient's floor/unit and/or counseling patient: (1) Anemia Anemia type: due to chronic kidney disease (2) Hypothyroidism Hypothyroidism type: unspecified Qualified Code(s): E03.9 - Hypothyroidism, unspecified
[2019-10-13] MEDS: LEVOTHYROXINE SODIUM 100 MCG TABLET PO SCH (06:18)
[2019-10-13 07:33] LABS: Basophils # (auto) 0.04 K/uL (0-0.2); Basophils % (auto) 0.6 %; Eosinophils # (auto) 0.08 K/uL (0-0.5); Eosinophils % (auto) 1.2 %; Hematocrit (blood only) 31.8 % (42-52); Hemoglobin 10.7 g/dL (14.0-18.0); Immature Granulocytes # (auto) 0.01 K/uL (0.00-0.02); Immature Granulocytes % (auto) 0.1 %; Lymphocytes # (auto) 0.64 K/uL (1.2-3.4); Lymphocytes % (auto) 9.5 %; Mean Corpuscular Hemoglobin 30.2 pg (25-34); Mean Corpuscular Hgb Conc 33.6 g/dL (32-36); Mean Corpuscular Volume 89.8 fL (80-100); Mean Platelet Volume 9.8 fL (7.4-10.4); Monocytes # (auto) 0.65 K/uL (0.11-0.59); Monocytes % (auto) 9.6 %; Neutrophils # (auto) 5.33 K/uL (1.4-6.5); Platelet Count 301 K/uL (130-400); RDW Coefficient of Variation 18.8 % (11.5-14.5); RDW Standard Deviation 58.4 fL (36.4-46.3); Red Blood Count 3.54 M/uL (4.7-6.1); White Blood Count 6.75 K/uL (4.8-10.8)
[2019-10-13] MEDS: INSULIN ASPART 100 UNITS/ML 3 ML PEN SC SCH ×4 (08:00→21:29)
[2019-10-13] MEDS: AMIODARONE 200 MG TAB PO SCH (08:14)
[2019-10-13] MEDS: FINASTERIDE 5 MG TAB PO SCH (08:14)
[2019-10-13] MEDS: PANTOprazole 40 MG TAB PO SCH (08:14)
[2019-10-13] MEDS: PRAVASTATIN SOD 40 MG TAB PO SCH (08:14)
[2019-10-13 08:15] LABS: BUN Creatinine Ratio 25.9 (10-20); Calcium 8.9 mg/dl (8.5-10.1); Creatinine Clr Calc Pharmacy 16.8 ml/min; Est GFR (African American) 14.6; Est GFR (Non-African American) 12.6; Potassium 4.3 mmol/L (3.5-5.1)
[2019-10-13] MEDS: CLOPIDOGREL BISULFATE 75 MG TAB PO SCH (08:15)
[2019-10-13] MEDS: ASPIRIN 81 MG ECTAB PO SCH (08:15)
[2019-10-13] MEDS: IPRATROPIUM BROMIDE/ALBUTEROL respimat INH INH SCH ×4 (08:15→20:09)
[2019-10-13] MEDS: BUMETANIDE 1 MG TAB PO SCH (08:16)
[2019-10-13] MEDS: AZITHROMYCIN 250 MG TAB PO SCH (08:17)
[2019-10-13] MEDS: HEPARIN SOD 5,000 UNIT/0.5 ML VIAL SQ SCH ×2 (08:18→20:09)
[2019-10-13] MEDS: CEFEPIME 2,000 MG in SYRINGE 7.5 ML IV SCH (08:22)
[2019-10-13] MEDS: DOCUSATE SODIUM/SENNA 50/8.6MG TAB PO SCH (08:22)
[2019-10-13] MEDS: POLYETHYLENE (MIRALAX) 17 GM PACK PO SCH ×3 (08:43→21:43)
[2019-10-13] MEDS ORDERED: glipiZIDE ER 2.5 MG TABCR PO SCH (09:00)
--- NOTE | 2019-10-13 10:10 | Progress Note ---
DATE: 10/13/2019 SUBJECTIVE: Mr. Peña is asking to go home. He still says that he is somewhat short of breath, but he is comfortable. He is eating. He has moved his bowels. He denies having any chest pain. He has no definite symptoms of uremia or volume overload. OBJECTIVE: GENERAL: At the current time, he appears as a chronically ill elderly gentleman of about his stated age of 79 or perhaps older. VITAL SIGNS: Show blood pressure of 95/61, his pulse is 87 and regular, respiratory rate 20, his pulse ox 97% on oxygen via mask at 3 liters a minute. He is afebrile (36.5). SKIN: Shows normal skin turgor. He has changes of venous stasis dermatitis over his distal lower extremities and he has scars from prior surgical procedures. He has wrinkling of the skin consistent with his history of smoking as well as his age. LYMPHATICS: Show no palpable adenopathy. HEAD: Normal. EYES: Grossly normal. There is no conjunctival icterus. The ocular fundi were not examined. EARS, NOSE, MOUTH, AND THROAT: Unremarkable. Oral mucous membranes are moist. NECK: Supple. I see no jugular venous distention, but the exam is limited by his body habitus and positioning. I hear no carotid bruit. There is no thyromegaly. CHEST: Relatively clear to auscultation, although breath sounds are diminished at the left base. CARDIAC: Shows a regular rhythm. S1 and S2 are essentially normal. He has a grade 3/6 systolic ejection murmur at the base radiating toward the neck. The murmur is somewhat high pitched. It is also heard along the left sternal border as well as at the apex radiating toward the axilla. ABDOMEN: Distended. There is a probable fluid wave present. I cannot appreciate any organomegaly or mass. EXTREMITIES: Show 1-2+ lower extremity edema. NEUROLOGIC: Shows no lateralizing changes. He is awake, alert and oriented. PERTINENT LABORATORY WORK: From today shows a white count of 6750. His hemoglobin is 10.7, his hematocrit 31.8, his platelet count 301,000. His clinical chemistries show a sodium of 138 mmol/L, potassium 4.3 mmol/L, chloride 108 mmol/L, and CO2 content 18 mmol/L. His BUN is 109. His creatinine 4.21. A blood sugar this morning was 54, but his blood sugars over the course of the past 24 hours have varied from 84-116. ASSESSMENT: Clinical status is unchanged. He walks a very fine line between having overt congestive heart failure, which he appears to have right now to being significantly prerenal. In part that is because he has significant right-sided heart failure with pulmonary hypertension. Currently, that is manifested by his lower extremity edema and ascites. His BUN and creatinine are inching up very slowly. RECOMMENDATIONS: The patient is very unhappy being in the hospital. There are a number of things that we might try. However, I think that at least certain things can be accomplished at home. I would continue with a diuretic either in the form of Lasix or Bumex in a significant dose, but would only give it to him once a day. He will need to follow a sodium restriction when he goes home. His is aware of the complexity of his situation. No other immediate recommendations. I will follow him as an outpatient. Home health should be involved and I cannot speak with them on a regular basis and adjust medicines as necessary.
[2019-10-13] MEDS: CARBOHYDRATES FOR HYPOGLYCEMIA PO PRN ×3 (11:40→17:16)
--- NOTE | 2019-10-13 20:38 | Communication Note ---
Date of Service: October 11, 2019
--- NOTE | 2019-10-13 20:40 | Hospitalist Progress Note ---
Date of Service October 13, 2019 Assessment & Plan (1) Non-ST elevation PA (NSTEMI): 79-year-old male patient with multiple medical issues most notably difficult fluid balance with CKD and congestive heart failure (complicated with valvular disease). Admission for somnolence, decreased appetite and confusion with diffuse weakness and general decline over the last few months with acute worsening over last 2 weeks. Labs on admission most notable for elevated troponin I 10.3 and creatinine 6.5 (baseline approximately 4). On this occasion he has improved with IV fluids, although trying to get him back on stable regimen of diuretics has been difficult since his BUN and Cr have started to increase again. Neuro: Patient somnolent, minimally interactive upon admission but now is awake and irritated most of the time which is his baseline. Hx TIA - Continue ASA 81mg po daily, Plavix 75mg po qAM, Pravastatin 80 mg daily, Delirium prevention strategies with frequent orientation, ambulation with assistance, maintaining sleep/wake cycle where possible Pulmonary: History JUANY, COPD Pulmonary edema, concern for underlying health-care acquired pneumonia, moderate left (mild right) pleural effusions - continue Cefepime + azithromycin started 10/10, 5-7 day course pending clinical fluid status. Not for thoracocentesis as discussed with Dr Kwan 09/10. Acute hypoxic respiratory failure - wean O2 to aim sats > 94%. Since plan for [facility] he will not need formal testing. JUANY - Continue BiPAP COPD/restrictive lung disease - No wheezing on exam. PFTs 06/2019 with severe reduction in FVC, FEV1/FVC 0.71, Severely reduced diffusion to 40% predicted. No indication for steroids at present. No CO2 retention. CV: Hx of CAD s/p PA, ICM with EF of 45-50%, delicate volume balance, moderate- severe aortic stenosis, moderate mitral regurgitation, Hx VF arrest s/p AICD (no discharges reported), HTN, HLP. Acute on chronic combined systolic and diastolic heart failure - Not for ACEi/ARB due to ROSEMARY on CKD. No BB due to orthostasis. Continue bumex 4 mg p.o. as discussed with Dr. Atkins. Elevated troponin - 10.3 x2 in setting of ROSEMARY without EKG changes or chest pain as per cardiology - not ACS. Cardiac cath deferred due to renal dysfunction. Echo - wall motion abnormality similar to prior. CAD - continue ASA, plavix, pravastatin, (not restarted on metoprolol due to o rthostasis and hypotension) Orthostatic hypotension - d/c tamsulosin and metoprolol after worsening orthostatics. Now on bumex less ability to reintroduce these. Hx ventricular arrhythmia - continue amiodarone Syncope - episode on 10/06 associated ventricular tachycardia episode, pacemaker adjusted by cardiology. K > 4, Mg > 2. GI: Hx GERD - Continue Protonix 40mg po daily : Patient with CKD, ROSEMARY. BUN of 166 and Cr of 6.33 trended down with IV fluids but now slightly increasing with diuretics. Acute on chronic kidney injury - secondary to prerenal azotemia from dehydration in the setting of diuretic use and poor p.o. intake initially. No hydronephrosis on renal duplex this admission. Appreciate nephrology management - restarted Bumex 4 mg p.o. 10/12. BPH/urethral stricture - Recent owusu cath placement in clinic to remove possible obstruction from diagnosis of renal failure. Owusu catheter removed 10/09 by patient request. Normal PVR s/p owusu removal off tamsulosin. History of renal artery stenosis - repeat duplex this admission shows stent in place with no significant stenosis Possible catheter associated UTI - E. coli urine culture. Unclear if contributory on admission, covered by antibiotics for pneumonia. Heme: Anemia stable secondary to CKD, stable. Defer iron studies as outpatient. ID: Catheter associated UTI - Rx as above, catheter removed 10/09 Endocrine: T2DM - HbA1C 6.3. Restarted outpatient glipizide with the aim of eventual discharge. Hypoglycemia this morning therefore lantus discontinued. Hypothyroidism - TSH WNL. Continue current dose of levothyroxine. DVT prophylaxis - subcutaneous heparin 5000 units SQ Q12H Code - DNR/DNI (per prior discussions with his ) Dispo - medically stable for discharge pending rehab placement. (2) [id number]-[id number] kidney injury: (3) COPD (chronic obstructive pulmonary disease): (4) Anemia: (5) Hypotension: (6) Acute UTI: (7) Paroxysmal ventricular tachycardia: (8) PAD (peripheral artery disease): (9) Left renal artery stenosis: (10) COPD (chronic obstructive pulmonary disease) with chronic bronchitis: (11) Central sleep apnea: (12) Dyslipidemia: (13) BPH (benign prostatic hyperplasia): (14) Presence of combination internal cardiac defibrillator (ICD) and pacemaker: (15) History of TIA (transient ischemic attack): (16) Hypothyroidism: (17) Ischemic dilated cardiomyopathy: (18) CAD (coronary artery disease): (19) DM type 2 (diabetes mellitus, type 2): (20) Aortic stenosis, moderate: (21) Pleural effusion: (22) Atelectasis of both lungs: Subjective Patient reports ongoing shortness of breath but at baseline. No chest pain. He reports ongoing irritability about staying in hospital for so long. Discussed ongoing care with his at bedside. Planning on placement on discharge. Discussed care with Dr Atkins and will continue bumex. Review of Systems Review of Systems: All systems reviewed & are unremarkable except as noted in HPI & below Physical Exam Constitutional: + ill appearing; + not well nourished and no acute distress Eyes: + anicteric sclerae; normal pupil size ENMT: Nose: + dry nasal mucous membranes Mouth: + dry oral mucous membranes Neck: normal visual inspection and trachea midline Respiratory: normal respiratory effort; no respiratory distress, no labored breathing, does not use accessory muscles and no cough Auscultation: + diminished lung sounds (throughout left side) and + crackles (small amount on left (mainly diminished)); no rhonchi and no wheezes Cardiovascular: Rate/Rhythm: regular rate and regular rhythm Heart Sounds: + murmur Vessels: no JVD Extremities: + edema (3+ b/l) Gastrointestinal (Abdomen): Inspection/Auscultation: + abdomen distended and normal bowel sounds Percussion/Palpation: abdomen soft; abdomen nontender, no guarding and abdomen not rigid Musculoskeletal: no cyanosis or clubbing, extremities motor strength 5/5 (grossly normal strength in all 4 limbs) Skin: + wound (Multiple scabs all over anterior shins without surrounding ce llulitis) and + skin atrophy Neurologic: moves all extremities and awake; no focal motor deficits and not confused Motor/Sensory: + sensory deficit (distal lower extremity peripheral neuropathy from mid shins) Psychiatric: Orientation: alert and oriented x 3 Affect: + irritable affect Results & Data Vital Signs (Past 12 Hours) Vital Signs Temp Pulse Pulse Resp BP BP Pulse Ox 10/13/19 19:19 97.7 F 92 H 19 95/60 L 94 10/13/19 16:00 96 H 10/13/19 14:41 97.0 F L 93 H 20 97/66 L 98 10/13/19 11:00 97.5 F L 84 18 96/65 L 99 PG Care Time/CCT Total # of Minutes Spent Total Time Spent with Patient: Total time spent is greater than 50% in coordination of care (as documented) at patient's floor/unit and/or counseling patient: (1) Anemia Anemia type: due to chronic kidney disease (2) Hypothyroidism Hypothyroidism type: unspecified Qualified Code(s): E03.9 - Hypothyroidism, unspecified
[2019-10-14] MEDS: LEVOTHYROXINE SODIUM 100 MCG TABLET PO SCH (04:57)
[2019-10-14] MEDS: PANTOprazole 40 MG TAB PO SCH (08:13)
[2019-10-14] MEDS: PRAVASTATIN SOD 40 MG TAB PO SCH (08:13)
[2019-10-14] MEDS: CLOPIDOGREL BISULFATE 75 MG TAB PO SCH (08:13)
[2019-10-14] MEDS: IPRATROPIUM BROMIDE/ALBUTEROL respimat INH INH SCH ×4 (08:13→20:33)
[2019-10-14] MEDS: BUMETANIDE 1 MG TAB PO SCH (08:14)
[2019-10-14] MEDS: HEPARIN SOD 5,000 UNIT/0.5 ML VIAL SQ SCH ×2 (08:15→20:33)
[2019-10-14] MEDS: FINASTERIDE 5 MG TAB PO SCH (08:15)
[2019-10-14] MEDS: AMIODARONE 200 MG TAB PO SCH (08:15)
[2019-10-14] MEDS: ASPIRIN 81 MG ECTAB PO SCH (08:16)
[2019-10-14] MEDS: AZITHROMYCIN 250 MG TAB PO SCH (08:16)
[2019-10-14] MEDS: DOCUSATE SODIUM/SENNA 50/8.6MG TAB PO SCH (08:20)
[2019-10-14] MEDS: POLYETHYLENE (MIRALAX) 17 GM PACK PO SCH ×2 (08:20→21:33)
[2019-10-14] MEDS: INSULIN ASPART 100 UNITS/ML 3 ML PEN SC SCH ×4 (08:20→21:33)
[2019-10-14] MEDS: CEFEPIME 2,000 MG in SYRINGE 7.5 ML IV SCH (08:20)
[2019-10-14 09:06] LABS: BUN Creatinine Ratio 22.9 (10-20); Calcium 8.6 mg/dl (8.5-10.1); Creatinine Clr Calc Pharmacy 15.2 ml/min; Est GFR (Non-African American) 11.3; Potassium 4.6 mmol/L (3.5-5.1)
--- NOTE | 2019-10-14 23:44 | Hospitalist Progress Note ---
Date of Service October 14, 2019 Assessment & Plan (1) Non-ST elevation PA (NSTEMI): 79-year-old male patient with multiple medical issues most notably difficult fluid balance with CKD and congestive heart failure (complicated with valvular disease). Admission for somnolence, decreased appetite and confusion with diffuse weakness and general decline over the last few months with acute worsening over last 2 weeks. Labs on admission most notable for elevated troponin I 10.3 and creatinine 6.5 (baseline approximately 4). On this occasion he has improved with IV fluids. Restarted Bumex at 4 mg 10/12, creatinine increasing since with increasing generalized edema - plan to discharge to [facility] with potential transition to hospice if he gets worse. Neuro: Patient somnolent, minimally interactive upon admission but now is awake and irritated most of the time which is his baseline. Hx TIA - Continue ASA 81mg po daily, Plavix 75mg po qAM, Pravastatin 80 mg daily, Delirium prevention strategies with frequent orientation, ambulation with assistance, maintaining sleep/wake cycle where possible Pulmonary: History JUANY, COPD Pulmonary edema, concern for underlying health-care acquired pneumonia, moderate left (mild right) pleural effusions - Finish Cefepime + azithromycin started 10/10, will continue 5-7 day course, can switch to orals on d/c. Not for thoracocentesis as discussed with Dr Kwan 09/10. Acute hypoxic respiratory failure - wean O2 to aim sats > 94%. Since plan for [facility] he will not need formal testing. JUANY - Please continue to encourage use of CPAP overnight COPD/restrictive lung disease - No wheezing on exam. PFTs 06/2019 with severe reduction in FVC, FEV1/FVC 0.71, Severely reduced diffusion to 40% predicted. No indication for steroids at present. No CO2 retention. CV: Hx of CAD s/p PA, ICM with EF of 45-50%, delicate volume balance, moderate- severe aortic stenosis, moderate mitral regurgitation, Hx VF arrest s/p AICD (no discharges reported), HTN, HLP. Acute on chronic combined systolic and diastolic heart failure - Not for ACEi/ARB due to ROSEMARY on CKD. No BB due to orthostasis. Discussed increasing creatinine with Dr. Atkins in the evening and recommended having Dr. Ta is on- call see him in the morning. Will reduce bumex to 1mg daily, pending labs in AM. Suspect he is getting intravascularly deplete again. Elevated troponin - 10.3 x2 in setting of ROSEMARY without EKG changes or chest pain as per cardiology - not ACS. Cardiac cath deferred due to renal dysfunction. Echo - wall motion abnormality similar to prior. CAD - continue ASA, plavix, pravastatin, (not restarted on metoprolol due to orthostasis and hypotension) Orthostatic hypotension - d/c tamsulosin and metoprolol after worsening orth ostatics. Hx ventricular arrhythmia - continue amiodarone Syncope - episode on 10/06 associated ventricular tachycardia episode, pacemaker adjusted by cardiology. K > 4, Mg > 2. GI: Hx GERD - Continue Protonix 40mg po daily : Patient with CKD, ROSEMARY. BUN of 166 and Cr of 6.33 and initially trended down to baseline with IV fluids, continues to trend back up after restarting bumex Acute on chronic kidney injury - secondary to prerenal azotemia from dehydration in the setting of diuretic use and poor p.o. intake. Improved with IV fluids, mildly worse with IV Bumex given 10/08, now trending up with further PO bumex. No hydronephrosis on renal duplex this admission. Nephrology not seen today but will have Dr Ta see in the morning as discussed with Dr Atkins. BPH/urethral stricture - Recent owusu cath placement in clinic to remove possible obstruction from diagnosis of renal failure. Owusu catheter removed 10/09 by patient request. Normal PVR s/p owusu removal, off tamsulosin. History of renal artery stenosis - repeat duplex this admission shows stent in place with no significant stenosis Possible catheter associated UTI - E. coli urine culture. Unclear if contributory on admission, covered by current antibiotics for pneumonia Heme: Anemia secondary to CKD, stable. Will defer iron studies as outpatient. ID: Catheter associated UTI - Rx as above, catheter removed 10/09 Endocrine: T2DM - HbA1C 6.3. Hypoglycemia with re-introduction of glipizide therefore discontinued. On no diabetic medication currently. Hypothyroidism - TSH WNL. Continue current dose of levothyroxine. DVT prophylaxis - subcutaneous heparin 5000 units SQ Q12H Code - DNR/DNI (per prior discussions with his ) Dispo - Cr increasing with increasing edema. I do not feel he is medically stable for discharge at this time. (2) Xeskh-yr-vzfhdsk kidney injury: (3) COPD (chronic obstructive pulmonary disease): (4) Anemia: (5) Hypotension: (6) Acute UTI: (7) Paroxysmal ventricular tachycardia: (8) PAD (peripheral artery disease): (9) Left renal artery stenosis: (10) COPD (chronic obstructive pulmonary disease) with chronic bronchitis: (11) Central sleep apnea: (12) Dyslipidemia: (13) BPH (benign prostatic hyperplasia): (14) Presence of combination internal cardiac defibrillator (ICD) and pacemaker: (15) History of TIA (transient ischemic attack): (16) Hypothyroidism: (17) Ischemic dilated cardiomyopathy: (18) CAD (coronary artery disease): (19) DM type 2 (diabetes mellitus, type 2): (20) Aortic stenosis, moderate: (21) Pleural effusion: (22) Atelectasis of both lungs: Subjective Patient in a very irritable mood today. He reports wanting to get out of hospital and go home although has no insight into his condition. He would need a 2 step as he was on oxygen prior to admission if he was to go home. He does not understand that he cannot go home without oxygen. And is on his cane very frustrated as we are trying to get insurance authorization for a bed for Ericka which is still yet to come through. He has continued to be more edematous although denies his breathing is not getting any worse. No chest or abdominal pain. Apparently his was in earlier wanting to take him home in addition although this was not expressed to me in person and I was unable to contact her via phone today. I did not see her on rounds. Review of Systems Review of Systems: All systems reviewed & are unremarkable except as noted in HPI & below Constitutional: + fatigue; no fever and no chills Physical Exam Constitutional: + ill appearing; + not well nourished and no acute distress Eyes: + anicteric sclerae; normal pupil size ENMT: Nose: + dry nasal mucous membranes Mouth: + dry oral mucous membranes Neck: trachea midline Respiratory: normal respiratory effort and + uses accessory muscles; no respiratory distress, no labored breathing and no retractions Auscultation: + diminished lung sounds (reduced throughout left side) and + crackles (left base); no rhonchi and no wheezes Cardiovascular: Rate/Rhythm: regular rate and regular rhythm Heart Sounds: + murmur Vessels: no JVD Extremities: + edema (3+ b/l) Chest (Breasts): Chest: normal inspection of chest Gastrointestinal (Abdomen): Inspection/Auscultation: + abdomen distended, normal bowel sounds and + abdominal edema (1+) Percussion/Palpation: abdomen soft; abdomen nontender, no guarding and abdomen not rigid Musculoskeletal: no cyanosis or clubbing, extremities motor strength 5/5 (grossly normal strength in all 4 limbs) Skin: + wound (Multiple scabs all over anterior shins without surrounding cellulitis) and + skin atrophy Neurologic: awake; not confused Psychiatric: Orientation: alert and oriented x 3 Affect: + irritable affect Insight: + limited insight (does not think he ever had a kidney problem) Results & Data Vital Signs (Past 12 Hours) Vital Signs Temp Pulse Pulse Resp BP Pulse Ox 10/14/19 23:05 97.5 F L 98 H 20 90/59 L 99 10/14/19 19:19 97.3 F L 100 H 20 94/63 L 97 10/14/19 15:41 85 10/14/19 14:56 97.9 F 89 20 99/63 L 98 PG Care Time/CCT Total # of Minutes Spent Total Time Spent with Patient: Total time spent is greater than 50% in coordination of care (as documented) at patient's floor/unit and/or counseling patient: (1) Anemia Anemia type: due to chronic kidney disease (2) Hypothyroidism Hypothyroidism type: unspecified Qualified Code(s): E03.9 - Hypothyroidism, unspecified
[2019-10-15] MEDS: LEVOTHYROXINE SODIUM 100 MCG TABLET PO SCH (06:00)
--- NOTE | 2019-10-15 07:30 | XRay Report ---
XR chest 1V portable HISTORY: 79 years-old Male pulmonary edema, pleural effusions acute shortness of breath with pulmona ry edema and pleural effusions COMPARISON: Chest radiograph and CT chest 10/10/2019 TECHNIQUE: Portable AP view of the chest FINDINGS: Cardiac silhouette is enlarged, unchanged. Perivascular congestion with interstitial coarsening persi sts. No pneumothorax. Small pleural effusions, left greater than right with persistent left midlung a nd bibasilar opacities. Unchanged left subclavian pacer/AICD. Calcified plaque of the thoracic aortic arch. Degenerative changes of the shoulders and spine. IMPRESSION: 1. Cardiomegaly with unchanged pulmonary edema. 2. Small pleural effusions with persistent left greater than right bibasilar and left midlung opaciti es The above report was generated using voice recognition software. It may contain grammatical, syntax o r spelling errors. Electronically signed by: Getachew Silva M.D. 10/15/2019 7:28 AM
[2019-10-15] MEDS: FINASTERIDE 5 MG TAB PO SCH (07:50)
[2019-10-15] MEDS: ASPIRIN 81 MG ECTAB PO SCH (07:50)
[2019-10-15] MEDS: PRAVASTATIN SOD 40 MG TAB PO SCH (07:50)
[2019-10-15] MEDS: CLOPIDOGREL BISULFATE 75 MG TAB PO SCH (07:51)
[2019-10-15] MEDS: AMIODARONE 200 MG TAB PO SCH (07:52)
[2019-10-15] MEDS: HEPARIN SOD 5,000 UNIT/0.5 ML VIAL SQ SCH (07:52)
[2019-10-15] MEDS: PANTOprazole 40 MG TAB PO SCH (07:53)
[2019-10-15] MEDS: IPRATROPIUM BROMIDE/ALBUTEROL respimat INH INH SCH (07:53)
[2019-10-15] MEDS: DOCUSATE SODIUM/SENNA 50/8.6MG TAB PO SCH (07:57)
[2019-10-15] MEDS: CEFEPIME 2,000 MG in SYRINGE 7.5 ML IV SCH (07:57)
[2019-10-15] MEDS: POLYETHYLENE (MIRALAX) 17 GM PACK PO SCH (07:58)
[2019-10-15] MEDS: INSULIN ASPART 100 UNITS/ML 3 ML PEN SC SCH (08:00)
[2019-10-15 08:41] LABS: BUN Creatinine Ratio 21.1 (10-20); Calcium 8.9 mg/dl (8.5-10.1); Creatinine Clr Calc Pharmacy 13.1 ml/min; Est GFR (African American) 10.9; Est GFR (Non-African American) 9.4; Potassium 5.1 mmol/L (3.5-5.1)
[2019-10-15] MEDS ORDERED: BUMETANIDE 1 MG TAB PO SCH (09:00)
[2019-10-15] MEDS ORDERED: SODIUM BICARB 8.4% INJ 50 MEQ/50 ML SYR IV STA ×2 (09:26→09:49)
[2019-10-15] MEDS ORDERED: SODIUM BICARBONATE 650 MG TAB PO SCH (09:30)
--- NOTE | 2019-10-15 09:59 | Hospitalist Progress Note ---
Date of Service October 15, 2019 Assessment & Plan (1) Non-ST elevation SC (NSTEMI): 79-year-old male patient with multiple medical issues most notably difficult fluid balance with CKD and congestive heart failure (complicated with valvular disease). Admission for somnolence, decreased appetite and confusion with diffuse weakness and general decline over the last few months with acute worsening over last 2 weeks. Labs on admission most notable for elevated troponin I 10.3 and creatinine 6.5 (baseline approximately 4). His number initially improved with IV fluids however he developed increasing pleural effusion and edema. He was restarted on bumex however this caused his renal fun ction to deteriorate again. He is now getting more acidotic and not producing any urine. No obstructive cause on bladder scan, he declines any further intervention and wishes to be made comfort care. Discussed with his and family when they arrived and all in agreement to concentrate for comfort at this time. Patient transitioned to comfort care. Morphine for shortness of breath, Ativan for agitation, atropine for secretions. (2) Qjuuo-rv-jhxsosl kidney injury: (3) COPD (chronic obstructive pulmonary disease): (4) Anemia: (5) Hypotension: (6) Acute UTI: (7) Paroxysmal ventricular tachycardia: (8) PAD (peripheral artery disease): (9) Left renal artery stenosis: (10) COPD (chronic obstructive pulmonary disease) with chronic bronchitis: (11) Central sleep apnea: (12) Dyslipidemia: (13) BPH (benign prostatic hyperplasia): (14) Presence of combination internal cardiac defibrillator (ICD) and pacemaker: (15) History of TIA (transient ischemic attack): (16) Hypothyroidism: (17) Ischemic dilated cardiomyopathy: (18) CAD (coronary artery disease): (19) DM type 2 (diabetes mellitus, type 2): (20) Aortic stenosis, moderate: (21) Pleural effusion: (22) Atelectasis of both lungs: (23) Goals of care, counseling/discussion: Subjective Contacted by RN as patient having multiple runs of VT. Increasing acidosis on his labs therefore 2 amps of bicarb were prescribed and given. Patient reports difficulty urinating and not being able to make urine this morning. No residual on bladder scan. He completely refuses straight or owusu catheter even if this means the end of his life. As such further imaging for urinary obstruction remains obsolete at this time. The patient reports feeling comfortable and not short of breath or in pain but wishes something to end his life quicker which I advised I am unable to prescribe medication to purely hasten . I discussed the case with Dr Ta and decision regarding dialysis already made, the patient reiterated this decision. I called his via his daughters phone and informed her his kidneys had stopped working and he likely has hours to live. They plan on coming in around an hour. She expressed anger that he had not been transported home yesterday. Although I was aware of this request I was unable to contact his and there was no discussion regarding going on hospice care as the decision previously was to continue active treatment. Discussed situation and care with his and family when they arrived. The patient, his and family wished to make him comfortable at this time and he was transitioned to comfort care. Review of Systems Review of Systems: All systems reviewed & are unremarkable except as noted in HPI & below Physical Exam Constitutional: no acute distress Respiratory: Auscultation: + diminished lung sounds (minimal air entry on left, prefers to lie on this side.); no crackles Cardiovascular: Rate/Rhythm: regular rate and regular rhythm Heart Sounds: + murmur Extremities: + edema (3+) Gastrointestinal (Abdomen): Inspection/Auscultation: + abdomen distended and normal bowel sounds Percussion/Palpation: abdomen nontender and + abdomen not soft Skin: normal turgor Psychiatric: Orientation: alert and oriented x 3 Results & Data Vital Signs (Past 12 Hours) Vital Signs Temp Pulse Pulse Resp BP BP Pulse Ox 10/15/19 09:39 96.6 F L 89 18 90/62 L 99 10/15/19 07:08 93 H 10/15/19 07:00 97.9 F 75 16 97/64 L 100 10/15/19 03:30 97.7 F 97 H 20 89/64 L 99 10/14/19 23:05 97.5 F L 98 H 20 90/59 L 99 PG Care Time/CCT Total # of Minutes Spent Total Time Spent with Patient: Total time spent is greater than 50% in coordination of care (as documented) at patient's floor/unit and/or counseling patient: (1) Anemia Anemia type: due to chronic kidney disease (2) Hypothyroidism Hypothyroidism type: unspecified Qualified Code(s): E03.9 - Hypothyroidism, unspecified
[2019-10-15] MEDS ORDERED: LORazepam 1 MG/2 ML VIAL IV PRN (10:30)
[2019-10-15] MEDS ORDERED: MoRPHine SULFATE 5 MG/0.25 ML UDP PO PRN ×2 (10:30→10:39)
[2019-10-15] MEDS ORDERED: HALOPERIDOL LACTATE 5 MG/ML 1 ML VIAL IV PRN (10:30)
[2019-10-15] MEDS ORDERED: MoRPHine SULFATE 2 MG/ML CARP IV PRN (10:39)
--- NOTE | 2019-10-15 14:51 | Death Summary ---
Date of Service October 15, 2019 Pronouncement Note Date and Time of Date of : 10/15/19 Time of : 14:28 PCOD Preliminary cause of : Ventricular tachycardia Contributing Factors (1) Vjedf-qn-tmymria kidney injury: (2) Anemia: (3) Hypotension: (4) Acute UTI: (5) Paroxysmal ventricular tachycardia: (6) PAD (peripheral artery disease): (7) Left renal artery stenosis: (8) COPD (chronic obstructive pulmonary disease) with chronic bronchitis: (9) Central sleep apnea: (10) Dyslipidemia: (11) BPH (benign prostatic hyperplasia): (12) Presence of combination internal cardiac defibrillator (ICD) and pacemaker: (13) History of TIA (transient ischemic attack): (14) Hypothyroidism: (15) Ischemic dilated cardiomyopathy: (16) CAD (coronary artery disease): (17) DM type 2 (diabetes mellitus, type 2): (18) Aortic stenosis, moderate: (19) Pleural effusion: (20) Atelectasis of both lungs: Summary Additional details: 79 year old male admission for acute on chronic renal failure due to poor oral intake, possible urine tract infection and diuretic use. This was complicated by his multiple co-morbidities as listed above. Initial improvement with intravenous fluids but then developed increasing pleural effusions leading to suspected healthcare acquired pneumonia. He was trialed back on his home dose of diuretics to help with his breathing and hypervolemic fluid status but this again worsened his renal function, he became more acidotic with increasingly more ventricular arrhythmias. On the day of his he stopped producing urine and he was given bicarbonate stabilize his cardiac arrhythmias. He and his requested no further intervention including Pinto catheter, further IV fluids or bicarbonate. His defibrillator was turned off and he went into pulseless ventricular tachycardia. Additional Data Confirmation of : no pulse, no respirations, no heart sounds and pupils fixed and dilated Family: at bedside Attending/PCP notified?: Yes Attending physician: Johnathan Rudd MD Was code activated?: No Autopsy requested?: No title insurance examiner notified?: No Organ bank notified?: No
--- NOTE | 2019-10-20 13:07 | Coding Query ---
CODING QUERY To promote full compliance with coding requirements relating to patient care, provider participation is requested in all cases of molder pipe covering uncertainty. Please assist us with the question(s) below: Coding Question(s): There is documentation from ER thru the last Progress Note of NSTEMI and documentation of Elevated Troponin in the setting of Acute Kidney Injury without EKG changes or chest pain per cardiology - not ACS, in Progress Notes, as on the Progress Note on 10/15/19. Please clarify below, in your clinical opinion, regarding NSTEMI. ( ) NSTEMI ( x ) NSTEMI was Ruled-out ( ) Other: Please Specify Physician's Response(s): Thank you Mora Jolly Principal Diagnosis: "that condition established after study, to be chiefly responsible for occasioning the admission of the patient to the hospital for care." Co-Existing Principal Diagnosis: "when two or more diagnoses equally meet the criteria for principal diagnosis as determined by the circumstances of admission, diagnostic work up, and/or therapy provided, and the Alphabetic Index, Tabular List, or another coding guideline does not provide sequencing direction, any one of the diagnoses may be sequenced first." "When the physician has documented what appears to be a current diagnosis in the body of the record, but has not included the diagnosis in the final diagnostic statement, the physician should be asked whether the diagnosis should be added." (Source Coding [facility] 2 QTR90. p3-4) GILA
== END 2019-10-15 16:40 | disposition expired | DRG 682 ==
LOC: ED 13:49 → SUATTDRO 19:08 → 2S 19:08 → 2N 10-05 13:03 → 4W 10-07 15:31 → 2W 10-10 17:00